=== PATIENT | female | born 1945 | race Caucasian/White ===

== ENCOUNTER 2020-06-02 19:48 | Emergency (ER) | payer MEDICARE, SELFPAY ==
--- NOTE | ~2020-06-02 | CT_ITS ---
EXAMINATION: CT abdomen pelvis w con DATE: 06/02/2020 21:23 INDICATION: Left flank pain and fever. TECHNIQUE: Computed tomography (CT) of the abdomen and pelvis was performed with 100 mL Omnipaque 350 intravenous contrast. Automated exposure control and iterative reconstruction technique were employe d. The dose-length product was 1045.16 mGy-cm. COMPARISON: None. FINDINGS: The visualized portions of the lung bases demonstrate mild atelectasis. Calcified left lung nodules and calcified mediastinal lymph nodes are consistent with old granulomatous disease. No pleu ral effusion. The heart size is normal. There are coronary artery calcifications. No pericardial effu tyrese. The liver is normal. There is a 2.8 cm cystic lesion in the head of the pancreas. Calcification s in the spleen are consistent with old granulomatous disease. The adrenal glands are normal. There i s mild atrophy of the kidneys. There are no dilated loops of bowel. The appendix is not visualized. T here are umbilical and supraumbilical ventral hernias containing fat. There are surgical changes of t he stomach. There are no pathologically enlarged lymph nodes. There is no free intraperitoneal fluid. There is diffuse wall thickening of the bladder. There is severe lumbar spondylosis and moderate tho racic spondylosis. IMPRESSION: 1. 2.8 cm cystic lesion in the pancreas. The differential diagnosis includes pseudocyst, intraductal papillary mucinous neoplasm (IPMN), mucinous cystic neoplasm (MCN), serous cystadenoma, and neuroendo crine tumor. Consider endoscopic ultrasound with fine-needle aspiration or 6-month follow-up abdomen MRI without and with contrast. 2. Umbilical and supraumbilical ventral hernias containing fat. 3. Diffuse bladder wall thickening, which may be cystitis. Correlate with urinalysis. Reviewed, dictated and finalized at location A. IMPRESSION: 1. 2.8 cm cystic lesion in the pancreas. The differential diagnosis includes ps eudocyst, intraductal papillary mucinous neoplasm (IPMN), mucinous cystic neopl asm (MCN), serous cystadenoma, and neuroendocrine tumor. Consider endoscopic ul trasound with fine-needle aspiration or 6-month follow-up abdomen MRI without a nd with contrast. 2. Umbilical and supraumbilical ventral hernias containing fat. 3. Diffuse bladder wall thickening, which may be cystitis. Correlate with urina lysis.
[2020-06-02 19:51] VITALS: BP 180/82; PULSE 96; RESP 16; TEMP 37.8; O2SAT 99
--- NOTE | 2020-06-02 19:56 | ED.FEVER ---
HPI - Fever General Chief Complaint: Fever Stated Complaint: fever, UTI, sent from express care Time Seen by Provider: 06/02/20 19:56 History of Present Illness HPI Narrative: Sent from urgent care for fever and UTI. She reports dyuria and urinary frequency for a few days. Low grade fever and left flank pain today. She has a h/o previous pyelonephritis. Related Data Allergies Allergy/AdvReac Type Severity Reaction Status Date / Time No Known Allergies Allergy Verified 06/02/20 20:48 Review of Systems Review of Systems: All systems reviewed & are unremarkable except as noted in HPI and below Constitutional: Constitutional: Reports fever(s) ENT: Denies sore throat Cardiovascular: Cardiovascular: Denies chest pain Respiratory: Respiratory: Denies cough and Denies dyspnea Gastrointestinal: Gastrointestinal: Reports nausea and Denies vomiting Genitourinary: Genitourinary: Reports nocturia, Reports dysuria and Reports flank pain PMF Past Medical History Medical History (Updated 06/03/20 @ 04:11 by Trung Hinojosa MD) Pyelonephritis Exam Const: General: no acute distress and alert Orientation/consciousness: patient oriented x3 HENMT: Head: normal to inspection Resp: Effort & Inspection: normal respiratory effort Auscultation: clear to auscultation bilaterally Cardio: Rate: regular rate Rhythm: regular rhythm GI: Inspection: non-distended GI Palp: Yes Soft to palpation and Yes Tenderness to palpation present (GI) : General: Yes CVA tenderness on the left Skin: General skin exam: normal color Neuro: General: patient oriented x3 and CN's II-XI intact bilaterally Speech: normal speech Psych: Mental Status: mental status grossly normal Course Vital Signs Vital signs: Vital Signs Temperature 37.8 C H 06/02/20 19:51 Pulse Rate 96 06/02/20 19:51 Respiratory Rate 16 06/02/20 19:51 Blood Pressure 180/82 H 06/02/20 19:51 Pulse Oximetry 99 06/02/20 19:51 Temperature 37.2 C 06/02/20 22:31 Pulse Rate 88 06/02/20 22:31 Respiratory Rate 16 06/02/20 22:31 Blood Pressure 164/68 H 06/02/20 22:31 Pulse Oximetry 98 06/02/20 22:31 MDM - Fever MDM Narrative Medical decision making narrative: No evidence of renal involvement on CT. Mild elevation in WBCs. Given temp elevation, DM, and flank pain with h/o pyelo I will treat with more broad spectrum antibiotic. She should be appropriate for outpatient treatment at this time. Medical Records Attestation: I reviewed the patient's medical records. Lab Data Attestation: I reviewed the patient's lab results. Result diagrams: 06/02/20 20:41 Labs: Lab Results 06/02/20 Range/Units 20:41 Sodium 135 L (137-145) mmol/L Potassium 3.2 L (3.4-5.0) mmol/L Chloride 101 (98-107) mmol/L Carbon Dioxide 25 (22-30) mmol/L BUN 19 H (7-17) mg/dL Creatinine 1.00 (0.7-1.0) mg/dL Estim Creat Clear Calc 49 ml/min Estimated GFR 54 L (59 - ) Glucose 193 H (65-105) mg/dL Calcium 9.2 (8.4-10.2) mg/dL Total Bilirubin 0.8 (0.2-1.3) mg/dL AST 41 H (14-36) U/L ALT 45 H (4-35) U/L Alkaline Phosphatase 91 (38-126) U/L Total Protein 8.0 (6.3-8.2) g/dL Albumin 4.0 (3.5-5.1) g/dL Imaging Data Radiologist's impression: ITS Impressions Abdomen/Pelvis CT 06/02/20 21:39 IMPRESSION: 1. 2.8 cm cystic lesion in the pancreas. The differential diagnosis includes pseudocyst, intraductal papillary mucinous neoplasm (IPMN), mucinous cystic neoplasm (MCN), serous cystadenoma, and neuroendocrine tumor. Consider endoscopic ultrasound with fine-needle aspiration or 6-month follow-up abdomen MRI without and with contrast. 2. Umbilical and supraumbilical ventral hernias containing fat. 3. Diffuse bladder wall thickening, which may be cystitis. Correlate with urinalysis. Discharge Plan Discharge Clinical Impression: UTI (urinary tract infection) Patient Disposition: Home,
[2020-06-02 20:59] LABS: Alanine Aminotransferase 45 U/L (4-35); Alkaline Phosphatase 91 U/L (38-126); Aspartate Amino Transferase 41 U/L (14-36); Bilirubin,Total 0.8 mg/dL (0.2-1.3); Blood Urea Nitrogen 19 mg/dL (7-17); Calcium 9.2 mg/dL (8.4-10.2); Carbon Dioxide 25 mmol/L (22-30); Chloride 101 mmol/L (98-107); Estimated CRCL calculation 49 ml/min; Estimated Glomerular Filt Rate 54; Glucose 193 mg/dL (65-105); Potassium 3.2 mmol/L (3.4-5.0); Sodium 135 mmol/L (137-145)
[2020-06-02] MEDS: KETOROLAC 30 MG/ML VIAL (*BKC) IV PUSH (22:07)
[2020-06-02] MEDS: MORPHINE SULFATE 2 MG/ML INJ IV PUSH (22:07)
[2020-06-02 22:31] VITALS: BP 164/68; PULSE 88; RESP 16; TEMP 37.2; O2SAT 98
== END 2020-06-02 22:34 | disposition home or self-care (01) ==
PROVIDERS: Emergency Provider Emergency Medicine
DX: N39.0 Urinary tract infection, site not specified (principal); K42.9 Umbilical hernia without obstruction or gangrene; K43.9 Ventral hernia without obstruction or gangrene; K86.9 Disease of pancreas, unspecified
CPT/HCPCS: 36415; 74177; 80053; 87077; 87086; 87088; 87186; 96365; 96368; 96375; 99284; J0131; J0696; J1885; J2270; Q9967

== ENCOUNTER 2020-09-16 07:57 | Emergency (ER) | payer MEDICARE, OTHER, SELFPAY ==
--- NOTE | ~2020-09-16 | XR_ITS ---
EXAMINATION:XR_CERV2-3V_CR DATE: 09/16/2020 08:40 INDICATION: Neck pain TECHNIQUE: AP, lateral, lateral swimmers and odontoid views of the cervical spine are provided. COMPARISON: None FINDINGS: There are 2 mm of retrolisthesis of C6 on C7. The odontoid is intact. No fracture is identi fied. The vertebral body heights are normal. There is moderate loss of intervertebral disc space heig ht at C4-5 and C6-7. Degenerative osteophytes project from the anterior endplates of multiple vertebr al bodies. There is severe multilevel facet and uncovertebral joint osteoarthritis. Prevertebral soft tissues are normal. IMPRESSION: 1. Moderate cervical spondylosis without acute osseous abnormality. Reviewed, dictated and finalized at location A.
--- NOTE | ~2020-09-16 | CT_ITS ---
EXAMINATION: CT cervical spine wo con DATE: 09/16/2020 10:42 INDICATION: Neck pain TECHNIQUE: Computed tomography (CT) of the cervical spine was performed without intravenous contrast. The dose-length product (DLP) was 419.38 mGy-cm. Automated exposure control and iterative reconstruc tion technique were employed. COMPARISON: None FINDINGS: There is no fracture. The vertebral body heights are maintained. There are 2 mm of anteroli sthesis of C2 on C3 and C3 on C4. There is moderate loss of intervertebral disc space height from C4- 5 through C6-7 and mild loss of height elsewhere. The vertebral body heights are maintained. The odon toid is intact. The prevertebral soft tissues are normal. There is severe multilevel facet and uncove rtebral joint osteoarthritis. Degenerative osteophytes project from the anterior endplates of multipl e vertebral bodies. IMPRESSION: 1. Severe cervical spondylosis without acute findings. Reviewed, dictated and finalized at location A.
--- NOTE | ~2020-09-16 | XR_ITS ---
EXAMINATION: XR humerus LT INDICATION: Left arm pain TECHNIQUE: Two views of the left humerus are obtained. COMPARISON: None available FINDINGS: Bone alignment is normal. There is no fracture. Mild osteoarthritis is noted in the shoulde r. There is soft tissue swelling of the upper arm. Partially imaged surgical changes are noted in the left upper quadrant. IMPRESSION: 1. Soft tissue swelling without acute osseous abnormality. Reviewed, dictated and finalized at location A.
[2020-09-16 08:19] VITALS: BP 151/96; PULSE 82; RESP 12; TEMP 36.3; O2SAT 99
--- NOTE | 2020-09-16 08:21 | ECG_ITS ---
Measurements Intervals [place] Rate: 67 P: 50 LA: 142 QRS: 5 QRSD: 99 T: 12 QT: 419 QTc: 444 Interpretive Statements SINUS RHYTHM VOLTAGE CRITERIA FOR LVH BORDERLINE ECG Electronically Signed On 09-16-2020 13:47:51 CDT by Ramo Regalado D.O.
--- NOTE | 2020-09-16 08:32 | ED.GENADULT ---
HPI - General Adult General Chief complaint: Extremity Problem,Nontraumatic Stated complaint: left arm and neck pain Time Seen by Provider: 09/16/20 08:03 Source: patient History of Present Illness HPI narrative: Patient is a 75 y/o female complaining of left neck pain radiating to left arm starting about 1 week ago. She describes her pain as aching and occasionally sharp. She rates her pain as 8/10. She states that she was pulled down by a large dog 1 week ago before her pain started. She has no chest pain or SOB. She is able to move left arm. She has no left arm weakness or numbness. Related Data Home Medications Medication Instructions Recorded Confirmed aspirin 81 mg PO DAILY 09/16/20 atorvastatin 09/16/20 clopidogrel 75 mg PO DAILY 09/16/20 famotidine [Acid Yard Caller 20 09/16/20 (famotidine)] furosemide 09/16/20 lisinopril 09/16/20 metformin 1,000 mg 09/16/20 multivit with min-folic acid tablet PO 09/16/20 [Adult One Daily Multivitamin] Allergies Allergy/AdvReac Type Severity Reaction Status Date / Time No Known Allergies Allergy Verified 09/16/20 08:22 Review of Systems Constitutional: Constitutional: Denies chills, Denies fever(s), Denies headache(s) and Denies weakness Eyes: Eyes: Denies blurry vision ENT: Denies headache(s) and Denies neck pain Cardiovascular: Cardiovascular: Denies chest pain and Denies dyspnea Respiratory: Respiratory: Denies cough and Denies dyspnea Gastrointestinal: Gastrointestinal: Denies abdominal pain, Denies diarrhea, Denies nausea and Denies vomiting Genitourinary: Genitourinary: Denies hematuria and Denies dysuria Musculoskeletal: Musculoskeletal: Reports as per HPI, Denies back pain, Denies neck pain, Reports radiating pain into limb and Reports other (neck pain) Neurologic: Denies headache(s) and Denies weakness PMFSH Past Medical History Medical History Pyelonephritis Social History Social History Gender identity (if verbalized by the patient): Female Exam Const: General: no acute distress and well developed Orientation/consciousness: oriented to person, oriented to place, oriented to time and patient oriented x3 HENMT: Head: normocephalic Ears: external ears normal General nose exam: Normal external nose present Eyes: General: appearance normal, both eyes and all related structures Conjunctivae: conjunctivae normal Neck: Neck: normal visual inspection and full ROM Chest: Chest palpation & inspection: normal inspection of the chest and no tenderness Resp: Effort & Inspection: normal respiratory effort Auscultation: clear to auscultation bilaterally Cardio: Rate: regular rate Rhythm: regular rhythm GI: GI Palp: No abdominal tenderness and Yes Soft to palpation Skin: General skin exam: normal color and turgor normal Neuro: General: oriented to person, oriented to place, oriented to time and patient oriented x3 Cognition (Neuro): normal cognition Extrem: General: normal to inspection, full ROM and no pedal edema Psych: Appearance: grossly normal Mental Status: mental status grossly normal Affect: normal affect Course Vital Signs Vital signs: Vital Signs Temperature 36.3 C L 09/16/20 08:19 Pulse Rate 82 09/16/20 08:19 Respiratory Rate 12 09/16/20 08:19 Blood Pressure 151/96 H 09/16/20 08:19 Pulse Oximetry 99 09/16/20 08:19 Temperature 36.3 C L 09/16/20 08:19 Pulse Rate 65 09/16/20 12:12 Respiratory Rate 17 09/16/20 12:12 Blood Pressure 163/93 H 09/16/20 12:12 Pulse Oximetry 98 09/16/20 12:12 Medical Decision Making Vital Signs Vital Signs: Vital Signs Temperature 36.3 C L 09/16/20 08:19 Pulse Rate 82 09/16/20 08:19 Respiratory Rate 12 09/16/20 08:19 Blood Pressure 151/96 H 09/16/20 08:19 Pulse Oximetry 99 09/16/20 08:19 Temperature 36.3 C L 09/16/20 08:
[2020-09-16] MEDS: CYCLOBENZAPRINE HCL 10 MG TABLET PO (08:50)
[2020-09-16 08:51] VITALS: BP 190/99; PULSE 67; RESP 20; O2SAT 97
[2020-09-16 08:52] LABS: Basophils Absolute Auto 0.1 K/mm3 (0.0-0.1); Basophils Percent Auto 0.9 % (0.2-1.2); Eosinophils Absolute Auto 0.6 K/mm3 (0-0.3); Eosinophils Percent Auto 6.1 % (0-4.4); Hematocrit 44.5 % (37.0-47.0); Hemoglobin 14.4 g/dL (12.0-15.0); Immature Granulocyte Absolute 0.03 K/mm3 (0.00-0.031); Immature Granulocyte Percent A 0.3 % (0-0.5); Lymphocytes Absolute Auto 3.15 K/mm3 (0.9-3.2); Lymphocytes Percent Auto 34.2 % (18.3-44.2); Mean Corpuscular HGB Conc 32.4 g/dl (32-36); Mean Corpuscular Volume 92.7 fl (80-100); Mean Platelet Volume 10.7 fl (7.4-10.4); Monocytes Absolute Auto 0.8 K/mm3 (0.1-0.6); Monocytes Percent Auto 8.3 % (2.6-8.5); Neutrophils Absolute Auto 4.6 K/mm3 (1.3-6.7); Neutrophils Percent Auto 50.2 % (45.5-73.1); Platelet Count Result 280 k/mm3 (150-375); Red Cell Distribution Width 13.8 % (11.5-14.5); White Blood Count 9.2 K/mm3 (4.5-10.0)
[2020-09-16 09:02] LABS: Anion Gap 8 mmol/L (8-16); Blood Urea Nitrogen 19 mg/dL (7-17); Calcium 9.8 mg/dL (8.4-10.2); Carbon Dioxide 29 mmol/L (22-30); Chloride 103 mmol/L (98-107); Estimated Glomerular Filt Rate 54; Glucose 182 mg/dL (65-105); Potassium 4.1 mmol/L (3.4-5.0); Sodium 140 mmol/L (137-145)
[2020-09-16 09:14] LABS: Troponin I < 0.012 ng/mL (0.000-0.034)
[2020-09-16 09:21] VITALS: PULSE 73; RESP 21; O2SAT 97
[2020-09-16] MEDS: hydroCHLOROthiazide 25 MG TABLET PO (10:19)
[2020-09-16] MEDS: KETOROLAC 15 MG/ML VIAL (*BKC) IV PUSH (10:19)
[2020-09-16 10:44] VITALS: BP 194/95; PULSE 64; RESP 18; O2SAT 98
[2020-09-16 11:19] VITALS: PULSE 65; RESP 16; O2SAT 98
[2020-09-16 12:04] LABS: Troponin I < 0.012 ng/mL (0.000-0.034)
[2020-09-16 12:12] VITALS: BP 163/93; PULSE 65; RESP 17; O2SAT 98
== END 2020-09-16 13:16 | disposition home or self-care (01) ==
PROVIDERS: Emergency Provider Emergency Medicine; Referring Provider Family Medicine
DX: M54.12 Radiculopathy, cervical region (principal); I10 Essential (primary) hypertension; Z79.82 Long term (current) use of aspirin; Z79.84 Long term (current) use of oral hypoglycemic drugs; R94.31 Abnormal electrocardiogram [ECG] [EKG]
CPT/HCPCS: 36415; 72040; 72125; 73060; 80048; 84484; 85025; 93005; 96374; 99284; A9270; J1885

== ENCOUNTER 2023-10-21 11:28 | Outpatient (CLI) | payer MEDICARE, OTHER, SELFPAY ==
--- NOTE | ~2023-10-21 | US_ITS ---
Duplex Sonography of the right extremity: Indication: Right calf pain Findings: Sagittal and transverse B-mode images as well as color-flow imaging were performed on the r ight femoral and popliteal veins. B-mode examination was done without and with compression in the tr ansverse plane. There is good visualization of the common femoral, proximal profunda femoral, superf icial femoral, greater saphenous, and popliteal veins. Normal flow was seen on color-flow imaging. N ormal compressibility was demonstrated. Right posterior tibial, gastrocnemius, greater saphenous vein s also demonstrate normal flow and compressibility. Right peroneal vein not visualized. Impression: No evidence of deep vein thrombosis involving the right lower extremity. Reviewed, dictated and finalized at location M. TELLER Impression: No evidence of deep vein thrombosis involving the right lower extremity.
== END 2023-10-21 11:29 | disposition home or self-care (01) ==
PROVIDERS: PCP Nurse Practitioner Family; Visit Provider Nurse Practitioner Family
DX: M79.661 Pain in right lower leg (principal)
CPT/HCPCS: 93971

== ENCOUNTER 2025-02-18 07:40 | Outpatient (CLI) | payer MEDICARE, SELFPAY ==
--- NOTE | ~2025-02-18 | CT_ITS ---
CT of the Abdomen and Pelvis: Indication: Abdominal pain Technique: 2.5 mm axial scans were obtained through the abdomen and pelvis following intravenous adm inistration of 100 cc of Omnipaque 350. Dose reduction technique was used on this scan by utilizing a utomated exposure control and iterative reconstruction technique. The dose-length product (DLP) was 9 16.52 mGy-cm. COMPARISON: 06/02/2020 Findings: Scans through the lung bases are unremarkable. Intrahepatic and extra hepatic biliary dilatation is probably related to prior cholecystectomy. There is a 2 cm cystic lesion at the pancreatic head. No pancreatic ductal dilatation. The spleen, adrenal s and kidneys are within normal limits. There are atherosclerotic calcifications of the aorta. No ly mphadenopathy. No bowel obstruction or bowel wall thickening. There is no evidence to suggest acute appendicitis. Ve ry small fat-containing inferior ventral hernia present. Images through the pelvis were performed. Urinary bladder unremarkable. No pelvic mass evident. Impression: No acute abnormality. Stable 2 cm cystic lesion at the pancreatic head. Biliary dilatation is likely related to prior cholecystectomy. Very small inferior ventral fat-containing hernia. Reviewed, dictated and finalized at location . Impression: No acute abnormality. Stable 2 cm cystic lesion at the pancreatic head. Biliary dilatation is likely related to prior cholecystectomy. Very small inferior ventral fat-containing hernia.
--- OUTSIDE RECORDS SUMMARY | 2025-02-18 07:44 | XMS_ITS | Encounter Summary ---
Author Organization formerly [facility] Address [address] [place] [address] Care Team Providers Care Stage Setting Painter Apprentice Name Role Phone Khai Neal MD Unavailable [phone] Delores Chamberlain NP Primary Care Provider [phone] Tyree Bauer MD PhD Unavailable + Mary Ma RN Unavailable Unavaila ble Reason for Referral * MRI/CAT/PET Scan (Routine) - Closed Specialty Diagnoses / Procedures Referred By Clara t Referred To Contact Radiology Diagnoses Pancreatic cyst Intrahepatic bile duct dilation Procedures MRI/MRCP (abdomen) W WO Contrast Xiomara Khan MD [address] [place] [address] [facility] [address] [place] [address] Phone: tel: fax: [address] [phone] Referral ID Status Reason Start Date Expiration Date Visits Re quested Visits Authorized [id number] Closed 12/28/2024 01/27/2026 1 1 Reason for Visit * MRI/CAT/PET Scan (Routine) - Closed Specialty Diagnoses / Procedures Referred By Clara garcia Referred To Contact Radiology Diagnoses Pancreatic cyst Intrahepatic bile duct dilation Procedures MRI/MRCP (abdomen) W WO Contrast Xiomara Khan MD [address] [place] [address] [address] [place] [address] Phone: tel: fax: [address] [phone] Referral ID Status Reason Start Date Expiration Date Visits Re quested Visits Authorized [id number] Closed 12/28/2024 01/27/2026 1 1 Encounter Details Date Type Department Care Team (Latest Contact Info) Description 02/16/2025 7:18 AM CDT - 02/16/2025 11:59 PM CDT Hospital Encounter [facility] [address] [place] [id number] Pancreatic cyst; Intrahepatic bile duct dilation Discharge Disposition: Discharge to home or self care Social History Tobacco Use Types Packs/Day Years Used Date Smoking Tobacco: Never Passive Smoke Exposure: Never Smokeless Tobacco: Never Alcohol Use Standard Drinks/Week Comments No 0 (1 standard drink = 0.6 oz pur e alcohol) AUDIT-C Answer Date Recorded Q1: How often do you have a drink containing alcohol? Never 02/04/2025 Q2: How many drinks containi ng alcohol do you have on a typical day when you are drinking? Patient does not drink Q3: How often do you have si x or more drinks on one occasion? Never 02/04/2025 PHQ-2 Answer Date Recorded PHQ-2 Total Score (If total score is 3 or more points, staff should administer the PHQ-9) 0 08/27/2024 Personal Safety Answer Date Recorded Have you ever been in or are you currently in a harmful physical or emotional relationship or is someone making you feel afraid or unsafe? Denies 02/07/2025 Comments No Sex and Gender Information Value Date Recorded Sex Assigned at Not on file Legal Sex Female 7:58 AM RISK PROFESSIONAL Gender Identity Female 05/21/2023 3:25 AM CDT Sexual Orientation Not on file documented as of this encounter Medications at Time of Discharge amLODIPine (NORVASC) 10 mg tabletIndications: Essential hypertension Take 1 tablet (10 mg total) by mouth daily 90 tablet 1 03/16/2024 aspirin 81 mg enteric coated tabletIndications: prevention of thrombosis Take 1 tablet (81 mg total) by mouth nightly 12/22/2023 atorvastatin (LIPITOR) 10 mg tabletIndications: Hypercholesterolem ia Take 1 tablet (10 mg total) by mouth daily 90 tablet 1 02/04/2025 blood glucose diagnostic (Contour Next Test Strips) stripIndications:T ype 2 diabetes mellitus without complication, without long-term current use of insulin (HCC) CHECK BLOOD SUGAR ONCE DAILY 200 strip 07/23/2023 dapagliflozin propanediol (Farxiga) 10 mg tabletIndications: type 2 diabetes mellitus Take 1 tablet (10 mg total) by mouth daily 12/02/2024 famotidine (PEPCID) 20 mg tabletIndications: gastroesophageal reflux disease Take 1 tablet (20 mg total) by mouth every morning lisinopriL (PRINIVIL,ZESTRIL) 20 mg tabletIndications: hypertension Take 1 tablet (20 mg total) by mouth every morning 90 tablet 1 09/06/2024 multivitamin capsuleIndications :Vitamin Deficiency Prevention Take 1 capsule by mouth every morning oxymetazoline HCl (AFRIN, OXYMETAZOLINE, NASL)Indications:a llergies Administer 1 spray into each nostril as needed vit C/E/Zn/coppr/lutei n/zeaxan (PRESERVISION AREDS-2 ORAL)Indications:e ye supplement Take 1 tablet by mouth 2 (two) times a day documented as of this encounter Discharge Disposition Disposition Code Departure Means Destination Discharge to home or self care documented in this encounter Plan of Treatment Pending Results Name Type Priority Associated Diagnoses Date /Time MRI/MRCP (abdomen) W WO Contrast Imaging Schedule Routine, Read Routine (OP Routine) Pancreatic cyst Intrahepatic bile duct dilation 02/16/2025 8:22 AM CDT Scheduled Orders Name Type Priority Associated Diagnoses Orde r Schedule MRI/MRCP (abdomen) W WO Contrast Imaging Schedule Routine, Read Routine (OP Routine) Pancreatic cyst Intrahepatic bile duct dilation Once for 1 Occurrences starting 02/16/2025 until 02/16/2025 documented as of this encounter Visit Diagnoses Diagnosis Pancreatic cyst 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 dilation documented in this encounter Administered Medications Inactive Administered Medications - up to 3 most recent administrations Medication Order MAR Action Action Date Dose Rate Site gadoterate meglumine injection 18 mL 18 mL, intravenous, Once in imaging, contrast, Starting on Fri02/16/25 at 0741, For 1 dose Contrast Given 02/16/2025 8:22 AM CDT 18 mL documented in this encounter Orders Medications Ordered That Jeff ht Not Have Been Administered Count Last Ordered Date First Ordered Date gadoterate meglumine injection 18 mL 1 12/2024 documented in this encounter Care Teams Stage Setting Painter Apprentice Relationship Specialty Start Date End Date Delores Chamberlain NP [address] [place] [address] PCP - General Family Medicine 07/23/23 Khai Neal MD Consulting Physician Ophthalmology 10/08/21 Tyree Bauer MD PhD [address] [place] [address] Referring Physician Cardiology 07/23/23 Mary Ma, fast food cook Failure Coordinator 08/12/23 documented as of this encounter
--- OUTSIDE RECORDS SUMMARY | 2025-02-18 07:44 | XMS_ITS | Clinical Summary ---
Author Organization [facility] Address [address] [place] [address] Care Team Providers Care Grout Worker Name Role Phone Delores Chamberlain Rk DEVELOPER [employer] Primary Care Provider [phone] Allergies No known active allergies Medications No known medications Encounters Date Type Department Care Team Description 12/14/2024 11:19 PM MERGERS AND ACQUISITIONS ASSOCIATE - 12/15/2024 3:55 AM MERGERS AND ACQUISITIONS ASSOCIATE Emergency [facility] Emergency Room [id number] [place] [address] [id number] Rasheed Orozco MD Bleeding (Rectal); Abdominal Pain Discharge Disposition: Home or Self Care (Routine Discharge) 12/14/2024 Travel from Last 3 Months Immunizations Name Administration Dates Next Due Tdap (Boostrix) 06/16/2024 Social History Tobacco Use Types Packs/Day Years Used Date Smoking Tobacco: Unknown Tobacco Cessation:Counseling Given: Not Answered Comments Unknown Sex and Gender Information Value Date Recorded Sex Assigned at Female 12/14/2024 11:51 PM MERGERS AND ACQUISITIONS ASSOCIATE Legal Sex Female 3:33 PM CDT Gender Identity Not on file Sexual Orientation Not on file Last Filed Vital Signs Vital Sign Reading Time Taken Comments Blood Pressure 167/76 12/15/2024 3:31 AM MERGERS AND ACQUISITIONS ASSOCIATE Pulse 100 12/15/2024 3:31 AM MERGERS AND ACQUISITIONS ASSOCIATE Temperature 36.7 C (98 F) 12/15/2024 3:31 AM MERGERS AND ACQUISITIONS ASSOCIATE Respiratory Rate 18 12/15/2024 3:31 AM MERGERS AND ACQUISITIONS ASSOCIATE Oxygen Saturation 97% 12/15/2024 3:31 AM MERGERS AND ACQUISITIONS ASSOCIATE Inhaled Oxygen Concentration - - Weight 86.2 kg (190 lb) 12/14/2024 11:21 PM MERGERS AND ACQUISITIONS ASSOCIATE Height 160 cm (5' 3 ) 12/14/2024 11:21 PM MERGERS AND ACQUISITIONS ASSOCIATE Body Mass Index 33.66 12/14/2024 11:21 PM MERGERS AND ACQUISITIONS ASSOCIATE Plan of Treatment Health Maintenance Due Date Last Done Comments Hepatitis C 1964 Zoster Vaccines (1 of 2) 1996 Annual Medicare Wellness Visit 2011 RSV Immunization or 60+ Years (1 - 1-dose 75+ series) 2021 COVID-19 Vaccine (5 - season) 2024 11/08/2023, 09/06/2022, 02/13/2021, Additional history exists DTaP, Tdap and Td Vaccines (2 - Td or Tdap) 06/16/2034 06/16/2024 Pneumococcal Vaccine: 65+ Years Completed 01/18/2020, 11/17/2015 Dexa Scan (General) Completed 08/03/2024, 08/03/2024, 12/05/2021, Additional history exists Meningococcal B Vaccine Aged Out No l onger eligible based on patient's age to complete this topic Meningococcal Vaccine Aged Out No umair kim eligible based on patient's age to complete this topic RSV Immunizations Under 20 Months Aged Out No longer eligible based on patient's age to complete this topic Procedures Procedure Name Priority Date/Time Associated Diagnosis Comments CT ABD+PEL W CON STAT 12/15/2024 2:31 AM MERGERS AND ACQUISITIONS ASSOCIATE LIPASE STAT 12/15/2024 1:05 AM MERGERS AND ACQUISITIONS ASSOCIATE BASIC METABOLIC PANEL STAT 12/15/2024 1:05 AM MERGERS AND ACQUISITIONS ASSOCIATE CBC W/DIFF AUTOMATED STAT 12/15/2024 1:05 AM MERGERS AND ACQUISITIONS ASSOCIATE from Last 3 Months Results * CT ABD+PEL W CON (12/15/2024 2:31 AM MERGERS AND ACQUISITIONS ASSOCIATE) Anatomical Region Laterality Modality Abdomen Computed Tomogra phy 12/15/2024 2:35 AM MERGERS AND ACQUISITIONS ASSOCIATE Impressions 12/15/2024 2:43 AM MERGERS AND ACQUISITIONS ASSOCIATE IMPRESSION: ===== 1. Long segment of distal large bowel and sigmoid colon with diffuse wall thickening and subtle adjacent inflammatory stranding. No discrete mass or obstruction. Colitis of uncertain etiology. 2. Intrahepatic biliary ductal dilatation with asymmetric prominence in the left hepatic lobe. This raises concern for ductal obstruction or underlying mass. Further evaluation with nonemergent liver mass protocol MRI with MRCP recommended. 3. 2.1 cm cystic lesion in the head of pancreas. Further evaluation with nonemergent pancreatic protocol MRI recommended. 4. Bilateral internal hemorrhoids slightly more prominent on the right. 5. Coronary artery calcifications and atherosclerotic aorta. Referred By: Interpreted By: Angel Haile MD, 12/15/2024 2:35 AM Narrative 12/15/2024 2:43 AM MERGERS AND ACQUISITIONS ASSOCIATE [facility] [address] [address] [address] EXAMINATION: CT Abdomen and Pelvis with contrast EXAM DATE/TIME: 12/15/2024 2:16 AM REASON FOR EXAM: LLQ pain, rectal bleeding [Quadrant pain and rectal bleeding this evening. History of appendectomy, cholecystectomy, hysterectomy, gastric sleeve, and hernia repair COMPARISON: None TECHNIQUE: Axial CT images of the abdomen and pelvis are obtained following uneventful intravenous administration of 100 cc Isovue-300. Subsequent coronal and sagittal reformatted sequences are created for evaluation. A dose lowering technique was used for this procedure, which may include, but is not limited to, dose reduction technique, automated exposure control, iterative reconstruction, ALARA (As Low As Reasonably Achievable), or Image Gently techniques. FINDINGS: Lung bases clear. No pleural effusion. Heart size normal. No pericardial effusion. Coronary artery calcifications. Liver and spleen normal in size and surface contour. 2.1 cm cystic lesion in the head of pancreas. Distal common bile duct is significantly enlarged up to 18 mm in diameter, however it appears the gallbladder has been resected. There is intrahepatic biliary ductal dilatation noted as well, however this is asymmetrically much more prominent in the left hepatic lobe. This raises concern for potential ductal obstruction or underlying mass. Postsurgical changes in the stomach. Adrenal glands unremarkable. Multilobulated contours of both kidneys with symmetric enhancement. No hydronephrosis on either side. Abdominal aorta normal in caliber throughout with moderate calcifications. The bowel is normal in caliber throughout. No evidence of bowel obstruction. Bladder contours are smooth. No free fluid in the pelvis. Bilateral hemorrhoids noted slightly more prominent on the right. See axial image 33. No significant diverticular disease. Appendectomy. There is a long segment of distal large bowel and sigmoid colon with diffuse wall thickening. Subtle adjacent inflammatory stranding. No discrete mass or obstruction. Bone level imaging shows no destructive osseous lesions. Multilevel endplate degenerative changes are seen. ===== Procedure Note Angel Haile MD - 12/15/2024 [facility] [address] [facility] [place] [address] EXAMINATION: CT Abdomen and Pelvis with contrast EXAM DATE/TIME: 12/15/2024 2:16 AM REASON FOR EXAM: LLQ pain, rectal bleeding [Quadrant pain and rectal bleeding this evening. History ofappendectomy, cholecystectomy, hysterectomy, gastric sleeve, and herniarepair COMPARISON: None TECHNIQUE: Axial CT images of the abdomen and pelvis are obtainedfollowing uneventful intravenous administration of 100 cc Isovue-300.Subsequent coronal and sagittal reformatted sequences are created forevaluation. A dose lowering technique was used for this procedure, whichmay include, but is not limited to, dose reduction technique, automatedexposure control, iterative reconstruction, ALARA (As Low As ReasonablyAchievable), or Image Gently techniques. FINDINGS: Lung bases clear. No pleural effusion. Heart size normal. Nopericardial effusion. Coronary artery calcifications. Liver and spleen normal in size and surface contour. 2.1 cm cystic lesionin the head of pancreas. Distal common bile duct is significantlyenlarged up to 18 mm in diameter, however it appears the gallbladder hasbeen resected. There is intrahepatic biliary ductal dilatation noted aswell, however this is asymmetrically much more prominent in the lefthepatic lobe. This raises concern for potential ductal obstruction orunderlying mass. Postsurgical changes in the stomach. Adrenal glandsunremarkable. Multilobulated contours of both kidneys with symmetricenhancement. No hydronephrosis on either side. Abdominal aorta normal incaliber throughout with moderate calcifications. The bowel is normal incaliber throughout. No evidence of bowel obstruction. Bladder contoursare smooth. No free fluid in the pelvis. Bilateral hemorrhoids notedslightly more prominent on the right. See axial image 33. No significantdiverticular disease. Appendectomy. There is a long segment of distallarge bowel and sigmoid colon with diffuse wall thickening. Subtleadjacent inflammatory stranding. No discrete mass or obstruction. Bonelevel imaging shows no destructive osseous lesions. Multilevel endplatedegenerative changes are seen. ===== IMPRESSION: ===== 1. Long segment of distal large bowel and sigmoid colon with diffuse wallthickening and subtle adjacent inflammatory stranding. No discrete mass orobstruction. Colitis of uncertain etiology. 2. Intrahepatic biliary ductal dilatation with asymmetric prominence inthe left hepatic lobe. This raises concern for ductal obstruction orunderlying mass. Further evaluation with nonemergent liver mass protocolMRI with MRCP recommended. 3. 2.1 cm cystic lesion in the head of pancreas. Further evaluation withnonemergent pancreatic protocol MRI recommended. 4. Bilateral internal hemorrhoids slightly more prominent on the right. 5. Coronary artery calcifications and atherosclerotic aorta. Referred By: Interpreted By: Angel Haile MD, 12/15/2024 2:35 AM Rasheed Orozco MD CT Fi nal Result * (ABNORMAL) BASIC METABOLIC PANEL (12/15/2024 1:05 AM MERGERS AND ACQUISITIONS ASSOCIATE) GLUCOSE 178(H) 70 - 99 MG/DL 12/15/2024 1:55 AM MERGERS AND ACQUISITIONS ASSOCIATE [facility] BUN 30(H) 7 - 18 MG/DL 12/15/2024 1:55 AM [facility] CREATININE S/P/B 1.68(H) 0.55 - 1.02 MG/DL 12/15/2024 1:55 AM [facility] SODIUM S/P/B 143 136 - 145 MMOL/L 12/15/2024 1:55 AM [facility] POTASSIUM S/P/B 4.6 3.5 - 5.1 MMOL/L 12/15/2024 1:55 AM [facility] CHLORIDE S/P/B 106 100 - 108 MMOL/L 12/15/2024 1:55 AM [facility] CO2 23.2 21 - 32 MMOL/L 12/15/2024 1:55 AM [facility] CALCIUM S/P/B 9.7 8.5 - 10.1 MG/DL 12/15/2024 1:55 AM [facility] ANION GAP 13.8 5 - 15 MMOL/L 12/15/2024 1:55 AM [facility] BUN CREATININE RATIO 17.9 6 - 26 12/15/2024 1:55 AM [facility] GFR ESTIMATE 31(L) >90 ML/MIN/1.7 3 M2 12/15/2024 1:55 AM [facility] Comment: NOTE: eGFR is not calculated for patients <18 years of age. This is an estimated GFR calculation using the new CKD EPI creatinine equation without race and so does not require a correction factor for race. This estimated GFR should not be used for calculating drug doses. 12/15/2024 1:05 AM MERGERS AND ACQUISITIONS ASSOCIATE us Rasheed Orozco MD LABORATORY Fi nal Result [facility] [address] [place] [address], * (ABNORMAL) CBC W/DIFF AUTOMATED (12/15/2024 1:05 AM MERGERS AND ACQUISITIONS ASSOCIATE) WBC 14.63(H) 4.4 - 11.0 x10'3/uL 12/15/2024 1:52 AM [facility] RBC 4.51 4.50 - 5.10 x10'6/uL 12/15/2024 1:52 AM [facility] HGB 13.6 12.3 - 15.3 G/DL 12/15/2024 1:52 AM [facility] HCT 41.7 35.9 - 44.6 % 12/15/2024 1:52 AM [facility] MCV 92.5 80.0 - 96.0 FL 12/15/2024 1:52 AM [facility] MCH 30.2 25.3 - 30.9 PG 12/15/2024 1:52 AM [facility] MCHC 32.6 31.0 - 34.1 G/DL 12/15/2024 1:52 AM [facility] RDW 14.6 12.4 - 15.1 % 12/15/2024 1:52 AM [facility] PLT 256 151 - 353 x10'3/uL 12/15/2024 1:52 AM [facility] MPV 10.7 9.6 - 12.0 FL 12/15/2024 1:52 AM [facility] RBC MORPHOLOGY NORMAL 12/15/2024 1:52 AM [facility] PLT MORPH. NORMAL 12/15/2024 1:52 AM [facility] WBC MORPHOLOGY NORMAL 12/15/2024 1:52 AM [facility] LYMPHOCYTES % 14.0(L) 15.8 - 45.0 % 12/15/2024 1:52 AM [facility] NEUTROPHILS % 75.9(H) 42.1 - 71.9 % 12/15/2024 1:52 AM [facility] MONOCYTES % 7.0 5.7 - 12.5 % 12/15/2024 1:52 AM [facility] EOSINOPHILS 1.4 0.0 - 5.6 % 12/15/2024 1:52 AM MERGERS AND ACQUISITIONS ASSOCIATE [facility] BASOPHILS 0.8 0.0 - 1.3 % 12/15/2024 1:52 AM MERGERS AND ACQUISITIONS ASSOCIATE [facility] ABS. NEUTROPHILS 11.11(H) 1.40 - 6.00 x10'3/uL 12/15/2024 1:52 AM MERGERS AND ACQUISITIONS ASSOCIATE [facility] IMMATURE GRANS % 0.9(H) 0.0 - 0.5 % 12/15/2024 1:52 AM MERGERS AND ACQUISITIONS ASSOCIATE [facility] ABS. LYMPHOCYTES 2.05 0.80 - 4.70 x10'3/uL 12/15/2024 1:52 AM MERGERS AND ACQUISITIONS ASSOCIATE [facility] 12/15/2024 1:05 AM MERGERS AND ACQUISITIONS ASSOCIATE Rasheed Orozco MD LABORATORY Fi nal Result [facility] [address] [place] [address], [place] [phone] * LIPASE (12/15/2024 1:05 AM MERGERS AND ACQUISITIONS ASSOCIATE) LIPASE 43 16 - 77 UNITS/L 12/15/2024 1:55 AM MERGERS AND ACQUISITIONS ASSOCIATE [facility] 12/15/2024 1:05 AM MERGERS AND ACQUISITIONS ASSOCIATE Rasheed Orozco MD LABORATORY Fi nal Result Performing Organization Address City/[facility]/ZIP Co de Phone Number [facility] [address] [place] [address], [place] [phone] from Last 3 Months Insurance [facility] Care Teams Grout Worker Relationship Specialty Start Date End Date Delores Chamberlain FNP PCP - General Nurse Practitioner Family 06/16/24
--- OUTSIDE RECORDS SUMMARY | 2025-02-18 07:44 | XMS_ITS | Clinical Summary ---
Author Organization [facility] Facility Address [address] [place] [address] Care Team Providers Care Unit Operator Name Role Phone Delores Chamberlain Primary Care Provider [phone] Encounters Date Type Department Care Team Description 01/06/2025 Documentation Only [facility], [address] [address] Eugenio Willingham MD 01/05/2025 Documentation Only [facility], [address] [address] Eugenio Willingham MD from Last 3 Months Social History Tobacco Use Types Packs/Day Years Used Date Smoking Tobacco: Never Assessed Comments Unknown Sex and Gender Information Value Date Recorded Sex Assigned at Not on file Legal Sex Female 4:06 PM EST Gender Identity Not on file Sexual Orientation Not on file Plan of Treatment Upcoming Encounters Date Type Department Care Team (Late st Contact Info) Description 02/25/2025 12:00 PM CDT Office Visit [facility], [facility] [address] [place] [address] Eugenio Willingham MD [address] [facility] [address] [place], [place] [id number] Health Maintenance Due Date Last Done Comments Hepatitis B Vaccine (1 of 3 - Risk 3-dose series) 2006 Diabetes: Hemoglobin A1C 01/05/2025 08/27/2024 Diabetes: Ophthalmology Exam 01/05/2025 Diabetes: Pedal Pulse Checked 01/05/2025 Diabetes: Sensory Foot Exam 01/05/2025 Diabetes: Visual Foot Exam 01/05/2025 Pneumococcal Vaccine: 65+ Years Completed , 11/17/2015 Influenza Vaccine Completed 08/27/2024, , 07/26/2020, Additional history exists Insurance Care Teams Unit Operator Relationship Specialty Start Date End Date Delores Chamberlain [address] [place] [address] PCP - General 01/05/25
--- OUTSIDE RECORDS SUMMARY | 2025-02-18 07:44 | XMS_ITS | Encounter Summary ---
Author Organization [facility] Address [address] [place] [address] Care Team Providers Care Perforator Loader Name Role Phone Khai Neal MD Unavailable [phone] Delores Chamberlain NP Primary Care Provider [phone] Tyree Bauer MD PhD Unavailable + Mary Ma RN Unavailable Unavaila ble Encounter Details Date Type Department Care Team (Late st Contact Info) Description 02/16/2025 Results Follow-Up [facility] Primary Care at [address] [address] Delores Chamberlain NP [address] [place] [address] [address] [place], [place] [id number] Social History Tobacco Use Types Packs/Day Years [...] on file Legal Sex Female 7:58 AM HEALTH ADVOCATE Gender Identity Female 05/21/2023 3:25 AM CDT Sexual Orientation Not on file documented as of this encounter Plan of Treatment Not on file documented as of this encounter Visit Diagnoses Not on filedocumented in this encounter Care Teams Perforator Loader Relationship Specialty Start Date End Date Delores Chamberlain NP [address] [place], [place] [id number] PCP - General Family Medicine 07/23/23 Khai Neal MD Consulting Physician Ophthalmology 10/08/21 Tyree Bauer MD PhD [address] [place] [address] Referring Physician Cardiology 07/23/23 Mary Ma, elevator runner Failure Coordinator 08/12/23 documented as of this encounter
--- OUTSIDE RECORDS SUMMARY | 2025-02-18 07:44 | XMS_ITS | Referral Summary ---
Author Organization [facility] Healthcare Address [address] [place] [address] Care Team Providers Care Canary Breeder Name Role Phone Khai Neal MD Unavailable Delores Chamberlain NP Primary Care Provider [phone] Tyree Bauer MD PhD Unavailable + Mary Ma RN Unavailable Unavaila ble Encounters Date Type Department Care Team Description 02/16/2025 Results Follow-Up [facility] Primary Care at [address] [phone] Delores Chamberlain NP 02/16/2025 8:45 AM CDT Lab [address] [address] Hypertension due to endocrine disorder 02/16/2025 7:18 AM CDT - 02/16/2025 11:59 PM CDT Hospital Encounter [address] [address] Pancreatic cyst; Intrahepatic bile duct dilation Discharge Disposition: Discharge to home or self care 02/11/2025 Orders Only [facility] Department of Surgery [address] [facility] [address] [place] [address] [place] [address] Essence Hinds CMA Abdominal pain (Primary Dx) 02/11/2025 10:00 AM CDT Office Visit [facility] Department of Surgery [address] [facility] [address] [place] [address] [place] [address] Trung Butler MD S/P repair of ventral hernia (Primary Dx); Visit for wound check 02/10/2025 Results Follow-Up [facility] Gastroenterology at [address] [place] [address] Xiomara Khan MD 02/07/2025 7:46 AM CDT Anesthesia Event [address] [address] Kristi Meade MD 02/07/2025 7:25 AM CDT - 02/07/2025 7:55 AM CDT Surgery [address] [address] Xiomara Khan MD COLON REMOVAL SNARE 02/07/2025 6:31 AM CDT - 02/07/2025 9:25 AM CDT Hospital Encounter [address] [address] Xiomara Khan MD Rectal bleeding; Incontinence of feces, unspecified fecal incontinence type Discharge Disposition: Discharge to home or self care 01/27/2025 Results Follow-Up [facility] Primary Care at [address] [phone] Delores Chamberlain NP 01/27/2025 2:55 PM CDT - 01/27/2025 11:59 PM CDT Hospital Encounter [facility] [address] [place] [address] Screening mammogram, encounter for Discharge Disposition: Discharge to home or self care 01/05/2025 Orders Only [facility] Primary Care at [address] [phone] Delores Chamberlain NP Type 2 diabetes mellitus with stage 3b chronic kidney disease, without long-term current use of insulin (HCC) (Primary Dx) 01/03/2025 Results Follow-Up [facility] Primary Care at [address] [phone] Lisa Curry MA 12/31/2024 Telephone [facility] Primary Care at [address] [phone] Lisa Curry MA Lab Results 12/21/2024 Telephone [facility] Gastroenterology at [address] [place] [address] Marry Wasserman Schedule Colonoscopy 12/21/2024 2:40 PM MANUFACTURING PLANNER Lab [address] Pancreatic cyst; Abnormal finding on GI tract imaging 12/21/2024 1:30 PM MANUFACTURING PLANNER Office Visit [facility] Gastroenterology at [address] [place] [address] Xiomara Khan MD Colitis (Primary Dx); Hematochezia; Pancreatic cyst; Intrahepatic bile duct dilation 12/20/2024 Telephone [facility] Gastroenterology at [address] [place] [address] Sneha Cantrell LPN 12/15/2024 Nurse Triage [facility] Primary Care at [address] [phone] Delores Chamberlain NP 12/02/2024 Orders Only [facility] Primary Care at [address] [phone] Delores Chamberlain NP 12/01/2024 Orders Only [facility] Primary Care at [address] [phone] Delores Chamberlain NP 12/01/2024 Telephone [facility] Primary Care at [address] [phone] Delores Chamberlain NP Medication Request from Last 3 Months Allergies No known active allergies Medications multivitamin capsuleIndications :Vitamin Deficiency Prevention Take 1 capsule by mouth every morning Active vit C/E/Zn/coppr/lutei n/zeaxan (PRESERVISION AREDS-2 ORAL)Indications:e ye supplement Take 1 tablet by mouth 2 (two) times a day Active famotidine (PEPCID) 20 mg tabletIndications: gastroesophageal reflux disease Take 1 tablet (20 mg total) by mouth every morning Active blood glucose diagnostic (Contour Next Test Strips) stripIndications:T ype 2 diabetes mellitus without complication, without long-term current use of insulin ([facility]) CHECK BLOOD SUGAR ONCE DAILY 200 strip 07/23/20 23 Active oxymetazoline HCl (AFRIN, OXYMETAZOLINE, NASL)Indications:a llergies Administer 1 spray into each nostril as needed Active aspirin 81 mg enteric coated tabletIndications: prevention of thrombosis Take 1 tablet (81 mg total) by mouth nightly 12/22/19 24 Active amLODIPine (NORVASC) 10 mg tabletIndications: Essential hypertension Take 1 tablet (10 mg total) by mouth daily 90 tablet 1 03/16/20 24 Active lisinopriL (PRINIVIL,ZESTRIL) 20 mg tabletIndications: hypertension Take 1 tablet (20 mg total) by mouth every morning 90 tablet 1 09/06/20 24 Active dapagliflozin propanediol (Farxiga) 10 mg tabletIndications: type 2 diabetes mellitus Take 1 tablet (10 mg total) by mouth daily 12/02/19 25 Active atorvastatin (LIPITOR) 10 mg tabletIndications: Hypercholesterolem ia Take 1 tablet (10 mg total) by mouth daily 90 tablet 1 02/05/20 25 Active acetaminophen 500 mg capsule Take 2 capsules (1,000 mg total) by mouth every 6 (six) hours 30 tablet 12/21/19 24 025 Discontin ued(Thera py completed ) amitriptyline (ELAVIL) 10 mg tablet Take 1 tablet (10 mg total) by mouth nightly 30 tablet 3 12/25/19 24 025 Discontin ued(Thera py completed ) cholestyramine (QUESTRAN) 4 gram powderIndications: Diarrhea, unspecified type Take 1 packet (4 g total) by mouth 2 (two) times a day with meals 60 packet 01/06/20 24 025 Discontin ued(Thera py completed ) ondansetron ODT (ZOFRAN-ODT) 4 mg disintegrating tabletIndications: Nausea Take 1 tablet (4 mg total) by mouth every 8 (eight) hours as needed for nausea or vomiting 20 tablet 2 01/13/20 24 025 Discontin ued(Thera py completed ) atorvastatin (LIPITOR) 10 mg tabletIndications: Hypercholesterolem ia TAKE 1 TABLET(10 MG) BY MOUTH DAILY 90 tablet 1 08/05/20 24 025 Discontin ued(Reord er) traZODone (DESYREL) 50 mg tablet TAKE 1/2 TABLET(25 MG) BY MOUTH EVERY NIGHT NEEDED FOR SLEEP 30 tablet 1 11/02/20 24 025 Discontin ued(Thera py completed ) Active Problems Problem Noted Date Diagnosed Date Rectal bleeding 12/21/2024 Acute postoperative abdominal pain 12/18/2023 Assessment & Plan (12/21/2023 9:54 AM MANUFACTURING PLANNER): -Lidocaine gtt started 12/17 -Pain mgmt team following -daily lido levels for monitoring 2/3 tolerated one dose of oxycodone overnight, start multimodal regimen, stop lido infusion, pain team signed off 2/4 pain controlled, reported hallucination with oxycodone - changed to ultram - no doses administered Delirium 12/17/2023 Assessment & Plan (12/21/2023 9:54 AM MANUFACTURING PLANNER): -12/16 SICU management; soft restraints placed, 5 mg IV zyprexa given for agitation -12/17: hyperactive delirium, sleep hygiene - 2/2 RESOLVED - restraints discontinued Bradycardia 12/16/2023 Assessment & Plan (12/18/2023 2:33 PM MANUFACTURING PLANNER): Admitted to the SICU post-operatively due to bradycardia and hypotensive event in the OR. 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 Wound healing and continuing to have dressing changes through home health. Fall 01/16/2023 Assessment & Plan (01/16/2023 1:00 PM MANUFACTURING PLANNER): New issue, pt was seen [facility] on 01/07/23 in [place] after a fall. She had CT brain, several xrays (chest, clavicle, wrist, hand) and labs done, EKG. Reviewed discharge paperwork Overactive bladder 07/31/2022 Assessment & Plan (07/31/2022 8:36 AM CDT): Patient complains of OAB symptoms at night . Present for over the last month We discussed medication options - oxybutynin. Will check UA first and rule out infection then will follow up with patient Irritable bowel syndrome with diarrhea Assessment & Plan (11/21/2023 9:28 PM MANUFACTURING PLANNER): Since last visit started on amitriptyline 10 mg QHS, feels like overall diarrhea and incontinence are much improved. Previously labs from 07/2023 showed normal CMP, TSH, CBC Negative stool culture, C diff, Giardia, Cryptosporidium Normal lipase 2017 MRI abdomen 08/2023 showed stable pancreatic cysts with no clear communication with PD Colonoscopy 2020 showed 3 diminutive tubular adenomas in the ascending colon, diverticulosis, nonbleeding hemorrhoids, normal TI and Normal random colon biopsy EGD 05/2021 showed gastric stapling and gastritis, normal small bowel biopsy Plan Continue amitriptyline 10 mg QHS Can take imodium as needed Assessment & Plan (10/21/2023 11:28 AM MANUFACTURING PLANNER): Feels the Amitriptyline from GI has been helping. Continuing follow up with GI. Assessment & Plan (08/22/2023 4:51 PM CDT): Was given rifaximin for 2 weeks which works during the duration of the treatment but symptoms return shortly after stopping the medication. Diarrhea would remain for about 3-4 days, as soon as she takes the rifaximin diarrhea subsides Used to take imodium 1 a day that helped with diarrhea, not taking it anymore was taking 2 tablespoons a day that would lead to worsening diarrhea Previous ARM from 2021 showed concern for possible rectocele, but unfortunately was unable to get defecography done due to severe incontinence. However rectocele was seen on defecography in 2013 with no incontinence. She followed up with colorectal surgeon but at that time was not having as much issue so was advised to continue conservative measures. Labs from 07/2023 showed normal CMP, TSH, CBC Negative stool culture, C diff, Giardia, Cryptosporidium Normal lipase 2017 MRI abdomen 08/2023 showed stable pancreatic cysts with no clear communication with PD Colonoscopy 2020 showed 3 diminutive tubular adenomas in the ascending colon, diverticulosis, nonbleeding hemorrhoids, normal TI and Normal random colon biopsy EGD 05/2021 showed gastric stapling and gastritis, normal small bowel biopsy Plan Trial of amitriptyline 10 mg QHS Can take imodium as needed Start taking one teaspoon of metamucil a day and increase as tolerated Assessment & Plan (08/21/2023 10:29 AM CDT): Had relief with the Xifaxan but symptoms returned shortly after 14 day course was finished. Continue with GI appointment tomorrow. Can take Imodium prn. Assessment & Plan (07/23/2023 12:51 PM CDT): Diarrhea sounds like it is IBS-D related, she does have known hx of this. Will get stool studies though with updated labs. Xifaxan trial x 14 days. GI referral also placed. Assessment & Plan (05/15/2022 11:52 AM CDT): It seems that she has IBS type of diarrhea she would benefit from a course of Xifaxan for 2 weeks I would also recommend that you keep an eye on any food triggers that may be contributing to your diarrhea like wheat, milk, salads Non-alcoholic fatty liver disease 05/15/2022 Assessment & Plan (05/15/2022 11:48 AM CDT): I suspect mild elevation in 1 of the liver enzyme blood tests is related to the underlying fatty liver. We will get a special ultrasound on the liver to see if there is any scarring present in the liver from underlying fatty liver IPMN (intraductal papillary mucinous neoplasm) 0 05/15/2022 Assessment & Plan (05/15/2022 11:53 AM CDT): Question IPMN/pancreatic cyst be need follow-up MRI to be done Incontinence of feces 05/15/2022 Assessment & Plan (05/15/2022 11:54 AM CDT): We will schedule anorectal manometry at [facility] to further evaluate the episodes of fecal incontinence I suspect previous 3 vaginal deliveries and Episiotomies may have something to do with it as well. Cutaneous abscess of neck 02/04/2022 Assessment & Plan (02/04/2022 8:36 AM CDT): Patient has had recurrent right neck skin abscess, is currently not swollen or draining Will refer to general surgery Sebaceous cyst 09/11/2021 Assessment & Plan (09/11/2021 1:56 PM CDT): We did discuss hot soaks. I placed her on Keflex 500 mg t.i.d.. We did discuss drawing agent. We did discuss warm wet pack. I did check CBC. Ovarian failure 09/11/2021 Assessment & Plan (09/11/2021 1:55 PM CDT): Will schedule DEXA. Medicare annual wellness visit, subsequent 09/11 Assessment & Plan (08/27/2024 12:00 PM CDT): A yearly Medicare Annual Wellness Visit has been performed today. Anali Murcia is up to date on screening tests. She is in need of None- no screening indicated at this time- these have been ordered. She is not up to date on needed preventative vaccinations; She is in need of Zoster. These have been ordered/arranged unless otherwise indicated. Assessment & Plan (02/04/2022 8:28 AM CDT): Will check fasting blood work today Is up to date with colon cancer screening Is up to date with covid vaccine and flu vaccine Assessment & Plan (09/11/2021 1:55 PM CDT): DEXA scan was scheduled. She will search records for her last tetanus. Colon adenoma 03/14/2021 Assessment & Plan (11/21/2023 9:28 PM MANUFACTURING PLANNER): Colonoscopy 05/2021 that showed 3 diminutive tubular adenomas in the ascending colon. Recommend follow up colonoscopy in 2023 given good overall functional status. Assessment & Plan (08/22/2023 4:48 PM CDT): Colonoscopy 05/2021 that showed 3 diminutive tubular adenomas in the ascending colon. Recommend follow up colonoscopy in 2023 given good overall functional status. Assessment & Plan (05/15/2022 11:44 AM CDT): Colonoscopy will be due in 2023 Assessment & Plan (03/14/2021 10:38 AM CDT): History of multiple colon polyps removed in colonoscopy in [place] she needs follow-up colonoscopy to be scheduled Elevated LFTs 03/14/2021 Assessment & Plan (05/15/2022 11:47 AM CDT): ALT was noted to be at 46 rest the liver enzymes are normal the way the liver is functioning is normal She needs vaccination for hepatitis-B and hepatitis A--either through the primary care physician's office or the [facility] Assessment & Plan (03/14/2021 5:55 PM CDT): Elevated liver enzymes are noted in the computer we will check a right upper quadrant ultrasound to check if you have fatty liver. In addition to this hepatitis-B and hepatitis C and BILLIE labs will be obtained Review of labs from today shows hepatitis-B and hepatitis C labs to be negative Diarrhea 03/14/2021 Assessment & Plan (07/23/2023 12:52 PM CDT): Stool studies ordered Likely related to patient's known IBS-D, Xifaxan trial. Assessment & Plan (03/14/2021 10:38 AM CDT): As far as the diarrhea is concerned I would recommend watching out for milk and milk products, cut back on the salads if you eat excessive salads and make sure that your vegetables are baked boiled or steamed in addition to this we will check a blood test for wheat allergy as well and potentially consider further evaluation with the colonoscopy as well History of gastric bypass 03/14/2021 Overview (03/14/2021): Added automatically from request for surgery [id number] Hx of adenomatous colonic polyps 03/14/2021 Overview (03/14/2021): Added automatically from request for surgery [id number] Elevated troponin I level 01/11/2021 Renal impairment 01/11/2021 Assessment & Plan (01/11/2021 10:56 AM MANUFACTURING PLANNER): She is uncertain of her renal status. I did check CMP. Urinary tract infectious disease 01/11/2021 Pancreatic cyst 01/11/2021 Assessment & Plan (11/21/2023 9:28 PM MANUFACTURING PLANNER): Stable on recent MRI 08/2023 with no concerning features on imaging. Repeat MRI in 2 years. Assessment & Plan (08/22/2023 4:47 PM CDT): Stable on recent MRI 08/2023 with no concerning features on imaging. Repeat MRI in 2 years. Assessment & Plan (08/21/2023 10:27 AM CDT): MRI showed: Several small cystic lesions scattered throughout the pancreas, the largest is present at the level of the pancreatic neck measuring a maximum of 1.9 x 1.6 cm, stable. This does not appear to clearly communicate with the pancreatic duct/pancreatic ductal dilatation. No concerning enhancement on postcontrast imaging. This has demonstrated stability since 2018. Continued follow-up in 2 years is recommended. Bilateral extensive cortical scarring is seen. Bilateral Bosniak I and 2 cysts are noted. No definite concerning renal lesion is seen however the right kidney was not imaged in its entirety. Prominent ventral hernia. Will be establishing with GI tomorrow (08/22). Assessment & Plan (07/23/2023 12:50 PM CDT): Due for MRI/MRCP follow up, ordered. GI referral placed. Assessment & Plan (05/15/2022 11:44 AM CDT): She needs MRI/MRCP to follow-up on the IPMN/pancreatic cyst to be done we will schedule it Assessment & Plan (03/14/2021 10:35 AM CDT): IPMN--she needs follow-up MRCP Assessment & Plan (01/11/2021 10:56 AM MANUFACTURING PLANNER): I did refer to Gastroenterology for follow-up HTN (hypertension) 08/17/2019 Assessment & Plan (12/21/2023 9:56 AM MANUFACTURING PLANNER): -home lisinopril 20 mg, amlodipine 10 mg held in post operative setting 2/4 home regimen resumed Assessment & Plan (10/21/2023 11:28 AM MANUFACTURING PLANNER): BP stable in office, continues Lisinopril and Amlodipine. Assessment & Plan (07/23/2023 12:51 PM CDT): BP stable in office, continues Lisinopril and Amlodipine. Assessment & Plan (02/05/2023 9:38 AM CDT): Condition is currently stable. Patient is on amlodipine and lisinpril . Will continue. Assessment & Plan (04/12/2021 1:40 PM CDT): Doing well on her current medication regimen. Amlodipine was refilled. Assessment & Plan (01/11/2021 10:53 AM MANUFACTURING PLANNER): She is on Lasix and lisinopril. She will forward records as she is uncertain of the dose. Blood pressure is 142/98 today. I did encourage her to monitor numbers. Hyperlipidemia associated with type 2 diabetes chandrakant trejo 08/05/2019 Assessment & Plan (08/27/2024 11:59 AM CDT): Continuing Atorvastatin, no side effects reported. Updated labs today. Assessment & Plan (02/26/2024 1:07 PM CDT): Continues Atorvastatin 10 mg, updated labs ordered. Assessment & Plan (07/23/2023 12:51 PM CDT): Continues Atorvastatin, no side effects noted. Updated labs ordered Assessment & Plan (02/05/2023 9:39 AM CDT): Condition is currently stable. Will check blood work , continue her atorvastatin 10mg daily. Assessment & Plan (04/12/2021 1:40 PM CDT): Lipitor was refilled. She will need labs in June and we did discuss that. Will follow as needed. Assessment & Plan (01/11/2021 10:56 AM MANUFACTURING PLANNER): She is on Lipitor 10 mg daily. I did check labs. Osteoarthritis 08/05/2019 Generalized abdominal pain 07/01/2018 Assessment & Plan (02/05/2023 9:49 AM CDT): Patient has mid abdomianl pain , concern for hernia there. States it gets bigger when she coughs and is tender in area when she does cough. Concern for hernia on exam , that is reducible. No erythema noted. WIll check ultrasound and refer to general surgery Return precautions discussed, including indications for more urgent evaluation Assessment & Plan (01/11/2021 10:51 AM MANUFACTURING PLANNER): She was diagnosed with pancreatic cyst but really does not remember much else about that. I did refer her to GI for evaluation. Type 2 diabetes mellitus 07/01/2018 Assessment & Plan (08/27/2024 12:00 PM CDT): A1c improved to 5.3 from previous 6.0. Continuing Metformin. Assessment & Plan (02/26/2024 1:08 PM CDT): Continuing Metformin, updated labs ordered. Assessment & Plan (12/21/2023 9:57 AM MANUFACTURING PLANNER): Home metformin; held -SSI ordered while NPO -Most recent A1c 07/24/23, 5.7 > repeat ordered for AM labs 12/18 --- BG controlled, f/u with PCP or previously established provider for ongoing management Assessment & Plan (07/23/2023 12:50 PM CDT): Updated labs ordered, currently taking Metformin 1,000 mg BID. Assessment & Plan (02/05/2023 9:37 AM CDT): Condition is currently Stable. Patient is on metformin , will check blood work today And urine Assessment & Plan (07/31/2022 8:33 AM CDT): Condition is currently stable. Patient is on metformin. Will check blood work and hgbA1c today . Assessment & Plan (02/04/2022 8:19 AM CDT): Condition is currently well controlled. She is on metformin 500mg BID . Will check HgbA1c and urine today Assessment & Plan (09/11/2021 1:56 PM CDT): I did check A1c and CMP. Assessment & Plan (01/11/2021 10:57 AM MANUFACTURING PLANNER): I did check labs. She will continue metformin. I did encourage her to continue to monitor blood sugars. Gastrointestinal hemorrhage 06/29/2018 Assessment & Plan (01/11/2021 10:55 AM MANUFACTURING PLANNER): She does have history of gastric bypass many years ago. GI hemorrhage was related to that and polyp. Coronary artery disease Assessment & Plan (12/21/2023 12:22 PM MANUFACTURING PLANNER): -H/o acute MN s/p PCI x3 2018 -Home ASA 81 and lipitor; held --- OK to resume ASA 2/5 Assessment & Plan (03/14/2021 5:54 PM CDT): History of MN in the past with use of Plavix at this time which would need to be held for EGD and colonoscopy with Cardiology. Assessment & Plan (01/11/2021 10:52 AM MANUFACTURING PLANNER): She is status post 3 stents and did have an MN. She is scheduled with cardiology next week. History of bilateral knee replacement Assessment & Plan (01/11/2021 10:55 AM MANUFACTURING PLANNER): Currently ambulating well. She did have complication of DVT and is on Plavix and aspirin. H/O gastric bypass Assessment & Plan (03/14/2021 10:41 AM CDT): History of gastric bypass in 1978 Check a CBC as people with gastric bypass can have tendency to become anemic Assessment & Plan (01/11/2021 10:55 AM MANUFACTURING PLANNER): She estimates 30 years ago. She no longer follows with the surgeon. Colon polyps Assessment & Plan (01/11/2021 10:52 AM MANUFACTURING PLANNER): She has multiple polyps removed 1 and half years ago. She was scheduled for re-evaluation 1 year ago but moved. I did refer her to Gastroenterology. Right ureteral stone Resolved Problems Problem Noted Date Diagnosed Date Resolved Date Loose stools 12/21/2023 07/21/2024 Assessment & Plan (12/21/2023 12:21 PM MANUFACTURING PLANNER): 2 c/o loose stools x2d, wbc 8, no fevers, abx: erta x1 12/15, imodium x1 for car ride home, patient to notify PCP if ongoing issues for testing Discharge planning issues 12/19/2023 Assessment & Plan (12/21/2023 10:05 AM MANUFACTURING PLANNER): 12/19 PT eval: home; ADD Friday pending po advancement 12/20 independently mobilizing, ADD Thursday 12/21 possible DC later today pending PO tolerance; PT eval from 12/19 recommending wheeled walker and PT (ordered), case management updated Ventral hernia without obstr uction or gangrene 12/02/2023 02/26/2024 Assessment & Plan (12/21/2023 9:57 AM MANUFACTURING PLANNER): -OR 12/15 ([facility]) open ventral hernia repair with mesh; removal of prior mesh; L drain above mesh, R drain subQ -12/16: POD1 appropriate post-operative recovery, NGT to LIWS while await return of bowel function. - 12/17: Tmax 101.1, but WBC normal and no active signs of infection. UA negative. Continue NPO, NGT to LIWS, ARBF. Pain controlled with lidocaine gtt. Ok to transfer to OU for close CV monitoring. -12/18 POD3 NPO, NGT to LIWS; minimal output, ARBF. MYESHA drains in place, serosang output. iWV holding seal. D/C de luna catheter. 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) Overweight 11/17/2023 02/26/2024 Personal history of urinary (tract) infections 11/17/2023 02/26/2024 Body mass index (BMI) 29.0-29.9, adult 11/17/2023 07/21/2024 Physical exam 02/05/2023 02/26/2024 Assessment & Plan (02/05/2023 9:42 AM CDT): Arianna received her covid and flu vaccine Will order blood work Mental health is stable Morbid (severe) obesity due to excess calories 02/05/2023 07/21/2024 Dysuria 01/16/2023 07/21/2024 Assessment & Plan (01/16/2023 1:19 PM MANUFACTURING PLANNER): Flank pain Pt reports dysuria, frequency, chills, cloudy urine, possible hematuria, left lower back pain for 2 days. Pt also mentions on 01/06 she blacked out while on the commode in [place]. She woke up on the floor. She reports she came home and went to walk in clinic for a bump on her head, right wrist pain. Her x-rays were all negative and she was told to follow up with PCP. She denies current dizziness, headache, swelling to wrist, urinary retention. poc urinalysis showed: moderate blood and +leukocytes Send off for culture Start treatment: macorbid (no kidney disease, recent labs normal) Increase water intake, call if symptoms worsen Right ear pain 07/31/2022 02/26/2024 Assessment & Plan (07/31/2022 8:40 AM CDT): Patient complains of right ear pain and some dizziness On exam TM is erythematous Will treat with antibiotics, follow up if no improvement in symptoms Frequent urination 06/25/2021 Assessment & Plan (06/25/2021 12:03 PM CDT): She does have frequent urination and has been treated numerous times for urinary tract infection. She does have small leukocyte esterase but otherwise the urine is normal. I will refer to steam tender for secondary causes. Acute recurrent pansinusitis 06/06/2021 02/26/2024 Assessment & Plan (06/06/2021 9:35 AM CDT): She does have tenderness to frontal and maxillary sinuses to palpation. She does have nasal congestion. I placed her on amoxicillin 875 mg b.i.d. times 10 days. She will use Mucinex to improve congestion and then start Zyrtec 10 mg daily for allergies. Hopefully that will improve her symptoms. Acute serous otitis media of left ear 04/12/2021 07/21/2024 Assessment & Plan (04/12/2021 1:41 PM CDT): She does have erythema of the left tympanic membrane. She does have fullness and pain in the ear and sinus as well as the throat. I placed her on amoxicillin 875 mg b.i.d. times 10 days. Cough 04/12/2021 07/21/2024 Assessment & Plan (04/12/2021 1:42 PM CDT): She does have cough, body aches and may have low-grade fever in the last 2 days. She does have left otitis media and is now on medication. I did obtain nasal swab for COVID. 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 She recently twisted the knee and has had pain over the tibial plateau area since that time. She is concerned she may have moved the implant. She is on anti-inflammatories and cannot take NSAIDs. I placed her on Voltaren gel. We will get readings on the x-ray and consider orthopedic evaluation as needed. BMI 36.0-36.9,adult 03/14/2021 07/21/20 24 Assessment & Plan (05/15/2022 11:49 AM CDT): Body mass index is elevated at 37. Certainly so low-fat diet, small portions, cut back on processed food cut back on sugar intake and ice cream, iron fried food Initiate exercise that you can easily do that you can keep up with Assessment & Plan (03/14/2021 10:37 AM CDT): Current body mass index is at 38 dietary and lifestyle modifications regarding weight management to be initiated Make sure please that your not eating processed food, cut back on the snacks in between and avoid food before going to bed and start a gentle exercise program Blood in urine 01/11/2021 07/21/2024 Assessment & Plan (01/11/2021 10:51 AM MANUFACTURING PLANNER): She has recent history of ureteral stent with urinary tract infection. She did require stone manipulation and retrieval. She currently has no symptoms. Influenza-like symptoms 01/11/2021 09/0 02/2024 Pyelonephritis 01/11/2021 02/26/2024 Right flank pain 01/11/2021 02/26/2024 Gastroesophageal reflux disease 03/16/2020 07/21/2024 Assessment & Plan (12/21/2023 9:54 AM MANUFACTURING PLANNER): Home pepcid -IV formulation ordered while NPO -transitioned to oral once NGT removed Assessment & Plan (04/12/2021 1:40 PM CDT): Omeprazole was refilled. We did discuss trying to wean from the medication. Assessment & Plan (01/11/2021 10:54 AM MANUFACTURING PLANNER): She is diabetic. She is on famotidine and omeprazole.. Will continue to monitor. Chronic deep vein thrombosis (DVT) of lower extremity 08/05/2019 12/18/2023 Assessment & Plan (12/18/2023 2:39 PM MANUFACTURING PLANNER): History of provoked DVT in 2019. Home is ASA 81 for CAD Assessment & Plan (01/11/2021 10:51 AM MANUFACTURING PLANNER): She is on Plavix and aspirin. She is status post bilateral knee replacement and her DVT was felt to be a complication. Hyperglycemia 08/05/2019 07/23/2023 Obesity 08/05/2019 07/21/2024 Acute deep vein thrombosis ( DVT) of distal vein of left lower extremity 01/11/2021 Assessment & Plan (01/11/2021 10:50 AM MANUFACTURING PLANNER): She is on Plavix and aspirin. She will continue. Immunizations Immunization Administration Dates Next Due Influenza Virus Vaccine Trivalent Mdv 09/23/2019 Influenza, Quadrivalent, Hig h Dose, Preservative Free, Intrr 08/21/2023,07/31/2022,08/31/2021 Influenza, Quadrivalent, Spl it, Intramuscular 07/28/2020 Influenza, Quadrivalent, Spl it, Preservative Free, Intramuscular 07/26/2020 Influenza, Trivalent, High D ose, Split, Preservative Free, Intramuscular 08/27/2024 Influenza, Unspecified 07/23/2023(Deferr ed: Patient Refused),11/17/2022(Deferred: Patient Refused) Moderna SARS-CoV-2 Monovalen t Vaccination (12+ YRS) 02/13/2021,01/16/2021 Moderna Sars-cov-2 Bivalent Vaccine 50 Mcg/0.5 mL (12+ YRS)-Blue/Wyatt 09/06/2022 PPD TEST 09/14/2021 Pneumococcal Conjugate PCV 13 01/18/2020 Pneumococcal Polysaccharide PPV23 11/17/2015 ZOSTER Recombinant 09/11/2021(Deferred: Patient Refused) Social History Tobacco Use Types Packs/Day Years Used Date Smoking Tobacco: Never Passive Smoke Exposure: Never Smokeless Tobacco: Never Tobacco Cessation:Counseling Given: Not Answered Alcohol Use Standard Drinks/Week Comments No 0 (1 standard drink = 0.6 oz pur e alcohol) AUDIT-C Answer Date Recorded Q1: How often do you have a drink containing alcohol? Never 02/04/2025 Q2: How many drinks containi ng alcohol do you have on a typical day when you are drinking? Patient does not drink 03/21/202 5 Q3: How often do you have si [...] on file Legal Sex Female 7:58 AM MANUFACTURING PLANNER Gender Identity Female 05/21/2023 3:25 AM CDT Sexual Orientation Not on file Last Filed Vital Signs Vital Sign Reading Time Taken Comments Blood Pressure 135/76 02/11/2025 10:59 AM CDT Pulse 61 02/11/2025 10:59 AM CDT Temperature 36.8 C (98.3 F) 02/11/2025 10:59 AM CDT Respiratory Rate 14 02/11/2025 10:59 AM CDT Oxygen Saturation 99% 02/11/2025 10:59 AM CDT Inhaled Oxygen Concentration - - Weight 89.8 kg (198 lb) 02/11/2025 10:59 AM CDT Height 160 cm (5' 3 ) 02/11/2025 10:59 AM CDT Body Mass Index 35.07 02/11/2025 10:59 AM CDT Plan of Treatment Not on file Medical Devices Implanted Type Area Golf Stud Riveter Device Identifier Shelf Expiration Date Model / Serial / Lot [employer]/C R Bard [id number] Monofilament Soft Lightweight Low Profile Square - [id number] Implanted:Qty: 1 on 12/15/2023 by Trung Butler MD at [facility] Mesh N/A: Abdomen [employer] R Bard [id number] 06/13/2027 [id number] / / [id number] Other - See Comments Other - see comments Bilateral : Knee Cardiac Stent X 3 N/A: Heart Procedures Procedure Name Priority Date/Time Associated Diagnosis Comments EGFR Routine 02/16/2025 9:14 AM CDT Hypertension due to endocrine disorder BASIC METABOLIC PANEL Routine 02/16/2025 9:14 AM CDT Hypertension due to endocrine disorder SURGICAL PATHOLOGY STAT 02/07/2025 11:54 AM CDT Rectal bleeding Incontinence of feces, unspecified fecal incontinence type COLON REMOVAL SNARE 02/07/2025 7 :41 AM CDT Rectal bleeding Incontinence of feces, unspecified fecal incontinence type POCT GLUCOSE DEVICE Routine 02/07/2025 7 :14 AM CDT COLONOSCOPY 02/07/2025 7:05 AM CDT SCREENING MAMMOGRAM BILATERAL W EMILIANO Schedule Routine, Read Routine (OP Routine) 01/27/2025 3:05 PM CDT Screening mammogram, encounter for EGFR Routine 12/21/2024 2:38 PM MANUFACTURING PLANNER Pancreatic cyst Abnormal finding on GI tract imaging COMPREHENSIVE METABOLIC PANEL Routine 12/21/2024 2:38 PM MANUFACTURING PLANNER Pancreatic cyst Abnormal finding on GI tract imaging LIPID PANEL Routine 08/27/2024 1:17 PM CDT Type 2 diabetes mellitus with hyperglycemia, with long-term current use of insulin (HCC) POCT HEMOGLOBIN A1C Routine 08/27/2024 11:39 AM CDT Type 2 diabetes mellitus with hyperglycemia, with long-term current use of insulin (HCC) DEXA AXIAL SKELETON BONE DENSITY 1 OR MORE SITES Schedule Routine, Read Routine (OP Routine) 08/03/2024 9:51 AM CDT Encounter for osteoporosis screening in asymptomatic postmenopausal patient ALBUMIN CREATININE RATIO, URINE Routine 02/26/2024 12:09 PM CDT Type 2 diabetes mellitus without complication, without long-term current use of insulin (HCC) DIABETIC EYE EXAM Routine 07/10/2023 HEPATITIS C ANTIBODY Routine 03/14/2021 11:04 AM CDT Colon polyps H/O gastric bypass Pancreatic cyst BMI 37.0-37.9, adult Colon adenoma Elevated LFTs Diarrhea, unspecified type from Last 3 Months or Most Recently Relevant to Health Maintenance Results * (ABNORMAL) eGFR (02/16/2025 9:14 AM CDT) eGFR 39(L) >=60 mL/min/1. 73 m2 Comment: Interpretive Data Reference Interval Normal >/= 90 mL/min/1.73m2 Mildly decreased* 60 - 89 mL/min/1.73m2 Mildly to moderately decreased 45 - 59 mL/min/1.73m2 Moderately to severely decreased 30 - 44 mL/min/1.73m2 Severely decreased 15 - 29 mL/min/1.73m2 Kidney Failure < 15 mL/min/1.73m2 *Relative to young adult level Estimated glomerular filtration rate is determined by the 2020 CKD-EPI equation recommended by the National Kidney Foundation (A Unifying Approach to GFR Estimation: Recommendations of the NKF-ASK Task Force on Reassessing the Inclusion of Race in Diagnosing Kidney Disease, JASN 2020). The CKD-EPI equation should not be used for patients with unstable renal function and has not been validated in children and those over 70. Current interpretive data was last reviewed 2021. Blood 02/16/2025 9:14 AM CDT 02/16/2025 9:32 AM CDT us Delores Chamberlain NP LAB BLOOD ORDERABLES Final Resul t [facility] Department [place] [address] * (ABNORMAL) Basic metabolic panel (02/16/2025 9:14 AM CDT) Sodium 142 135 - 145 mmol/L Potassium, pl 4.7 3.3 - 4.9 mmol/L [facility] Chloride 106 97 - 110 mmol/L [facility] CO2 24 22 - 32 mmol/L [facility] Anion gap 12 2 - 15 mmol/L [facility] BUN 25 6 - 25 mg/dL [facility] Creatinine 1.40(H) 0.60 - 1.10 mg/dL [facility] Glucose 124 70 - 199 mg/dL [facility] Comment: Interpretive Data Fasting glucose >/= 126 mg/dl is diagnostic for diabetes. Fasting is defined as no caloric intake for at least 8 hours. Fasting glucose between 100 mg/dl to 125 mg/dl is diagnostic of prediabetes. In a patient with classic symptoms of hyperglycemia or hyperglycemic crisis, a random glucose >/= 200 mg/dl is diagnostic for diabetes. In the absence of unequivocal hyperglycemia, results should be confirmed by repeat testing. The classification and Diagnosis of Diabetes Diabetes Care 2021; 46: S19-S40. Current interpretive data was last revised 2022. Calcium 9.8 8.5 - 10.3 mg/dL [facility] Blood 02/16/2025 9:14 AM CDT 02/16/2025 9:32 AM CDT Delores Chamberlain TECHNOLOGY TRAINING ASSOCIATE LAB BLOOD ORDERABLES Final Resul t [facility] [address] [place] [address] Department [place] [address] * Surgical pathology (02/07/2025 11:54 AM CDT) Tissue specimen (specimen) (Polyp(s), colon/colorectal, esophageal, gastric) 02/07/2025 8:33 AM CDT Tissue specimen (specimen) (Polyp(s), colon/colorectal, esophageal, gastric) 02/07/2025 8:34 AM CDT Tissue specimen (specimen) (Polyp(s), colon/colorectal, esophageal, gastric) 02/07/2025 8:34 AM CDT Narrative PATHOLOGY [facility] - 02/08/2025 12:11 PM CDT EPIC results best viewed via link to PDF [facility] Department of Pathology [address] [place] [id number] Note to Patients: This report may contain a detailed description of human tissue sent by a health care provider to the laboratory for pathologic evaluation. The content of this report is essential for diagnosis and may provide important critical findings. This information may be unfamiliar to patients to review without a medical professional present. It is advised that the patient review this report in the presence of a health care provider who can answer questions and explain the details. Final Report Patient Name: ANALI MURCIA Address: [address] [place] [address]- Gender: F : 1945 (Age: 79) Service: Gastro Location: [facility] Hospital #: [id number] Patient Type: [facility] Taken: 02/07/2025 Received: 02/07/2025 Accessioned: 02/07/2025 Reported: 02/08/2025 Physician(s):Xiomara Khan MD Diagnosis: A. Cecal polyp x2, biopsy: - Tubular adenoma x1; negative for high-grade dysplasia. - Small benign lymphoid aggregate x1. B. Ascending colon polyp x2, biopsy: - Tubular adenoma x1; negative for high-grade dysplasia. - Small benign lymphoid aggregate x1. C. Sigmoid colon polyp x2, biopsy: - Tubular adenoma x2. - Negative for high-grade dysplasia. Karthik Deleon M.D. Report Electronically Reviewed and Signed Out By Karthik Deleon M.D. 02/08/2025 12:11:33 Specimen(s) Received: A: Cecum colon polyp x 2 B: Ascending colon polyp x 2 C: Sigmoid colon polyp x 2 Microscopic Description: A. Sections show a tubular adenoma x1 and a small benign lymphoid aggregate x1. There is no evidence of high-grade dysplasia or invasive carcinoma. B. Sections show a tubular adenoma x1 and a small benign lymphoid aggregate x1. There is no evidence of high-grade dysplasia or invasive carcinoma. C. Sections show a tubular adenoma x2. There is no evidence of high-grade dysplasia or invasive carcinoma. Clinical History: Rectal bleeding. Incontinence of feces. Colonoscopy. Gross Description: The specimen is submitted in three formalin containers labeled ANALI MURCIA . A. The first container is labeled cecum colon polyp x2 . It is 7 fragments of gongora tissue between <1 and 2 mm. All in A. B. The second container is labeled ascending colon polyp . It is 2 fragments of gongora tissue measuring 2 mm. All in B. C. The third container is labeled sigmoid colon polyp x2 . It is 3 fragments of gongora tissue between 1 and 2 mm. All in C. T.A. Carolina Villar.Rachel/Cathie Graham M.D. REPORT IMAGES AND SCANNED DOCUMENTS, IF INCLUDED, ONLY VIEWABLE IN PDF VERSION OF REPORT The performance characteristics of some immunohistochemical stains, fluorescence in-situ hybridization tests and immunophenotyping by flow cytometry cited in this report (if any) were determined by the Surgical Pathology Department at [facility] as part of an ongoing quality worker program and in compliance with federally mandated regulations drawn from the Clinical Laboratory Improvement Act of 1988 (CLIA '88). Some of these tests rely on the use of analyte specific reagents and are subject to specific labeling requirements by the US Food and Drug Administration. Such diagnostic tests may only be performed in a facility that is certified by the Department of Health and Human Services as a high complexity laboratory under CLIA '88. The FDA has determined that such clearance or approval is not necessary. This test is used for clinical purposes. It should not be regarded as investigational or for research. Nevertheless, federal rules concerning the medical use of analyte specific reagents require that the following disclaimer be attached to the report: This test was developed and its performance characteristics determined by the Surgical Pathology Department [facility]. It has not been cleared or approved by the U. S. Food and Drug Administration. Note for decalcified specimens: This assay has not been validated on decalcified tissues. Results should be interpreted with caution given the possibility of false negativity on decalcified specimens Xiomara Khan MD LAB PATHOLOGY ORDERABLES Final R esult PATHOLOGY [facility] [address] [place] [address] * POCT glucose (02/07/2025 7:14 AM CDT) Glucose, POC 123 70 - 199 mg/dL Blood 02/07/2025 7:14 AM CDT 02/07/2025 7:14 AM CDT Xiomara Khan MD LAB POCT ORDERABLES - DEVICE Fin al Result [facility] Department [place] [address] * Colonoscopy (02/07/2025 7:05 AM CDT) Anatomical Region Laterality Modality Other Narrative Procedure Note Xiomara Khan MD - 02/07/2025 7:05 AM CDT [facility] Patient Name: Anali Murcia Procedure Date: 02/07/2025 7:05 AM Date of : 1945 Admit Type: Outpatient Age: 79 Gender: Female Attending MD: Xiomara Khan M.D. Room: [facility] ENDOSCOPY ROOM 3 Note Status: Finalized Patient Profile: This is a 79 year old female h/o DM, HTN,pancreatic cyst, chronic diarrhea, gastric stapling here for colitis and rectal bleeding. Recent ED viist for sudden onset LLQ pain, diarrhea and rectalbleeding. CT A/P with contrast showed long segment of distal large bowel and sigmoid colon wall thickening. Shewas treated with abx. Colonoscopy 05/2021 showed 3 diminutive tubular adenomas in the ascending colon.No longer having rectal bleeding but still having some mild LLQ pain that is overall improving. Procedure: Colonoscopy Indications: Last colonoscopy: May 2021, Abdominal pain in the left lower quadrant, Abnormal CT of the GI tract Referring MD: Gautam Sheffield Providers: Xiomara Khan M.D. Impression: - Hemorrhoids found on perianal exam. - Six 3 to 5 mm polyps in the sigmoid colon, in the ascending colon and in the cecum, removed with acold snare. Resected and retrieved. - Angulated sigmoid colon with thick and redundant folds with no signs of inflammation. - External and internal hemorrhoids. Recommendation: - Patient has a contact number available for emergencies. The signs and symptoms of potential delayed complications were discussed with thepatient. Return to normal activities tomorrow. Written discharge instructions were provided to thepatient. - Discharge patient to home (with escort). - Resume previous diet. - Continue present medications. - Await pathology results. - Repeat colonoscopy in 2 years for surveillancebased on pathology results. - Return to referring physician as previously scheduled. Medicines: Monitored Anesthesia Care Complications: No immediate complications. Estimated Blood Loss: Estimated blood loss was minimal. Procedure: Pre-Anesthesia Assessment: - Prior to the procedure, a History and Physicalwas performed, and patient medications and allergieswere reviewed. The patient is competent. The risks and benefits of the procedure and the sedation optionsand risks were discussed with the patient. Allquestions were answered and informed consent was obtained. Patient identification and proposed procedure were verified by the physician, the product management consultant and the electromedical equipment technician in the endoscopy suite. Mental Status Examination: normal. Prophylactic Antibiotics: The patient does not require prophylactic antibiotics. Prior Anticoagulants: The patient has taken no anticoagulant or antiplatelet agents. Afterreviewing the risks and benefits, the patient was deemed in satisfactory condition to undergo the procedure.The anesthesia plan was to use monitored anesthesiacare (MAC). Immediately prior to administration of medications, the patient was re-assessed foradequacy to receive sedatives. The heart rate, respiratory rate, oxygen saturations, blood pressure, adequacyof pulmonary ventilation, and response to care were monitored throughout the procedure. The physical status of the patient was re-assessed after the procedure. The benefits, risks and alternatives of theprocedure and sedation were discussed and informed consentwas obtained. All questions were answered. Please referto the signed informed consent document in the medical record. The bowel preparation used was Miralax via split dose instruction. The bowel preparation usedwas bisacodyl tablets via split dose instruction. The scope was passed under direct vision. The Pediatric Colonoscope PCF-H190L [id number] was introducedthrough the anus and advanced to the the cecum, identifiedby appendiceal orifice and ileocecal valve. The colonoscopy was somewhat difficult. The patient tolerated the procedure well. The quality of thebowel preparation was excellent. Bowel prep wasadministered using a split dose. Findings: Hemorrhoids were found on perianal exam. Six flat polyps were found in the sigmoid colon, ascending colon and cecum. The polyps were 3 to 5 mm in size. These polyps were removedwith a cold snare. Resection and retrieval were complete. Very sharply angulated sigmoid colon with thick and redundant folds. Advancing the scope required applying abdominal pressure. External and internal hemorrhoids were found during retroflexion. Xiomara Khan M.D. 02/07/2025 8:32:51 AM Number of Addenda: 0 Note Initiated On: 02/07/2025 7:05 AM Procedure Code(s): --- Professional --- 80037, Colonoscopy, flexible; with removal of tumor(s), polyp(s), or other lesion(s) by snare technique --- Technical --- 85083, Colonoscopy, flexible; with removal of tumor(s), polyp(s), or other lesion(s) by snare technique Diagnosis Code(s): --- Professional --- K64.8, Other hemorrhoids D12.5, Benign neoplasm of sigmoid colon D12.2, Benign neoplasm of ascending colon D12.0, Benign neoplasm of cecum R10.32, Left lower quadrant pain R93.3, Abnormal findings on diagnostic imaging of other parts of digestive tract Q43.8, Other specified congenital malformations of intestine --- Technical --- K64.8, Other hemorrhoids D12.5, Benign neoplasm of sigmoid colon D12.2, Benign neoplasm of ascending colon D12.0, Benign neoplasm of cecum R10.32, Left lower quadrant pain R93.3, Abnormal findings on diagnostic imaging of other parts of digestive tract Q43.8, Other specified congenital malformations of intestine CPT copyright 2020 [employer]. All rights reserved. The codes documented in this report are preliminary and upon web sizer reviewmay be revised to meet current compliance requirements. Recognized by the [employer] for promoting quality in endoscopy Xiomara Khan MD ENDOSCOPY PROCEDURES Final Resul t * Screening Mammogram Bilateral W Emiliano (01/27/2025 3:05 PM CDT) Anatomical Region Laterality Modality Breast Bilateral Mammography Impressions 01/27/2025 3:09 PM CDT BI-RADS ATLAS category (overall): 1 - Negative There is no mammographic evidence of malignancy. A 1 year screening mammogram is recommended. The patient has been or will be contacted. We recommend annual screening mammography for women at average risk of breast cancer beginning at age 40, based on guidelines of the [employer] (ACR Practice Parameter for the Performance of Screening and Diagnostic Mammography) and [employer]. For women with and elevated risk of breast cancer, please refer to the ACR Practice Parameter for specific screening recommendations. The patient will be entered into a reminder system with a target due date of 1 year for her next screening exam. Narrative 01/27/2025 3:09 PM CDT Screening Mammogram Bilateral W Emiliano: 01/27/25 The study was acquired using full field digital technology and interpreted from soft copy. 2D digital mammographic views, as well as 3D digital tomosynthesis were performed in the CC and MLO projections. This study was resulted using Computer-Aided Detection (CAD). CLINICAL: Screening mammogram, encounter for. No relevant medical history has been documented for this patient. No known family history of breast cancer. COMPARISONS: 11/24/2023 Screening Mammogram Bilateral W Emiliano 01/20/2023 Screening Mammogram Bilateral W Emiliano 2021 Screening bilateral mammography with tomosynthesis BREAST TISSUE: There are scattered areas of fibroglandular density. FINDINGS: No suspicious masses, suspicious calcifications, or other suspicious findings are seen within either breast. There has been no suspicious change. us Self Screening Mammogram IMG MAMMO PROCEDURES Fi nal Result * (ABNORMAL) eGFR (12/21/2024 2:38 PM MANUFACTURING PLANNER) eGFR 39(L) >=60 mL/min/1. 73 m2 Comment: Interpretive Data Reference Interval Normal >/= 90 mL/min/1.73m2 Mildly decreased* 60 - 89 mL/min/1.73m2 Mildly to moderately decreased 45 - 59 mL/min/1.73m2 Moderately to severely decreased 30 - 44 mL/min/1.73m2 Severely decreased 15 - 29 mL/min/1.73m2 Kidney Failure < 15 mL/min/1.73m2 *Relative to young adult level Estimated glomerular filtration rate is determined by the 2020 CKD-EPI equation recommended by the National Kidney Foundation (A Unifying Approach to GFR Estimation: Recommendations of the NKF-ASK Task Force on Reassessing the Inclusion of Race in Diagnosing Kidney Disease, JASN 2020). The CKD-EPI equation should not be used for patients with unstable renal function and has not been validated in children and those over 70. Current interpretive data was last reviewed 2021. Blood 12/21/2024 2:38 PM MANUFACTURING PLANNER 12/21/2024 3:48 PM MANUFACTURING PLANNER us Xiomara Khan MD LAB BLOOD ORDERABLES Final Resul t [facility] 1 [facility] Department [place] [address] * (ABNORMAL) Comprehensive metabolic panel (12/21/2024 2:38 PM MANUFACTURING PLANNER) Sodium 140 135 - 145 mmol/L Potassium, pl 5.0(H) 3.3 - 4.9 mmol/L [facility] Chloride 103 97 - 110 mmol/L [facility] CO2 24 22 - 32 mmol/L [facility]) Anion gap 13 2 - 15 mmol/L [facility] BUN 25 6 - 25 mg/dL [facility] ([place]) Creatinine 1.39(H) 0.60 - 1.10 mg/dL [facility] Glucose 116 70 - 199 mg/dL [facility] ([place]) Comment: Interpretive Data Fasting glucose >/= 126 mg/dl is diagnostic for diabetes. Fasting is defined as no caloric intake for at least 8 hours. Fasting glucose between 100 mg/dl to 125 mg/dl is diagnostic of prediabetes. In a patient with classic symptoms of hyperglycemia or hyperglycemic crisis, a random glucose >/= 200 mg/dl is diagnostic for diabetes. In the absence of unequivocal hyperglycemia, results should be confirmed by repeat testing. The classification and Diagnosis of Diabetes Diabetes Care 2021; 46: S19-S40. Current interpretive data was last revised 2022. Calcium 10.1 8.5 - 10.3 mg/dL [facility] Bilirubin, total 0.2 0.1 - 1.2 mg/dL [facility] Protein, pl 7.9 6.5 - 8.5 g/dL [facility] Albumin 4.2 3.5 - 5.0 g/dL [facility]) Alk phos 114 40 - 130 Units/L [facility] ALT 22 7 - 45 Units/L [facility] AST 32 10 - 45 Units/L [facility]) Blood 12/21/2024 2:38 PM MANUFACTURING PLANNER 12/21/2024 3:48 PM MANUFACTURING PLANNER us Xiomara Khan MD LAB BLOOD ORDERABLES Final Resul t [facility] ([place]) 1 [facility] Department [place] [address] * Lipid panel (08/27/2024 1:17 PM CDT) Cholesterol 120 30 - 199 mg/dL Comment: Interpretive Data Ages < or = 19 years Acceptable: <170 mg/dL Borderline high: 170-199 mg/dL High: >or= 200 mg/dL Ages > or = 20 years Desirable: <200 mg/dL Borderline high: 200-239 mg/dL High: >or= 240 mg/dL Literature References: 1. Expert Panel on Integrated Guidelines for Cardiovascular Health and Risk Reduction in Children and Adolescents. Pediatrics 2011;128:S213 2. NCEP Expert Panel. Circulation 2004;110:227 Current Interpretive Data was last revised on 2018. Triglycerides 79 <=149 mg/dL [facility] Comment: Interpretive Data Ages < or = 9 years Acceptable: <75 mg/dL Borderline high: 75-99 mg/dL High: >or= 100 mg/dL Ages 10 to 20 years Acceptable: <90 mg/dL Borderline high: 90-129 mg/dL High: >or= 130 mg/dL Ages > or = 20 years Desirable: <150 mg/dL Borderline high: 150-199 mg/dL High: 200-499 mg/dL Very high: >or= 499 mg/dL Literature References: 1. Expert Panel on Integrated Guidelines for Cardiovascular Health and Risk Reduction in Children and Adolescents. Pediatrics 2011;128:S213 2. NCEP Expert Panel. Circulation 2004;110:227 Current Interpretive Data was last revised on 2018. HDL 58 >=40 mg/dL [facility] Comment: Interpretive Data Ages < or = 19 years Acceptable: >45 mg/dL Borderline low: 40-45 mg/dL Low: <40 mg/dL Ages > or = 20 years Desirable: >or= 60 mg/dL Low: <40 mg/dL Literature References: 1. Expert Panel on Integrated Guidelines for Cardiovascular Health and Risk Reduction in Children and Adolescents. Pediatrics 2011;128:S213 2. NCEP Expert Panel. Circulation 2004;110:227 Current Interpretive Data was last revised on 2018. LDL, calculated 46 <=129 mg/dL [facility] Comment: Interpretive Data Ages < or = 19 years Acceptable: <110 mg/dL Borderline high: 110-129 mg/dL High: >or= 130 mg/dL Ages > or = 20 years Optimal: <100 mg/dL Near optimal: 100-129 mg/dL Borderline high: 130-159 mg/dL High: >160 mg/dL Calculated using the García LDL-C estimating equation. This equation was implemented on 2024. Prior to this date LDL-C was estimated using the Friedewald equation. Literature References: 1. Expert Panel on Integrated Guidelines for Cardiovascular Health and Risk Reduction in Children and Adolescents. Pediatrics 2011;128:S213 2. NCEP Expert Panel. Circulation 2004;110:227 3. García Lynch al. ELMIRA Cardiol. 2019March 17;5(5):540-548. doi: 10.1001/jamacardio.2020.0013 Current Interpretive Data was last revised on 2024. Non-HDL Cholesterol 62 mg/dL [facility] Comment: Interpretive Data Ages < or = 19 years Acceptable: <120 mg/dL Borderline high: 120-144 mg/dL High: >145 mg/dL Ages > or = 20 years When triglycerides are >200 mg/dL, Non-HDL cholesterol is a secondary target of therapy with treatment goals that are 30 mg/dL greater than the LDL cholesterol target. Literature References: 1. Expert Panel on Integrated Guidelines for Cardiovascular Health and Risk Reduction in Children and Adolescents. Pediatrics 2011;128:S213 2. NCEP Expert Panel. Circulation 2004;110:227 Current Interpretive Data was last revised on 2018. Chol/HDL ratio 2 [facility] Blood 08/27/2024 1:17 PM CDT 08/27/2024 8:03 PM CDT us Delores Chamberlain NP LAB BLOOD ORDERABLES Final Resul t [facility] [address] Department [place] [address] * POCT hemoglobin A1c (08/27/2024 11:39 AM CDT) Hemoglobin A1C, POC 5.3 4.0 - 5.6 % Blood 08/27/2024 11:3 9 AM CDT us Delores Chamberlain NP POINT OF CARE TEST ORDERABLES Fi nal Result * Dexa Axial Skeleton Bone Density 1 Or 2 Site (08/03/2024 9:51 AM CDT) Anatomical Region Laterality Modality Body N/A Mammography 08/03/2024 8:57 PM CDT Narrative 08/03/2024 8:58 PM CDT EXAM DESCRIPTION: DEXA AXIAL SKELETON BONE DENSITY 1 OR MORE SITES REASON FOR STUDY: 79 y/o year old F with given history of: 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 IMPRESSION: Normal bone mass. REFERENCE: Bone mineral density: T-Score: Normal (T-score above or = -1.0) Low bone mass (T-score between -1.0 and -2.5) replaces the previously used term osteopenia Osteoporosis (T-score = or below -2.5) Z-Score: Within the expected range for age (Z-score above -2.0) Below the expected range for age (Z-score is -2.0 or below) Please see below follow up recommendations. Medical evaluation for secondary causes of low bone mineral density may be appropriate. FRAX is a World Health Organization validated fracture risk assessment tool that calculates a person's 10 year probability of a major osteoporosis related fracture and hip fracture. According to the National Osteoporosis Foundation guidelines, postmenopausal women and men age 50 or older with low bone mass and a 10 year probability of a major osteoporosis related fracture = or greater than 20% or a 10 year probability of a hip fracture = or greater than 3% should be considered for pharmacological treatment for the prevention of osteoporosis. For further information, including treatment recommendations, please refer to the 2019 ISCD Official Positions (http://www.iscd.org) and the NOF's Clinician's Guide to Prevention and Treatment of Osteoporosis (http://www.nof.org/professionals/clinical-guidelines) THIS IS AN ELECTRONICALLY VERIFIED FINAL REPORT 08/03/2024 8:58 PM - Electronically signed by Karthik Frye M.D. 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 IMPRESSION: Normal bone mass. REFERENCE: Bone mineral density: T-Score: Normal (T-score above or = -1.0) Low bone mass (T-score between -1.0 and -2.5) replaces thepreviously used term osteopenia Osteoporosis (T-score = or below -2.5) Z-Score: Within the expected range for age (Z-score above -2.0) Below the expected range for age (Z-score is -2.0 or below) Please see below follow up recommendations. Medical evaluation forsecondary causes of low bone mineral density may be appropriate. FRAX is a World Health Organization validated fracture risk assessmenttool that calculates a person's 10 year probability of a major osteoporosisrelated fracture and hip fracture. According to the National OsteoporosisFoundation guidelines, postmenopausal women and men age 50 or older with low bonemass and a 10 year probability of a major osteoporosis related fracture = or greater than 20% or a 10 year probability of a hip fracture = or greaterthan 3% should be considered for pharmacological treatment for the preventionof osteoporosis. For further information, including treatment recommendations, please referto the 2019 ISCD Official Positions (http://www.iscd.org) and the NOF's Clinician's Guide to Prevention and Treatment of Osteoporosis (http://www.nof.org/professionals/clinical-guidelines) THIS IS AN ELECTRONICALLY VERIFIED FINAL REPORT 08/03/2024 8:58 PM - Electronically signed by Karthik Frye M.D. MF: [id number] Report ID: [id number] Reading Location: [place] [address] Result [facility] Delores Chamberlain NP IMG DXA PROCEDURES Final Result * Albumin Creatinine Ratio, Urine (02/26/2024 12:09 PM CDT) Albumin Ur 27.3 mg/L Comment: Interpretive Data No reference range established. Current interpretive data was last revised 2019. Creatinine Ur 154.5 mg/dL [facility] Comment: Interpretive Data No reference range established. Current interpretive data was last revised 2019. Albumin Creatinine Ratio, Ur 18 1 - 29 mg/g [facility] Urine 02/26/2024 12:0 9 PM CDT 02/26/2024 7:37 PM CDT Delores Chamberlain NP LAB URINE ORDERABLES Final Resul t [facility] [address] Department [place] [address] * Diabetic Eye Exam (07/10/2023) Result [facility] Provider HEALTH MAINTENANCE Final Result * Hepatitis C antibody (03/14/2021 11:04 AM CDT) Pathologist [facility] Hep C Ab Nonreactive Nonreactive [facility] Comment: Interpretive Data Nonreactive: Antibodies to HCV not detected. Does NOT exclude the possibility of recent exposure to HCV. Equivocal: Equivocal for HCV antibodies. Supplemental molecular testing will be automatically performed to determine infection status in accordance with current CDC screening recommendations. Reactive: Positive for HCV antibodies. This may represent current or past HCV infection. Supplemental molecular testing will be automatically performed to determine current infection status in accordance with current CDC screening recommendations. Interpretive data was last revised on 2020. Blood specimen (specimen) 03/14/2021 11:04 AM CDT 03/14/2021 2:50 PM CDT Cali An MD LAB MICROBIOLOGY - GENERAL ORDERABLES Final Result [facility] [address] Department [place] [address] from Last 3 Months or Most Recently Relevant to Health Maintenance Insurance [facility] Address: [place] [id number] [place] [address] [place] [id number] MEDICARE COMMERCIAL GENERIC [facility] MEDICARE ADVANTAGE Advance Directives For more information, please contact: [phone] Documents on File Type Date Recorded Patient Hand Bender Expl anation ADVANCE DIRECTIVE 12/15/2023 11:51 AM Christie ng Will * Full Code (Latest Code Status on File) Date Activated Date Inactivated Comments 02/07/2025 7:26 AM 02/07/2025 1:25 PM * Full Code Date Activated Date Inactivated Comments 02/07/2025 7:25 AM 02/07/2025 7:26 AM * Full Code Date Activated Date Inactivated Comments 12/16/2023 1:01 AM 12/21/2023 6:30 PM * Full Code Date Activated Date Inactivated Comments 06/14/2021 1:15 PM 06/14/2021 9:04 PM Care Teams Canary Breeder Relationship Specialty Start Date End Date Delores Chamberlain NP [address] [place] [address] PCP - General Family Medicine 07/23/23 Khai Neal MD Consulting Physician Ophthalmology 10/08/21 Tyree Bauer MD PhD [address] [place] [address] Referring Physician Cardiology 07/23/23 Mary Ma, ship worker Failure Coordinator 08/12/23
--- OUTSIDE RECORDS SUMMARY | 2025-02-18 07:44 | XMS_ITS | Patient Health Record ---
Author Organization [facility] Urgent Care - So [facility] Address [address] [place] [address] Care Team Providers Care Crayon Sawyer Name Role Phone Nate Boo Unavailable [phone] Reason For Referral No Information Medications Medication SIG (Take, Route, Frequency, Duration) Notes Start Date End Date Status atorvastatin Unknown metFORMIN Unknown famotidine Unknown multivitamin Unknown furosemide Unknown aspirin Unknown clopidogrel Unknown lisinopril Unknown Problems Problem Type SNOMED Code ICD Code Onset Dates Problem Status W/U Status Risk Notes Problem Obesity (840717576) Obesity, unspecified (E66.9) Active confirmed Problem History of hypertension (133729807) History of hypertension (Z86.79) Active confirmed Problem Type II diabetes mellitus without complication (339966644) Diabetes mellitus without complication (E11.9) Active confirmed Plan Of Treatment No Information Insurance Providers Payer Name Payer Address Payer Phone Subscriber Number Group Number Insured Name Patient Relationship to Insured Coverage Start Date Coverage End Date Medicare [address] [address] [place] [address] [phone] [id number] Anali Manning Self - patient is the insured [employer] [address] [place] [address] [phone] [id number] Anali Manning Self - patient is the insured Medications Administered Medication Instructions Date of Administration Dosage Notes Ceftriaxone [id number] mg 10/17/2019 250 mg Verified by PA-C Medical (General) History Medical History History ICD Code Obesity, unspecified E66.9 Diabetes mellitus without complication E 11.9 History of hypertension Z86.79 Surgical History Surgery Date(Month/Year) Cardiac Stent Gallbladder Surgery Gastric Bypass Hysterectomy Vaginal Kidney Surgery
--- OUTSIDE RECORDS SUMMARY | 2025-02-18 07:44 | XMS_ITS | Clinical Summary ---
Author Organization [facility] Address [address] [place] [address] Care Team Providers Care Flight Physician Name Role Phone Khai Neal MD Unavailable [phone] Delores Chamberlain NP Primary Care Provider [phone] Tyree Bauer MD PhD Unavailable + Mary Ma RN Unavailable Unavaila ble Allergies No known active allergies Medications multivitamin [...] complication, without long-term current use of insulin ([facility]) CHECK BLOOD SUGAR ONCE DAILY 200 [...] 12/18/2023 Assessment & Plan (12/21/2023 9:54 AM LOOSELEAF BINDER COVERER): -Lidocaine gtt started 12/17 -Pain mgmt team following -daily lido levels for monitoring 2/3 tolerated one dose of oxycodone overnight, start multimodal regimen, stop lido infusion, pain team signed off 2/4 pain controlled, reported hallucination with oxycodone - changed to ultram - no doses administered Delirium 12/17/2023 Assessment & Plan (12/21/2023 9:54 AM LOOSELEAF BINDER COVERER): -12/16 SICU management; soft restraints placed, 5 mg IV zyprexa given for agitation -12/17: hyperactive delirium, sleep hygiene - 12/19 RESOLVED - restraints discontinued Bradycardia 12/16/2023 Assessment & Plan (12/18/2023 2:33 PM LOOSELEAF BINDER COVERER): Admitted to the SICU post-operatively due to bradycardia and hypotensive event in the OR. Recovered and is hemodynamically stable post-operatively without issue 12/16: telemetry when comes out of SICU 12/17: sinus tachycardia with fever, continue to monitor on tele when transfers out of SICU > CONSIDER RESOLVED Encntr for surgical aftcr fo llowing surgery on the dgv sys 12/15/2023 Personal history of other venous thrombosis and embolism 11/17/2023 Presence of coronary angioplasty implant and gra ft 11/17/2023 Athscl heart disease of earlene ve coronary artery w/o ang pctrs 11/17/2023 Assessment & Plan (08/27/2024 11:59 AM CDT): Stable, continuing to follow up with Cardiology. 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 Wound healing and continuing to have dressing changes through home health. Fall 01/16/2023 Assessment & Plan (01/16/2023 1:00 PM LOOSELEAF BINDER COVERER): New issue, pt was seen [facility] on 01/07/23 in [place] after a fall. She had CT brain, [...] diarrhea Assessment & Plan (11/21/2023 9:28 PM LOOSELEAF BINDER COVERER): Since last visit started on amitriptyline 10 [...] needed Assessment & Plan (10/21/2023 11:28 AM LOOSELEAF BINDER COVERER): Feels the Amitriptyline from GI has been [...] CDT): We will schedule anorectal manometry at [facility] to further evaluate the episodes of [...] 03/14/2021 Assessment & Plan (11/21/2023 9:28 PM LOOSELEAF BINDER COVERER): Colonoscopy 05/2021 that showed 3 diminutive tubular [...] multiple colon polyps removed in colonoscopy in [place] she needs follow-up colonoscopy to be scheduled Elevated LFTs 03/14/2021 Assessment & Plan (05/15/2022 11:47 AM CDT): ALT was noted to be at 46 rest the liver enzymes are normal the way the liver is functioning is normal She needs vaccination for hepatitis-B and hepatitis A--either through the primary care physician's office or the [email or web address]] Assessment & Plan (03/14/2021 5:55 PM CDT): [...] (03/14/2021): Added automatically from request for surgery [id number] Hx of adenomatous colonic polyps 03/14/2021 Overview (03/14/2021): Added automatically from request for surgery [id number] Elevated troponin I level 01/11/2021 Renal impairment 01/11/2021 Assessment & Plan (01/11/2021 10:56 AM LOOSELEAF BINDER COVERER): She is uncertain of her renal status. I did check CMP. Urinary tract infectious disease 01/11/2021 Pancreatic cyst 01/11/2021 Assessment & Plan (11/21/2023 9:28 PM LOOSELEAF BINDER COVERER): Stable on recent MRI 08/2023 with no [...] MRCP Assessment & Plan (01/11/2021 10:56 AM LOOSELEAF BINDER COVERER): I did refer to Gastroenterology for follow-up HTN (hypertension) 08/17/2019 Assessment & Plan (12/21/2023 9:56 AM LOOSELEAF BINDER COVERER): -home lisinopril 20 mg, amlodipine 10 mg held in post operative setting 2/4 home regimen resumed Assessment & Plan (10/21/2023 11:28 AM LOOSELEAF BINDER COVERER): BP stable in office, continues Lisinopril and [...] refilled. Assessment & Plan (01/11/2021 10:53 AM LOOSELEAF BINDER COVERER): She is on Lasix and lisinopril. She [...] needed. Assessment & Plan (01/11/2021 10:56 AM LOOSELEAF BINDER COVERER): She is on Lipitor 10 mg daily. [...] evaluation Assessment & Plan (01/11/2021 10:51 AM LOOSELEAF BINDER COVERER): She was diagnosed with pancreatic cyst but really does not remember much else about that. I did refer her to GI for evaluation. Type 2 diabetes mellitus 07/01/2018 Assessment & Plan (08/27/2024 12:00 PM CDT): A1c improved to 5.3 from previous 6.0. Continuing Metformin. Assessment & Plan (02/26/2024 1:08 PM CDT): Continuing Metformin, updated labs ordered. Assessment & Plan (12/21/2023 9:57 AM LOOSELEAF BINDER COVERER): Home metformin; held -SSI ordered while NPO [...] CMP. Assessment & Plan (01/11/2021 10:57 AM LOOSELEAF BINDER COVERER): I did check labs. She will continue metformin. I did encourage her to continue to monitor blood sugars. Gastrointestinal hemorrhage 06/29/2018 Assessment & Plan (01/11/2021 10:55 AM LOOSELEAF BINDER COVERER): She does have history of gastric bypass many years ago. GI hemorrhage was related to that and polyp. Coronary artery disease Assessment & Plan (12/21/2023 12:22 PM LOOSELEAF BINDER COVERER): -H/o acute HI s/p PCI x3 2018 -Home ASA 81 and lipitor; held --- OK to resume ASA 2/5 Assessment & Plan (03/14/2021 5:54 PM CDT): History of HI in the past with use of Plavix at this time which would need to be held for EGD and colonoscopy with Cardiology. Assessment & Plan (01/11/2021 10:52 AM LOOSELEAF BINDER COVERER): She is status post 3 stents and did have an HI. She is scheduled with cardiology next week. History of bilateral knee replacement Assessment & Plan (01/11/2021 10:55 AM LOOSELEAF BINDER COVERER): Currently ambulating well. She did have complication of DVT and is on Plavix and aspirin. H/O gastric bypass Assessment & Plan (03/14/2021 10:41 AM CDT): History of gastric bypass in 1978 Check a CBC as people with gastric bypass can have tendency to become anemic Assessment & Plan (01/11/2021 10:55 AM LOOSELEAF BINDER COVERER): She estimates 30 years ago. She no longer follows with the surgeon. Colon polyps Assessment & Plan (01/11/2021 10:52 AM LOOSELEAF BINDER COVERER): She has multiple polyps removed 1 and half years ago. She was scheduled for re-evaluation 1 year ago but moved. I did refer her to Gastroenterology. Right ureteral stone Resolved Problems Problem Noted Date Diagnosed Date Resolved Date Loose stools 12/21/2023 07/21/2024 Assessment & Plan (12/21/2023 12:21 PM LOOSELEAF BINDER COVERER): 2/5 c/o loose stools x2d, wbc 8, no fevers, abx: erta x1 12/15, imodium x1 for car ride home, patient to notify PCP if ongoing issues for testing Discharge planning issues 12/19/2023 Assessment & Plan (12/21/2023 10:05 AM LOOSELEAF BINDER COVERER): 12/19 PT eval: home; ADD Friday pending po advancement 12/20 independently mobilizing, ADD Thursday 12/21 possible DC later today pending PO tolerance; PT eval from 12/19 recommending wheeled walker and PT (ordered), case management updated Ventral hernia without obstr uction or gangrene 12/02/2023 02/26/2024 Assessment & Plan (12/21/2023 9:57 AM LOOSELEAF BINDER COVERER): [facility] open ventral hernia repair with mesh; removal [...] fiber, anthony intact, JPs serosang Pathology 12/15 bank runner, removal - Mesh (gross only diagnosis) Overweight [...] 07/21/2024 Assessment & Plan (01/16/2023 1:19 PM LOOSELEAF BINDER COVERER): Flank pain Pt reports dysuria, frequency, chills, cloudy urine, possible hematuria, left lower back pain for 2 days. Pt also mentions on 01/06 she blacked out while on the commode in [place]. She woke up on the floor. She [...] urine is normal. I will refer to signals intelligence analysis manager for secondary causes. Acute recurrent pansinusitis 06/06/2021 [...] 07/21/2024 Assessment & Plan (01/11/2021 10:51 AM LOOSELEAF BINDER COVERER): She has recent history of ureteral stent with urinary tract infection. She did require stone manipulation and retrieval. She currently has no symptoms. Influenza-like symptoms 01/11/2021 09/0 02/2024 Pyelonephritis 01/11/2021 02/26/2024 Right flank pain 01/11/2021 02/26/2024 Gastroesophageal reflux disease 03/16/2020 07/21/2024 Assessment & Plan (12/21/2023 9:54 AM LOOSELEAF BINDER COVERER): Home pepcid -IV formulation ordered while NPO -transitioned to oral once NGT removed Assessment & Plan (04/12/2021 1:40 PM CDT): Omeprazole was refilled. We did discuss trying to wean from the medication. Assessment & Plan (01/11/2021 10:54 AM LOOSELEAF BINDER COVERER): She is diabetic. She is on famotidine and omeprazole.. Will continue to monitor. Chronic deep vein thrombosis (DVT) of lower extremity 08/05/2019 12/18/2023 Assessment & Plan (12/18/2023 2:39 PM LOOSELEAF BINDER COVERER): History of provoked DVT in 2019. Home is ASA 81 for CAD Assessment & Plan (01/11/2021 10:51 AM LOOSELEAF BINDER COVERER): She is on Plavix and aspirin. She is status post bilateral knee replacement and her DVT was felt to be a complication. Hyperglycemia 08/05/2019 07/23/2023 Obesity 08/05/2019 07/21/2024 Acute deep vein thrombosis ( DVT) of distal vein of left lower extremity 01/11/2021 Assessment & Plan (01/11/2021 10:50 AM LOOSELEAF BINDER COVERER): She is on Plavix and aspirin. She will continue. Encounters Date Type Department Care Team Description 02/16/2025 8:45 AM CDT Lab [address] [phone] Hypertension due to endocrine disorder 02/16/2025 7:18 AM CDT - 02/16/2025 11:59 PM CDT Hospital Encounter [facility] [address] [place] [address] Pancreatic cyst; Intrahepatic bile duct dilation Discharge Disposition: Discharge to home or self care 02/16/2025 Results Follow-Up [facility] Primary Care at [address] [phone] Delores Chamberlain NP 02/11/2025 10:00 AM CDT Office Visit [facility] Department of Surgery [address] [place] [address] [place] [address] [place] [address] Trung Butler MD S/P repair of ventral hernia (Primary Dx); Visit for wound check 02/11/2025 Orders Only [facility] Department of Surgery [address] [place] [address] [place] [address] [place] [address] Essence Hinds CMA Abdominal pain (Primary Dx) 02/10/2025 Results Follow-Up [facility] Gastroenterology at [address] [place] [address] Xiomara Khan MD 02/07/2025 7:46 AM CDT Anesthesia Event [address] [address] Kristi Meade MD 02/07/2025 7:25 AM CDT - 02/07/2025 7:55 AM CDT Surgery [address] [address] Xiomara Khan MD COLON REMOVAL SNARE 02/07/2025 6:31 AM CDT - 02/07/2025 9:25 AM CDT Hospital Encounter [address] [address] Xiomara Khan MD Rectal bleeding; Incontinence of feces, unspecified fecal incontinence type Discharge Disposition: Discharge to home or self care 01/27/2025 2:55 PM CDT - 01/27/2025 11:59 PM CDT Hospital Encounter [facility] Office Bldg 1 Breast [facility] [address] [place] [address] Screening mammogram, encounter for Discharge Disposition: Discharge to home or self care 01/27/2025 Results Follow-Up [facility] Primary Care at [address] [phone] Delores Chamberlain NP 01/05/2025 Orders Only [facility] Primary Care at [address] [phone] Delores Chamberlain NP Type 2 diabetes mellitus with stage 3b chronic kidney disease, without long-term current use of insulin (HCC) (Primary Dx) 01/03/2025 Results Follow-Up [facility] Primary Care at [address] [phone] Lisa Curry MA 12/31/2024 Telephone [facility] Primary Care at [address] [phone] Lisa Curry MA Lab Results 12/21/2024 2:40 PM LOOSELEAF BINDER COVERER Lab [address] Pancreatic cyst; Abnormal finding on GI tract imaging 12/21/2024 1:30 PM LOOSELEAF BINDER COVERER Office Visit [facility] Gastroenterology at [address] [place] [phone] Xiomara Khan MD Colitis (Primary Dx); Hematochezia; Pancreatic cyst; Intrahepatic bile duct dilation 12/21/2024 Telephone [facility] Gastroenterology at [address] [place] [phone] Marry Wasserman Schedule Colonoscopy 12/20/2024 Telephone [facility] Gastroenterology at [address] [place] [phone] Sneha Cantrell LPN 12/15/2024 Nurse Triage [facility] Primary Care at [address] [phone] Delores Chamberlain NP 12/02/2024 Orders Only [facility] Primary Care at [address] [phone] Delores Chamberlain NP 12/01/2024 Orders Only [facility] Primary Care at [address] [phone] Delores Chamberlain NP 12/01/2024 Telephone [facility] Primary Care at [address] [phone] Delores Chamberlain NP Medication Request from Last 3 Months Immunizations Immunization Administration Dates Next Due Influenza [...] PPV23 11/17/2015 ZOSTER Recombinant 09/11/2021(Deferred: Patient Refused) Surgical History Surgery Date Site/Laterality Comments HYSTERECTOMY 11/17/1974 - 11/16/1975 REPLACEMENT TOTAL KNEE BILATERAL Bilatera l unknown date GASTRIC BYPASS unknown date HERNIA REPAIR 11/17/2004 - 11/16/2005 CARDIAC STENT PLACEMENT 11/17/2017 - 11/16/2018 3 stents GALLBLADDER SURGERY 11/17/1978 - 11/16/1979 APPENDECTOMY 11/17/1978 - 11/16/1979 BLADDER SUSPENSION 11/17/1974 - 11/16/1975 BREAST BIOPSY Left unknown date COLONOSCOPY last one 05/2021 ESOPHAGOGASTRODUODENOSCOPY last one 05/2021 Medical History Medical History Date Comments UTI (urinary tract infection) Kidney stone Hypertension Coronary artery disease Type 2 diabetes mellitus (HCC) DVT (deep vein thrombosis) in Obesity History of gastric bypass Pancreatic cyst 2017 H/O heart artery stent 2018 DVT (deep venous thrombosis) (HCC) Myocardial infarction (HCC) card iac stents x 3 Retinal vein occlusion (HCC) Age-related macular degeneration Colon polyp Hyperglycemia 08/05/2019 Painful total knee replacement, left 03/29/2021 Pyelonephritis 01/11/2021 Right flank pain 01/11/2021 Right ear pain 07/31/2022 Ventral hernia without obstruction or gangrene Family History Medical History Relation Name Comments Heart disease Brother Hypertension Brother Heart disease Father Diabetes Mother Heart disease Mother Hypertension Mother Relation Name Status Comments Brother Father Mother Social History Tobacco Use Types Packs/Day Years [...] on file Legal Sex Female 7:58 AM LOOSELEAF BINDER COVERER Gender Identity Female 05/21/2023 3:25 AM CDT Sexual Orientation Not on file Obstetrics History Para Term AB IAB SAB Ectopic Multiple Livin g Live Births 3 Date Outcome GA Total Labor Labor/2nd/3rd Weight Sex Type Anes PTL Nissa A1 A5 Name Clin Last Filed Vital Signs Vital Sign Reading [...] 02/11/2025 10:59 AM CDT Plan of Treatment Health Maintenance Due Date Last Done Comments Hepatitis B Screening 1963 Zoster Vaccine (1 of 2) 1996 Covid-19 Vaccine (2023-2 5 season) 2024 11/08/2023, 09/06/2022, 02/13/2021, Additional history exists Foot Exam 01/25/2025 01/26/2024, 01/11/2021 Albumin Creatinine Ratio, Urine 02/25/2025 02/26/2024, 02/05/2023, 02/04/2022, Additional history exists Hemoglobin A1C 02/25/2025 08/27/2024, 02/15, 12/18/2023, Additional history exists Dilated Eye Exam 07/28/2025 07/28/2024, , 11/27/2022, Additional history exists Depression Screening 08/27/2025 08/27/2024, 07/21/2024, 02/26/2024, Additional history exists Fall Risk Assessment 08/27/2025 08/27/2024, 02/26/2024, 12/21/2023, Additional history exists Lipid Panel 08/27/2025 08/27/2024, 02/15, 07/23/2023, Additional history exists Well Visit 65+ 08/27/2025 08/27/2024, 01/16, 02/04/2022 Colon Cancer Screening-FIT 02/07/202602/07, 06/14/2021, 10/05/2019 Colon Cancer Screening-FOBT 02/07/2026 03/2 02/2025, 06/14/2021, 10/05/2019 eGFR 02/16/2026 02/16/2025, 02/2025, 08/27/2024, Additional history exists Osteoporosis Screening-Bone Density Scan 08/03/2026 08/03/2024, 12/05/2021, 12/05/2021 Colon Cancer Screening-Colonoscopy 02/07/2027 02/07/2025, 06/14/2021, 10/05/2019 Colorectal Cancer Screening 02/07/2027 Colon Cancer Screening-DNA Stool 02/08/2028 02/07/2025, 06/14/2021, 10/05/2019 Colon Cancer Screening-CT Colonography 02/07/2030 02/07/2025, 06/14/2021, 10/05/2019 Colon Cancer Screening-Sigmoidoscopy 02/07/2030 02/07/2025, 06/14/2021, 10/05/2019 DTaP/Tdap/Td Vaccine (2 - Td or Tdap) 06/16/2034 06/16/2024 Pneumococcal vaccine 65+ Completed 01/18/2020, 11/2015 Hepatitis C Screening Completed 03/14/2021 Influenza Vaccine Completed 08/27/2024, , 07/31/2022, Additional history exists Breast Cancer Screening-Mammogram Discontinued 01/27/2025, 11/24/2023, 01/20/2023, Additional history exists Medical Devices Implanted Type Area Preparation Plant Supervisor Device Identifier Shelf Expiration Date Model / Serial / Lot [employer]/C R Bard [id number] Monofilament Soft Lightweight Low Profile Square - [id number] Implanted:Qty: 1 on 12/15/2023 by Trung Butler MD at [facility] Mesh N/A: Abdomen [employer] [id number] 06/13/2027 [id number] / / [id number] Other - See Comments Other - see [...] encounter for EGFR Routine 12/21/2024 2:38 PM LOOSELEAF BINDER COVERER Pancreatic cyst Abnormal finding on GI tract imaging COMPREHENSIVE METABOLIC PANEL Routine 12/21/2024 2:38 PM LOOSELEAF BINDER COVERER Pancreatic cyst Abnormal finding on GI tract [...] NP LAB BLOOD ORDERABLES Final Resul t [facility] ([place] 1 [facility] Department [place] [address] * (ABNORMAL) Basic metabolic panel (02/16/2025 9:14 AM CDT) Sodium 142 135 - 145 mmol/L Potassium, pl 4.7 3.3 - 4.9 mmol/L [facility] ([place]) Chloride 106 97 - 110 mmol/L [facility] CO2 24 22 - 32 mmol/L [facility] ([place]) Anion gap 12 2 - 15 mmol/L [facility] ([place]) BUN 25 6 - 25 mg/dL [facility] ([place] Creatinine 1.40(H) 0.60 - 1.10 mg/dL [facility] ([place]) Glucose 124 70 - 199 mg/dL [facility] ([place] Comment: Interpretive Data Fasting glucose >/= 126 [...] classification and Diagnosis of Diabetes Diabetes Care 202; 46: S19-S40. Current interpretive data was last revised 2022. Calcium 9.8 8.5 - 10.3 mg/dL [facility] ([place] Blood 02/16/2025 9:14 AM CDT 02/16/2025 9:32 AM CDT us Delores Chamberlain CURRENCY EXAMINER LAB BLOOD ORDERABLES Final Resul t [facility]) [address] [place] [address] Department [place] [address] * Surgical pathology (02/07/2025 11:54 AM CDT) Tissue specimen (specimen) (Polyp(s), colon/colorectal, esophageal, gastric) 02/07/2025 8:33 AM CDT Tissue specimen (specimen) (Polyp(s), colon/colorectal, esophageal, gastric) 02/07/2025 8:34 AM CDT Tissue specimen (specimen) (Polyp(s), colon/colorectal, esophageal, gastric) 02/07/2025 8:34 AM CDT Narrative PATHOLOGY [facility] ([place]) - 02/08/2025 12:11 PM CDT EPIC results best viewed via link to PDF [facility] Department of Pathology [address] [place] [id number] Note to Patients: This report may contain [...] Final Report Patient Name: ANALI MURCIA Address: [address] [place] [address]- Gender: F : 1945 (Age: 79) Service: Gastro Location: [facility] Hospital #: [id number] Patient Type: [facility] Taken: 02/07/2025 Received: 02/07/2025 Accessioned: 02/07/2025 Reported: [...] 2 mm. All in [facility]. [facility] [place] Villar[facility] P.Lilia./Cathie Graham M.D. REPORT IMAGES AND SCANNED DOCUMENTS, IF INCLUDED, ONLY VIEWABLE IN PDF VERSION OF REPORT The performance characteristics of some immunohistochemical stains, fluorescence in-situ hybridization tests and immunophenotyping by flow cytometry cited in this report (if any) were determined by the Surgical Pathology Department at [facility] as part of an ongoing data quality consultant program and in compliance with federally mandated [...] characteristics determined by the Surgical Pathology Department [facility]. It has not been cleared or approved by the U. S. Food and Drug Administration. Note for decalcified specimens: This assay has not been validated on decalcified tissues. Results should be interpreted with caution given the possibility of false negativity on decalcified specimens Xiomara Khan MD LAB PATHOLOGY ORDERABLES Final R esult PATHOLOGY [facility] ([facility] [place] [address] * POCT glucose (02/07/2025 7:14 AM CDT) Glucose, POC 123 70 - 199 mg/dL Blood 02/07/2025 7:14 AM CDT 02/07/2025 7:14 AM CDT Xiomara Khan MD LAB POCT ORDERABLES - DEVICE Fin al Result [facility] Department [place] [address] * Colonoscopy (02/07/2025 7:05 AM CDT) Anatomical Region Laterality Modality Other Narrative Procedure Note Xiomara Khan MD - 02/07/2025 7:05 AM CDT [facility] Patient Name: Anali Murcia Procedure Date: 02/07/2025 7:05 AM Date of : 1945 Admit Type: Outpatient Age: 79 Gender: Female Attending MD: Xiomara Khan M.D. Room: [facility] ENDOSCOPY ROOM 3 Note Status: Finalized Patient [...] procedure were verified by the physician, the manager digital and the dialysis biomed technician in the endoscopy suite. Mental Status [...] under direct vision. The Pediatric Colonoscope [id number]-[id number] was introducedthrough the anus and advanced to [...] 7:05 AM Procedure Code(s): --- Professional --- 95506, Colonoscopy, flexible; with removal of tumor(s), polyp(s), or other lesion(s) by snare technique --- Technical --- 14124, Colonoscopy, flexible; with removal of tumor(s), polyp(s), [...] congenital malformations of intestine CPT copyright 2020 [place] [employer]. All rights reserved. The codes documented in this report are preliminary and upon managing member reviewmay be revised to meet current compliance requirements. Recognized by the [place] [employer] for promoting quality [...] age 40, based on guidelines of the [place] [employer] (ACR Practice Parameter for the Performance of Screening and Diagnostic Mammography) and [place] [employer]. For women [...] Result * (ABNORMAL) eGFR (12/21/2024 2:38 PM LOOSELEAF BINDER COVERER) eGFR 39(L) >=60 mL/min/1. 73 m2 Comment: [...] last reviewed 2021. Blood 12/21/2024 2:38 PM LOOSELEAF BINDER COVERER 12/21/2024 3:48 PM LOOSELEAF BINDER COVERER us Xiomara Khan MD LAB BLOOD ORDERABLES Final Resul t [facility] ([place] 1 [facility] Department [place] [address] * (ABNORMAL) Comprehensive metabolic panel (12/21/2024 2:38 PM LOOSELEAF BINDER COVERER) Sodium 140 135 - 145 mmol/L Potassium, pl 5.0(H) 3.3 - 4.9 mmol/L [facility] ([place]) Chloride 103 97 - 110 mmol/L [facility]) CO2 24 22 - 32 mmol/L [facility] ([place]) Anion gap 13 2 - 15 mmol/L [facility] ([place] BUN 25 6 - 25 mg/dL [facility] Creatinine 1.39(H) 0.60 - 1.10 mg/dL [facility] ([place] Glucose 116 70 - 199 mg/dL [facility] ([place]) Comment: Interpretive Data Fasting glucose [...] [facility] ([place] Blood 12/21/2024 2:38 PM LOOSELEAF BINDER COVERER 12/21/2024 3:48 PM LOOSELEAF BINDER COVERER us Xiomara Khan MD LAB BLOOD ORDERABLES Final Resul t [facility] ([place]) 1 [facility] Department [place] [address] * Lipid panel (08/27/2024 1:17 PM CDT) [...] Pediatrics 2011;128:S213 2. NCEP Expert Panel. Circulation 2003;110:227 3. Mariano M et al. ELMIRA Cardiol. 2019March 17;5(5):540-548. doi: [email or web address] [...] LAB BLOOD ORDERABLES Final Resul t [facility] [address] Department of Laboratories [place], [place] [id number] * POCT hemoglobin A1c (08/27/2024 11:39 AM [...] with given history of: post-menopausal osteoporosis prevention Preparation Plant Supervisor/Model: Holoevocatal Horizon A (S/N [id number]) CLINICAL INFORMATION: Current height: 62 inches Maximum [...] Karthik Frye M.D. MF: ASHOK Report ID: [id number] Reading Location: [id number] Procedure Note Karthik Frye MD - 08/03/2024 EXAM DESCRIPTION: DEXA AXIAL SKELETON BONE DENSITY 1 OR MORE SITES REASON FOR STUDY: 79 y/o year old F with given history of: post-menopausal osteoporosis prevention Preparation Plant Supervisor/Model: Holoevocatal Horizon A (S/N [id number]) CLINICAL INFORMATION: Current height: 62 inches Maximum [...] Karthik Frye M.D. MF: ASHOK Report ID: [id number] Reading Location: [place] [address] Delores Chamberlain NP IMG DXA PROCEDURES Final Result * Albumin Creatinine Ratio, Urine (02/26/2024 12:09 PM CDT) Albumin Ur 27.3 mg/L Comment: Interpretive Data No reference range established. Current interpretive data was last revised 2019. Creatinine Ur 154.5 mg/dL [facility] Comment: Interpretive Data No reference range established. Current interpretive data was last revised 2019. Albumin Creatinine Ratio, Ur 18 1 - 29 mg/g [facility] Urine 02/26/2024 12:0 9 PM CDT 02/26/2024 7:37 PM CDT Delores Chamberlain NP LAB URINE ORDERABLES Final Resul t [facility] [address] Department [place] [address] * Diabetic Eye Exam (07/10/2023) Historical Provider HEALTH MAINTENANCE Final Result * Hepatitis C antibody (03/14/2021 11:04 AM CDT) Hep C Ab Nonreactive Nonreactive [facility] Comment: Interpretive Data Nonreactive: Antibodies to HCV [...] MICROBIOLOGY - GENERAL ORDERABLES Final Result [facility] [address] Department [place] [address] from Last 3 Months or Most Recently Relevant to Health Maintenance Insurance [facility] MEDICARE ADVANTAGE [facility] DUAL COMPLETE [place] [id number] [place] MEDICARE COMMERCIAL GENERIC [facility] MEDICARE ADVANTAGE Advance Directives For more information, please contact: [phone] Documents on File Type Date Recorded 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 DIRECTIVE 12/15/2023 11:51 AM Christie Davidson * Full Code (Latest Code Status on File) Date Activated Date Inactivated Comments 02/07/2025 7:26 AM 02/07/2025 1:25 PM * Full Code Date Activated Date Inactivated Comments 02/07/2025 7:25 AM 02/07/2025 7:26 AM * Full Code Date Activated Date Inactivated Comments 12/16/2023 1:01 AM 12/21/2023 6:30 PM * Full Code Date Activated Date Inactivated Comments 06/14/2021 1:15 PM 06/14/2021 9:04 PM Care Teams Flight Physician Relationship Specialty Start Date End Date Delores Chamberlain NP [address] [place] [address] PCP - General Family Medicine 07/23/23 Khai Neal MD Consulting Physician Ophthalmology 10/08/21 Tyree Bauer MD PhD [address] [place] [address] Referring Physician Cardiology 07/23/23 Mary Ma, builder's labourer Failure Coordinator 08/12/23
--- OUTSIDE RECORDS SUMMARY | 2025-02-18 07:44 | XMS_ITS | Encounter Summary ---
Author Organization [facility] Healthcare Address [address] [place] [address] Care Team Providers Care Distribution System Operator Name Role Phone Khai Neal MD Unavailable [phone] Delores Chamberlain NP Primary Care Provider Tyree Bauer MD PhD Unavailable + Mary Ma RN Unavailable Unavaila ble Encounter Details Date Type Department Care Team (Late st Contact Info) Description 06/17/2024 Telephone [facility] Medical Group Primary Care at [address] [address] Delores Chamberlain NP [address] [place] [address] [address] [place] [address] Social History Tobacco Use Types Packs/Day Years Used Date Smoking Tobacco: Never Passive Smoke Exposure: Never Smokeless Tobacco: Never Alcohol Use Standard Drinks/Week Comments No 0 (1 standard drink = 0.6 oz pur e alcohol) AUDIT-C Answer Date Recorded Q1: How often do you have a drink containing alcohol? Never 12/15/2023 Q2: How many drinks containi ng alcohol do you have on a typical day when you are drinking? Patient does not drink Q3: How often do you have si x or more drinks on one occasion? Never 12/15/2023 PHQ-2 Answer Date Recorded PHQ-2 Total Score (If total score is 3 or more points, staff should administer the PHQ-9) 0 02/26/2024 Personal Safety Answer Date Recorded Have you ever been in or are you currently in a harmful physical or emotional relationship or is someone making you feel afraid or unsafe? 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 Gender Identity Female 05/21/2023 3:25 AM CDT Sexual Orientation Not on file documented as of this encounter Plan of Treatment Not on file documented as of this encounter Visit Diagnoses Not on filedocumented in this encounter Care Teams Distribution System Operator Relationship Specialty Start Date End Date Delores Chamberlain NP [address] [place] [address] PCP - General Family Medicine 07/23/23 Khai Neal MD Consulting Physician Ophthalmology 10/08/21 Tyree Bauer MD PhD [address] [place] [address] Referring Physician Cardiology 07/23/23 Mary Ma, barrel tester and drainer Failure Coordinator 08/12/23 documented as of this encounter
[2025-02-18 08:01] LABS: Estimated Glomerular Filt Rate 34
== END 2025-02-18 07:41 | disposition home or self-care (01) ==
PROVIDERS: PCP Nurse Practitioner Family
DX: K43.9 Ventral hernia without obstruction or gangrene (principal); K86.2 Cyst of pancreas; Z90.49 Acquired absence of other specified parts of digestive tract
CPT/HCPCS: 74177; Q9967

== ENCOUNTER 2025-03-24 09:58 | Outpatient (CLI) | payer MEDICARE, SELFPAY ==
--- NOTE | ~2025-03-24 | US_ITS ---
EXAMINATION: US retroperitoneal duplex ltd DATE: 03/24/2025 10:56 INDICATION: Stage IIIB chronic kidney disease TECHNIQUE: Multiple grayscale, color Doppler, and pulsed Doppler images of the kidneys and renal juancarlos randee were obtained. COMPARISON: None. FINDINGS: The aorta peak systolic velocity is 57 cm/s. The right renal artery peak systolic velocity is 52 cm/s in the proximal segment, 72 cm/s in the mid segment, and 74 cm/s in the distal segment. The left nohemy al artery peak systolic velocity is 89 cm/s in the proximal segment, 77 cm/s in the mid segment, and 64 cm/s in the distal segment. IMPRESSION: 1. No Doppler evidence of renal artery stenosis. Reviewed, dictated and finalized at location A.
--- OUTSIDE RECORDS SUMMARY | 2025-03-24 10:17 | XMS_ITS | Patient Health Record ---
Author Organization [facility] Address [address] [place] [address] Care Team Providers Care Hand I Cutter Name Role Phone Nate Boo Unavailable [phone] Reason For Referral No Information Medications Medication SIG (Take, Route, Frequency, Duration) Notes Start Date End Date Status atorvastatin Unknown metFORMIN Unknown famotidine Unknown multivitamin Unknown furosemide Unknown aspirin Unknown clopidogrel Unknown lisinopril Unknown Problems Problem Type SNOMED Code ICD Code Onset Dates Problem Status W/U Status Risk Notes Problem Obesity (229567928) Obesity, unspecified (E66.9) Active confirmed Problem History of hypertension (335763519) History of hypertension (Z86.79) Active confirmed Problem Type II diabetes mellitus without complication (600798769) Diabetes mellitus without complication (E11.9) Active confirmed Plan Of Treatment No Information Insurance Providers Payer Name Payer Address Payer Phone Subscriber Number Group Number Insured Name Patient Relationship to Insured Coverage Start Date Coverage End Date Medicare [address] [address] [place] [address] [id number] Anali Manning Self - patient is the insured [employer] [address] [place] [phone] [id number] Anali Manning Self - patient is the insured Medications Administered Medication Instructions Date of Administration Dosage Notes Ceftriaxone [id number] mg 10/17/2019 250 mg Verified by PA-C Medical (General) History Medical History History ICD Code Obesity, unspecified E66.9 Diabetes mellitus without complication E 11.9 History of hypertension Z86.79 Surgical History Surgery Date(Month/Year) Cardiac Stent Gallbladder Surgery Gastric Bypass Hysterectomy Vaginal Kidney Surgery
--- OUTSIDE RECORDS SUMMARY | 2025-03-24 10:17 | XMS_ITS | Encounter Summary ---
Author Organization [facility] Healthcare Address [address] [place] [address] Care Team Providers Care Vice President Of Manufacturing Name Role Phone Khai Neal MD Unavailable [phone] Delores Chamberlain NP Primary Care Provider Tyree Bauer MD PhD Unavailable + Mary Ma RN Unavailable Unavaila ble Encounter Details Date Type Department Care Team (Late st Contact Info) Description 06/17/[address] 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 Gender Identity Female 05/21/2023 3:25 AM CDT Sexual Orientation Not on file documented as of this encounter Plan of Treatment Not on file documented as of this encounter Visit Diagnoses Not on filedocumented in this encounter Care Teams Vice President Of Manufacturing Relationship Specialty Start Date End Date Delores Chamberlain NP [address] [place] [address] PCP - General Family Medicine 07/23/23 Khai Neal MD Consulting Physician Ophthalmology 10/08/21 Tyree Bauer MD PhD [address] [place] [address] Referring Physician Cardiology 07/23/23 Mary Ma, card puncher Failure Coordinator 08/12/23 documented as of this encounter
--- OUTSIDE RECORDS SUMMARY | 2025-03-24 10:17 | XMS_ITS | Clinical Summary ---
Author Organization [facility] Facility Address [address] [place] [address] Care Team Providers Care Psychiatric Technician Assistant Name Role Phone Delores Chamberlain Primary Care Provider Allergies No known active allergies Medications aspirin (ST LORENZA) 81 MG EC tablet Take 81 mg by mouth in the morning. 4 Active Multiple Vitamin (multivitamin) capsule Take 1 capsule by mouth every morning Active atorvastatin (LIPITOR) 10 MG tablet Take 10 mg by mouth 1 (one) time each day Active Dapagliflozin Propanediol 10 MG tablet Take 10 mg by mouth in the morning. 5 Active lisinopril 20 MG tablet Take 20 mg by mouth 1 (one) time each day Active amLODIPine (NORVASC) 10 MG tablet Take 10 mg by mouth in the morning. 4 Active atorvastatin (LIPITOR) 10 MG tablet Take 10 mg by mouth in the morning. 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 [address] [place] [address] Shea Murrieta MA Hypertension (Primary Dx); Chronic kidney disease stage 3B (HCC) 03/21/[address] [facility] [facility], [facility] [address] [place] [address] Shea Murrieta MA Chronic kidney disease stage 3B (HCC) (Primary Dx); Primary pulmonary hypertension (HCC) 02/25/2025 12:00 PM CDT Office Visit [place] [facility] [address] [place] [address] Eugenio Willingham MD Chronic kidney disease stage 3B (HCC) (Primary Dx) 01/06/2025 Documentation Only [address] [address] Eugenio Willingham MD 01/05/2025 Documentation Only [address] [address] Eugenio Willingham MD from Last 3 Months Family History Medical History Relation Comments Heart disease Brother Heart disease Father Cancer Father's Brother Diabetes Father's Brother Heart disease Father's Brother Cancer Father's Sister Diabetes Mother Heart disease Mother Hypertension Mother Heart disease Mother's Brother Hypertension Mother's Brother Diabetes Mother's Sister Hypertension Mother's Sister Relation Status Comments Brother Father Father's Brother Father's Sister Mother Mother's Brother Mother's Sister Social History Tobacco Use Types Packs/Day Years Used Date Smoking Tobacco: Never Alcohol Use Standard Drinks/Week Comments Never 0 (1 standard drink = 0.6 oz pur e alcohol) Comments Unknown Sex and Gender Information Value Date Recorded Sex Assigned at Not on file Legal Sex Female 4:06 PM EST Gender Identity Not on file Sexual Orientation Not on file Last Filed Vital Signs Vital Sign Reading Time Taken Comments Blood Pressure 158/76 02/25/2025 12:00 PM CDT Pulse 67 02/25/2025 12:00 PM CDT Temperature 36.1 C (97 F) 02/25/2025 12:00 PM CDT Respiratory Rate 17 02/25/2025 12:00 PM CDT Oxygen Saturation 99% 02/25/2025 12:00 PM CDT Inhaled Oxygen Concentration - - Weight 90.7 kg (200 lb) 02/25/2025 12:00 PM CDT Height 160 cm (5' 3 ) 02/25/2025 12:00 PM CDT Body Mass Index 35.43 02/25/2025 12:00 PM CDT Plan of Treatment Upcoming Encounters Date Type Department Care Team (Late st Contact Info) Description 06/02/2025 10:15 AM CDT Office Visit [place] [facility], [facility] [address] [facility] [address] [place] [phone] Eugenio Willingham MD [address] 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
--- OUTSIDE RECORDS SUMMARY | 2025-03-24 10:17 | XMS_ITS | Encounter Summary ---
Author Organization [facility] Healthcare Address [address] [place] [address] Care Team Providers Care Rn Internal Medicine Name Role Phone Khai Neal MD Unavailable [phone] Delores Chamberlain NP Primary Care Provider [phone] Tyree Bauer MD PhD Unavailable + Mary Ma RN Unavailable Unavaila ble Encounter Details Date Type Department Care Team (Late st Contact Info) Description 02/16/2025 Results Follow-Up [facility] Medical Group Primary Care at [address] [address] Delores Chamberlain NP [address] [place] [address] [address] [place], [place] [id number] Social History Tobacco Use Types Packs/Day Years [...] on file 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 Gender Identity Female 05/21/2023 3:25 AM CDT Sexual Orientation Not on file documented as of this encounter Plan of Treatment Not on file documented as of this encounter Visit Diagnoses Not on filedocumented in this encounter Care Teams Rn Internal Medicine Relationship Specialty Start Date End Date Delores Chamberlain NP [address] [place], [place] [id number] PCP - General Family Medicine 07/23/23 Khai eNal MD Consulting Physician Ophthalmology 10/08/21 Tyree Bauer MD PhD [address] [place] [address] Referring Physician Cardiology 07/23/23 Mary Ma, department head college or university Failure Coordinator 08/12/23 documented as of this encounter
--- OUTSIDE RECORDS SUMMARY | 2025-03-24 10:17 | XMS_ITS | Clinical Summary ---
Author Organization [facility] Address [address] [place] [address] Care Team Providers Care Loop Tacker Name Role Phone Khai Neal MD Unavailable [phone] Delores Chamberlain NP Primary Care Provider [phone] Tyree Bauer MD PhD Unavailable + Mary Ma RN Unavailable Unavaila ble Allergies No known active allergies Medications multivitamin capsuleIndicati ons:Vitamin Deficiency Prevention Take 1 capsule by mouth every morning Active vit C/E/Zn/coppr/marina tein/zeaxan (PRESERVISION AREDS-2 ORAL)Indication s:eye supplement Take 1 tablet by mouth 2 (two) times a day Active famotidine (PEPCID) 20 mg tabletIndicatio ns:gastroesopha geal reflux disease Take 1 tablet (20 mg total) by mouth every morning Active blood glucose diagnostic (Contour Next Test Strips) stripIndication s:Type 2 diabetes mellitus without complication, without long-term current use of insulin (HCC) CHECK BLOOD SUGAR ONCE DAILY 200 strip 07/23/20 23 Active oxymetazoline HCl (AFRIN, OXYMETAZOLINE, NASL)Indication s:allergies Administer 1 spray into each nostril as needed Active aspirin 81 mg enteric coated tabletIndicatio ns:prevention of thrombosis Take 1 tablet (81 mg total) by mouth nightly 12/22/19 24 Active atorvastatin (LIPITOR) 10 mg tabletIndicatio ns:Hypercholest erolemia Take 1 tablet (10 mg total) by mouth daily 90 tablet 1 02/05/20 25 Active empagliflozin (JARDIANCE) 10 mg tabletIndicatio ns:Chronic Kidney Disease,type 2 diabetes mellitus Take 1 tablet (10 mg total) by mouth daily 90 tablet 1 02/26/20 25 Active lisinopriL (PRINIVIL,ZESTR IL) 20 mg tablet TAKE 1 TABLET(20 MG) BY MOUTH EVERY MORNING 90 tablet 1 03/03/20 25 Active amLODIPine (NORVASC) 10 mg tabletIndicatio ns:Essential hypertension Take 1 tablet (10 mg total) by mouth daily 90 tablet 1 03/04/20 25 Active amLODIPine (NORVASC) 10 mg tabletIndicatio ns:Essential hypertension Take 1 tablet (10 mg total) by mouth daily 90 tablet 1 03/16/20 24 025 Discontinued(R melodyer) lisinopriL (PRINIVIL,ZESTR IL) 20 mg tabletIndicatio ns:hypertension Take 1 tablet (20 mg total) by mouth every morning 90 tablet 1 09/06/20 24 025 Discontinued dapagliflozin propanediol (Farxiga) 10 mg tabletIndicatio ns:type 2 diabetes mellitus Take 1 tablet (10 mg total) by mouth daily 12/02/19 25 025 Discontinued Active Problems Problem Noted Date Diagnosed Date Rectal bleeding 12/21/2024 Acute postoperative abdominal pain 12/18/2023 Assessment & Plan (12/21/2023 9:54 AM DAMPER FITTER): -Lidocaine gtt started 12/17 -Pain mgmt team following -daily lido levels for monitoring 2/3 tolerated one dose of oxycodone overnight, start multimodal regimen, stop lido infusion, pain team signed off 2/4 pain controlled, reported hallucination with oxycodone - changed to ultram - no doses administered Delirium 12/17/2023 Assessment & Plan (12/21/2023 9:54 AM DAMPER FITTER): -12/16 SICU management; soft restraints placed, 5 mg IV zyprexa given for agitation -12/17: hyperactive delirium, sleep hygiene - 12/19 RESOLVED - restraints discontinued Bradycardia 12/16/2023 Assessment & Plan (12/18/2023 2:33 PM DAMPER FITTER): Admitted to the SICU post-operatively due to bradycardia and hypotensive event in the OR. Recovered and is hemodynamically stable post-operatively without issue 12/16: telemetry when comes out of SICU 12/17: sinus tachycardia with fever, continue to monitor on tele when transfers out of SICU > CONSIDER RESOLVED Encntr for surgical aftcr fo llowing surgery on the dgstv sys 12/15/2023 Personal history of other venous thrombosis and embolism 11/17/2023 Presence of coronary angioplasty implant and gra ft 11/17/2023 Athscl heart disease of earlene ve coronary artery w/o ang pctrs 11/17/2023 Assessment & Plan (08/27/2024 11:59 AM CDT): Stable, continuing to follow up with Cardiology. 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 She will start Jardiance today for CKD protection. Labs ordered. Pt following with Nephrology. Ventral hernia without obstruction or gangrene 0 11/17/2023 Assessment & Plan (02/26/2024 1:08 PM CDT): Continuing to follow up with surgeon post surgical complications. Wound healing and continuing to have dressing changes through home health. Fall 01/16/2023 Assessment & Plan (01/16/2023 1:00 PM DAMPER FITTER): New issue, pt was seen [facility] on 01/07/23 in [place] after a fall. She had CT brain, [...] diarrhea Assessment & Plan (11/21/2023 9:28 PM DAMPER FITTER): Since last visit started on amitriptyline 10 [...] needed Assessment & Plan (10/21/2023 11:28 AM DAMPER FITTER): Feels the Amitriptyline from GI has been [...] CDT): We will schedule anorectal manometry at [facility] to further evaluate the episodes of fecal [...] Annual Wellness Visit has been performed today. Nancy Murcia is up to date on screening [...] 03/14/2021 Assessment & Plan (11/21/2023 9:28 PM DAMPER FITTER): Colonoscopy 05/2021 that showed 3 diminutive tubular [...] the primary care physician's office or the [facility] [place] Assessment & Plan (03/14/2021 5:55 PM CDT): [...] (03/14/2021): Added automatically from request for surgery [id number] Hx of adenomatous colonic polyps 03/14/2021 Overview (03/14/2021): Added automatically from request for surgery [id number] Elevated troponin I level 01/11/2021 Urinary tract infectious disease 01/11/2021 Pancreatic cyst 01/11/2021 Assessment & Plan (11/21/2023 9:28 PM DAMPER FITTER): Stable on recent MRI 08/2023 with no [...] MRCP Assessment & Plan (01/11/2021 10:56 AM DAMPER FITTER): I did refer to Gastroenterology for follow-up HTN (hypertension) 08/17/2019 Assessment & Plan (03/01/2025 10:09 AM CDT): Patient is taking amlodipine 10 mg and tolerating medication well. Patient will continue current medication as prescribed Assessment & Plan (12/21/2023 9:56 AM DAMPER FITTER): -home lisinopril 20 mg, amlodipine 10 mg held in post operative setting 2/4 home regimen resumed Assessment & Plan (10/21/2023 11:28 AM DAMPER FITTER): BP stable in office, continues Lisinopril and [...] refilled. Assessment & Plan (01/11/2021 10:53 AM DAMPER FITTER): She is on Lasix and lisinopril. She will forward records as she is uncertain of the dose. Blood pressure is 142/98 today. I did encourage her to monitor numbers. Hyperlipidemia associated with type 2 diabetes chandrakant trejo 08/05/2019 Assessment & Plan (03/01/2025 10:04 AM CDT): Patient is taking atorvastatin and is tolerating the medication well. Patient will continue current medication regimen. Assessment & Plan (08/27/2024 11:59 AM CDT): [...] needed. Assessment & Plan (01/11/2021 10:56 AM DAMPER FITTER): She is on Lipitor 10 mg daily. [...] evaluation Assessment & Plan (01/11/2021 10:51 AM DAMPER FITTER): She was diagnosed with pancreatic cyst but really does not remember much else about that. I did refer her to GI for evaluation. Type 2 diabetes mellitus 07/01/2018 Assessment & Plan (08/27/2024 12:00 PM CDT): A1c improved to 5.3 from previous 6.0. Continuing Metformin. Assessment & Plan (02/26/2024 1:08 PM CDT): Continuing Metformin, updated labs ordered. Assessment & Plan (12/21/2023 9:57 AM DAMPER FITTER): Home metformin; held -SSI ordered while NPO [...] CMP. Assessment & Plan (01/11/2021 10:57 AM DAMPER FITTER): I did check labs. She will continue metformin. I did encourage her to continue to monitor blood sugars. Gastrointestinal hemorrhage 06/29/2018 Assessment & Plan (01/11/2021 10:55 AM DAMPER FITTER): She does have history of gastric bypass many years ago. GI hemorrhage was related to that and polyp. Coronary artery disease Assessment & Plan (12/21/2023 12:22 PM DAMPER FITTER): -H/o acute AL s/p PCI x3 2018 -Home ASA 81 and lipitor; held --- OK to resume ASA 2/5 Assessment & Plan (03/14/2021 5:54 PM CDT): History of AL in the past with use of Plavix at this time which would need to be held for EGD and colonoscopy with Cardiology. Assessment & Plan (01/11/2021 10:52 AM DAMPER FITTER): She is status post 3 stents and did have an AL. She is scheduled with cardiology next week. History of bilateral knee replacement Assessment & Plan (01/11/2021 10:55 AM DAMPER FITTER): Currently ambulating well. She did have complication of DVT and is on Plavix and aspirin. H/O gastric bypass Assessment & Plan (03/14/2021 10:41 AM CDT): History of gastric bypass in 1978 Check a CBC as people with gastric bypass can have tendency to become anemic Assessment & Plan (01/11/2021 10:55 AM DAMPER FITTER): She estimates 30 years ago. She no longer follows with the surgeon. Colon polyps Assessment & Plan (01/11/2021 10:52 AM DAMPER FITTER): She has multiple polyps removed 1 and half years ago. She was scheduled for re-evaluation 1 year ago but moved. I did refer her to Gastroenterology. Right ureteral stone Resolved Problems Problem Noted Date Diagnosed Date Resolved Date Loose stools 12/21/2023 07/21/2024 Assessment & Plan (12/21/2023 12:21 PM DAMPER FITTER): 2/ c/o loose stools x2d, wbc 8, no fevers, abx: erta x1 12/15, imodium x1 for car ride home, patient to notify PCP if ongoing issues for testing Discharge planning issues 12/19/2023 Assessment & Plan (12/21/2023 10:05 AM DAMPER FITTER): 2/2 PT eval: home; ADD Friday pending po advancement 12/20 independently mobilizing, ADD Thursday 12/21 possible DC later today pending PO tolerance; PT eval from 12/19 recommending wheeled walker and PT (ordered), case management updated Ventral hernia without obstr uction or gangrene 12/02/2023 02/26/2024 Assessment & Plan (12/21/2023 9:57 AM DAMPER FITTER): -OR 12/15 ([facility]) open ventral hernia repair with mesh; [...] fiber, anthony intact, JPs serosang Pathology 12/15 consulting engineer, removal - Mesh (gross only diagnosis) Overweight [...] 07/21/2024 Assessment & Plan (01/16/2023 1:19 PM DAMPER FITTER): Flank pain Pt reports dysuria, frequency, chills, cloudy urine, possible hematuria, left lower back pain for 2 days. Pt also mentions on 01/06 she blacked out while on the commode in [place]. She woke up on the floor. She [...] urine is normal. I will refer to pocket maker for secondary causes. Acute recurrent pansinusitis 06/06/2021 [...] 07/21/2024 Assessment & Plan (01/11/2021 10:51 AM DAMPER FITTER): She has recent history of ureteral stent with urinary tract infection. She did require stone manipulation and retrieval. She currently has no symptoms. Influenza-like symptoms 01/11/2021 09/02/2024 Pyelonephritis 01/11/2021 02/26/2024 Renal impairment 01/11/2021 03/01/2025 Assessment & Plan (03/01/2025 10:06 AM CDT): Patient is starting Jardiance 10mg for CKD. Patient will follow up in 6 months Assessment & Plan (01/11/2021 10:56 AM DAMPER FITTER): She is uncertain of her renal status. I did check CMP. Right flank pain 01/11/2021 02/26/2024 Gastroesophageal reflux disease 03/16/2020 07/21/2024 Assessment & Plan (12/21/2023 9:54 AM DAMPER FITTER): Home pepcid -IV formulation ordered while NPO -transitioned to oral once NGT removed Assessment & Plan (04/12/2021 1:40 PM CDT): Omeprazole was refilled. We did discuss trying to wean from the medication. Assessment & Plan (01/11/2021 10:54 AM DAMPER FITTER): She is diabetic. She is on famotidine and omeprazole.. Will continue to monitor. Chronic deep vein thrombosis (DVT) of lower extremity 08/05/2019 12/18/2023 Assessment & Plan (12/18/2023 2:39 PM DAMPER FITTER): History of provoked DVT in 2019. Home is ASA 81 for CAD Assessment & Plan (01/11/2021 10:51 AM DAMPER FITTER): She is on Plavix and aspirin. She is status post bilateral knee replacement and her DVT was felt to be a complication. Hyperglycemia 08/05/2019 07/23/2023 Obesity 08/05/2019 07/21/2024 Acute deep vein thrombosis ( DVT) of distal vein of left lower extremity 01/11/2021 Assessment & Plan (01/11/2021 10:50 AM DAMPER FITTER): She is on Plavix and aspirin. She will continue. Encounters Date Type Department Care Team Description 03/02/2025 Results Follow-Up [facility] Primary [facility] at [address] [phone] Delores Chamberlain NP 03/01/2025 10:07 AM CDT - 03/01/2025 11:59 PM CDT Hospital Encounter [address] [address] Type 2 diabetes mellitus with stage 3b chronic kidney disease, without long-term current use of insulin (HCC) Discharge Disposition: Discharge to home or self care 03/01/2025 10:00 AM CDT Lab [facility] Outpatient Lab at [address] [phone] Essential (primary) hypertension (Primary Dx) 03/01/2025 9:30 AM CDT Office Visit [facility] at [address] [phone] Delores Chamberlain NP Type 2 diabetes mellitus with stage 3b chronic kidney disease, without long-term current use of insulin (HCC) (Primary Dx); Hyperlipidemia associated with type 2 diabetes mellitus (HCC); Renal impairment; Hypertension, unspecified type 03/01/2025 Telephone [facility] Primary Care at [address] [phone] Delores Chamberlain NP Medication Request 02/25/2025 Orders Only [facility] Primary Care at [address] [phone] Delores Chamberlain NP 02/25/2025 Telephone [facility] Primary Care at [address] [phone] Delores Chamberlain NP Medical Question/Miscellane ous 02/22/2025 Results Follow-Up [facility] Gastroenterology at [address] [place] [address] Xiomara Khan MD 02/16/2025 8:45 AM CDT Lab [address] [phone] Hypertension due to endocrine disorder 02/16/2025 7:18 AM CDT - 02/16/2025 11:59 PM CDT Hospital Encounter [facility] [address] [place] [address] Pancreatic cyst; Intrahepatic bile duct dilation Discharge Disposition: Discharge to home or self care 02/16/2025 Results Follow-Up [facility] Primary Care at [address] [phone] Delores Chamberlain NP 02/11/2025 10:00 AM CDT Office Visit [facility] Department of Surgery [address] [place] [address] [place] [address] [place] [address] Trung Butler MD S/P repair of ventral hernia (Primary Dx); Visit for wound check 02/11/2025 Orders Only [facility] Department of Surgery [address] [place] [address] [place] [address] [place] [address] Essence Hinds CMA Abdominal pain (Primary Dx) 02/10/2025 Results Follow-Up [facility] Gastroenterology at [address] [place] [address] Xiomara Khan MD 02/07/2025 7:46 AM CDT Anesthesia Event [address] [address] Kristi Meade MD 02/07/2025 7:25 AM CDT - 02/07/2025 7:55 AM CDT Surgery [address] [address]Xiomara Campos MD COLON REMOVAL SNARE 02/07/2025 6:31 AM CDT - 02/07/2025 9:25 AM CDT Hospital Encounter [address] [address]Xiomara Campos MD Rectal bleeding; Incontinence of feces, unspecified fecal incontinence type Discharge Disposition: Discharge to home or self care 01/27/2025 2:55 PM CDT - 01/27/2025 11:59 PM CDT Hospital Encounter [facility] Medical Office Bl 1 Breast [facility] [address] [facility] [address] [place] [address] Screening mammogram, encounter for Discharge Disposition: Discharge to home or self care 01/27/2025 Results Follow-Up [facility] Primary Care at [address] [phone] Delores Chamberlain NP 01/05/2025 Orders Only [facility] Primary Care at [address] [phone] Delores Chamberlain NP Type 2 diabetes mellitus with stage 3b chronic kidney disease, without long-term current use of insulin (HCC) (Primary Dx) 01/03/2025 Results Follow-Up [facility] Primary Care at [address] [phone] Lisa Curry MA 12/31/2024 Telephone [facility] Primary Care at [address] [phone] Lisa Curry MA Lab Results from Last 3 Months Immunizations Immunization Administration [...] PCV 13 01/18/2020 Pneumococcal Polysaccharide PPV23 11/17/2015 Tdap 06/16/2024 ZOSTER Recombinant 02/23/2025,(Deferred: Patient Refused) Surgical History Surgery Date Site/Laterality [...] points, staff should administer the PHQ-9) 0 03/01/2025 Personal Safety Answer Date Recorded Have you ever been in or are you currently in a harmful physical or emotional relationship or is someone making you feel afraid or unsafe? Denies 02/07/2025 Comments No Sex and Gender Information Value Date Recorded Sex Assigned at Not on file Legal Sex Female 7:58 AM DAMPER FITTER Gender Identity Female 05/21/2023 3:25 AM CDT Sexual Orientation Not on file Obstetrics History Para Term AB IAB SAB Ectopic Multiple Livin g Live Births 3 Date Outcome GA Total Labor Labor//3rd Weight Sex Type Anes PTL Nissa A1 A5 Name Clin Last Filed Vital Signs Vital Sign Reading Time Taken Comments Blood Pressure 130/68 03/01/2025 9:24 AM CDT Pulse 60 03/01/2025 9:24 AM CDT Temperature 36.4 C (97.5 F) 03/01/2025 9:24 AM CDT Respiratory Rate 14 02/11/2025 10:59 AM CDT Oxygen Saturation 97% 03/01/2025 9:24 AM CDT Inhaled Oxygen Concentration - - Weight 89.4 kg (197 lb) 03/01/2025 9:24 AM CDT Height 160 cm (5' 3 ) 03/01/2025 9:24 AM CDT Body Mass Index 34.9 03/01/2025 9:24 AM CDT Plan of Treatment Health Maintenance Due Date Last Done Comments Hepatitis B Screening 1963 Foot Exam 01/25/2025 01/26/2024, 01/11/2021 Covid-19 Vaccine (2023-2 5 season) 2025 09/06/2024, 11/08/2023, 09/06/2022, Additional history exists Zoster Vaccine (2 of 2) 2025 02/23/2025 Dilated Eye Exam 07/28/2025 07/28/2024, , 11/27/2022, Additional history exists Well Visit 65+ 08/27/2025 08/27/2024, 01/16, 02/04/2022 Hemoglobin A1C 08/31/2025 03/01/2025, 08/17, 02/26/2024, Additional history exists Colon Cancer Screening-FIT 02/07/202602/07, 06/14/2021, 10/05/2019 Colon Cancer Screening-FOBT 02/07/2026 03/2 02/2025, 06/14/2021, 10/05/2019 eGFR 02/16/2026 02/16/2025, 02/2025, 08/27/2024, Additional history exists Albumin Creatinine Ratio, Urine 03/01/2026 03/01/2025, 02/26/2024, 02/05/2023, Additional history exists Depression Screening 03/01/2026 03/01/2025, 08/27/2024, 07/21/2024, Additional history exists Fall Risk Assessment 03/01/2026 03/01/2025, 08/27/2024, 02/26/2024, Additional history exists Lipid Panel 03/01/2026 03/01/2025, 08/17, 02/26/2024, Additional history exists Osteoporosis Screening-Bone Density Scan [...] history exists Medical Devices Implanted Type Area Gm Device Identifier Shelf Expiration Date Model / Serial / Lot [employer]/C R Bard [id number] Monofilament Soft Lightweight Low Profile Square - [id number] Implanted:Qty: 1 on 12/15/2023 by Trung Butler MD at [facility] Mesh N/A: Abdomen [employer] R Bard [id number] 06/13/2027 [id number] / / [id number] Other - See Comments Other - see comments Bilateral : Knee Cardiac Stent X 3 N/A: Heart Procedures Procedure Name Priority Date/Time Associated Diagnosis Comments ALBUMIN CREATININE RATIO, URINE Routine 03/01/2025 11:07 AM CDT Type 2 diabetes mellitus with stage 3b chronic kidney disease, without long-term current use of insulin (HCC) DIFFERENTIAL AUTO Routine 03/01/2025 10:07 AM CDT Type 2 diabetes mellitus with stage 3b chronic kidney disease, without long-term current use of insulin (HCC) LIPID PANEL Routine 03/01/2025 10:07 AM CDT Type 2 diabetes mellitus with stage 3b chronic kidney disease, without long-term current use of insulin (HCC) CBC WITH AUTO DIFFERENTIAL Routine 03/01/2025 10:07 AM CDT Type 2 diabetes mellitus with stage 3b chronic kidney disease, without long-term current use of insulin (HCC) HEMOGLOBIN A1C Routine 03/01/2025 10:07 AM CDT Type 2 diabetes mellitus with stage 3b chronic kidney disease, without long-term current use of insulin (HCC) EGFR Routine 02/16/2025 9:14 AM CDT Hypertension due to endocrine disorder BASIC METABOLIC PANEL Routine 02/16/2025 9:14 AM CDT Hypertension due to endocrine disorder MRI ABDOMEN MRCP W WO CONTRAST Schedule Routine, Read Routine (OP Routine) 02/16/2025 8:22 AM CDT Pancreatic cyst Intrahepatic bile duct dilation SURGICAL PATHOLOGY STAT 02/07/2025 11:54 AM CDT [...] 3:05 PM CDT Screening mammogram, encounter for DEXA AXIAL SKELETON BONE DENSITY 1 OR MORE SITES Schedule Routine, Read Routine (OP Routine) 08/03/2024 9:51 AM CDT Encounter for osteoporosis screening in asymptomatic postmenopausal patient DIABETIC EYE EXAM Routine 07/10/2023 HEPATITIS C ANTIBODY Routine 03/14/2021 11:04 AM CDT Colon polyps H/O gastric bypass Pancreatic cyst BMI 37.0-37.9, adult Colon adenoma Elevated LFTs Diarrhea, unspecified type from Last 3 Months or Most Recently Relevant to Health Maintenance Results * Albumin Creatinine Ratio, Urine (03/01/2025 11:07 AM CDT) Albumin Ur 14.7 mg/L Comment: Interpretive Data No reference range established. Current interpretive data was last revised 2019. Creatinine Ur 80.0 mg/dL DONNIE TODD Comment: Interpretive Data No reference range established. Current interpretive data was last revised 2019. Albumin Creatinine Ratio, Ur 18 1 - 29 mg/g DONNIE TODD Urine 03/01/2025 11:0 7 AM CDT 03/01/2025 7:19 PM CDT us Delores Chamberlain NP LAB URINE ORDERABLES Final Resul t DONNIE TODD [id number] Department [place] [address] * (ABNORMAL) Differential, auto (03/01/2025 10:07 AM CDT) Neutrophil abs 3.46 1.50 - 6.50 K/cumm Imm gran abs 0.02 0.00 - 0.10 K/cumm [facility] Lymphocyte abs 3.55(H) 0.80 - 3.30 K/cumm [facility] Monocyte abs 0.65 0.20 - 0.80 K/cumm [facility] Eosinophil abs 0.62(H) 0.00 - 0.50 K/cumm [facility] Basophil abs 0.10 0.00 - 0.10 K/cumm [facility] Neutrophil pct 41.2 % [facility] Comment: Interpretive Data Percent cell count reference ranges are not reported, since discordance with absolute values may lead to misinterpretation of CBC data. Current Interpretive Data was last revised on 2018. Imm gran pct 0.2 % [facility] Comment: Interpretive Data Percent cell count reference ranges are not reported, since discordance with absolute values may lead to misinterpretation of CBC data. Current Interpretive Data was last revised on 2018. Lymphocyte pct 42.3 % [facility] Comment: Interpretive Data Percent cell count reference ranges are not reported, since discordance with absolute values may lead to misinterpretation of CBC data. Current Interpretive Data was last revised on 2018. Monocyte pct 7.7 % [facility] Comment: Interpretive Data Percent cell count reference ranges are not reported, since discordance with absolute values may lead to misinterpretation of CBC data. Current Interpretive Data was last revised on 2018. Eosinophil pct 7.4 % [facility] Comment: Interpretive Data Percent cell count reference ranges are not reported, since discordance with absolute values may lead to misinterpretation of CBC data. Current Interpretive Data was last revised on 2018. Basophil pct 1.2 % [facility] Comment: Interpretive Data Percent cell count reference ranges are not reported, since discordance with absolute values may lead to misinterpretation of CBC data. Current Interpretive Data was last revised on 2018. Blood 03/01/2025 10:0 7 AM CDT 03/01/2025 7:19 PM CDT Delores Chamberlain GREETING CARD EDITOR LAB BLOOD ORDERABLES Final Resul t Performing Organization Address City/[facility] Co de Phone Number DONNIE [address] [place] [address] * (ABNORMAL) CBC with auto differential (03/01/2025 10:07 AM CDT) WBC 8.40 3.80 - 9.90 K/cumm Hgb 14.1 11.9 - 15.5 g/dL [facility] Hct 47.1(H) 35.6 - 45.5 % [facility] Plt 283 150 - 400 K/cumm [facility] MPV 11.2 9.1 - 12.3 fL [facility] RBC 4.90 3.90 - 5.20 M/cumm [facility] MCV 96.1 81.3 - 96.4 fL [facility] MCH 28.8 27.1 - 33.3 pg [facility] MCHC 29.9(L) 32.3 - 35.7 g/dL [facility] RDW CV 15.2(H) 11.1 - 14.9 % [facility] RDW SD 54.0(H) 35.7 - 48.1 fL [facility] NRBC abs 0.00 0.00 - 0.01 K/cumm [facility] Blood 03/01/2025 10:0 7 AM CDT 03/01/2025 7:19 PM CDT Delores Chamberlain NP LAB BLOOD ORDERABLES Final Resul t Performing Organization Address City/[facility]/ZIP Co de Phone Number DONNIE TODD [address] [place] [address] * (ABNORMAL) Hemoglobin A1c (03/01/2025 10:07 AM CDT) Hgb A1C 6.0(H) 4.0 - 5.6 % Estimated Average Glucose 126 mg/dL [facility] Comment: The ADA recommends reporting an estimated Average Glucose (eAG) with all Hemoglobin A1c results using the equation derived from a study of 507 normal and diabetic adults. Minority populations were underrepresented and children were not included. (Diabetes Care 31:5139-6217, 2008). The eAG is not equivalent to a fasting glucose. Blood 03/01/2025 10:0 7 AM CDT 03/01/2025 7:19 PM CDT us Delores Chamberlain NP LAB BLOOD ORDERABLES Final Resul t DONNIE TODD [id number] Department [place] [address] * (ABNORMAL) Lipid panel (03/01/2025 10:07 AM CDT) Cholesterol 151 30 - 199 mg/dL Comment: Interpretive Data [...] Data was last revised on 2018. Triglycerides 252(H) <=149 mg/dL DONNIE TODD Comment: Interpretive Data Ages [...] Data was last revised on 2018. HDL 57 >=40 mg/dL [facility] Comment: Interpretive Data Ages [...] was last revised on 2018. LDL, calculated 55 <=129 mg/dL [facility] Comment: Interpretive Data Ages [...] NCEP Expert Panel. Circulation 2004;110:227 3. García Beckman et al. [place] Cardiol. 2019March 17;5(5):540-548. doi: 10.1001/jamacardio.2020.0013 Current Interpretive Data was last revised on 2024. Non-HDL Cholesterol 94 mg/dL DONNIE TODD Comment: Interpretive Data Ages [...] was last revised on 2018. Chol/HDL ratio 3 [facility]NIE TOD[facility] Blood 03/01/2025 10:0 7 AM CDT 03/01/2025 7:19 PM CDT us Delores Chamberlain NP LAB BLOOD ORDERABLES Final Resul t HILDAMAN TODD [address] Department [place] [address] * (ABNORMAL) eGFR (02/16/2025 9:14 AM CDT) [...] LAB BLOOD ORDERABLES Final Resul t DONNIE ESTRADA ([place]) 1 [facility] Department [place] [address] * (ABNORMAL) Basic metabolic panel (02/16/2025 9:14 AM CDT) Sodium 142 135 - 145 mmol/L Potassium, pl 4.7 3.3 - 4.9 mmol/L DONNIE [facility]STRADA ([place]) Chloride 106 97 - 110 mmol/L [facility] ([place]) CO2 24 22 - 32 mmol/L [facility] ([place]) Anion gap 12 2 - 15 mmol/L [facility] ([place] BUN 25 6 - 25 mg/dL [facility] ([place]) Creatinine 1.40(H) 0.60 - 1.10 mg/dL [facility] ([place]) Glucose 124 70 - 199 mg/dL [facility] ([place]) Comment: Interpretive Data Fasting glucose >/= [...] 2022. Calcium 9.8 8.5 - 10.3 mg/dL DONNIE [facility] ([place]) Blood 02/16/2025 9:14 AM CDT 02/16/2025 9:32 AM CDT us Delores Chamberlain NP LAB BLOOD ORDERABLES Final Resul t DONNIE ESTRADA ([place] 1 [facility] Department [place] [address] * MRI/MRCP (abdomen) W WO Contrast (02/16/2025 8:22 AM CDT) Anatomical Region Laterality Modality Body N/A Magnetic Resonan ce 02/21/2025 3:05 PM CDT Narrative 02/21/2025 3:21 PM CDT EXAM DESCRIPTION: MRI ABDOMEN MRCP W WO CONTRAST INCL 3D REASON FOR STUDY: Pancreatic cyst, intrahepatic duct dilation Pancrease cyst follow up, no surgery, no symptoms System did not orange picking supervisor on the auto care bolus the contrast timing is late on arterial TECHNIQUE: MRI of the abdomen performed without intravenous contrast according to the MRCP protocol. 3D images rendered on scanning unit and reviewed at time of interpretation. All images stored on PACS. COMPARISON: MRI abdomen 08/19/2023 FINDINGS: LOWER CHEST: No effusion. LIVER: Normal size. No identified cystic or solid masses. No cysts. GALLBLADDER: Gallbladder is surgically absent. BILE DUCTS: Stable dilation of the common bile duct measuring up to 1.4 cm in diameter. Stable moderate intrahepatic ductal dilation. Findings are likely secondary to cholecystectomy. SPLEEN: Normal size. No focal lesions. PANCREAS: Stable cystic lesions throughout the pancreas. The largest within the pancreatic head measures 1.9 x 1.8 cm (series 6, image 21). Stable pancreatic tail 1.4 cystic lesion (series 3, image 20). No suspicious enhancement or thickened septations are demonstrated. Pancreatic duct is normal in diameter. ADRENALS: Normal. KIDNEYS/URINARY TRACT: No hydronephrosis. Redemonstrated bilateral renal cortical scarring. Stable bilateral renal cortical cysts. No suspicious renal lesion. GI: No visualized abnormality. PERITONEUM: No ascites. RETROPERITONEUM: No mass or adenopathy. VASCULATURE: No abdominal aortic aneurysm. MUSCULOSKELETAL: No acute findings. OTHER: No other abnormality. IMPRESSION: Stable pancreatic cystic lesions, the largest measuring 1.9 cm in the pancreatic head. No suspicious enhancement. These favor side-branch intraductal papillary mucinous neoplasms. Repeat MRI in 2 years is recommended. THIS IS AN ELECTRONICALLY VERIFIED FINAL REPORT 02/21/2025 3:21 PM - Electronically signed by Compa Scott M.D. KR: KR Report ID: [id number] Reading Location: [place] [address] Procedure Note Compa Scott MD - 02/21/2025 EXAM DESCRIPTION: MRI ABDOMEN MRCP W WO CONTRAST INCL 3D REASON FOR STUDY: Pancreatic cyst, intrahepatic duct dilation Pancrease cyst follow up, no surgery, no symptoms System did not pick upon the auto care bolus the contrast timing is late on arterial TECHNIQUE: MRI of the abdomen performed without intravenous contrast according to the MRCP protocol. 3D images rendered on scanning unit and reviewed at time of interpretation. All images stored on PACS. COMPARISON: MRI abdomen 08/19/2023 FINDINGS: LOWER CHEST: No effusion. LIVER: Normal size. No identified cystic or solid masses. No cysts. GALLBLADDER: Gallbladder is surgically absent. BILE DUCTS: Stable dilation of the common bile duct measuring up to 1.4cm in diameter. Stable moderate intrahepatic ductal dilation. Findings are likely secondary to cholecystectomy. SPLEEN: Normal size. No focal lesions. PANCREAS: Stable cystic lesions throughout the pancreas. The largestwithin the pancreatic head measures 1.9 x 1.8 cm (series 6, image 21). Stable pancreatic tail 1.4 cystic lesion (series 3, image 20). No suspicious enhancement or thickened septations are demonstrated. Pancreatic duct is normal in diameter. ADRENALS: Normal. KIDNEYS/URINARY TRACT: No hydronephrosis. Redemonstrated bilateralrenal cortical scarring. Stable bilateral renal cortical cysts. No suspicious renal lesion. GI: No visualized abnormality. PERITONEUM: No ascites. RETROPERITONEUM: No mass or adenopathy. VASCULATURE: No abdominal aortic aneurysm. MUSCULOSKELETAL: No acute findings. OTHER: No other abnormality. IMPRESSION: Stable pancreatic cystic lesions, the largest measuring 1.9 cm in the pancreatic head. No suspicious enhancement. These favor side-branch intraductal papillary mucinous neoplasms. Repeat MRI in 2 years is recommended. THIS IS AN ELECTRONICALLY VERIFIED FINAL REPORT 02/21/2025 3:21 PM - Electronically signed by Compa Scott M.D. KR: VICTOR MANUEL Report ID: [id number] Reading Location: [id number] Xiomara Khan MD [facility] MRI PROCEDURES Final Result * Surgical pathology (02/07/2025 11:54 AM CDT) Tissue specimen (specimen) (Polyp(s), colon/colorectal, esophageal, gastric) 02/07/2025 8:33 AM CDT Tissue specimen (specimen) (Polyp(s), colon/colorectal, esophageal, gastric) 02/07/2025 8:34 AM CDT Tissue specimen (specimen) (Polyp(s), colon/colorectal, esophageal, gastric) 02/07/2025 8:34 AM CDT Narrative PATHOLOGY [facility] ([place]) - 02/08/2025 12:11 PM CDT EPIC results best viewed via link to PDF [facility] Department of Pathology [address] [place] [address] Note to Patients: This report may contain [...] explain the details. Final Report Patient Name: NANCY MURCIA Address: [address] [place] [address]- Gender: F : 1945 (Age: 79) Service: Gastro Location: [facility] Hospital #: [id number] Patient Type: [facility] [address] Taken: 02/07/2025 Received: 02/07/2025 Accessioned: 02/07/2025 Reported: [...] is submitted in three formalin containers labeled NANCY Rodrigues. The first container is labeled cecum colon [...] and 2 mm. All in C. T.A. Vee Villar P.A./Cathie Graham M.D. REPORT IMAGES AND SCANNED DOCUMENTS, IF INCLUDED, ONLY VIEWABLE IN PDF VERSION OF REPORT The performance characteristics of some immunohistochemical stains, fluorescence in-situ hybridization tests and immunophenotyping by flow cytometry cited in this report (if any) were determined by the Surgical Pathology Department at [facility] as part of an ongoing automotive quality manager program and in compliance with federally mandated [...] characteristics determined by the Surgical Pathology Department [facility]. It has not been cleared or approved by the U. S. Food and Drug Administration. Note for decalcified specimens: This assay has not been validated on decalcified tissues. Results should be interpreted with caution given the possibility of false negativity on decalcified specimens us Xiomara Khan MD LAB PATHOLOGY ORDERABLES Final R esult PATHOLOGY [facility] ([place]) [address] [place] [address] * POCT glucose (02/07/2025 7:14 AM CDT) Glucose, POC 123 70 - 199 mg/dL Blood 02/07/2025 7:14 AM CDT 02/07/2025 7:14 AM CDT us Xiomara Khan MD LAB POCT ORDERABLES - DEVICE Fin al Result DONNIE [facility] [place]) [address] [employer] Department [place] [address] * Colonoscopy (02/07/2025 7:05 AM CDT) Anatomical Region Laterality Modality Other Narrative Procedure Note Xiomara Khan MD - 02/07/2025 7:05 AM CDT [facility] Patient Name: Nancy Murcia Procedure Date: 02/07/2025 7:05 AM Date of : 1945 Admit Type: Outpatient Age: 79 Gender: Female Attending MD: Xiomara Khan M.D. Room: [facility] ENDOSCOPY ROOM 3 Note Status: Finalized Patient [...] procedure were verified by the physician, the night shift manager and the field map technician in the endoscopy suite. Mental Status [...] under direct vision. The Pediatric Colonoscope [id number] was introducedthrough the anus and advanced to [...] 7:05 AM Procedure Code(s): --- Professional --- 55862, Colonoscopy, flexible; with removal of tumor(s), polyp(s), or other lesion(s) by snare technique --- Technical --- 03040, Colonoscopy, flexible; with removal of tumor(s), polyp(s), [...] congenital malformations of intestine CPT copyright 2020 [employer]. All rights reserved. The codes documented in this report are preliminary and upon volcanology teacher reviewmay be revised to meet current compliance requirements. Recognized by the [employer] for promoting quality in endoscopy us Xiomara Khan MD ENDOSCOPY PROCEDURES Final Resul [...] age 41, based on guidelines of the [employer] (ACR Practice Parameter for the Performance of Screening and Diagnostic Mammography) and [employer]. For women [...] IMG MAMMO PROCEDURES Fi nal Result * Dexa Axial Skeleton Bone Density 1 Or 2 Site (08/03/2024 9:51 AM CDT) Anatomical Region Laterality Modality Body N/A Mammography 08/03/2024 8:57 PM CDT Narrative 08/03/2024 8:58 PM CDT EXAM DESCRIPTION: DEXA AXIAL SKELETON BONE DENSITY 1 OR MORE SITES REASON FOR STUDY: 79 y/o year old F with given history of: post-menopausal osteoporosis prevention Gm/Model: FLX Micro A (S/N [id number]) CLINICAL INFORMATION: Current height: 62 inches Maximum [...] Karthik Frye M.D. MF: ASHOK Report ID: [id number] Reading Location: [id number] Procedure Note Karthik Frye MD - 08/03/2024 EXAM DESCRIPTION: DEXA AXIAL SKELETON BONE DENSITY 1 OR MORE SITES REASON FOR STUDY: 79 y/o year old F with given history of: post-menopausal osteoporosis prevention Gm/Model: FLX Micro A (S/N [id number]) CLINICAL INFORMATION: Current height: 62 inches Maximum [...] Karthik Frye M.D. MF: ASHOK Report ID: [id number] Reading Location: [place] [address] Delores Chamberlain NP IMG DXA PROCEDURES Final Result * Diabetic Eye Exam (07/10/2023) Historical Provider HEALTH MAINTENANCE Final Result * Hepatitis C antibody (03/14/2021 11:04 AM CDT) Hep C Ab Nonreactive Nonreactive DONNIE [facility] Comment: Interpretive Data Nonreactive: Antibodies to HCV [...] MICROBIOLOGY - GENERAL ORDERABLES Final Result DONNIE [facility] [address] Department [place] [address] from Last 3 Months or Most Recently Relevant to Health Maintenance Insurance [facility] MEDIC[employer] ADVANTAGE [place] MEDICARE COMMERCIAL GENERIC [facility] MEDIC[facility] ADVANTAGE Advance Directives For more information, please contact: [phone] Documents on File Type Date Recorded Patient Rn Social Work Expl anation ADVANCE DIRECTIVE 12/15/2023 11:51 AM [...] 1:15 PM 06/14/2021 9:04 PM Care Teams Loop Tacker Relationship Specialty Start Date End Date Delores Chamberlain NP [address] [facility] [address] [place] [address] PCP - General Family Medicine 07/23/23 Khai Neal MD Consulting Physician Ophthalmology 10/08/21 Tyree Bauer MD PhD [address] [facility] [address] [place] [address] Referring Physician Cardiology 07/23/23 Mary Ma, software quality assurance analyst Failure Coordinator 08/12/23
--- OUTSIDE RECORDS SUMMARY | 2025-03-24 10:17 | XMS_ITS | Referral Summary ---
Author Organization [facility] Address [address] [place] [address] Care Team Providers Care Cash Checker Name Role Phone Khai Neal MD Unavailable Delores Chamberlain NP Primary Care Provider Tyree Bauer MD PhD Unavailable + Mary Ma RN Unavailable Unavaila ble Encounters Date Type Department Care Team Description 03/02/2025 Results Follow-Up [facility] Primary [facility] at [address] [phone] Delores Chamberlain NP 03/01/2025 10:07 AM CDT - 03/01/2025 11:59 PM CDT Hospital Encounter [facility] [address] [place] [address] Type 2 diabetes mellitus with stage 3b chronic kidney disease, without long-term current use of insulin (HCC) Discharge Disposition: Discharge to home or self care 03/01/2025 Telephone [facility] at [address] [address] Delores Chamberlain NP Medication Request 03/01/2025 10:00 AM CDT Lab [facility] Lab at [address] [phone] Essential (primary) hypertension (Primary Dx) 03/01/2025 9:30 AM CDT Office Visit [facility] Primary Care at [address] [phone] Delores Chamberlain NP Type 2 diabetes mellitus with stage 3b chronic kidney disease, without long-term current use of insulin (HCC) (Primary Dx); Hyperlipidemia associated with type 2 diabetes mellitus (HCC); Renal impairment; Hypertension, unspecified type 02/25/2025 Orders Only [facility] Primary Care at [address] [phone] Delores Chamberlain NP 02/25/2025 Telephone [facility] Primary Care at [address] [phone] Delores Chamberlain NP Medical Question/Miscellane ous 02/22/2025 Results Follow-Up [facility] Gastroenterology at [address] [place] [address] Xiomara Khan MD 02/16/2025 Results Follow-Up [facility] at [address] [phone] Delores Chamberlain NP 02/16/2025 8:45 AM CDT Lab [address] [address] Hypertension due to endocrine disorder 02/16/2025 7:18 AM CDT - 02/16/2025 11:59 PM CDT Hospital Encounter [address] [address] Pancreatic cyst; Intrahepatic bile duct dilation Discharge Disposition: Discharge to home or self care 02/11/2025 Orders Only [facility] Department of Surgery [address] [place] [address] 12th [place] [address] [place] [address] Essence Hinds CMA Abdominal pain (Primary Dx) 02/11/2025 10:00 AM CDT Office Visit [facility] Department of Surgery [address] [place] [address] 12th [place] [address] [place] [address] Trung Butler MD S/P repair of ventral hernia (Primary Dx); Visit for wound check 02/10/2025 Results Follow-Up [facility] Gastroenterology at [address] [place] [address] Xiomara Khan MD 02/07/2025 7:46 AM CDT Anesthesia Event [address] [address] Kristi Meade MD 02/07/2025 7:25 AM CDT - 02/07/2025 7:55 AM CDT Surgery [address] [address] Xiomara Khan MD COLON REMOVAL SNARE 02/07/2025 6:31 AM CDT - 02/07/2025 9:25 AM CDT Hospital Encounter [address] [address] Xiomara Khan MD Rectal bleeding; Incontinence of feces, unspecified fecal incontinence type Discharge Disposition: Discharge to home or self care 01/27/2025 Results Follow-Up [facility] Primary Care at [address] [address] Delores Chamberlain NP 01/27/2025 2:55 PM CDT - 01/27/2025 11:59 PM CDT Hospital Encounter [facility] [address] [address] Screening mammogram, encounter for Discharge Disposition: Discharge to home or self care 01/05/2025 Orders Only [facility] Primary Care at [address] [address] Delores Chamberlain NP Type 2 diabetes mellitus with stage 3b chronic kidney disease, without long-term current use of insulin (HCC) (Primary Dx) 01/03/2025 Results Follow-Up [facility] Primary Care at [address] [address] Lisa Curry MA 12/31/2024 Telephone [facility] Primary Care at [address] [phone] Lisa Curry MA Lab Results from Last 3 Months Allergies No known [...] complication, without long-term current use of insulin ([facility]) CHECK BLOOD SUGAR ONCE DAILY 200 strip [...] 90 tablet 1 03/16/20 24 025 Discontinued(R eorder) lisinopriL (PRINIVIL,ZESTR [place]) 20 mg tabletIndicatio ns:hypertension [...] 12/18/2023 Assessment & Plan (12/21/2023 9:54 AM PACS ADMINISTRATOR): -Lidocaine gtt started 12/17 -Pain mgmt team following -daily lido levels for monitoring 2/3 tolerated one dose of oxycodone overnight, start multimodal regimen, stop lido infusion, pain team signed off 2/4 pain controlled, reported hallucination with oxycodone - changed to ultram - no doses administered Delirium 12/17/2023 Assessment & Plan (12/21/2023 9:54 AM PACS ADMINISTRATOR): -12/16 SICU management; soft restraints placed, 5 mg IV zyprexa given for agitation -12/17: hyperactive delirium, sleep hygiene - 12/19 RESOLVED - restraints discontinued Bradycardia 12/16/2023 Assessment & Plan (12/18/2023 2:33 PM PACS ADMINISTRATOR): Admitted to the SICU post-operatively due to [...] esophagi tis 11/17/2023 History 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 She had CT brain, [...] diarrhea Assessment & Plan (11/21/2023 9:28 PM PACS ADMINISTRATOR): Since last visit started on amitriptyline 10 [...] needed Assessment & Plan (10/21/2023 11:28 AM PACS ADMINISTRATOR): Feels the Amitriptyline from GI has been [...] CDT): We will schedule anorectal manometry at [facility] to further evaluate the episodes of [...] 03/14/2021 Assessment & Plan (11/21/2023 9:28 PM PACS ADMINISTRATOR): Colonoscopy 05/2021 that showed 3 diminutive tubular [...] multiple colon polyps removed in colonoscopy in [place] she needs follow-up colonoscopy to be scheduled Elevated LFTs 03/14/2021 Assessment & Plan (05/15/2022 11:47 AM CDT): ALT was noted to be at 46 rest the liver enzymes are normal the way the liver is functioning is normal She needs vaccination for hepatitis-B and hepatitis A--either through the primary care physician's office or the [facility] Assessment & Plan (03/14/2021 5:55 PM CDT): [...] (03/14/2021): Added automatically from request for surgery [id number] Hx of adenomatous colonic polyps 03/14/2021 Overview (03/14/2021): Added automatically from request for surgery [id number] Elevated troponin I level 01/11/2021 Urinary tract infectious disease 01/11/2021 Pancreatic cyst 01/11/2021 Assessment & Plan (11/21/2023 9:28 PM PACS ADMINISTRATOR): Stable on recent MRI 08/2023 with no [...] MRCP Assessment & Plan (01/11/2021 10:56 AM PACS ADMINISTRATOR): I did refer to Gastroenterology for follow-up HTN (hypertension) 08/17/2019 Assessment & Plan (03/01/2025 10:09 AM CDT): Patient is taking amlodipine 10 mg and tolerating medication well. Patient will continue current medication as prescribed Assessment & Plan (12/21/2023 9:56 AM PACS ADMINISTRATOR): -home lisinopril 20 mg, amlodipine 10 mg held in post operative setting 2/4 home regimen resumed Assessment & Plan (10/21/2023 11:28 AM PACS ADMINISTRATOR): BP stable in office, continues Lisinopril and [...] refilled. Assessment & Plan (01/11/2021 10:53 AM PACS ADMINISTRATOR): She is on Lasix and lisinopril. She [...] needed. Assessment & Plan (01/11/2021 10:56 AM PACS ADMINISTRATOR): She is on Lipitor 10 mg daily. [...] evaluation Assessment & Plan (01/11/2021 10:51 AM PACS ADMINISTRATOR): She was diagnosed with pancreatic cyst but really does not remember much else about that. I did refer her to GI for evaluation. Type 2 diabetes mellitus 07/01/2018 Assessment & Plan (08/27/2024 12:00 PM CDT): A1c improved to 5.3 from previous 6.0. Continuing Metformin. Assessment & Plan (02/26/2024 1:08 PM CDT): Continuing Metformin, updated labs ordered. Assessment & Plan (12/21/2023 9:57 AM PACS ADMINISTRATOR): Home metformin; held -SSI ordered while NPO [...] CMP. Assessment & Plan (01/11/2021 10:57 AM PACS ADMINISTRATOR): I did check labs. She will continue metformin. I did encourage her to continue to monitor blood sugars. Gastrointestinal hemorrhage 06/29/2018 Assessment & Plan (01/11/2021 10:55 AM PACS ADMINISTRATOR): She does have history of gastric bypass many years ago. GI hemorrhage was related to that and polyp. Coronary artery disease Assessment & Plan (12/21/2023 12:22 PM PACS ADMINISTRATOR): -H/o acute VA s/p PCI x3 2018 -Home ASA 81 and lipitor; held --- OK to resume ASA 2/5 Assessment & Plan (03/14/2021 5:54 PM CDT): History of VA in the past with use of Plavix at this time which would need to be held for EGD and colonoscopy with Cardiology. Assessment & Plan (01/11/2021 10:52 AM PACS ADMINISTRATOR): She is status post 3 stents and did have an VA. She is scheduled with cardiology next week. History of bilateral knee replacement Assessment & Plan (01/11/2021 10:55 AM PACS ADMINISTRATOR): Currently ambulating well. She did have complication of DVT and is on Plavix and aspirin. H/O gastric bypass Assessment & Plan (03/14/2021 10:41 AM CDT): History of gastric bypass in 1978 Check a CBC as people with gastric bypass can have tendency to become anemic Assessment & Plan (01/11/2021 10:55 AM PACS ADMINISTRATOR): She estimates 30 years ago. She no longer follows with the surgeon. Colon polyps Assessment & Plan (01/11/2021 10:52 AM PACS ADMINISTRATOR): She has multiple polyps removed 1 and half years ago. She was scheduled for re-evaluation 1 year ago but moved. I did refer her to Gastroenterology. Right ureteral stone Resolved Problems Problem Noted Date Diagnosed Date Resolved Date Loose stools 12/21/2023 07/21/2024 Assessment & Plan (12/21/2023 12:21 PM PACS ADMINISTRATOR): 12/22 c/o loose stools x2d, wbc 8, no fevers, abx: erta x1 12/15, imodium x1 for car ride home, patient to notify PCP if ongoing issues for testing Discharge planning issues 12/19/2023 Assessment & Plan (12/21/2023 10:05 AM PACS ADMINISTRATOR): 12/19 PT eval: home; ADD Friday pending po advancement 12/20 independently mobilizing, ADD Thursday 12/21 possible DC later today pending PO tolerance; PT eval from 12/19 recommending wheeled walker and PT (ordered), case management updated Ventral hernia without obstr uction or gangrene 12/02/2023 02/26/2024 Assessment & Plan (12/21/2023 9:57 AM PACS ADMINISTRATOR): -[facility] open ventral hernia repair with mesh; removal [...] JPs serosang, vac intact, passed void trial -2/3 POD5: AFVSS, tolerated sips after NGT removed, advance to CLD, +BM, JPs serosang, vac removed, voiding independently -2/4 POD6: AFVSS, low volume regular diet intake - added supplements, ongoing bowel function - added fiber, anthony intact, JPs serosang Pathology 12/15 device engineer, removal - Mesh (gross only diagnosis) [...] 07/21/2024 Assessment & Plan (01/16/2023 1:19 PM PACS ADMINISTRATOR): Flank pain Pt reports dysuria, frequency, chills, cloudy urine, possible hematuria, left lower back pain for 2 days. Pt also mentions on 01/06 she blacked out while on the commode in [place]. She woke up on the floor. She [...] urine is normal. I will refer to export agent for secondary causes. Acute recurrent pansinusitis 06/06/2021 [...] 07/21/2024 Assessment & Plan (01/11/2021 10:51 AM PACS ADMINISTRATOR): She has recent history of ureteral stent with urinary tract infection. She did require stone manipulation and retrieval. She currently has no symptoms. Influenza-like symptoms 01/11/2021 0902/2024 Pyelonephritis 01/11/2021 02/26/2024 Renal impairment 01/11/2021 03/01/2025 Assessment & Plan (03/01/2025 10:06 AM CDT): Patient is starting Jardiance 10mg for CKD. Patient will follow up in 6 months Assessment & Plan (01/11/2021 10:56 AM PACS ADMINISTRATOR): She is uncertain of her renal status. I did check CMP. Right flank pain 01/11/2021 02/26/2024 Gastroesophageal reflux disease 03/16/2020 07/21/2024 Assessment & Plan (12/21/2023 9:54 AM PACS ADMINISTRATOR): Home pepcid -IV formulation ordered while NPO -transitioned to oral once NGT removed Assessment & Plan (04/12/2021 1:40 PM CDT): Omeprazole was refilled. We did discuss trying to wean from the medication. Assessment & Plan (01/11/2021 10:54 AM PACS ADMINISTRATOR): She is diabetic. She is on famotidine and omeprazole.. Will continue to monitor. Chronic deep vein thrombosis (DVT) of lower extremity 08/05/2019 12/18/2023 Assessment & Plan (12/18/2023 2:39 PM PACS ADMINISTRATOR): History of provoked DVT in 2019. Home is ASA 81 for CAD Assessment & Plan (01/11/2021 10:51 AM PACS ADMINISTRATOR): She is on Plavix and aspirin. She is status post bilateral knee replacement and her DVT was felt to be a complication. Hyperglycemia 08/05/2019 07/23/2023 Obesity 08/05/2019 07/21/2024 Acute deep vein thrombosis ( DVT) of distal vein of left lower extremity 01/11/2021 Assessment & Plan (01/11/2021 10:50 AM PACS ADMINISTRATOR): She is on Plavix and aspirin. She [...] Tdap 06/16/2024 ZOSTER Recombinant 02/23/2025,(Deferred: Patient Refused) Social History Tobacco Use Types [...] on file Legal Sex Female 7:58 AM PACS ADMINISTRATOR Gender Identity Female 05/21/2023 3:25 AM CDT [...] 03/01/2025 9:24 AM CDT Plan of Treatment Not on file Medical Devices Implanted Type Area Transit Driver Device Identifier Shelf Expiration Date Model / Serial / Lot [employer]/C R Bard [id number] Bard [id number] Monofilament Soft Lightweight Low Profile Square - [id number] Implanted:Qty: 1 on 12/15/2023 by Trung Butler MD at [facility] Mesh N/A: Abdomen [employer] Bard [id number] 06/13/2027 [id number] / / [id number] Other - See Comments Other - see [...] URINE ORDERABLES Final Resul t DONNIE TODD [address] Department [place] [address] * (ABNORMAL) Differential, auto (03/01/2025 10:07 AM CDT) Neutrophil abs 3.46 1.50 - 6.50 K/cumm Imm gran abs 0.02 0.00 - 0.10 K/cumm [facility] Lymphocyte abs 3.55(H) 0.80 - 3.30 K/cumm [facility] Monocyte abs 0.65 0.20 - 0.80 K/cumm [facility] Eosinophil abs 0.62(H) 0.00 - 0.50 K/cumm [facility] Basophil abs 0.10 0.00 - 0.10 K/cumm [facility] Neutrophil pct 41.2 % [facility] Comment: Interpretive Data Percent cell count reference ranges are not reported, since discordance with absolute values may lead to misinterpretation of CBC data. Current Interpretive Data was last revised on 2018. Imm gran pct 0.2 % [facility] Comment: Interpretive Data Percent cell count reference ranges are not reported, since discordance with absolute values may lead to misinterpretation of CBC data. Current Interpretive Data was last revised on 2018. Lymphocyte pct 42.3 % [facility] Comment: Interpretive Data Percent cell count reference ranges are not reported, since discordance with absolute values may lead to misinterpretation of CBC data. Current Interpretive Data was last revised on 2018. Monocyte pct 7.7 % [facility] Comment: Interpretive Data Percent cell count reference ranges are not reported, since discordance with absolute values may lead to misinterpretation of CBC data. Current Interpretive Data was last revised on 2018. Eosinophil pct 7.4 % [facility] Comment: Interpretive Data Percent cell count reference ranges are not reported, since discordance with absolute values may lead to misinterpretation of CBC data. Current Interpretive Data was last revised on 2018. Basophil pct 1.2 % [facility] Comment: Interpretive Data Percent cell count reference ranges are not reported, since discordance with absolute values may lead to misinterpretation of CBC data. Current Interpretive Data was last revised on 2018. Blood 03/01/2025 10:0 7 AM CDT 03/01/2025 7:19 PM CDT Delores Chamberlain JUNIOR NET DEVELOPER LAB BLOOD ORDERABLES Final Resul t Performing Organization Address [facility] Co de Phone Number DONNIE [address] Department of Laboratories [place], [place] [id number] * (ABNORMAL) CBC with auto differential (03/01/2025 10:07 AM CDT) WBC 8.40 3.80 - 9.90 K/cumm Hgb 14.1 11.9 - 15.5 g/dL [facility] Hct 47.1(H) 35.6 - 45.5 % [facility] Plt 283 150 - 400 K/cumm [facility] MPV 11.2 9.1 - 12.3 fL [facility] RBC 4.90 3.90 - 5.20 M/cumm [facility] MCV 96.1 81.3 - 96.4 fL [facility] MCH 28.8 27.1 - 33.3 pg [facility] MCHC 29.9(L) 32.3 - 35.7 g/dL [facility] RDW CV 15.2(H) 11.1 - 14.9 % [facility] RDW SD 54.0(H) 35.7 - 48.1 fL [facility] NRBC abs 0.00 0.00 - 0.01 K/cumm [facility] Blood 03/01/2025 10:0 7 AM CDT 03/01/2025 7:19 PM CDT Delores Chamberlain JUNIOR NET DEVELOPER LAB BLOOD ORDERABLES Final Resul t Performing Organization Address [facility] de Phone Number DONNIE TODD [address] Department [place] [address] * (ABNORMAL) Hemoglobin A1c (03/01/2025 10:07 AM CDT) Hgb A1C 6.0(H) 4.0 - 5.6 % Estimated Average Glucose 126 mg/dL [facility] Comment: The ADA recommends reporting an estimated Average Glucose (eAG) with all Hemoglobin A1c results using the equation derived from a study of 507 normal and diabetic adults. Minority populations were underrepresented and children were not included. (Diabetes Care 31:4878-0461, 2008). The eAG is not equivalent to a fasting glucose. Blood 03/01/2025 10:0 7 AM CDT 03/01/2025 7:19 PM CDT us Delores Chamberlain JUNIOR NET DEVELOPER LAB BLOOD ORDERABLES Final Resul t DONNIE [address] Department [place] [address] * (ABNORMAL) Lipid panel (03/01/2025 10:07 AM [...] ORDERABLES Final Resul t Performing Organization Address City/State/[facility] Co de Phone Number DONNIE [address] Department [place] [address] * (ABNORMAL) eGFR (02/16/2025 9:14 AM CDT) [...] CDT 02/16/2025 9:32 AM CDT Delores Chamberlain JUNIOR NET DEVELOPER LAB BLOOD ORDERABLES Final Resul t Performing Organization Address [facility]/ZIP Co de Phone Number DONNIE ESTRADA ([place]) 1 [facility] Department [place] [address] * (ABNORMAL) Basic metabolic panel (02/16/2025 9:14 AM CDT) Sodium 142 135 - 145 mmol/L Potassium, pl 4.7 3.3 - 4.9 mmol/L [facility] ([place]) Chloride 106 97 - 110 mmol/L [facility] ([place]) CO2 24 22 - 32 mmol/L [facility] ([place]) Anion gap 12 2 - 15 mmol/L [facility] ([place]) BUN 25 6 - 25 mg/dL [facility] ([place]) Creatinine 1.40(H) 0.60 - 1.10 mg/dL DONNIE [facility] ([place]) Glucose 124 70 - 199 mg/dL DONNIE [facility] ([place]) Comment: Interpretive Data Fasting glucose >/= [...] Calcium 9.8 8.5 - 10.3 mg/dL DONNIE [facility] ([place]) Blood 02/16/2025 9:14 AM CDT 02/16/2025 9:32 AM CDT Delores Chamberlain JUNIOR NET DEVELOPER LAB BLOOD ORDERABLES Final Resul t DONNIE [facility] ([place]) 1 [facility] Department of Laboratories [place], [place] [id number] * MRI/MRCP (abdomen) W WO Contrast (02/16/2025 8:22 AM CDT) Anatomical Region Laterality Modality Body N/A Magnetic Resonan ce 02/21/2025 3:05 PM CDT Narrative 02/21/2025 3:21 PM CDT EXAM DESCRIPTION: MRI ABDOMEN MRCP W WO CONTRAST INCL 3D REASON FOR STUDY: Pancreatic cyst, intrahepatic duct dilation Pancrease cyst follow up, no surgery, no symptoms System did not knot picker cloth on the auto care bolus the contrast [...] Compa Scott M.D. KR: KR Report ID: [id number] Reading Location: [id number] Procedure Note Compa Scott MD - 02/21/2025 [...] Scott M.D. KR: VICTOR MANUEL Report ID: [id number] Reading Location: [id number] Xiomara Khan MD [facility] [place]ED[place] Final Result * Surgical pathology (02/07/2025 11:54 AM CDT) Tissue specimen (specimen) (Polyp(s), colon/colorectal, esophageal, gastric) 02/07/2025 8:33 AM CDT Tissue specimen (specimen) (Polyp(s), colon/colorectal, esophageal, gastric) 02/07/2025 8:34 AM CDT Tissue specimen (specimen) (Polyp(s), colon/colorectal, esophageal, gastric) 02/07/2025 8:34 AM CDT Narrative PATHOLOGY [facility] ([place]) - 02/08/2025 12:11 PM CDT EPIC results best viewed via link to PDF [facility] Department of Pathology [address] [place] [address] Note to Patients: This report may contain [...] Final Report Patient Name: NANCY MURCIA Address: [address] [place] [address]- Gender: F : 1945 (Age: 79) Service: Gastro Location: [facility] Hospital #: [id number] Patient Type: [facility] Taken: 02/07/2025 Received: 02/07/2025 Accessioned: 02/07/2025 [...] submitted in three formalin containers labeled NANCY MURCIA . A. The first container is [...] mm. All in C. T.A. Carolina Villar., Janessa./Cathie Graham M.D. REPORT IMAGES AND SCANNED DOCUMENTS, IF INCLUDED, ONLY VIEWABLE IN PDF VERSION OF REPORT The performance characteristics of some immunohistochemical stains, fluorescence in-situ hybridization tests and immunophenotyping by flow cytometry cited in this report (if any) were determined by the Surgical Pathology Department at [facility] as part of an ongoing clinical quality manager program and in compliance with [...] characteristics determined by the Surgical Pathology Department [facility]. It has not been cleared or approved by the U. S. Food and Drug Administration. Note for decalcified specimens: This assay has not been validated on decalcified tissues. Results should be interpreted with caution given the possibility of false negativity on decalcified specimens Xiomara Khan MD LAB PATHOLOGY ORDERABLES Final R esult Performing Organization Address City/[facility]/ZIP Co de Phone Number PATHOLOGY [address] [address] * POCT glucose (02/07/2025 7:14 AM CDT) Glucose, POC 123 70 - 199 mg/dL Blood 02/07/2025 7:14 AM CDT 02/07/2025 7:14 AM CDT Xiomara Khan MD LAB POCT ORDERABLES - DEVICE Fin al Result Performing Organization Address [facility]/ZIP Co de Phone Number [facility] [place] 1 [facility] Department [place] [address] * Colonoscopy (02/07/2025 7:05 AM CDT) Anatomical Region Laterality Modality Other Narrative Procedure Note Xiomara Khan MD - 02/07/2025 7:05 AM CDT [facility] Patient Name: Nancy Murcia Procedure Date: 02/07/2025 7:05 AM Date of : 1945 Admit Type: Outpatient Age: 79 Gender: Female Attending MD: Xiomara Khan M.D. Room: [facility] ENDOSCOPY ROOM 3 Note Status: Finalized Patient [...] CT of the GI tract Referring MD: Delores Chamberlain, F.N.P. Providers: Xiomara Khan M.D. Impression: - Hemorrhoids [...] procedure were verified by the physician, the sql programmer and the veterinary assistant technician in the endoscopy suite. Mental Status [...] under direct vision. The Pediatric Colonoscope [id number]-H190L [id number] was introducedthrough the anus and advanced to [...] 7:05 AM Procedure Code(s): --- Professional --- 22013, Colonoscopy, flexible; with removal of tumor(s), polyp(s), or other lesion(s) by snare technique --- Technical --- 33047, Colonoscopy, flexible; with removal of tumor(s), polyp(s), [...] congenital malformations of intestine CPT copyright 2020 [employer]. All rights reserved. The codes documented in this report are preliminary and upon professor of chemistry reviewmay be revised to meet current compliance requirements. Recognized by the [employer] for promoting quality [...] age 40, based on guidelines of the [employer] (ACR Practice Parameter for the Performance of Screening and Diagnostic Mammography) and [employer]. For women [...] with given history of: post-menopausal osteoporosis prevention Transit Driver/Model: Ynnovable Design A (S/N [id number]) CLINICAL INFORMATION: Current height: 62 inches Maximum [...] Karthik Frye M.D. MF: ASHOK Report ID: [id number] Reading Location: [place] [address] Procedure Note Karthik Frye MD - 08/03/2024 EXAM DESCRIPTION: DEXA AXIAL SKELETON BONE DENSITY 1 OR MORE SITES REASON FOR STUDY: 79 y/o year old F with given history of: post-menopausal osteoporosis prevention Transit Driver/Model: Ynnovable [employer] A (S/N [id number]) CLINICAL INFORMATION: Current height: 62 inches Maximum [...] Karthik Frye M.D. MF: ASHOK Report ID: [id number] Reading Location: [place] [address] Delores Chamberlain NP IMG DXA PROCEDURES Final Result * Diabetic Eye Exam (07/10/2023) Kunal Provider HEALTH MAINTENANCE Final Result * Hepatitis C antibody (03/14/2021 11:04 AM CDT) Hep C Ab Nonreactive Nonreactive DONNIE [facility] Comment: Interpretive Data Nonreactive: Antibodies to HCV [...] LAB MICROBIOLOGY - GENERAL ORDERABLES Final Result [facility] [address] Department of Laboratories [place], [place] [id number] from Last 3 Months or Most Recently Relevant to Health Maintenance Insurance [facility] MEDICARE ADVANTAGE [facility] DUAL COMPLETE [place] [id number] [place] MEDICARE COMMERCIAL GENERIC [facility] MEDICARE ADVANTAGE Advance Directives For more information, please contact: [phone] Documents on File Type Date Recorded Patient Personal Care Home Administrator Expl anation ADVANCE DIRECTIVE 12/15/2023 11:51 AM [...] 1:15 PM 06/14/2021 9:04 PM Care Teams Cash Checker Relationship Specialty Start Date End Date Delores Chamberlain NP [address] [facility] [address] [place] [address] PCP - General Family Medicine 9/6/23 Khai Neal MD Consulting Physician Ophthalmology 10/08/21 Tyree Bauer MD PhD [address] [facility] [address] [place] [address] Referring Physician Cardiology 07/23/23 Mary Ma, workforce development vice president Failure Coordinator 08/12/23
--- OUTSIDE RECORDS SUMMARY | 2025-03-24 10:18 | XMS_ITS | Encounter Summary ---
Author Organization [facility] Healthcare Address [address] [place] [address] Care Team Providers Care Wire Stretcher Name Role Phone Khai Neal MD Unavailable [phone] Delores Chamberlain NP Primary Care Provider Tyree Bauer MD PhD Unavailable + Mary Ma RN Unavailable Unavaila ble Reason for Visit * Reason Onset Date Comments Medication Request 03/01/2025 Encounter Details Date Type Department Care Team (Late st Contact Info) Description 03/01/2025 Telephone [facility] Medical Group Primary Care at [address] [address] Deolres Chamberlain NP [address] [place] [address] [address] [place] [address] Medication Request Social History Tobacco Use Types Packs/Day Years [...] on file Legal Sex Female 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 Need more information. Is it not cheap with the coupon? * Telephone Encounter - Elba Burgos - 03/01/2025 12:21 PM CDT Medication affordability concern Medication Name(s)/Dose: empagliflozin (JARDIANCE) 10 mg tablet, Take 1 tablet (10 mg total) by mouth daily Name of prescribing provider: EBONY Chamberlain Is this a new medication or have you taken it for a while, and it is suddenly very expensive? New Have you had any insurance changes in the last couple months? Yes How much medication do you have on hand? None Additional Comments: Patient will also call insurance company to see what similar medication they will cover. Does message need to be routed? Yes-Action Needed documented in this encounter Plan of Treatment Not on file documented as of this encounter Visit Diagnoses Not on filedocumented in this encounter Care Teams Wire Stretcher Relationship Specialty Start Date End Date Delores Chamberlain NP [address] [facility] [address] [place] [address] PCP - General Family Medicine 07/23/23 Khai Neal MD Consulting Physician Ophthalmology 10/08/21 Tyree Bauer MD PhD [address] [place] [id number] Referring Physician Cardiology 07/23/23 Mary Ma, esl instructor Failure Coordinator 08/12/23 documented as of this encounter
--- OUTSIDE RECORDS SUMMARY | 2025-03-24 10:18 | XMS_ITS | Encounter Summary ---
Author Organization [facility] [employer] CARE , [facility] Address [address] [place] [address] Phone Care Team Providers Care Boiler Tube Reamer Name Role Phone Maik Chamberlainn Primary Care Provider [phone] Reason for Referral * Imaging (Routine) - Pending Review Specialty Diagnoses / Procedures Referred By Contac t Referred To Contact Diagnoses Hypertension Chronic kidney disease stage 3B (HCC) Procedures Renal artery duplex Eugenio Willingham MD 2 [facility] [address] [place] [address] Phone: tel: fax: Referral ID Status Reason Start Date Expiration Date V isits Requested Visits Authorized [id number] Pending Review 03/23/2025 03/23/2026 1 1 Encounter Details Date Type Department Care Team (Late st Contact Info) Description 03/23/2025 Orders Only [place] Delivery Agent [facility] [place], [facility] 2 [facility] [address] [place] [address] [place] [address] [place] [address] Hypertension (Primary Dx); Chronic kidney disease stage 3B (HCC) Social History Tobacco Use Types Packs/Day Years Used Date Smoking Tobacco: Never Alcohol Use Standard Drinks/Week Comments Never 0 (1 standard drink = 0.6 oz pur e alcohol) Comments Unknown Sex and Gender Information Value Date Recorded Sex Assigned at Not on file Legal Sex Female 4:06 PM EST Gender Identity Not on file Sexual Orientation Not on file documented as of this encounter Plan of Treatment Upcoming Encounters Date Type Department Care Team (Late st Contact Info) Description 06/02/2025 10:15 AM CDT Office Visit [facility], [facility] [address] [facility] [address] [place] [address] Eugenio Willingham MD [address] [facility] [address] [place] [address] Scheduled Orders Name Type Priority Associated Diagnoses Orde r Schedule Renal artery duplex Imaging Routine Hypertension Chronic kidney disease stage 3B (HCC) Expected: 03/23/2025, Expires: 03/23/2026 documented as of this encounter Visit Diagnoses Diagnosis Hypertension- Primary Chronic kidney disease stage 3B (HCC) documented in this encounter Care Teams Boiler Tube Reamer Relationship Specialty Start Date End Date Delores Chamberlain [address] [place] [address] PCP - General 01/05/25 documented as of this encounter
--- OUTSIDE RECORDS SUMMARY | 2025-03-24 10:18 | XMS_ITS | Clinical Summary ---
Author Organization [facility] Address [address] [place] [address] Care Team Providers Care Guest Services Ambassador Name Role Phone Delores Chamberlain ASIC ENGINEER Primary Care Provider [phone] Allergies No known active allergies Medications No known medications Immunizations Immunization Administration Dates Next Due Tdap (Boostrix) 06/16/2024 Social History Tobacco Use Types Packs/Day Years Used Date Smoking Tobacco: Unknown Tobacco Cessation:Counseling Given: Not Answered Comments Unknown Sex and Gender Information Value Date Recorded Sex Assigned at Female 12/14/2024 11:51 PM JIG AND FIXTURE REPAIRER Legal Sex Female 3:33 PM CDT Gender Identity Not on file Sexual Orientation Not on file Last Filed Vital Signs Vital Sign Reading Time Taken Comments Blood Pressure 167/76 12/15/2024 3:31 AM JIG AND FIXTURE REPAIRER Pulse 100 12/15/2024 3:31 AM JIG AND FIXTURE REPAIRER Temperature 36.7 C (98 F) 12/15/2024 3:31 AM JIG AND FIXTURE REPAIRER Respiratory Rate 18 12/15/2024 3:31 AM JIG AND FIXTURE REPAIRER Oxygen Saturation 97% 12/15/2024 3:31 AM JIG AND FIXTURE REPAIRER Inhaled Oxygen Concentration - - Weight 86.2 kg (190 lb) 12/14/2024 11:21 PM JIG AND FIXTURE REPAIRER Height 160 cm (5' 3 ) 12/14/2024 11:21 PM JIG AND FIXTURE REPAIRER Body Mass Index 33.66 12/14/2024 11:21 PM JIG AND FIXTURE REPAIRER Plan of Treatment Health Maintenance Due Date Last Done Comments Hepatitis C 1964 Zoster Vaccines (1 of 2) 1996 Annual Medicare Wellness Visit 2011 RSV Immunization or 60+ Years (1 - 1-dose 75+ series) 2021 COVID-19 Vaccine (5 - 2023- season) 2024 11/08/2023, 09/06/2022, 02/13/2021, Additional history exists DTaP, Tdap and Td Vaccines (2 - Td or Tdap) 06/16/2034 06/16/2024 Pneumococcal Vaccine: 50+ Years Completed 01/18/2020, 11/17/2015 Dexa Scan (General) [...] on patient's age to complete this topic Insurance Care Teams Guest Services Ambassador Relationship Specialty Start Date End Date Delores Chamberlain FNP PCP - General Nurse Practitioner Family 06/16/24
--- OUTSIDE RECORDS SUMMARY | 2025-03-24 10:18 | XMS_ITS | Encounter Summary ---
Author Organization [facility] Healthcare Address [address] [place] [address] Care Team Providers Care Differential Tester Name Role Phone Khai Neal MD Unavailable [phone] Delores Chamberlain NP Primary Care Provider Tyree Bauer MD PhD Unavailable + Mary Ma RN Unavailable Unavaila ble Encounter Details Date Type Department Care Team (Late st Contact Info) Description 03/02/2025 Results Follow-Up [facility] Medical Group Primary Care at [address] [address] Delores Chamberlain NP [address] [place] [address] [address] [place], [place] [id number] Social History Tobacco Use Types Packs/Day Years [...] on file Legal Sex Female 7:58 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 Gender Identity Female 05/21/2023 3:25 AM CDT Sexual Orientation Not on file documented as of this encounter Plan of Treatment Not on file documented as of this encounter Visit Diagnoses Not on filedocumented in this encounter Care Teams Differential Tester Relationship Specialty Start Date End Date Delores Chamberlain NP [address] [place], [place] [phone] PCP - General Family Medicine 07/23/23 Khai Neal MD Consulting Physician Ophthalmology 10/08/21 Tyree Bauer MD PhD [address] [place] [address] Referring Physician Cardiology 07/23/23 Mary Ma, logistics supervisor Failure Coordinator 08/12/23 documented as of this encounter
--- OUTSIDE RECORDS SUMMARY | 2025-03-24 10:18 | XMS_ITS | Encounter Summary ---
Author Organization [facility] Healthcare Address [address] [place] [address] Care Team Providers Care Sanitation Supervisor Name Role Phone Khai Neal MD Unavailable [phone] Delores Chamberlain NP Primary Care Provider [phone] Tyree Bauer MD PhD Unavailable + Mary Ma RN Unavailable Unavaila ble Reason for Visit * Reason Onset Date Comments Medical Question/Miscellaneous 02/25/2025 Encounter Details Date Type Department Care Team (Late st Contact Info) Description 02/25/[address] 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 Pt states she sees us on Friday and will discuss then. * Telephone Encounter - Delores Chamberlain NP - 02/25/2025 3:39 PM CDT I sent in the Jardiance to see if cheaper but she needs to see Nephrology. * Telephone Encounter - Delores Chamberlain NP - 02/25/2025 3:38 PM CDT Using for CKD/T2DM * Telephone Encounter - Delores Chamberlain NP - 02/25/2025 3:35 PM CDT Alternative would be Jardiance but likely pricey too. We are using for CKD. Patient was supposed to be getting set up with Dr Willingham (nephrology), was sheable to do so? * Telephone Encounter - Mikala Hobson - 02/25/2025 2:43 PM CDT Medication affordability concern Medication Name(s)/Dose: Dapagliflozin propanediol (Farxiga) Name of prescribing provider: Delores Chamberlain Is this a new medication or have you taken it for a while, and it is suddenly very expensive? Taking medication for 3 months Have you had any insurance changes in the last couple months? no How much medication do you have on hand? Enough until Friday03/02/25 Additional Comments: Patient called stating medication cost $465 and she cannot afford it asking for an alternative. Does message need to be routed? Yes-Action Needed documented in this encounter Plan of Treatment Not on file documented as of this encounter Visit Diagnoses Not on filedocumented in this encounter Care Teams Sanitation Supervisor Relationship Specialty Start Date End Date Delores Chamberlain NP [address] [place] [address] PCP - General Family Medicine 07/23/23 Khai Neal MD Consulting Physician Ophthalmology 10/08/21 Tyree Bauer MD PhD [address] [place] [address] Referring Physician Cardiology 07/23/23 Mary Ma, banquet coordinator Failure Coordinator 08/12/23 documented as of this encounter
== END 2025-03-24 09:59 | disposition home or self-care (01) ==
PROVIDERS: PCP Nurse Practitioner Family; Visit Provider Internal Medicine Nephrology
DX: I12.9 Hypertensive chronic kidney disease with stage 1 through stage 4 chronic kidney disease, or unspecified chronic kidney disease (principal); N18.32 Chronic kidney disease, stage 3b
CPT/HCPCS: 93976

== ENCOUNTER 2025-11-10 05:56 | Emergency (ER) | payer MEDICARE, SELFPAY ==
--- NOTE | ~2025-11-10 | XR_ITS ---
EXAMINATION: XR chest 2V 11/10/2025 06:22 INDICATION: Shortness of breath and congestion PROCEDURE: 2 view chest COMPARISON: No prior studies for comparison. FINDINGS: The lungs are clear. The cardiomediastinal silhouette is within normal limits. There are no pleural effusions. There is no pneumothorax suspected. There are surgical changes in the left upper abdomen. IMPRESSION: 1: NO ACUTE CARDIOPULMONARY DISEASE. Reviewed, dictated and finalized at location O. HOME AIDE
[2025-11-10 05:58] VITALS: BP 151/61; PULSE 83; RESP 18; TEMP 37; O2SAT 99
--- OUTSIDE RECORDS SUMMARY | 2025-11-10 05:59 | XMS_ITS | Encounter Summary ---
Author Organization [facility] Address [address] [place] [address] Care Team Providers Care Canine Service Instructor Trainer Name Role Phone Dany Andino MD Primary Care Provider [phone] Encounter Details Date Type Department Care Team (Late st Contact Info) Description 09/02/2025 [employer] Message Enc [facility] Medical Group Family & Internal Medicine [facility] [id number] [place] [address] [place] [address] [address] MRI Social History Tobacco Use Types Packs/Day Years Used Date Smoking Tobacco: Never Smokeless Tobacco: Never Alcohol Use Standard Drinks/Week Comments Never 0 (1 standard drink = 0.6 oz pur e alcohol) PHQ-2 Answer Date Recorded Patient Health Questionnaire-2 Score 0 07/26/2025 Comments No Sex and Gender Information Value Date Recorded Sex Assigned at Female 12/14/2024 11:51 PM INCIDENT MANAGER Legal Sex Female 3:33 PM CDT Gender Identity Female 07/26/2025 3:33 PM CDT Sexual Orientation Not on file documented as of this encounter Progress Notes * Gisella Whitten RN - 09/02/2025 3:17 PM CDT Pt has MRI LUMB SPINE WO CON scheduled today and has MRI ABD WWO CON scheduled for 09/14. She is wanting to confirm if she is to have both done. documented in this encounter Plan of Treatment Upcoming Encounters Date Type Department Care Team (Latest Contact Info) Description 12/14/2025 4:20 PM INCIDENT MANAGER Hospital Encounter [facility] Interventional Pain Management [place] [address] [id number] Cordelia Stroud MD Three [facility] [address] [facility] [place] [address] 12/14/2025 4:20 PM INCIDENT MANAGER - 12/14/2025 4:40 PM INCIDENT MANAGER Surgery [facility] Interventional Pain Management [place] [address] [id number] Cordelia Stroud MD [address] [facility] [address] [facility] [place] [address] INJECTION EPIDURAL TRANSFORAMINAL-L3- 4, L4-5 01/09/2026 9:00 AM INCIDENT MANAGER Office Visit [facility] Medical [facility] [address] [address] Eugenio Glover DO [facility] [address] [place] [address] 01/10/2026 10:00 AM INCIDENT MANAGER Office Visit [facility] Medical Group Family & Internal Medicine - [address] [address] Dany Andino MD [address] [place], [place] [address] [address] [place] [id number] Scheduled Procedures Name Priority Associated Diagnoses Date/Ti me INJECTION EPIDURAL TRANSFORAMINAL Lumbar radiculopathy 12/14/2025 4:20 PM INCIDENT MANAGER documented as of this encounter Visit Diagnoses Not on filedocumented in this encounter Additional Health Concerns Assessment Noted Time PHQ-9 Depression Total Score: 0 07/26/20 3:44 PM CDT documented as of this encounter Care Teams Canine Service Instructor Trainer Relationship Specialty [place] [address] [place] [address] PCP - General INTERNAL MEDICINE 07/21/25 documented as of this encounter
--- OUTSIDE RECORDS SUMMARY | 2025-11-10 05:59 | XMS_ITS | Clinical Summary ---
Author Organization [facility] Facility Address [address] [address] Care Team Providers Care Skoog Patching Machine Operator Name Role Phone Delores Chamberlain Primary Care Provider [phone] Allergies No known active allergies Medications aspirin (ST LORENZA) 81 MG EC tablet Take 81 mg by mouth in the morning. 12/22/2023 Active Multiple Vitamin (multivitamin) capsule Take 1 capsule by mouth every morning Active atorvastatin (LIPITOR) 10 MG tablet Take 10 mg by mouth 1 (one) time each day Active Dapagliflozin Propanediol 10 MG tablet Take 10 mg by mouth in the morning. 12/02/2024 Active lisinopril 20 MG tablet Take 20 mg by mouth 1 (one) time each day Active amLODIPine (NORVASC) 10 MG tablet Take 10 mg by mouth in the morning. 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 03/14/2021 Family History Medical History Relation Comments Heart [...] Sign Reading Time Taken Comments Blood Pressure 129/84 06/02/2025 10:20 AM CDT Pulse 70 06/02/2025 10:20 AM CDT Temperature 36.6 C (97.8 F) 06/02/2025 10:20 AM CDT Respiratory Rate 17 02/25/2025 12:00 PM CDT Oxygen Saturation 90% 06/02/2025 10:20 AM CDT Inhaled Oxygen Concentration - - Weight 94.3 kg (208 lb) 06/02/2025 10:20 AM CDT Height 160 cm (5' 3) 02/25/2025 12:00 PM CDT Body Mass Index 36.85 02/25/2025 12:00 PM CDT Plan of Treatment Upcoming Encounters Date Type Department Care Team (Late st Contact Info) Description 12/09/2025 10:00 AM MOLDING SANDER Office Visit [facility], [facility] 2 [facility] [address] [place] [address] Eugenio Willingham MD 2 [facility] [address] [place] [address] Health Maintenance Due Date Last Done Comments Hepatitis B Vaccine (1 of 3 - Risk 3-dose series) 2006 Diabetes: Ophthalmology Exam 01/05/2025 Diabetes: Pedal Pulse Checked 01/05/2025 Diabetes: Sensory Foot Exam 01/05/2025 Diabetes: Visual Foot Exam 01/05/2025 Diabetes: Hemoglobin A1C 05/31/2025 03/01/2025, 08/17 Influenza Vaccine (#1) 2025 4, 07/28/2020, 07/26/2020, Additional history exists Pneumococcal Vaccine: 50+ Years Completed 0, 11/17/2015 Insurance [facility] Medicare Advance Directives Documents on File Type Date Recorded Patient Lagging Machine Operator Expl anation Advance Care Planning 03/24/2025 10:02 AM Care Teams Skoog Patching Machine Operator Relationship Specialty Start Date End Date Delores Chamberlain [address] [place] [address] PCP - General 01/05/25
--- OUTSIDE RECORDS SUMMARY | 2025-11-10 05:59 | XMS_ITS | Encounter Summary ---
Author Organization [facility] Address [address] [place] [address] Care Team Providers Care Electromyographic Technician Name Role Phone Dany Andino MD Primary Care Provider [phone] Encounter Details Date Type Department Care Team (Late st Contact Info) Description 10/17/2025 Results Follow-Up [facility] Medical Group Family & Internal Medicine [facility] [address] [place] [address] Emily Stanton, ALF[place] [id number] [place] [address] URINALYSIS AUTO DIP, URINE BACTERIA CULTURE Social History Tobacco Use Types Packs/Day Years Used Date Smoking Tobacco: Never Smokeless Tobacco: Never Alcohol Use Standard Drinks/Week Comments Never 0 (1 standard drink = 0.6 oz pur e alcohol) PHQ-2 Answer Date Recorded Patient Health Questionnaire-2 Score 0 10/17/2025 Comments No Sex and Gender Information Value Date Recorded Sex Assigned at Female 12/14/2024 11:51 PM EARLY CHILDHOOD EDUCATION COORDINATOR Legal Sex Female 3:33 PM CDT Gender Identity Female 07/26/2025 3:33 PM CDT Sexual Orientation Not on file documented as of this encounter Plan of Treatment Upcoming Encounters Date Type Department Care Team (Latest Contact Info) Description 12/14/2025 4:20 PM EARLY CHILDHOOD EDUCATION COORDINATOR Hospital Encounter [facility] [place] [address] [id number] Cordelia Stroud MD Three [facility] [address] [place] [address] 12/14/2025 4:20 PM EARLY CHILDHOOD EDUCATION COORDINATOR - 12/14/2025 4:40 PM EARLY CHILDHOOD EDUCATION COORDINATOR Surgery [facility] [place] [address] [id number] Cordelia Stroud MD Three [facility] [address] [place] [address] INJECTION EPIDURAL TRANSFORAMINAL-L3- 4, L4-5 01/09/2026 9:00 AM EARLY CHILDHOOD EDUCATION COORDINATOR Office Visit [facility] Medical [facility] Pul[facility]ty [facility] [address] [phone] Eugenio Glover DO 3 [facility] [address] [place] [address] 01/10/2026 10:00 AM EARLY CHILDHOOD EDUCATION COORDINATOR Office Visit [facility] Family & Internal Medicine - [address] [address] [place] [address] [facility] [address] [place] [address] Scheduled Procedures Name Priority Associated Diagnoses Date/Ti me INJECTION EPIDURAL TRANSFORAMINAL Lumbar radiculopathy 12/14/2025 4:20 PM EARLY CHILDHOOD EDUCATION COORDINATOR documented as of this encounter Visit Diagnoses Not on filedocumented in this encounter Additional Health Concerns Assessment Noted Time PHQ-9 Depression Total Score: 0 07/26/20 25 3:44 PM CDT documented as of this encounter Care Teams Electromyographic Technician Relationship Specialty [place] [address] [address] PCP - General INTERNAL MEDICINE 07/21/25 documented as of this encounter
--- OUTSIDE RECORDS SUMMARY | 2025-11-10 05:59 | XMS_ITS | Encounter Summary ---
Author Organization [facility] Address [address] [place] [address] Care Team Providers Care Supervisor Travel Trailer Name Role Phone Dany Andino MD Primary Care Provider [phone] Encounter Details Date Type Department Care Team (Late st Contact Info) Description 08/23/2025 [employer] Message Enc [facility] Medical Group Family & Internal Medicine [facility] [id number] [place] [phone] [place] [id number] [address] Pain in back Social History Tobacco Use Types Packs/Day Years Used Date Smoking Tobacco: Never Smokeless Tobacco: Never Alcohol Use Standard Drinks/Week Comments Never 0 (1 standard drink = 0.6 oz pur e alcohol) PHQ-2 Answer Date Recorded Patient Health Questionnaire-2 Score 0 07/26/2025 Comments No Sex and Gender Information Value Date Recorded Sex Assigned at Female 12/14/2024 11:51 PM MEDIA REPORTER Legal Sex Female 3:33 PM CDT Gender Identity Female 07/26/2025 3:33 PM CDT Sexual Orientation Not on file documented as of this encounter Plan of Treatment Upcoming Encounters Date Type Department Care Team (Latest Contact Info) Description 12/14/2025 4:20 PM MEDIA REPORTER Hospital Encounter [facility] [place] [address] [id number] Cordelia Stroud MD [facility] [address] [place] [address] 12/14/2025 4:20 PM MEDIA REPORTER - 12/14/2025 4:40 PM MEDIA REPORTER Surgery [facility] [place] [address] [id number] Cordelia Stroud MD [facility] [address] [place] [phone] INJECTION EPIDURAL TRANSFORAMINAL-L3- 4, L4-5 01/09/2026 9:00 AM MEDIA REPORTER Office Visit [facility] Medical [facility] [address] [phone] Eugenio Glover DO 3 [facility] [address] [place] [id number] 01/10/2026 10:00 AM MEDIA REPORTER Office Visit [facility] Medical [facility] Family & Internal Medicine - [address] [phone] Dany Andino MD [address] [place] [address] [place] [id number] Scheduled Procedures Name Priority Associated Diagnoses Date/Ti me INJECTION EPIDURAL TRANSFORAMINAL Lumbar radiculopathy 12/14/2025 4:20 PM MEDIA REPORTER documented as of this encounter Visit Diagnoses Not on filedocumented in this encounter Additional Health Concerns Assessment Noted Time PHQ-9 Depression Total Score: 0 07/26/20 25 3:44 PM CDT documented as of this encounter Care Teams Supervisor Travel Trailer Relationship Specialty [place] [id number] [address] PCP - General INTERNAL MEDICINE 07/21/25 documented as of this encounter
--- OUTSIDE RECORDS SUMMARY | 2025-11-10 05:59 | XMS_ITS | Clinical Summary ---
Author Organization [facility] Address [address] [place] [address] Care Team Providers Care Outside Energy Sales Representatives Name Role Phone Claudia Rhoades MD Primary Care Provider Allergies No known active allergies Medications Acetaminophen 500 MG Cap Take 1,000 mg by mouth every 6 (six) hours. 12/21/19 24 Active aspirin EC 81 MG tablet Take 1 tablet (81 mg total) by mouth daily. 12/22/19 24 Active famotidine (PEPCID) 20 MG tablet Take 1 tablet (20 mg total) by mouth daily. Active Multiple Vitamin (MULTIVITAMIN) capsule Take 1 capsule by mouth daily. Active amLODIPine (NORVASC) 10 MG tabletIndication s:Medicine refill TAKE 1 TABLET(10 MG) BY MOUTH DAILY 90 tablet 08/22/20 25 Active carvedilol (COREG) 6.25 MG tabletIndication s:Primary hypertension TAKE 1 TABLET(6.25 MG) BY MOUTH TWICE DAILY 180 tablet 08/28/20 25 Active lisinopril-hydro CHLOROthiazide (ZESTORETIC) 20-12.5 MG tabletIndication s:Primary hypertension Take 1 tablet by mouth every morning. 90 tablet 09/21/20 25 Active isosorbide mononitrate ER (IMDUR) 30 MG 24 hr tablet Take 1 tablet (30 mg total) by mouth daily. Active gabapentin (NEURONTIN) 100 MG capsuleIndicatio ns:Chronic left-sided low back pain with left-sided sciatica Take 1 capsule (100 mg total) by mouth 2 (two) times daily as needed. 60 capsule 1 09/27/20 25 Active ciprofloxacin (CIPRO) 250 MG tabletIndication s:Acute cystitis with hematuria 2 pills twice daily on day 1 then one pill twice daily until gone. 14 tablet 10/17/20 25 Active glipiZIDE XL (GLUCOTROL XL) 2.5 MG 24 hr tabletIndication s:Type 2 diabetes mellitus without complication, without long-term current use of insulin ([facility] HHS/HCC) TAKE 1 TABLET(2.5 MG) BY MOUTH DAILY WITH BREAKFAST. DO NOT BREAK OR CRUSH TABLET 30 tablet 1 10/26/20 25 Active atorvastatin (LIPITOR) 10 MG tabletIndication s:Dyslipidemia TAKE 1 TABLET(10 MG) BY MOUTH AFTER DINNER 30 tablet 3 11/04/20 25 Active atorvastatin (LIPITOR) 10 MG tabletIndication s:Dyslipidemia Take 1 tablet (10 mg total) by mouth after dinner. 30 tablet 3 08/11/20 25 025 Discontinued glipiZIDE XL (GLUCOTROL XL) 2.5 MG 24 hr tabletIndication s:Type 2 diabetes mellitus without complication, without long-term current use of insulin ([facility] HHS/HCC) TAKE 1 TABLET(2.5 MG) BY MOUTH DAILY WITH BREAKFAST. DO NOT BREAK OR CRUSH TABLET 30 tablet 1 09/13/20 25 025 Discontinued Active Problems Problem Noted Date Diagnosed Date Colon polyps 10/17/2025 History of bilateral knee replacement 10/17/2025 Right ureteral stone 10/17/2025 Stage 3 chronic kidney disea se, unspecified whether stage 3a or 3b CKD 09/27/2025 Assessment & Plan (09/27/2025 12:22 PM PLUMBER'S HELPER): Under care by Nephro. Not on NSAIDs. Lumbar radiculopathy 09/02/2025 Degeneration of intervertebr al disc of lumbar region with discogenic back pain and lower extremity pain 08/25/2025 History of coronary artery stent placement 07/26 Assessment & Plan (09/27/2025 12:22 PM PLUMBER'S HELPER): Had 3 stent placed in 2021-under care by Cardiology in [facility] On high intensity statin and aspirin Started on isosorbide lately by the Cardio. Assessment & Plan (07/26/2025 4:40 PM CDT): Had 3 stent placed in 2021-under care by Cardiology in [facility] On high intensity statin and aspirin No chest pain recently Gastroesophageal reflux dise ase, unspecified whether esophagitis present 07/26/2025 Assessment & Plan (07/26/2025 4:40 PM CDT): Symptomatically better controlled Has been taking famotidine daily as needed Cut back spicy meals and beverages Dyslipidemia 07/26/2025 Assessment & Plan (09/27/2025 12:22 PM PLUMBER'S HELPER): Currently on atorvastatin 10 mg at supper LDL at goat but TG 280-control BS better. Assessment & Plan (07/26/2025 4:40 PM CDT): Currently on atorvastatin 10 mg at supper Cut back on red meat products Type 2 diabetes mellitus wit hout complication, without long-term current use of insulin 07/26/2025 Assessment & Plan (09/27/2025 12:28 PM PLUMBER'S HELPER): Patient does see a retina specialist for a black spot on the eye on the left side 6 monthly and getting shots Latest Reference Range & Units 09/22/25 09:21 HGB A1C <5.7 % 6.2 (H) (H): Data is abnormally high On Glipizide XL 2.5mg daily Does see eye regularly Home 119-123. Assessment & Plan (07/26/2025 4:40 PM CDT): Patient used to take metformin however due to CKD was changed to Farxiga which could not be affordable by the patient and was not taking medication since February 2025 from her PCP Trial of glipizide 2.5 mg daily sent Blood sugar running between 120 and 130 at times goes to 158 per the patient without any antidiabetic medication Patient does see a retina specialist for a black spot on the eye on the left side 6 monthly and getting shots Orders: glipiZIDE XL (GLUCOTROL XL) 2.5 MG 24 hr tablet; Take 1 tablet (2.5 mg total) by mouth daily with breakfast. Do not break or crush tablet Primary hypertension 07/26/2025 Assessment & Plan (09/27/2025 12:22 PM PLUMBER'S HELPER): On amlodipine 10+ [id number] +Carvedilol 6.25 BID-controlled Assessment & Plan (07/27/2025 3:35 PM CDT): Somewhat elevated Currently on lisinopril 20 mg daily and amlodipine 10 mg daily will add HCTZ to lisinopril-call back with the blood pressure reading in a week or 2 Low-salt diet encouraged Orders: lisinopril-hydroCHLOROthiazide (ZESTORETIC) 20-12.5 MG tablet; Take 1 tablet by mouth every morning. 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 11/17/2023 Presence of coronary angioplasty implant and gra ft 11/17/2023 History of falling 11/17/2023 custodial (current) use of aspirin 11/17/2023 custodial (current) use of oral hypoglycemic matt gs 11/17/2023 Old myocardial infarction 11/17/2023 Personal history of other venous thrombosis and embolism 11/17/2023 Ventral hernia without obstruction or gangrene 0 11/17/2023 Gastroesophageal reflux disease without esophagi tis 11/17/2023 Fall 01/16/2023 Overactive bladder 07/31/2022 Irritable bowel syndrome with diarrhea Incontinence of feces 05/15/2022 Benign neoplasm of pancreas 05/15/2022 IPMN (intraductal papillary mucinous neoplasm) 0 05/15/2022 Non-alcoholic fatty liver disease 05/15/2022 Cutaneous abscess of neck 02/04/2022 Ovarian failure 09/11/2021 Sebaceous cyst 09/11/2021 Adenoma of large intestine 03/14/2021 Diarrhea 03/14/2021 Elevated LFTs 03/14/2021 History of gastric bypass 03/14/2021 Overview (10/17/2025): Added automatically from request for surgery [id number] Hx of adenomatous colonic polyps 03/14/2021 Overview (10/17/2025): Added automatically from request for surgery [id number] Elevated troponin I level 01/11/2021 Pancreatic cyst 01/11/2021 Urinary tract infectious disease 01/11/2021 Essential (primary) hypertension 08/17/2019 Hyperlipidemia associated with type 2 diabetes m ellitus 08/05/2019 Osteoarthrosis 08/05/2019 Generalized abdominal pain 07/01/2018 Type 2 diabetes mellitus 07/01/2018 Gastrointestinal hemorrhage 06/29/2018 Encounters Date Type Department Care Team Description 11/02/2025 12:27 PM PLUMBER'S HELPER - 11/02/2025 11:59 PM PLUMBER'S HELPER Hospital Encounter [facility] [place] [address] [phone] Constantino Jones, ROTARY BAR OPERATOR Discharge Disposition: Home or Self Care (Routine Discharge) 11/02/2025 Travel 10/17/2025 12:37 PM PLUMBER'S HELPER - 10/17/2025 11:59 PM PLUMBER'S HELPER Hospital Encounter [address] [phone] Emily Stanton, PA Discharge Disposition: Home or Self Care (Routine Discharge) 10/17/2025 10:40 AM PLUMBER'S HELPER Office Visit [facility] Family & Internal Medicine [facility] [address] [place] [phone] Emily Stanton PA UTI (Burning with urination and back pain-x3 days) 10/17/2025 Results Follow-Up [facility] [address] [place] [phone] Emily Stanton PA URINALYSIS AUTO DIP, URINE BACTERIA CULTURE 10/17/2025 Travel 10/10/2025 10:48 AM PLUMBER'S HELPER - 10/10/2025 11:59 PM PLUMBER'S HELPER Hospital Encounter [facility] [address] [place] [phone] May Gaming, PT Claudia Rhoades MD Low Back Pain Discharge Disposition: Home or Self Care (Routine Discharge) 10/10/2025 Travel 10/06/2025 8:52 AM PLUMBER'S HELPER - 10/06/2025 11:59 PM PLUMBER'S HELPER Hospital Encounter [facility] [address] [place] [address] [phone] May Gaming, PT Claudia Rhoades MD Low Back Pain Discharge Disposition: Home or Self Care (Routine Discharge) 10/06/2025 Travel 10/03/2025 2:25 PM PLUMBER'S HELPER - 10/03/2025 11:59 PM PLUMBER'S HELPER Hospital Encounter [facility] [address] [place] [phone] Claudia Rhoades MD Sackett, Kim, PTA Lumbar Pain Discharge Disposition: Home or Self Care (Routine Discharge) 10/03/2025 Travel 09/28/[address] [facility] [place] [address] [phone] [facility] Provider Pain Management Referral 09/27/2025 11:20 AM PLUMBER'S HELPER Office Visit [facility] [address] [place] [phone] Claudia Rhoades MD Follow Up (2 mo f/u- Back pain, discuss MRI results ) 09/27/2025 Travel 09/23/2025 2:22 PM PLUMBER'S HELPER - 09/23/2025 11:59 PM PLUMBER'S HELPER Hospital Encounter [facility] [address] [place] [phone] Claudia Rhoades MD Gerling, Savannah L, PYRIDINE OPERATOR Back Pain Discharge Disposition: Home or Self Care (Routine Discharge) 09/23/2025 Results Follow-Up [facility] Family & Internal Medicine - [place] [address] [place] [phone] Claudia Rhoades MD MRI LUMB SPINE WO CON 09/23/2025 Travel 09/22/2025 9:13 AM PLUMBER'S HELPER - 09/22/2025 11:59 PM PLUMBER'S HELPER Hospital Encounter [facility] Laboratory [address] [place] [phone] Claudia Rhoades MD Discharge Disposition: Home or Self Care (Routine Discharge) 09/22/2025 Travel 09/19/2025 8:51 AM PLUMBER'S HELPER - 09/19/2025 11:59 PM PLUMBER'S HELPER Hospital Encounter [facility] MRI [address] [place] [address]77 Claudia Rhoades MD Discharge Disposition: Home or Self Care (Routine Discharge) 09/19/2025 7:54 AM PLUMBER'S HELPER - 09/19/2025 8:50 AM PLUMBER'S HELPER Hospital Encounter [facility] [address] [place] [address] Claudia Rhoades MD Sackett, Kim, PYRIDINE OPERATOR Lumbar Stenosis (Degeneration of intervertebral disc of lumbar region) Discharge Disposition: Home or Self Care (Routine Discharge) 09/19/2025 Travel 09/16/2025 2:50 PM CDT - 09/16/2025 11:59 PM CDT Hospital Encounter [facility] [address] [place] [address] [phone] May Gaming, PT Claudia Rhoades MD Low Back Pain Discharge Disposition: Home or Self Care (Routine Discharge) 09/16/2025 Travel 09/14/2025 8:42 AM CDT - 09/14/2025 11:59 PM CDT Hospital Encounter [address] [address] Claudia Rhoades MD Discharge Disposition: Home or Self Care (Routine Discharge) 09/13/2025 12:57 PM CDT - 09/13/2025 11:59 PM CDT Hospital Encounter [facility] [address] [place] [address] Claudia Rhoades MD Arentsen, Anita A, PYRIDINE OPERATOR Back Pain Discharge Disposition: Home or Self Care (Routine Discharge) 09/13/2025 Travel 09/08/2025 9:55 AM CDT - 09/08/2025 11:59 PM CDT Hospital Encounter [facility] [address] [place] [address] [phone] May Gaming, PT Claudia Rhoades MD Eddy, Sandi L, PYRIDINE OPERATOR Back Pain Discharge Disposition: Home or Self Care (Routine Discharge) 09/08/2025 Travel 09/06/2025 11:15 AM CDT - 09/06/2025 11:59 PM CDT Hospital Encounter [facility] [address] [place] [address] Claudia Rhoades MD Arentsen, Anita A, PYRIDINE OPERATOR Lumbar Pain Discharge Disposition: Home or Self Care (Routine Discharge) 09/06/2025 Travel 09/02/2025 8:07 AM CDT - 09/02/2025 11:59 PM CDT Hospital Encounter [facility] [address] [place] [address] Agnieszka Hassan, PT Claudia Rhoades MD Back Pain Discharge Disposition: Home or Self Care (Routine Discharge) 09/02/2025 MyChart Message Enc [facility] - [place] [address] [place] [phone] Claudia Rhoades MD MRI 09/02/2025 Travel 09/01/2025 MyChart Message Enc [facility] [phone] [place] [phone] Claudia Rhoades MD Pain in back and leg 08/27/2025 Scan [employer] INFO SRVCS Scanned, Doc [facility] 08/25/2025 10:14 AM CDT - 08/25/2025 11:59 PM CDT Hospital Encounter [facility] Diagnostic Imaging [address] [place] [address] [phone] Claudia Rhoades MD Discharge Disposition: Home or Self Care (Routine Discharge) 08/25/2025 9:00 AM CDT Office Visit [address] [phone] Claudia Rhoades MD Leg Pain (Left Leg pain- history of blood clots) 08/25/[address] [phone] Claudia Rhoades MD Orders 08/25/2025 Results Follow-Up [facility] [address] [phone] Claudia Rhoades MD XR LUMB SPINE 3V, MRCP, MRI ABD WWO CON 08/24/2025 6:40 PM CDT - 08/24/2025 10:42 PM CDT Emergency [facility] Emergency Room [address] [place] [address] [phone] Jeannette Manrique DO Medical Problem; Leg Pain (Left leg pain that radiates to the back ) Discharge Disposition: Home or Self Care (Routine Discharge) 08/24/2025 Travel 08/23/2025 Telephone [facility] [address] [place] [phone] Claudia Rhoades MD Leg Pain (Pt notified she needs to be seen by pcp r/t hx of blood clots. Pt v/u appt made for 08/25/2025) 08/23/2025 MyChart Message Enc [facility] [address] [place] [phone] Claudia Rhoades MD Pain in back from Last 3 Months Immunizations Immunization Administration Dates Next Due FLUAD (IIV, Trivalent, 0.5 ML Pre-filled Syringe ) 09/23/2019 Fluzone High Dose (IIV, trivalent, 0.5mL) 2023 Fluzone High Dose - >Age 65 (Prefilled Syringe) 08/21/2023 Influenza Adult (Generic) 07/28/2020,07/26/2020 MODERNA COVID-19 (12+) MRNA, LNP-S, PF, 100 MCG/ 0.5 ML DOSE 02/13/2021 MODERNA COVID-19 (12+), MRNA , LNP-S, PF, 50 MCG/0.5 ML (SPIKEVAX) 11/08/2023 Pneumococcal (Pneumovax 23) 11/17/2015 Pneumococcal (Prevnar 13) 01/18/2020 Shingrix 04/28/2025,02/23/2025 Tdap (Boostrix) 06/16/2024 Tdap (Generic) 06/16/2024 Social History Tobacco Use Types Packs/Day Years Used Date Smoking Tobacco: Never Smokeless Tobacco: Never Tobacco Cessation:Counseling Given: No Alcohol Use Standard Drinks/Week Comments Never 0 (1 standard drink = 0.6 oz pur e alcohol) PHQ-2 Answer Date Recorded Patient Health Questionnaire-2 Score 0 10/17/2025 Comments No Sex and Gender Information Value Date Recorded Sex Assigned at Female 12/14/2024 11:51 PM PLUMBER'S HELPER Legal Sex Female 3:33 PM CDT Gender Identity Female 07/26/2025 3:33 PM CDT Sexual Orientation Not on file Last Filed Vital Signs Vital Sign Reading Time Taken Comments Blood Pressure 130/59 11/02/2025 1:11 PM PLUMBER'S HELPER Pulse 58 11/02/2025 1:11 PM PLUMBER'S HELPER Temperature 36.5 C (97.7 F) 11/02/2025 1:11 PM PLUMBER'S HELPER Respiratory Rate 22 11/02/2025 1:11 PM PLUMBER'S HELPER Oxygen Saturation 95% 11/02/2025 1:11 PM PLUMBER'S HELPER Inhaled Oxygen Concentration - - Weight 97.7 kg (215 lb 6.4 oz) 11/02/2025 1:11 P M PLUMBER'S HELPER Height 160 cm (5' 3) 11/02/2025 1:11 PM PLUMBER'S HELPER Body Mass Index 38.16 11/02/2025 1:11 PM PLUMBER'S HELPER Plan of Treatment Upcoming Encounters Date Type Department Care Team (Latest Contact Info) Description 12/14/2025 4:20 PM PLUMBER'S HELPER Hospital Encounter [facility] [place] [place] [address] [phone] Cordelia Stroud MD Three [facility] [address] [place] [phone] 12/14/2025 4:20 PM PLUMBER'S HELPER - 12/14/2025 4:40 PM PLUMBER'S HELPER Surgery [facility] [place] [place] [address] [phone] Cordelia Stroud MD Three [facility] [address] [place] [phone] INJECTION EPIDURAL TRANSFORAMINAL-L3- 4, L4-5 01/09/2026 9:00 AM PLUMBER'S HELPER Office Visit [facility] [address] [phone] Eugenio Glover DO 3 [facility] [address] [place] [phone] 01/10/2026 10:00 AM PLUMBER'S HELPER Office Visit [facility] Family & Internal Medicine - [place] [address] [place] [address] [place] [address] [facility] [address] [place] [address] Scheduled Procedures Name Priority Associated Diagnoses Date/Ti me INJECTION EPIDURAL TRANSFORAMINAL Lumbar radiculopathy 12/14/2025 4:20 PM PLUMBER'S HELPER Health Maintenance Due Date Last Done Comments Diabetes: Retinopathy Eye Exam 1963 Hepatitis C 1963 Hepatitis A Vaccines (1 of 2 - Risk 2-dose series) 1965 Annual Medicare Wellness Visit 2011 RSV Immunization or 60+ Years (1 - 1-dose 75+ series) 2021 COVID-19 Vaccine ( season) 2025 09/06/2024, 11/08/2023, 09/06/2022, Additional history exists Influenza Adult (#1) 2025 08/27/2024, 08/21/2023, 07/28/2020, Additional history exists Hemoglobin A1C 03/22/2026 09/22/2025, 02/15, 02/26/2024, Additional history exists Kidney Health Evaluation 09/22/2026 09/22/2025 Lipid Panel 09/22/2026 09/22/2025 DTaP, Tdap and Td Vaccines (3 - Td or Tdap) 06/16/2034 06/16/2024, 06/16/2024 Pneumococcal Vaccine: 50+ Years Completed 01/18/2020, 11/17/2015 Dexa Scan (General) Completed 08/03/2024, 08/03/2024, 12/05/2021, Additional history exists Zoster Vaccines Completed 04/28/2025, 02/23/2025 PHQ-2 (Physician [place]) Completed 10/17/2025 Meningococcal B Vaccine Aged Out No l onger eligible based on patient's age to complete this topic Meningococcal Vaccine Aged Out No umair kim eligible based on patient's age to complete this topic RSV Immunizations Under 20 Months Aged Out No longer eligible based on patient's age to complete this topic Goals Goal Patient Goal Type Associated Problems Recent Progress Patient-Stated? Author Autogenera raul Goal Care Plan Autogenerated Problem No Elena Fernández V Procedures Procedure Name Priority Date/Time Associated Diagnosis Comments URINE BACTERIA CULTURE Routine 10/17/2025 10:45 AM PLUMBER'S HELPER Suspected UTI URINALYSIS AUTO DIP Routine 10/17/2025 Suspected UTI ALBUMIN URINE RANDOM W/CREATININE Routine 09/22/2025 11:26 AM PLUMBER'S HELPER Type 2 diabetes mellitus without complication, without long-term current use of insulin ([facility] HHS/[facility]) Primary hypertension Dyslipidemia CBC W/DIFF AUTOMATED Routine 09/22/2025 9:21 AM PLUMBER'S HELPER Type 2 diabetes mellitus without complication, without long-term current use of insulin ([facility] HHS/HCC) Primary hypertension Dyslipidemia HEMOGLOBIN, GLYCOSYLATED Routine 09/22/2025 9:21 AM PLUMBER'S HELPER Type 2 diabetes mellitus without complication, without long-term current use of insulin ([facility] HHS/HCC) Primary hypertension Dyslipidemia TSH W/REFLEX Routine 09/22/2025 9:21 AM PLUMBER'S HELPER Type 2 diabetes mellitus without complication, without long-term current use of insulin ([facility] HHS/HCC) Primary hypertension Dyslipidemia LIPID PANEL Routine 09/22/2025 9:21 AM PLUMBER'S HELPER Type 2 diabetes mellitus without complication, without long-term current use of insulin ([facility] HHS/HCC) Primary hypertension Dyslipidemia COMPREHENSIVE METABOLIC PANEL Routine 09/22/2025 9:21 AM PLUMBER'S HELPER Type 2 diabetes mellitus without complication, without long-term current use of insulin ([facility] HHS/HCC) Primary hypertension Dyslipidemia MRI LUMB SPINE WO CON Routine 09/19/2025 9:42 AM PLUMBER'S HELPER Lumbar radiculopathy MRI ABD WWO CON Routine 09/14/2025 10:26 AM CDT Abnormal finding on imaging MRCP Routine 09/14/2025 10:26 AM CDT Abnormal finding on imaging XR LUMB SPINE 3V After Office Visit 08/25/2025 10:35 AM CDT Acute left-sided low back pain with left-sided sciatica CT ABD+PEL W CON STAT 08/24/2025 9:07 PM CDT HC D DIMER QN STAT 08/24/2025 8:19 PM CDT HC MAGNESIUM STAT 08/24/2025 8:19 PM CDT HC COMPREHENSIVE METABOL PANEL STAT 08/24/2025 8:19 PM CDT HC CBC AUTO W/AUTO DIFF STAT 08/24/2025 8:19 PM CDT HC URINALYSIS AUTO W/MICRO STAT 08/24/2025 7:10 PM CDT from Last 3 Months Results * (ABNORMAL) URINE BACTERIA CULTURE (10/17/2025 10:45 AM PLUMBER'S HELPER) SPEC DESCRIPTION URINE CLEAN CATCH 10/17/2025 12:38 PM [facility] SPECIAL REQUESTS NO SPECIAL REQUEST 10/17/2025 12:38 PM [facility] CULTURE RESULT >100,000 COL/ML ESCHERICHIA COLI (A) 10/20/2025 7:03 AM PLUMBER'S HELPER [facility] URINE URINE SPECIMEN OBTAINED BY CLEAN CATCH PROCEDURE / Unknown 10/17/2025 10:45 AM PLUMBER'S HELPER 10/17/2025 12:41 PM PLUMBER'S HELPER Narrative Organism Antibiotic Method Susceptibility Escherichia coli AMPICILLIN FIGUEROA (VITEK) >=32: Resistant Escherichia coli AMPICILLIN/SULBACTAM FIGUEROA (VITEK) 16: Intermediate Comment:INTERMEDIATE Escherichia coli CEFTRIAXONE FIGUEROA (VITEK) <=1: Sensitive Escherichia coli CEFTAZIDIME FIGUEROA (VITEK) <=1: Sensitive Escherichia coli CEFAZOLIN FIGUEROA (VITEK) <=4: Sensitive Escherichia coli ESBL FIGUEROA (VITEK) NEG: Sensitive Escherichia coli NITROFURANTOIN FIGUEROA (VITEK) <=16: Sensitive Escherichia coli GENTAMICIN FIGUEROA (VITEK) <=1: Sensitive Escherichia coli LEVOFLOXACIN FIGUEROA (VITEK) <=0.12: Sensitive Escherichia coli PIPERACILLIN/TAZOBACTAM FIGUEROA (VITEK) <=4: Sensitive Escherichia coli TRIMETH-SULFAMETH. FIGUEROA (VITEK) <=20: Sensitive Emily [facility]ILTON MICROBIOLOGY - GENERAL ORDER ROGELIO Final Result [facility] [address] [place] [address], [place] [phone] [facility] [address] [place] [address], [place] [phone] * (ABNORMAL) URINALYSIS AUTO DIP (10/17/2025) COLOR (U) YELLOW YELLOW [id number], [place] TRANSPARENCY CLEAR CLEAR MG-[id number], [place] GLUCOSE (U) NEGATIVE NEGATIVE MG/DL [id number], [place] BILIRUBIN (U) NEGATIVE NEGATIVE MG-[address], [place] KETONES MG/DL (U) NEGATIVE NEGATIVE MG/DL MG-[id number], [place] SPECIFIC GRAVITY (U) 1.015 1.001 - 1.035 MG-[id number], [place] BLOOD (U) LARGE (Non Hemolyzed, Intact, About 250 rbc/uL)(A) NEGATIVE [id number], [facility] PH 5.5 5.0 - 9.0 MG-[id number], [place] PROTEIN (U) 2+ (100)(A) NEGATIVE mg/dL [id number], [place] UROBILINOGEN 0.2 0.2 - 1.0 EU/dL = mg/dL [id number], [place] NITRITES POSITIVE(A) NEGATIVE MG/DL [id number] [facility] [address], [place] LEUKOCYTES (U) 3+ (LARGE)(A) NEGATIVE MG-[id number] [address] [facility] [facility] [address], [place] URINE URINE SPECIMEN OBTAINED BY CLEAN CATCH PROCEDURE / Unknown 10/17/2025 Emily HAMILTON URINE ORDERABLES Final Resul t Performing Organization Address City/[facility]/ZIP Co de Phone Number -[phone] [facility] [address] [place] [address], [place] [phone] * ALBUMIN URINE RANDOM W/CREATININE (09/22/2025 11:26 AM PLUMBER'S HELPER) CREATININE (U) 110.0 28 - 217 MG/DL 09/22/2025 11:57 AM [employer]UMBER'S HELPER [facility] MICROALBUMIN (U) 0.6 <2.0 mg/dL 09/22/20 25 11:57 AM PLUMBER'S HELPER [facility] ALBUMIN/CREAT RATIO 5.5 <30.0 MG/G 09/22/2025 11:57 AM [employer]BER'S HELPER [facility] URINE SPECIMEN / Unknown 09/22/2025 11:26 AM PLUMBER'S HELPER Claudia Rhoades MD URINE ORDERABLES Final Resu lt [facility] [address] [facility] [place] [address], [place] [phone] * TSH W/REFLEX (09/22/2025 9:21 AM PLUMBER'S HELPER) TSH 0.957 0.358 - 3.74 uIU/ML 09/22/2025 10:11 AM PLUMBER'S HELPER [facility] Comment: HIGH DOSES OF BIOTIN MAY INTERFERE WITH THIS TEST RESULT. CORRELATION TO CLINICAL HISTORY AND PRESENTATION RECOMMENDED. FREE T4 NOT INDICATED 09/22/2025 9:21 AM PLUMBER'S HELPER Claudia Rhoades MD LABORATORY Final Resul t Performing Organization Address [facility] Co de Phone Number [facility] [address] [place] [address], [place] [phone] * (ABNORMAL) HEMOGLOBIN, GLYCOSYLATED (09/22/2025 9:21 AM PLUMBER'S HELPER) HGB A1C 6.2(H) <5.7 % 09/22/2025 12:10 PM [employer]BER[employer]S HELPER [facility] Comment: INCREASED RISK OF DIABETES <5.7% NON-DIABETES 5.7-6.4% INCREASED RISK FOR FUTURE DIABETES > OR = 6.5 CONSISTENT WITH DIABETES STANDARDS OF MEDICAL CARE IN DIABETES-2010 DIABETES CARE, 33(SUPP 1): S1-S61,2010 ESTIMATED AVG GLUCOSE 131 mg/dL 09/22/2025 12:10 PM [facility] 09/22/2025 9:21 AM PLUMBER'S HELPER Claduia Rhoades MD LABORATORY Final Resul t Performing Organization Address [facility] de Phone Number [facility] [address] [place] [address], [place] [phone] * (ABNORMAL) COMPREHENSIVE METABOLIC PANEL (09/22/2025 9:21 AM PLUMBER'S HELPER) Only the most recent of2 resultswithin the time period is included. GLUCOSE 139(H) 70 - 99 MG/DL 09/22/2025 10:11 AM PLUMBER'S HELPER [facility] BUN 27(H) 7 - 18 MG/DL 09/22/2025 10:11 AM [facility] CREATININE S/P/B 1.70(H) 0.55 - 1.02 MG/DL 09/22/2025 10:11 AM [facility] SODIUM S/P/B 139 136 - 145 MMOL/L 09/22/2025 10:11 AM [facility] POTASSIUM S/P/B 4.4 3.5 - 5.1 MMOL/L 09/22/2025 10:11 AM [facility] CHLORIDE S/P/B 103 100 - 108 MMOL/L 09/22/2025 10:11 AM [facility] CO2 28.1 21 - 32 MMOL/L 09/22/2025 10:11 AM [facility] CALCIUM S/P/B 9.1 8.5 - 10.1 MG/DL 09/22/2025 10:11 AM [facility] BILIRUBIN TOTAL S/P/B 0.5 0.2 - 1.2 MG/DL 09/22/2025 10:11 AM [facility] TOTAL PROTEIN S/P/B 7.0 6.4 - 8.2 G/DL 09/22/2025 10:11 AM [facility] ALBUMIN S/P/B 3.6 3.4 - 5.0 G/DL 09/22/2025 10:11 AM [facility] AST 24 15 - 37 U/L 09/22/2025 10:11 AM [facility] ALT 33 14 - 55 U/L 09/22/2025 10:11 AM [facility] ALKALINE PHOSPHATASE S/P/B 101 50 - 136 U/L 09/22/2025 10:11 AM [facility] ANION GAP 7.9 5 - 15 MMOL/L 09/22/2025 10:11 AM [facility] BUN CREATININE RATIO 15.9 6 - 26 09/22/2025 10:11 AM [facility] A/G RATIO 1.1 1.0 - 2.0 RATIO 09/22/2025 10:11 AM [facility] GFR ESTIMATE 30(L) >90 ML/MIN/1.7 3 M2 09/22/2025 10:11 AM [facility] Comment: NOTE: eGFR is not calculated for patients <18 years of age. This is an estimated GFR calculation using the new CKD EPI creatinine equation without race and so does not require a correction factor for race. This estimated GFR should not be used for calculating drug doses. 09/22/2025 9:21 AM PLUMBER'S HELPER us Claudia Rhoades MD LABORATORY Final Resul t [facility] [address] [place] [address], * (ABNORMAL) LIPID PANEL (09/22/2025 9:21 AM PLUMBER'S HELPER) CHOLESTEROL 150 <200.0 MG/DL 09/22/2025 10:11 AM [facility] TRIGLYCERIDES 280(H) <150 MG/DL 09/22/2025 10:11 AM [facility] HDL 46 >40.0 MG/DL 09/22/2025 10:11 AM [facility] LDL (CALCULATED) 48 <100 MG/DL 09/22/2025 10:11 AM [facility] Comment:CALCULATED USING THE FRIEDEWALD EQUATION NON HDL CHOLESTEROL 104 <130 MG/DL 09/22/2025 10:11 AM [facility] CHOL/HDL RATIO 3.3 0.0 - 4.5 09/22/2025 10:11 AM [facility] VLDL CALCULATION 56(H) 5 - 55 MG/DL 09/22/2025 10:11 AM [facility] LIPID INTERPRETATION 09/22/2025 10:11 AM [facility] Comment: [facility] CONCENSUS REPORT RECOMMENDATIONS: ADULT CHILD LOW RISK: CHOLESTEROL <200 <170 TRIGLYCERIDE <150 --- HDL >=60 --- LDL <100 <110 BORDERLINE: CHOLESTEROL 200-239 170-199 TRIGLYCERIDE 150-199 --- HDL 40-59 --- LDL 100-159 110-129 HIGH RISK: CHOLESTEROL >=240 >=200 TRIGLYCERIDE >=200 --- HDL <40 --- LDL >=160 >=130 09/22/2025 9:21 AM PLUMBER'S HELPER us Claudia Rhoades MD LABORATORY Final Resul t [facility] [address] [place] [address], [place] [phone] * (ABNORMAL) CBC W/DIFF AUTOMATED (09/22/2025 9:21 AM PLUMBER'S HELPER) Only the most recent of2 resultswithin the time period is included. WBC 7.08 4.4 - 11.0 x10'3/uL 09/22/2025 9:43 AM [facility] RBC 4.24(L) 4.50 - 5.10 x10'6/uL 09/22/2025 9:43 AM [facility] HGB 12.8 12.3 - 15.3 G/DL 09/22/2025 9:43 AM [facility] HCT 39.0 35.9 - 44.6 % 09/22/2025 9:43 AM [facility] MCV 92.0 80.0 - 96.0 FL 09/22/2025 9:43 AM [facility] MCH 30.2 25.3 - 30.9 PG 09/22/2025 9:43 AM [facility] MCHC 32.8 31.0 - 34.1 G/DL 09/22/2025 9:43 AM [facility] RDW 14.2 12.4 - 15.1 % 09/22/2025 9:43 AM [facility] PLT 239 151 - 353 x10'3/uL 09/22/2025 9:43 AM [facility] MPV 9.9 9.6 - 12.0 FL 09/22/2025 9:43 AM [facility] RBC MORPHOLOGY NORMAL 09/22/2025 9:43 AM [facility] PLT MORPH. NORMAL 09/22/2025 9:43 AM [facility] WBC MORPHOLOGY NORMAL 09/22/2025 9:43 AM [facility] LYMPHOCYTES % 48.0(H) 15.8 - 45.0 % 09/22/2025 9:43 AM [facility] NEUTROPHILS % 33.9(L) 42.1 - 71.9 % 09/22/2025 9:43 AM [facility] MONOCYTES % 9.7 5.7 - 12.5 % 09/22/2025 9:43 AM [facility] EOSINOPHILS 7.2(H) 0.0 - 5.6 % 09/22/2025 9:43 AM [facility] BASOPHILS 1.1 0.0 - 1.3 % 09/22/2025 9:43 AM [facility] ABS. NEUTROPHILS 2.39 1.40 - 6.00 x10'3/uL 09/22/2025 9:43 AM [facility] IMMATURE GRANS % 0.1 0.0 - 0.5 % 09/22/2025 9:43 AM [facility] ABS. LYMPHOCYTES 3.40 0.80 - 4.70 x10'3/uL 09/22/2025 9:43 AM PLUMBER'S HELPER [facility] 09/22/2025 9:21 AM PLUMBER'S HELPER Claudia Rhoades MD LABORATORY Final Resul t [facility] [address] [place] [address], * MRI LUMB SPINE WO CON (09/19/2025 9:42 AM PLUMBER'S HELPER) Anatomical Region Laterality Modality Spine Magnetic Resonan ce 09/23/2025 9:14 AM PLUMBER'S HELPER Impressions 09/23/2025 9:19 AM PLUMBER'S HELPER IMPRESSION: 1. Multilevel degenerative changes in the lumbar and partially imaged lower thoracic spine contributing to varying degrees of spinal canal and foraminal stenosis, as detailed above. 2. Scattered renal lesions, some of which are cysts, others indeterminate. Please refer to separately reported MRI abdomen 09/14/2025 for additional detail. Ordered By: CLAUDIA RHOADES Interpreted By: Stephan Triplett MD, 09/23/2025 9:14 AM Narrative 09/23/2025 9:[address] [facility] [address] [place] [address] DATE: 09/19/2025 9:06 AM INDICATION: Low back pain. Left thigh pain. Difficulty walking and standing. EXAMINATION: MRI lumbar spine without contrast. TECHNIQUE: Multiplanar and multisequence MRI images of the lumbar spine were obtained without contrast. COMPARISON: MRI abdomen 09/14/2025. FINDINGS: There are 5 lumbar type vertebral bodies designated as L1 through L5; using this numbering system, the conus medullaris terminates at T12-L1 and appears unremarkable. There is slight anterolisthesis of L3 on L4 and L4 on L5. Otherwise the lumbar vertebral alignment, vertebral body heights, and facet alignment are maintained. Multilevel degenerative changes are evident in the lumbar and partially imaged lower thoracic spine with disc degeneration, endplate osteophytes, ligamentum flavum thickening, and facet hypertrophy noted. Multilevel disc desiccation. Greatest loss of disc height at L5-S1. Likely reactive edema along the L2-L3 endplates. Nonspecific edema within the dorsal lumbar subcutaneous soft tissues. Imaged portions of the soft tissues reveal no acute findings elsewhere. Scattered renal lesions, some of which are cysts, others indeterminate. Colonic diverticulosis. T12-L1: Facet hypertrophy. No canal or foraminal narrowing. L1-L2: Disc bulge with extension into the foramina. Ligamentous and facet hypertrophy. Minimal canal stenosis. Mild to moderate left and mild right foraminal narrowing. L2-L3: Disc bulge with extension into the foramina. Endplate osteophytes. Ligamentous and facet hypertrophy. Mild canal stenosis. Mild to moderate left and mild right foraminal narrowing. L3-L4: Slight anterolisthesis. Disc bulge with extension into the foramina. Endplate osteophytes. Ligamentous and facet hypertrophy. Moderate canal stenosis. Mild to moderate foraminal narrowing. L4-L5: Slight anterolisthesis. Disc bulge with extension into the foramina. Endplate osteophytes. Ligamentous and facet hypertrophy. At least moderate canal stenosis. Moderate right and mild left foraminal narrowing. L5-S1: Disc osteophyte complex. Facet hypertrophy. No significant canal stenosis. Mild to moderate right foraminal narrowing. Procedure Note Stephan Triplett MD - 09/23/2025 [facility] [address] [place] [address] DATE: 09/19/2025 9:06 AM INDICATION: Low back pain. Left thigh pain. Difficulty walking andstanding. EXAMINATION: MRI lumbar spine without contrast. TECHNIQUE: Multiplanar and multisequence MRI images of the lumbar spine were obtainedwithout contrast. COMPARISON: MRI abdomen 09/14/2025. FINDINGS: There are 5 lumbar type vertebral bodies designated as L1 through L5;using this numbering system, the conus medullaris terminates at T12-L1 andappears unremarkable. There is slight anterolisthesis of L3 on L4 and L4 on L5. Otherwise thelumbar vertebral alignment, vertebral body heights, and facet alignmentare maintained. Multilevel degenerative changes are evident in the lumbarand partially imaged lower thoracic spine with disc degeneration, endplateosteophytes, ligamentum flavum thickening, and facet hypertrophy noted.Multilevel disc desiccation. Greatest loss of disc height at L5-S1. Likelyreactive edema along the L2-L3 endplates. Nonspecific edema within thedorsal lumbar subcutaneous soft tissues. Imaged portions of the soft tissues reveal no acute findings elsewhere.Scattered renal lesions, some of which are cysts, others indeterminate.Colonic diverticulosis. T12-L1: Facet hypertrophy. No canal or foraminal narrowing. L1-L2: Disc bulge with extension into the foramina. Ligamentous and facethypertrophy. Minimal canal stenosis. Mild to moderate left and mild rightforaminal narrowing. L2-L3: Disc bulge with extension into the foramina. Endplate osteophytes.Ligamentous and facet hypertrophy. Mild canal stenosis. Mild to moderateleft and mild right foraminal narrowing. L3-L4: Slight anterolisthesis. Disc bulge with extension into theforamina. Endplate osteophytes. Ligamentous and facet hypertrophy.Moderate canal stenosis. Mild to moderate foraminal narrowing. L4-L5: Slight anterolisthesis. Disc bulge with extension into theforamina. Endplate osteophytes. Ligamentous and facet hypertrophy. Atleast moderate canal stenosis. Moderate right and mild left foraminalnarrowing. L5-S1: Disc osteophyte complex. Facet hypertrophy. No significant canalstenosis. Mild to moderate right foraminal narrowing. IMPRESSION: 1. Multilevel degenerative changes in the lumbar and partially imagedlower thoracic spine contributing to varying degrees of spinal canal andforaminal stenosis, as detailed above. 2. Scattered renal lesions, some of which are cysts, others indeterminate.Please refer to separately reported MRI abdomen 09/14/2025 for additionaldetail. Ordered By: CLAUDIA RHOADES Interpreted By: Stephan Triplett MD, 09/23/2025 9:14 AM us Claudia Rhoades MD MRI Final Resul t * MRI ABD WWO CON (09/14/2025 10:26 AM CDT) Anatomical Region Laterality Modality Abdomen Magnetic Resonan ce 09/25/2025 6:03 AM PLUMBER'S HELPER Impressions 09/25/2025 6:26 AM PLUMBER'S HELPER IMPRESSION: 1. 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 2. 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 3. Unchanged intra and extrahepatic biliary ductal dilatation. RECOMMENDATION: Follow-up MRI/MRCP in 6 months, annually for the 2 following years, then may consider lengthening to every 2 years if no change. Referred By: CLAUDIA RHOADES Interpreted By: Evelyn Mcclendon DO, 09/25/2025 6:03 AM Narrative 09/25/2025 6:[address] [facility] [address] [place] [id number] MRI ABD TK BRAND, MRCP: 09/14/2025 8:47 AM HISTORY: Abnormal Imaging TECHNIQUE: Multiplanar, multisequence MRI examination of the abdomen has been performed with and without intravenous contrast. 3-D MRCP sequence has been acquired, with dedicated postprocessing performed on a separate workstation. 20 mL MultiHance IV. COMPARISON: None. FINDINGS: Liver: Mildly enlarged measuring 17.1 cm craniocaudal at the midclavicular line. Postcontrast imaging: N/A Gallbladder: Postcholecystectomy. Bile ducts and pancreatic duct: CBD/CHD: Normal. Measures 11.1 mm in luminal diameter. Right hepatic duct: Dilated to 0.7 cm. Left hepatic duct: Dilated to 0.8 cm. Pancreatic duct: Normal. Screws, nondilated measuring 0.3 cm proximally and tapering to 0.1 cm in the pancreatic tail. Pancreatic parenchyma: Pancreatic head cyst measuring 1.4 x 2.1 x 1.9 cm which connects trochlea to the main pancreatic duct. No enhancement or septations. Additional 1.1 x 0.9 x 0.9 cm cyst within the pancreatic tail Spleen: Normal. Kidneys: Bilateral T2 hyperintensities without enhancement. Some of these have thin, nonenhancing septum; Bosniak 2 and no imaging follow-up is indicated. Lymph nodes: No lymphadenopathy. Ascites: None. Osseous structures and abdominal wall: Unremarkable. Other: None. Procedure Note Evelyn Mcclendon DO - 09/25/2025 [facility] [address] [place] [address] MRI ABD TK BRAND, MRCP: 09/14/2025 8:47 AM HISTORY: Abnormal Imaging TECHNIQUE: Multiplanar, multisequence MRI examination of the abdomen hasbeen performed with and without intravenous contrast. 3-D MRCP sequencehas been acquired, with dedicated postprocessing performed on a separateworkstation. 20 mL MultiHance IV. COMPARISON: None. FINDINGS: Liver: Mildly enlarged measuring 17.1 cm craniocaudal at the midclavicularline. Postcontrast imaging: N/A Gallbladder: Postcholecystectomy. Bile ducts and pancreatic duct: CBD/CHD: Normal. Measures 11.1 mm in luminal diameter. Right hepatic duct: Dilated to 0.7 cm. Left hepatic duct: Dilated to 0.8 cm. Pancreatic duct: Normal. Screws, nondilated measuring 0.3 cm proximallyand tapering to 0.1 cm in the pancreatic tail. Pancreatic parenchyma: Pancreatic head cyst measuring 1.4 x 2.1 x 1.9 cmwhich connects trochlea to the main pancreatic duct. No enhancement orseptations. Additional 1.1 x 0.9 x 0.9 cm cyst within the pancreatictail Spleen: Normal. Kidneys: Bilateral T2 hyperintensities without enhancement. Some of thesehave thin, nonenhancing septum; Bosniak 2 and no imaging follow-up isindicated. Lymph nodes: No lymphadenopathy. Ascites: None. Osseous structures and abdominal wall: Unremarkable. Other: None. IMPRESSION: 1. No significant change in main branch IPMN of the pancreatic headwithout high risk features. 2. 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 3. Unchanged intra and extrahepatic biliary ductal dilatation. RECOMMENDATION: Follow-up MRI/MRCP in 6 months, annually for the 2following years, then may consider lengthening to every 2 years if nochange. Referred By: CLAUDIA RHOADES Interpreted By: Evelyn Mcclendon DO, 09/25/2025 6:03 AM us Claudia Rhoades MD MRI Final Resul t * MRCP (09/14/2025 10:26 AM CDT) Anatomical Region Laterality Modality Abdomen Magnetic Resonan ce 09/25/2025 6:03 AM PLUMBER'S HELPER Impressions 09/25/2025 6:26 AM PLUMBER'S HELPER IMPRESSION: 1. 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 2. 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 3. Unchanged intra and extrahepatic biliary ductal dilatation. RECOMMENDATION: Follow-up MRI/MRCP in 6 months, annually for the 2 following years, then may consider lengthening to every 2 years if no change. Referred By: CLAUDIA RHOADES Interpreted By: Evelyn Mcclendon DO, 09/25/2025 6:03 AM Narrative 09/25/2025 6:[address] [facility] [address] [facility] [place] [address] MRI ABD WWO CON, MRCP: 09/14/2025 8:47 AM HISTORY: Abnormal Imaging TECHNIQUE: Multiplanar, multisequence MRI examination of the abdomen has been performed with and without intravenous contrast. 3-D MRCP sequence has been acquired, with dedicated postprocessing performed on a separate workstation. 20 mL MultiHance IV. COMPARISON: None. FINDINGS: Liver: Mildly enlarged measuring 17.1 cm craniocaudal at the midclavicular line. Postcontrast imaging: N/A Gallbladder: Postcholecystectomy. Bile ducts and pancreatic duct: CBD/CHD: Normal. Measures 11.1 mm in luminal diameter. Right hepatic duct: Dilated to 0.7 cm. Left hepatic duct: Dilated to 0.8 cm. Pancreatic duct: Normal. Screws, nondilated measuring 0.3 cm proximally and tapering to 0.1 cm in the pancreatic tail. Pancreatic parenchyma: Pancreatic head cyst measuring 1.4 x 2.1 x 1.9 cm which connects trochlea to the main pancreatic duct. No enhancement or septations. Additional 1.1 x 0.9 x 0.9 cm cyst within the pancreatic tail Spleen: Normal. Kidneys: Bilateral T2 hyperintensities without enhancement. Some of these have thin, nonenhancing septum; Bosniak 2 and no imaging follow-up is indicated. Lymph nodes: No lymphadenopathy. Ascites: None. Osseous structures and abdominal wall: Unremarkable. Other: None. Procedure Note HakanEvelynDO - 09/25/2025 [facility] [address] [place] [address] MRI ABD WWO SUNDAY, MRCP: 09/14/2025 8:47 AM HISTORY: Abnormal Imaging TECHNIQUE: Multiplanar, multisequence MRI examination of the abdomen hasbeen performed with and without intravenous contrast. 3-D MRCP sequencehas been acquired, with dedicated postprocessing performed on a separateworkstation. 20 mL MultiHance IV. COMPARISON: None. FINDINGS: Liver: Mildly enlarged measuring 17.1 cm craniocaudal at the midclavicularline. Postcontrast imaging: N/A Gallbladder: Postcholecystectomy. Bile ducts and pancreatic duct: CBD/CHD: Normal. Measures 11.1 mm in luminal diameter. Right hepatic duct: Dilated to 0.7 cm. Left hepatic duct: Dilated to 0.8 cm. Pancreatic duct: Normal. Screws, nondilated measuring 0.3 cm proximallyand tapering to 0.1 cm in the pancreatic tail. Pancreatic parenchyma: Pancreatic head cyst measuring 1.4 x 2.1 x 1.9 cmwhich connects trochlea to the main pancreatic duct. No enhancement orseptations. Additional 1.1 x 0.9 x 0.9 cm cyst within the pancreatictail Spleen: Normal. Kidneys: Bilateral T2 hyperintensities without enhancement. Some of thesehave thin, nonenhancing septum; Bosniak 2 and no imaging follow-up isindicated. Lymph nodes: No lymphadenopathy. Ascites: None. Osseous structures and abdominal wall: Unremarkable. Other: None. IMPRESSION: 1. No significant change in main branch IPMN of the pancreatic headwithout high risk features. 2. 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 3. Unchanged intra and extrahepatic biliary ductal dilatation. RECOMMENDATION: Follow-up MRI/MRCP in 6 months, annually for the 2following years, then may consider lengthening to every 2 years if nochange. Referred By: CLAUDIA RHOADES Interpreted By: Evelyn Mcclendon DO, 09/25/2025 6:03 AM Claudia Rhoades MD MRI Final Resul t * XR LUMB SPINE 3V (08/25/2025 10:35 AM CDT) Anatomical Region Laterality Modality Spine Radiographic Vickie ging 08/25/2025 11:1 5 AM CDT Impressions 08/25/2025 11:17 AM CDT IMPRESSION: 1. No acute abnormality. 2. Degenerative change as described. 3. Osteopenia. Referred By: Interpreted By: Ebenezer Garcia MD, 08/25/2025 11:15 AM Narrative 08/25/2025 11:[address] [place] [address] IMAGING STUDIES: XR LUMB SPINE 3V DATE: 08/25/2025 10:27 AM COMPARISON: Correlation with CT abdomen of 08/24/2025 CLINICAL HISTORY: L/Lower back pain > 4 days. No given history of trauma. FINDINGS: No evidence of acute fracture or dislocation. Osteopenia limits exam. Vertebral body heights are well-maintained.. Minimal grade 1 anterior spondylolisthesis of L4 and L5 and L3 on L4 due to facet joint degenerative change. No pars defect noted on recent CT. Near-total loss of disc space height at L5-S1 and L3-4. Moderate/severe multilevel endplate and facet joint degenerative change. No paraspinal lesions. Mild degenerative change in both sacroiliac joints. Contrast within the renal collecting system and urinary bladder from earlier CT. Multiple surgical clips in the left upper quadrant. Atherosclerotic aorta. Procedure Note Ebenezer Garcia MD - 08/25/2025 [facility] [address] [place] [address] IMAGING STUDIES: XR LUMB SPINE 3V DATE: 08/25/2025 10:27 AM COMPARISON: Correlation with CT abdomen of 08/24/2025 CLINICAL HISTORY: L/Lower back pain > 4 days. No given history oftrauma. FINDINGS: No evidence of acute fracture or dislocation. Osteopenia limits exam. Vertebral body heights are well-maintained.. Minimal grade 1 anteriorspondylolisthesis of L4 and L5 and L3 on L4 due to facet jointdegenerative change. No pars defect noted on recent CT. Near-total loss of disc space height at L5-S1 and L3-4. Moderate/severemultilevel endplate and facet joint degenerative change. No paraspinal lesions. Mild degenerative change in both sacroiliacjoints. Contrast within the renal collecting system and urinary bladder fromearlier CT. Multiple surgical clips in the left upper quadrant.Atherosclerotic aorta. IMPRESSION: 1. No acute abnormality. 2. Degenerative change as described. 3. Osteopenia. Referred By: Interpreted By: Ebenezer Garcia MD, 08/25/2025 11:15 AM Claudia Rhoades MD GENERAL IMAGING Final Resul t * CT ABD+PEL W CON (08/24/2025 9:07 PM CDT) Anatomical Region Laterality Modality Abdomen Computed Tomogra phy 08/24/2025 9:33 PM CDT Impressions 08/24/2025 9:41 PM CDT IMPRESSION: 1. No acute abnormality in the abdomen or pelvis. 2. Stable intrahepatic and extra hepatic biliary duct dilatation, of unclear etiology. 3. Stable nonspecific cystic lesions involving the head and tail of the pancreas. 4. Colonic diverticulosis. 5. Mild right renal pelvis and ureteral dilatation without evidence of hydronephrosis. Recommendation: MRI pancreas protocol with MRCP to evaluate the patient's cystic pancreatic lesions and biliary duct dilatation. This can be done nonemergently if there is no clinical concern for biliary obstruction. Referred By: Interpreted By: Robinson Ballard MD, 08/24/2025 9:33 PM Narrative 08/24/2025 9:[address] [facility] [address] [place] [id number] EXAMINATION: CT ABDOMEN/PELVIS WITH CONTRAST INDICATION: Left groin and low back pain. COMPARISON: 12/15/2024 TECHNIQUE: Computed tomography of the abdomen, and pelvis was performed after administration of intravenous contrast, 75 mL of Isovue-370, without immediate complication, according to routine protocol. Radiation dose reduction technique(s) were used FINDINGS: Lower Chest: Lung bases are clear. No cardiomegaly or pericardial effusion. Coronary artery calcification. Upper abdominal organs: The liver is normal in size and configuration. The spleen is unremarkable. There are cystic lesions involving the tail and head of the pancreas measuring 1.1 and 2.1 cm, respectively. There is stable intrahepatic and extra hepatic biliary duct dilatation, of unclear etiology. No adrenal lesions. Multilobular appearance of the bilateral kidneys with a few tiny renal lesions which are too small to technically characterize but most commonly would represent benign cysts. No stones are visualized. Mild right renal pelvis and ureteral dilatation without evidence of hydronephrosis. Vascular: The abdominal aorta is normal in caliber. Lymph nodes: No retroperitoneal, mesenteric, or inguinal lymphadenopathy. Gastrointestinal: Post surgical changes about the stomach appears stable. No bowel obstruction or bowel wall thickening. There is colonic diverticulosis. Miscellaneous: No free intraperitoneal air or ascites. Pelvis: No free pelvic fluid. The urinary bladder is normal. The uterus is surgically absent. No evidence of an adnexal mass. MSK: No acute osseous abnormality or destructive bone lesions. Procedure Note Robinson Ballard MD - 08/24/2025 [facility] [address] [place] [id number] EXAMINATION: CT ABDOMEN/PELVIS WITH CONTRAST INDICATION: Left groin and low back pain. COMPARISON: 12/15/2024 TECHNIQUE: Computed tomography of the abdomen, and pelvis was performedafter administration of intravenous contrast, 75 mL of Isovue-370, withoutimmediate complication, according to routine protocol. Radiation dosereduction technique(s) were used FINDINGS: Lower Chest: Lung bases are clear. No cardiomegaly or pericardialeffusion. Coronary artery calcification. Upper abdominal organs: The liver is normal in size and configuration.The spleen is unremarkable. There are cystic lesions involving the tailand head of the pancreas measuring 1.1 and 2.1 cm, respectively. There isstable intrahepatic and extra hepatic biliary duct dilatation, of unclearetiology. No adrenal lesions. Multilobular appearance of the bilateralkidneys with a few tiny renal lesions which are too small to technicallycharacterize but most commonly would represent benign cysts. No stonesare visualized. Mild right renal pelvis and ureteral dilatation withoutevidence of hydronephrosis. Vascular: The abdominal aorta is normal in caliber. Lymph nodes: No retroperitoneal, mesenteric, or inguinallymphadenopathy. Gastrointestinal: Post surgical changes about the stomach appears stable.No bowel obstruction or bowel wall thickening. There is colonicdiverticulosis. Miscellaneous: No free intraperitoneal air or ascites. Pelvis: No free pelvic fluid. The urinary bladder is normal. The uterus issurgically absent. No evidence of an adnexal mass. MSK: No acute osseous abnormality or destructive bone lesions. IMPRESSION: 1. No acute abnormality in the abdomen or pelvis. 2. Stable intrahepatic and extra hepatic biliary duct dilatation, ofunclear etiology. 3. Stable nonspecific cystic lesions involving the head and tail of thepancreas. 4. Colonic diverticulosis. 5. Mild right renal pelvis and ureteral dilatation without evidence ofhydronephrosis. Recommendation: MRI pancreas protocol with MRCP to evaluate the patient'scystic pancreatic lesions and biliary duct dilatation. This can be donenonemergently if there is no clinical concern for biliary obstruction. Referred By: Interpreted By: Robinson Ballard MD, 08/24/2025 9:33 PM Jeannette Manrique DO CT Final Result * (ABNORMAL) D-DIMER, QUANTITATIVE (08/24/2025 8:19 PM CDT) D-DIMER 670(H) 0 - 500 ng{FEU}/mL 08/24/2025 8:38 PM CDT [facility] Comment: D-Dimer values less than or equal to 500 ng/mL FEU have a negative predictive value of >95% for exclusion of deep vein thrombosis and pulmonary embolism. In patients over 50 (who tend to have higher normal baseline D-Dimer values), recent studies suggest age-adjusted D-Dimer cutoff values (calculated as: age [years] x 10 ng/mL) result in equivalent outcomes and no additional false negative findings. 08/24/2025 8:19 PM CDT Jeannette Hilaria [facility] Final Result Performing Organization Address [facility]/ZIP Co de Phone Number [facility] [address] [place] [address], [place] [phone] * MAGNESIUM (08/24/2025 8:19 PM CDT) MAGNESIUM 2.1 1.8 - 2.4 MG/DL 08/24/2025 8:40 PM CDT [facility] 08/24/2025 8:19 PM CDT Jeannette Hilaria [facility] Final Result Performing Organization Address [facility] de Phone Number [facility] [address] [place] [address], [place] [phone] * (ABNORMAL) URINALYSIS, AUTO, COMPLETE (08/24/2025 7:10 PM CDT) COLOR (U) YELLOW 08/24/2025 8:25 PM CDT [facility] TRANSPARENCY CLEAR 08/24/2025 8:25 PM CDT [facility] SPECIFIC GRAVITY (U) 1.015 1.000 - 1.030 08/24/2025 8:25 PM CDT [facility] U PH 6.0 5.0 - 9.0 08/24/2025 8:25 PM CDT [facility] LEUKOCYTES (U) 1+(A) NEGATIVE 08/24/2025 8:25 PM CDT [facility] NITRITES NEGATIVE NEGATIVE 08/24/2025 8:25 PM CDT [facility] PROTEIN RANDOM (U) NEGATIVE NEGATIVE 08/24/2025 8:25 PM CDT [facility] GLUCOSE (U) NEGATIVE NEGATIVE 08/24/2025 8:25 PM CDT [facility] KETONES MG/DL (U) NEGATIVE NEGATIVE 08/24/2025 8:25 PM CDT [facility] BILIRUBIN (U) NEGATIVE NEGATIVE 08/24/2025 8:25 PM CDT [facility] BLOOD (U) NEGATIVE NEGATIVE 08/24/2025 8:25 PM CDT [facility] WBC/HPF 0-5 0 - 5 /HPF 08/24/2025 8:25 PM CDT [facility] RBC/HPF 0-5 0 - 5 /HPF 08/24/2025 8:25 PM CDT [facility] EPI/HPF FEW /HPF 08/24/2025 8:25 PM CDT [facility] URINE SPECIMEN OBTAINED BY CLEAN CATCH PROCEDURE / Unknown 08/24/2025 7:10 PM CDT Jeannette Manrique DO URINE ORDERABLES Final Result Performing Organization Address City/State/[facility] Co de Phone Number [facility] [address] [facility] [facility] [place] [address], from Last 3 Months Additional Health Concerns Active Problems Noted Date Diagnosed Date 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
--- OUTSIDE RECORDS SUMMARY | 2025-11-10 05:59 | XMS_ITS | Encounter Summary ---
Author Organization [facility] Address [address] [place] [address] Care Team Providers Care Blender Machine Operator Name Role Phone Dany Andino MD Primary Care Provider [phone] Encounter Details Date Type Department Care Team (Latest Contact Info) Description 09/28/2025 Moven Message Enc [facility] [place] [address] [phone] [facility] Referral Social History Tobacco Use Types Packs/Day Years Used Date Smoking Tobacco: Never Smokeless Tobacco: Never Alcohol Use Standard Drinks/Week Comments Never 0 (1 standard drink = 0.6 oz pur e alcohol) PHQ-2 Answer Date Recorded Patient Health Questionnaire-2 Score 0 07/26/2025 Comments No Sex and Gender Information Value Date Recorded Sex Assigned at Female 12/14/2024 11:51 PM AUTO DAMAGE ADJUSTER Legal Sex Female 3:33 PM CDT Gender Identity Female 07/26/2025 3:33 PM CDT Sexual Orientation Not on file documented as of this encounter Plan of Treatment Upcoming Encounters Date Type Department Care Team (Latest Contact Info) Description 12/14/2025 4:20 PM AUTO DAMAGE ADJUSTER Hospital Encounter [facility] [place] [address] [phone] Cordelia Stroud MD Three [facility] [address] [place] [address] 12/14/2025 4:20 PM AUTO DAMAGE ADJUSTER - 12/14/2025 4:40 PM AUTO DAMAGE ADJUSTER Surgery [facility] [place] [address] [phone] Cordelia Stroud MD Three [facility] [address] [place] [address] INJECTION EPIDURAL TRANSFORAMINAL-L3- 4, L4-5 01/09/2026 9:00 AM AUTO DAMAGE ADJUSTER Office Visit [facility] [address] [phone] Eugenio Glover DO [address] [facility] [address] [place] [address] 01/10/2026 10:00 AM AUTO DAMAGE ADJUSTER Office Visit [facility] Medical [facility] Family & Internal Medicine - [address] [phone] [place] [address] [address] Scheduled Procedures Name Priority Associated Diagnoses Date/Ti me INJECTION EPIDURAL TRANSFORAMINAL Lumbar radiculopathy 12/14/2025 4:20 PM AUTO DAMAGE ADJUSTER documented as of this encounter Visit Diagnoses Not on filedocumented in this encounter Additional Health Concerns Assessment Noted Time PHQ-9 Depression Total Score: 0 07/26/20 25 3:44 PM CDT documented as of this encounter Care Teams Blender Machine Operator Relationship Specialty [place] [address] [facility] [address] [place] [id number] PCP - General INTERNAL MEDICINE 07/21/25 documented as of this encounter
--- OUTSIDE RECORDS SUMMARY | 2025-11-10 05:59 | XMS_ITS | Encounter Summary ---
Author Organization [facility] Address [address] [place] [address] Phone Care Team Providers Care Study Hall Supervisor Name Role Phone Khai Neal MD Unavailable [phone] Tyree Bauer MD PhD Unavailable + Mary Ma RN Unavailable Unavaila Mairlin Arce Unavailable Unavailable Dany Andino MD Primary Care Provider Encounter Details Date Type Department Care Team (Late st Contact Info) Description 09/26/2025 Results Follow-Up [facility] Medicine Cardiology [address] [facility] [address] [place] [address] Rosa Gudino, EBONY [address] [facility] [address] [place], [place] [phone] ECG 12 lead Social History Tobacco Use Types Packs/Day Years Used Date Smoking Tobacco: Never Passive Smoke Exposure: Never Smokeless Tobacco: Never Alcohol Use Standard Drinks/Week Comments Never 0 (1 standard drink = 0.6 oz pur e alcohol) PHQ-2 Answer Date Recorded PHQ-2 Total Score (If total score is 3 or more points, staff should administer the PHQ-9) 0 03/01/2025 AUDIT-C Answer Date Recorded Q1: How often do you have a drink containing alcohol? Never 08/30/2025 Q2: How many drinks containi ng alcohol do you have on a typical day when you are drinking? Patient does not drink Q3: How often do you have si x or more drinks on one occasion? Never 08/30/2025 Personal Safety Answer Date Recorded Have you ever been in or are you currently in a harmful physical or emotional relationship or is someone making you feel afraid or unsafe? Denies 02/07/2025 Comments No Sex and Gender Information Value Date Recorded Sex Assigned at Not on file Legal Sex Female 7:58 AM WORKERS' COMPENSATION CLAIMS EXAMINER Gender Identity Female 05/21/2023 3:25 AM CDT Sexual Orientation Not on file documented as of this encounter Plan of Treatment Not on file documented as of this encounter Visit Diagnoses Not on filedocumented in this encounter Care Teams Study Hall Supervisor Relationship Specialty [place] [address] [place] [address] PCP - General Internal Medicine 08/30/25 Khai Neal MD Consulting Physician Ophthalmology 10/08/21 Tyree Bauer MD PhD Referring Physician Cardiology 07/23/23 Mary Ma, grain sampler Failure Coordinator 08/12/23 Marilin Rucker Primary Solutions Development Analyst 08/04/25 documented as of this encounter
--- OUTSIDE RECORDS SUMMARY | 2025-11-10 05:59 | XMS_ITS | Data Portability ---
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 Plan of Treatment Reminders Order Date Submit Date Provider Last Modified By Organization Details Last Modified Time Details Appointments None recorded. Lab urinalysis , dipstick 2019 020 [email or web address] In-Office Order, Internal Use Only DO Not Attach Compendium DO Not Attach Compendium, Do Not Delete/merge, [id number] 0 12:06:03 culture, urine 2019 020 [facility], [address] [place], [address], 0 08:47:59 urinalysis , dipstick 2019 020 [email or web address] In-Office Order, Internal Use Only DO Not Attach Compendium DO Not Attach Compendium, Do Not Delete/merge, [id number] 0 15:59:57 culture, urine 2019 020 [facility], [address] [place], [address], 0 19:05:58 HbA1c (hemoglobi n A1c), blood 2019 020 [email or web address] [facility], [address], [place], [address], 0 10:38:10 microalbum in, urine 2019 020 [id number] [facility], [address], [place], [address], 0 10:38:10 CMP, serum or plasma 2019 020 [email or web address] [facility], [address], [place], [address], 0 10:38:11 Referral None recorded. Procedures None recorded. Surgeries None recorded. Imaging MAMMO, screening, digital, bilateral 2019 [facility], [address] [place] [address], [address], 0 10:06:[address] [facility], [address] [place] [address], [address], 0 14:10:43 [facility], [address] [place] [address], [place], [address], 0 12:20:43 [facility]EXA 2019 020 [facility], [address] [place] [address], [address], 1 14:36:57 Medication Orders famotidine 20 mg tablet 2019 020 [email or web address] [facility], [address], [address], 0 09:14:14 atorvastat in 10 mg tablet 2019 020 [facility], [address] [place] [address], [address], 0 09:19:54 Cipro 500 mg tablet 2019 020 [facility], [address] [place] [address], [address], 0 10:46:54 lisinopril 20 mg tablet 2019 020 [facility], [address] [place] [address], [address], 0 09:19:28 Cipro 500 mg tablet 2019 020 [facility], [address] [place] [address], [address], 0 10:46:54 Levaquin 500 mg tablet 2019 020 [facility], [address] [place] [address], [address], 0 09:27:25 Patient TargetsNo targets recorded. Patient Instructions Encounter Date Encounter Id Patient Instructions Last Modified By Organization Details Last Modified Time 12/17/2019 [id number] Starting a Weight-Loss Plan: Care Instructions [email or web address] Not available 12/17/2019 09:38:19 01/03/2020 [id number] Female Urinary Tract Infection (UTI): Care Instructions [email or web address] Not available 01/03/2020 10:46:42 Starting a Weight-Loss Plan: Care Instructions [email or web address] Not available 01/03/2020 10:46:42 08/02/2020 [id number] Female Urinary Tract Infection (UTI): Care Instructions [email or web address] Not available 08/02/2020 12:06:03 Starting a Weight-Loss Plan: Care Instructions [email or web address] Not available 08/02/2020 12:06:03 Follow-up appointment as scheduled [email or web address] Not available 08/02/2020 12:06:46 Reason for Referral None Reported. Results Created Date Observation Date Name Description Value Unit Range Abnormal Flag Note LastModifiedBy Organization Detail LastModifiedTime 12/10/1912/11/2019 HbA1c (hemo globi n A1c), blood hemoglobin A1C 6.9 %_of_ total _HGB <5.7 high For somealeena ne witho ut known diabe audrey, a hemog lobin A1c value of 6.5% or great er indic ates that they may have diabe audrey and this shoul d be confi rmed with a follo w-up test. For somealeena ne with known diabe audrey, a value <7% indic ates that their diabe audrey is well contr olled and a value great er than or equal to 7% indic ates subop timal contr ol. A1c targe ts shoul d be indiv idual ized based on durat ion of diabe audrey, age, comor bid condi tions , and other consi derat ions. Curre ntly, no conse nsus exist s charles vasquez use of hemog lobin A1c for diagn osis of diabe audrey for child nohemy. Not Available [facility] [address] [place], [address], 12/11/2019 01:32:50 12/10/1912/11/2019 CBC white blood cell count 7.3 thous and/u L 3.8-10 .8 normal Not Available [facility] [address] [place], [address], 12/11/2019 01:32:59 12/10/1912/11/2019 CBC red blood cell count 4.20 breezy on/uL 3.80-5 .10 normal Not Available [facility] [address] [place], [address], 12/11/2019 01:32:59 12/10/1912/11/2019 CBC hemoglobin 12.8 g/dL 11.7-1 5.5 normal Not Available [facility] [address], [place], [address], 12/11/2019 01:32:59 12/10/1912/11/2019 CBC hematocrit 38.7 % 35.0-4 5.0 normal Not Available [facility] [address], [place], [address], 12/11/2019 01:32:59 12/10/1912/11/2019 CBC MCV 92.1 fL 80.0-1 00.0 normal Not Available [facility] [address], [place], [address], 12/11/2019 01:32:59 12/10/1912/11/2019 CBC MCH 30.5 pg 27.0-3 3.0 normal Not Available [facility] Count includes the [facility], [place], [address], 12/11/2019 01:32:59 12/10/1912/11/2019 CBC MCHC 33.1 g/dL 32.0-3 6.0 normal Not Available [facility] [address], [place], [address], 12/11/2019 01:32:59 12/10/1912/11/2019 CBC RDW 12.7 % 11.0-1 5.0 normal Not Available [facility] [address], [place], [address], 12/11/2019 01:32:59 12/10/1912/11/2019 CBC platelet count 286 thous and/u L 140-40 0 normal Not Available [facility] [address], [place], [address], 12/11/2019 01:32:59 12/10/19 20 12/11/2019 CBC MPV 10.9 fL 7.5-12 .5 normal Not Available [facility] [address], [place], [address], 12/11/2019 01:32:59 12/10/19 20 12/11/2019 CBC absolute neutrophils 3395 cells /uL 1500-7 800 normal Not Available [facility] [address], [place], [address], 12/11/2019 01:32:59 12/10/1912/11/2019 CBC absolute lymphocytes 2701 cells /uL 850-39 00 normal Not Available [facility] [address], [place], [address], 12/11/2019 01:32:59 12/10/1912/11/2019 CBC absolute monocytes 591 cells /uL 200-95 0 normal Not Available [facility] [address], [place], [address], 12/11/2019 01:32:59 12/10/1912/11/2019 CBC absolute eosinophils 533 cells /uL 15-500 high Not Available [facility] [address], [place], [address], 12/11/2019 01:32:59 12/10/1912/11/2019 CBC absolute basophils 80 cells /uL 0-200 normal Not Available [facility] [address], [place], [address], 12/11/2019 01:32:59 12/10/1912/11/2019 CBC neutrophils 46.5 % normal Not Avai lable [facility] [address], [place], [address], 12/11/2019 01:32:59 12/10/19 20 12/11/2019 CBC lymphocytes 37.0 % normal Not Avai lable [facility] [address], [place], [address], 12/11/2019 01:32:59 12/10/19 20 12/11/2019 CBC monocytes 8.1 % normal Not Availa ble [facility] [address], [place], [address], 12/11/2019 01:32:59 12/10/19 20 12/11/2019 CBC eosinophils 7.3 % normal Not Avai lable [facility] [address], [place], [address], 12/11/2019 01:32:59 12/10/19 20 12/11/2019 CBC basophils 1.1 % normal Not Availa ble [facility] [address] [place], [address], 12/11/2019 01:32:59 12/10/1912/11/2019 CMP, serum or plasm a glucose 184 mg/dL 65-99 high Fasti ng refer ence inter loni For someo ne witho ut known diabe audrey, a gluco se value >125 mg/dL indic ates that they may have diabe audrey and this shoul d be confi rmed with a follo w-up test. Not Available [facility] [address], [place], [address], 12/11/2019 01:33:08 12/10/1912/11/2019 CMP, serum or plasm a urea nitrogen (BUN) 20 mg/dL 7-25 normal Not Available [facility] [address], [place], [address], 12/11/2019 01:33:08 12/10/1912/11/2019 CMP, serum or plasm a creatinine 1.02 mg/dL 0.60-0 .93 high For patie nts >49 years of age, the refer ence limit for Creat inine is appro ximat josafat 13% highe r for peopl e ident ified as Afric an-Am rigoberto n. Not Available [facility] [address], [place], [address], 12/11/2019 01:33:08 12/10/1912/11/2019 CMP, serum or plasm a eGFR non-afr. ugandan 55 mL/mi n/1.7 3m2 > or = 60 low Not Available [facility] [address], [place], [address], 12/11/2019 01:33:08 12/10/1912/11/2019 CMP, serum or plasm a eGFR 63 mL/mi n/1.7 3m2 > or = 60 normal Not Available [facility] [address], [place], [address], 12/11/2019 01:33:08 12/10/1912/11/2019 CMP, serum or plasm a BUN/creatini ne ratio 20 (calc ) 6-22 normal Not Available [facility] [address], [place], [address], 12/11/2019 01:33:08 12/10/1912/11/2019 CMP, serum or plasm a sodium 142 mmol/ L 135-14 6 normal Not Available [facility] [address], [place], [address], 12/11/2019 01:33:08 12/10/1912/11/2019 CMP, serum or plasm a potassium 4.5 mmol/ L 3.5-5. 3 normal Not Available [facility] [address], [place], [address], 12/11/2019 01:33:08 12/10/19 20 12/11/2019 CMP, serum or plasm a chloride 105 mmol/ L 98-110 normal Not Available [facility] [address] [place], [place] [address]y [address] [place], [address], 12/11/2019 01:33:08 12/10/19 20 12/11/2019 CMP, serum or plasm a carbon dioxide 26 mmol/ L 20-32 normal Not Available [facility] [address] [place] [address] [address], [place], [address], 12/11/2019 01:33:08 12/10/1912/11/2019 CMP, serum or plasm a calcium 9.7 mg/dL 8.6-10 .4 normal Not Available [facility] [address] [place] [address] [address], [place], [address], 12/11/2019 01:33:08 12/10/1912/11/2019 CMP, serum or plasm a protein, total 6.6 g/dL 6.1-8. 1 normal Not Available [facility] [address] [place] [address] [address] [place], [address], 12/11/2019 01:33:08 12/10/1912/11/2019 CMP, serum or plasm a albumin 3.6 g/dL 3.6-5. 1 normal Not Available [facility] [address] [place] [address] [address] [place], [address], 12/11/2019 01:33:08 12/10/1912/11/2019 CMP, serum or plasm a globulin 3.0 g/dL_ (calc ) 1.9-3. 7 normal Not Available [facility] [address] [place], [place] [address]y [address], [place], [address], 12/11/2019 01:33:08 12/10/1912/11/2019 CMP, serum or plasm a albumin/glob ulin ratio 1.2 (calc ) 1.0-2. 5 normal Not Available [facility] [address] [facility] [address], [place], [address], 12/11/2019 01:33:08 12/10/1912/11/2019 CMP, serum or plasm a bilirubin, total 0.6 mg/dL 0.2-1. 2 normal Not Available [facility] [address] [facility] [address], [place], [address], 12/11/2019 01:33:08 12/10/1912/11/2019 CMP, serum or plasm a alkaline phosphatase 71 U/L 33-130 normal Not Available [facility] [address] [facility] [address], [place], [address], 12/11/2019 01:33:08 12/10/1912/11/2019 CMP, serum or plasm a AST 44 U/L 10-35 high Not Available [facility] [address] [facility] [address], [place], [address], 12/11/2019 01:33:08 12/10/1912/11/2019 CMP, serum or plasm a ALT 42 U/L 6-29 high Not Available [facility] [address] [place], [place] [address]y [address], [place], [address], 12/11/2019 01:33:08 12/10/1912/11/2019 lipid panel , serum cholesterol, total 121 mg/dL <200 normal Not Available [facility] [address] [facility] [address], [place], [address], 12/11/2019 01:33:18 12/10/1912/11/2019 lipid panel , serum HDL cholesterol 48 mg/dL >50 low Not Available [facility] [address] [facility] [address], [place], [address], 12/11/2019 01:33:18 12/10/19 20 12/11/2019 lipid panel , serum triglyceride s 131 mg/dL <150 normal Not Available [facility] [address] [facility] [address] [place], [address], 12/11/2019 01:33:18 12/10/19 20 12/11/2019 lipid panel , serum LDL-choleste rol 52 mg/dL _(darryl c) normal Refer ence range : <100 Frankie able range <100 mg/dL for prima ry preve ntion ; <70 mg/dL for patie nts with CHD or diabe tic patie nts with > or = 2 CHD risk facto rs. LDL-C is now calcu lated using the Amy n-Hop kins calcu viry n, which is a valid ated novel maricarmeno d mckennai pedro brendan r accur acy than the Fried john equat ion in the estim ation of LDL-C . Amy washington SS et al. [place]. 2013; 310(1 9): 2061- 2068 (http ://ed ucati on.Qu rolandMD [employer]. com/f aq/FA Q164) Not Available [facility] [address] [facility] [address] [place], [address], 12/11/2019 01:33:18 12/10/19 20 12/11/2019 lipid panel , serum chol/HDLC ratio 2.5 (calc ) <5.0 normal Not Available [facility] [address] [facility] [address], [place], [address], 12/11/2019 01:33:18 12/10/19 20 12/11/2019 lipid panel , serum non HDL cholesterol 73 mg/dL _(darryl c) <130 normal For patie nts with diabe audrey plus 1 major ASCVD risk facto r, treat ing to a non-H DL-C goal of <100 mg/dL (LDL- C of <70 mg/dL ) is consi dered a thera peuti c optio n. Not Available [facility] [address], [place], [address], 12/11/2019 01:33:18 12/10/19 20 12/12/2019 micro album in, urine creatinine, random urine 127 mg/dL 20-[address] [facility] [address] [facility] [address] [facility], [place], [address], 12/12/2019 05:35:19 12/10/19 20 12/12/2019 micro album in, urine albumin, urine 1.4 mg/dL see note: normal Refer ence Range : Refer ence Range Not estab lishe d Not Available [facility] [address] [facility] [address] [facility], [place], [address], 12/12/2019 05:35:19 12/10/19 20 12/12/2019 micro album in, urine albumin/crea tinine ratio, random urine 11 mcg/m g_cre at <30 normal The ADA defin es abnor malit ies in album in excre tion as follo ws: Categ ory Resul t (mcg/ mg creat inine ) Debbie l <30 Micro album inuri a 30-29 9 Clini darryl album inuri a > OR = 300 The ADA recom mends that at least two of three speci mens colle cted withi n a 3-6 month perio d be abnor mal befor e consi harris g a patie nt to be withi n a diagn ostic categ ory. Not Available [facility] [address] [facility] [address] [facility], [place], [address], 12/12/2019 05:35:19 12/10/19 20 12/10/2019 venip unctu re results Compl ete Not Available [facility] [address] [facility] [address] [facility], [place], [address], 12/10/2019 08:46:05 01/03/20 20 01/05/2020 cultu re, urine culture, urine, routine SEE NOTE abnormal CULTU RE, URINE , ROUTI NE Micro Numbe r: [id number] Test Statu s: Final Speci men Sourc e: URINE Speci men Quali ty: Adequ ate Resul t: Great er than 100,0 00 CFU/m L of Citro bacte r young ae 10,00 0-50, 000 CFU/m L of Group B Strep tococ cus isola raul Beta- hemol ytic Strep tococ ci are predi ctabl y susce ptibl e to penic illin and other beta- lacta ms. Susce ptibi lity testi ng not routi quentin perfo rmed. Comme nt: Eryth romyc in and clind amyci n are not recom milan d for treat ment of urina ry tract infec tions , but clind amyci n may be usefu l for treat ment of recto vagin al colon izati on or infec tion. C.you ngae ----- ----- ----- - INT FIGUEROA AMOX/ CLAVU LANAT E R 4 CEFAZ ISABEL R >=64 1 CEFEP MEG S <=1 CEFTR IAXON E S <=1 CIPRO FLOXA CLARISSA S <=0.2 5 GENTA MICIN S <=1 IMIPE NEM S <=0.2 5 LEVOF LOXAC IN S <=0.1 2 NITRO FURAN TOIN S <=16 PIP/T AZOBA CTAM S <=4 TOBRA MYCIN S <=1 TRIME THOPR IM/PEDERSON LFA S <=20 S=Ginger cepti ble I=Int ermed iate R=Res istan t * = Not Teste d NR = Not Repor raul NN = See Thera py Comme nts THERA PY COMME NTS Note 1: For uncom plica raul UTI cause d by E. coli, K. pneum oniae or P. mirab ilis: Cefaz isabel is susce ptibl e if FIGUEROA <32 mcg/m L and predi cts susce ptibl e to the oral agent s cefac kareem, cefdi agata, cefpo doxim e, cefpr ozil, cefur oxime , cepha lexin and lorac arbef . Not Available [facility] [address] [place] [address] [address], [place], [address], 01/05/2020 19:05:58 01/03/20 20 01/03/2020 urina lysis , dipst ick leukocytes large negati ve Not Available In-Office Order Internal Use Only DO Not Attach Compendium DO Not Attach Compendium, Do Not Delete/merge, 01/03/2020 10:30:49 01/03/2001/03/2020 urina lysis , dipst ick nitrite neg negati ve Not Available In-Office Order Internal Use Only DO Not Attach Compendium DO Not Attach Compendium, Do Not Delete/merge, 01/03/2020 10:30:49 01/03/2001/03/2020 urina lysis , dipst ick urobilinogen 0.2 E.U./ dL 0.2 Not Available In-Office Order Internal Use Only DO Not Attach Compendium DO Not Attach Compendium, Do Not Delete/merge, 01/03/2020 10:30:49 01/03/2001/03/2020 urina lysis , dipst ick protein neg mg/dL negati ve Not Available In-Office Order Internal Use Only DO Not Attach Compendium DO Not Attach Compendium, Do Not Delete/merge, 01/03/2020 10:30:49 01/03/20 20 01/03/2020 urina lysis , dipst ick pH 6.0 5.0-7. 0 Not Available In-Office Order Internal Use Only DO Not Attach Compendium DO Not Attach Compendium, Do Not Delete/merge, 01/03/2020 10:30:49 01/03/2001/03/2020 urina lysis , dipst ick blood trace negati ve Not Available In-Office Order Internal Use Only DO Not Attach Compendium DO Not Attach Compendium, Do Not Delete/merge, 01/03/2020 10:30:49 01/03/2001/03/2020 urina lysis , dipst ick specific gravity 1.010 1.020- 1.035 Not Available In-Office Order Internal Use Only DO Not Attach Compendium DO Not Attach Compendium, Do Not Delete/merge, [id number] 01/03/2020 10:30:49 01/03/20 20 01/03/2020 urina lysis , dipst ick ketone neg mg/dL negati ve Not Available In-Office Order Internal Use Only DO Not Attach Compendium DO Not Attach Compendium, Do Not Delete/merge, [facility] 01/03/2020 10:30:49 01/03/20 20 01/03/2020 urina lysis , dipst ick bilirubin neg negati ve Not Available In-Office Order Internal Use Only DO Not Attach Compendium DO Not Attach Compendium, Do Not Delete/merge, [facility] 01/03/2020 10:30:49 01/03/20 20 01/03/2020 urina lysis , dipst ick glucose neg mg/dL negati ve Not Available In-Office Order Internal Use Only DO Not Attach Compendium DO Not Attach Compendium, Do Not Delete/merge, [facility] 01/03/2020 10:30:49 08/02/2008/02/2020 urina lysis , dipst ick leukocytes modera te negati ve Not Available In-Office Order Internal Use Only DO Not Attach Compendium DO Not Attach Compendium, Do Not Delete/merge, [facility] 08/02/2020 11:41:47 08/02/2008/02/2020 urina lysis , dipst ick nitrite negati ve negati ve Not Available In-Office Order Internal Use Only DO Not Attach Compendium DO Not Attach Compendium, Do Not Delete/merge, [facility] 08/02/2020 11:41:47 08/02/2008/02/2020 urina lysis , dipst ick urobilinogen 0.2 E.U./ dL 0.2 Not Available In-Office Order Internal Use Only DO Not Attach Compendium DO Not Attach Compendium, Do Not Delete/merge, 08/02/2020 11:41:47 08/02/2008/02/2020 urina lysis , dipst ick protein negati ve mg/dL negati ve Not Available In-Office Order Internal Use Only DO Not Attach Compendium DO Not Attach Compendium, Do Not Delete/merge, [facility] 08/02/2020 11:41:47 08/02/2008/02/2020 urina lysis , dipst ick pH 5.0 5.0-7. 0 Not Available In-Office Order Internal Use Only DO Not Attach Compendium DO Not Attach Compendium, Do Not Delete/merge, [facility] 08/02/2020 11:41:47 08/02/2008/02/2020 urina lysis , dipst ick blood trace negati ve Not Available In-Office Order Internal Use Only DO Not Attach Compendium DO Not Attach Compendium, Do Not Delete/merge, [facility] 08/02/2020 11:41:47 08/02/2008/02/2020 urina lysis , dipst ick specific gravity 1.020 1.020- 1.035 Not Available In-Office Order Internal Use Only DO Not Attach Compendium DO Not Attach Compendium, Do Not Delete/merge, [facility] 08/02/2020 11:41:47 08/02/2008/02/2020 urina lysis , dipst ick ketone negati ve mg/dL negati ve Not Available In-Office Order Internal Use Only DO Not Attach Compendium DO Not Attach Compendium, Do Not Delete/merge, [facility] 08/02/2020 11:41:47 08/02/2008/02/2020 urina lysis , dipst ick bilirubin negati ve negati ve Not Available In-Office Order Internal Use Only DO Not Attach Compendium DO Not Attach Compendium, Do Not Delete/merge, [facility] 08/02/2020 11:41:47 08/02/2008/02/2020 urina lysis , dipst ick glucose negati ve mg/dL negati ve Not Available In-Office Order Internal Use Only DO Not Attach Compendium DO Not Attach Compendium, Do Not Delete/merge, [facility] 08/02/2020 11:41:47 08/03/2008/03/2020 HbA1c (hemo globi n A1c), blood hemoglobin A1C 6.8 % 4.3-5. 6 high ADA RECOM MILAN D GUIDE LINES FOR HgbA1 C 5.7-6 .4 % predi abeti c <7.0% Reaso nable glyce figueroa goal for non-p regna nt adult s <8.0 Appro priat e for patie nts with hypog lycem ia or advan kerwin micro /macr o vascu lar compl icati ons Not Available [facility] [address] [facility] [address], [place], [address], 08/03/2020 18:10:11 08/03/20 20 08/03/2020 HbA1c (hemo globi n A1c), blood estimated average glucose 148.5 mg/dL 97.0-1 40.0 high Not Available [facility] [address] [facility] [address], [place], [address], 08/03/2020 18:10:11 08/03/20 20 08/03/2020 CBC WBC 10.7 K/uL 3.6-10 .0 high Not Available [facility] [address] [facility] [address], [place], [address], 08/03/2020 18:10:23 08/03/20 20 08/03/2020 CBC nucleated RBC 0.10 % 0.00-2 .00 Not Available [facility] [address] [facility] [address] [place], [address], 08/03/2020 18:10:23 08/03/20 20 08/03/2020 CBC RBC 4.12 M/uL 3.90-5 .00 Not Available [facility] [address] [facility] [address] [place], [address], 08/03/2020 18:10:23 08/03/20 20 08/03/2020 CBC HGB 12.5 g/dL 12.0-1 5.0 Not Available [facility] [address] [facility] [address], [place], [address], 08/03/2020 18:10:23 08/03/20 20 08/03/2020 CBC hematocrit 37.70 % 35.00- 45.00 Not Available [facility] [address] [facility] [address] [place], [address], 08/03/2020 18:10:23 08/03/20 20 08/03/2020 CBC MCV 91.6 fL 80.0-9 9.0 Not Available [facility] [address], [place], [address], 08/03/2020 18:10:23 08/03/20 20 08/03/2020 CBC MCH 30.4 pg 27.0-3 3.0 Not Available [facility] [address], [place], [address], 08/03/2020 18:10:23 08/03/20 20 08/03/2020 CBC MCHC 33.2 g/dL 32.0-3 6.0 Not Available [facility] [address], [place], [address], 08/03/2020 18:10:23 08/03/20 20 08/03/2020 CBC platelets 234 K/uL 140-44 0 Not Available [facility] [address] [place], [address], 08/03/2020 18:10:23 08/03/20 20 08/03/2020 CBC RDW 14.0 % 11.0-1 5.0 Not Available [facility] [address] [place], [address], 08/03/2020 18:10:23 08/03/20 20 08/03/2020 CBC MPV 10.3 fL 7.4-10 .4 Not Available [facility] [address] [place], [address], 08/03/2020 18:10:23 08/03/20 20 08/03/2020 CBC neutrophil, % 58.5 % 40.0-7 5.0 Not Available [facility] [address], [place], [address], 08/03/2020 18:10:23 08/03/2008/03/2020 CBC lymphocyte % 26.8 % 20.5-5 1.5 Not Available [facility] [address], [place], [address], 08/03/2020 18:10:23 08/03/2008/03/2020 CBC monocyte % 7.3 % 4.0-9. 0 Not Available [facility] [address], [place], [address], 08/03/2020 18:10:23 08/03/2008/03/2020 CBC eosinophil % 6.2 % 1.0-6. 0 high Not Available [facility] [address], [place], [address], 08/03/2020 18:10:23 08/03/20 20 08/03/2020 CBC basophil % 1.2 % 0.0-2. 0 Not Available [facility] Count includes the [facility], [place], [address], 08/03/2020 18:10:23 08/03/2008/03/2020 CBC neutrophil, # 6.3 K/uL 1.5-7. 5 Not Available [facility] [address], [place], [address], 08/03/2020 18:10:08/03/2008/03/2020 CBC lymphocyte # 2.9 K/uL 0.8-4. 0 Not Available [facility] [address], [place], [address], 08/03/2020 18:10:23 08/03/2008/03/2020 CBC monocyte # 0.8 K/uL 0.1-1. 0 Not Available [facility] [address] [facility] [address], [place], [address], 08/03/2020 18:10:23 08/03/20 20 08/03/2020 CBC eosinophil # 0.7 K/uL 0.1-1. 0 Not Available [facility] [address] [place], [place] [address], [place], [address], 08/03/2020 18:10:23 08/03/20 20 08/03/2020 CBC basophil # 0.1 K/uL 0.0-0. 2 Not Available [facility] Count includes the [facility] [facility] [address], [place], [address], 08/03/2020 18:10:23 08/03/20 20 08/03/2020 CMP, serum or plasm a glucose 145 mg/dL 70-100 high Not Available [facility] [address] [place], [place] [address]y [address] [place], [address], 08/03/2020 18:10:33 08/03/2008/03/2020 CMP, serum or plasm a BUN 23 mg/dL 7-25 Not Available [facility] [address] [place], [place] [address], [place], [address], 08/03/2020 18:10:33 08/03/2008/03/2020 CMP, serum or plasm a creatinine 1.0 mg/dL 0.6-1. 3 Not Available [facility] [address] [place], [place] [address]y [address] [place], [address], 08/03/2020 18:10:33 08/03/2008/03/2020 CMP, serum or plasm a BUN/creatini ne ratio 22.33 calc 10.00- 25.00 Not Available [facility] [address] [place], [place] [address], [place], [address], 08/03/2020 18:10:33 08/03/20 20 08/03/2020 CMP, serum or plasm a eGFR 67 mL/mi n/1.7 3m2 >60 THREE CONSE CUTIV E VALUE S <60 mL/mi n COULD BE INDIC ATIVE OF KIDNE Y DISEA SE. Not Available [facility] [address], [place], [address], 08/03/2020 18:10:33 08/03/20 20 08/03/2020 CMP, serum or plasm a eGFR non- 56 mL/mi n/1.7 3m2 >60 low THREE CONSE CUTIV E VALUE S < 60 mL/mi n COULD BE INDIC ATIVE OF KIDNE Y DISEA SE Not Available [facility] [address], [place], [address], 08/03/2020 18:10:33 08/03/20 20 08/03/2020 CMP, serum or plasm a sodium 143 mmol/ L 135-14 5 Not Available [facility] [address], [place], [address], 08/03/2020 18:10:33 08/03/20 20 08/03/2020 CMP, serum or plasm a potassium 4.1 mmol/ L 3.5-5. 5 Not Available [facility] [address], [place], [address], 08/03/2020 18:10:33 08/03/20 20 08/03/2020 CMP, serum or plasm a chloride 103 mmol/ L 100-11 5 Not Available [facility] [address], [place], [address], 08/03/2020 18:10:33 08/03/20 20 08/03/2020 CMP, serum or plasm a CO2 28 mmol/ L 21-33 Not Available [facility] [address], [place], [address], 08/03/2020 18:10:33 08/03/20 20 08/03/2020 CMP, serum or plasm a anion gap 11.8 calc 3.0-11 .0 high Not Available [facility] [address] [facility] [address], [place], [address], 08/03/2020 18:10:33 08/03/20 20 08/03/2020 CMP, serum or plasm a calcium 9.3 mg/dL 8.8-10 .6 Not Available [facility] [address] [facility] [address], [place], [address], 08/03/2020 18:10:33 08/03/20 20 08/03/2020 CMP, serum or plasm a total protein 6.5 g/dL 6.2-8. 6 Not Available [facility] [address] [place], [place] [address], [place], [address], 08/03/2020 18:10:33 08/03/20 20 08/03/2020 CMP, serum or plasm a albumin 3.5 g/dL 3.5-5. 7 Not Available [facility] [address] [place], [place] [address], [place], [address], 08/03/2020 18:10:33 08/03/20 20 08/03/2020 CMP, serum or plasm a globulin 3.0 g/dL 1.3-4. 0 Not Available [facility] [address] [place], [place] [address]y [address] [place], [address], 08/03/2020 18:10:33 08/03/20 20 08/03/2020 CMP, serum or plasm a A/G ratio 1.2 calc 1.0-2. 8 Not Available [facility] [address] [place], [place] [address], [place], [address], 08/03/2020 18:10:33 08/03/20 20 08/03/2020 CMP, serum or plasm a AST (SGOT) 24 U/L 13-39 Not Available [facility] [address], [place], [address], 08/03/2020 18:10:33 08/03/20 20 08/03/2020 CMP, serum or plasm a ALT (SGPT) 29 U/L 7-52 Not Available [facility] [address], [place], [address], 08/03/2020 18:10:33 08/03/20 20 08/03/2020 CMP, serum or plasm a alkaline phosphatase 76 U/L 20-128 Not Available [facility] [address], [place], [address], 08/03/2020 18:10:33 08/03/20 20 08/03/2020 CMP, serum or plasm a total bilirubin 0.73 mg/dL 0.30-1 .00 Not Available [facility] [address], [place], [address], 08/03/2020 18:10:33 08/03/20 20 08/03/2020 lipid panel , serum cholesterol 111 mg/dL 20-180 Not Available [facility] [address], [place], [address], 08/03/2020 18:10:43 08/03/20 20 08/03/2020 lipid panel , serum triglyceride 93 mg/dL 30-150 Not Available [facility] [address], [place], [address], 08/03/2020 18:10:43 08/03/20 20 08/03/2020 lipid panel , serum HDL cholesterol 50 mg/dL 23-92 Not Available [facility] [address], [place], [address], 08/03/2020 18:10:43 08/03/20 20 08/03/2020 lipid panel , serum chol/HDL risk ratio 2 calc <3.5 OPTIM AL Not Available [facility] [address] [facility] [address] [place], [address], 08/03/2020 18:10:43 08/03/20 20 08/03/2020 lipid panel , serum non-HDL cholesterol 61 mg/dL FRANKIE ABLE IS <130 mg/dl Not Available [facility] [address] [facility] [address] [place], [address], 08/03/2020 18:10:43 08/03/20 20 08/03/2020 lipid panel , serum LDL-calculat ed 42 mg/dL Not Available [facility] [address] [facility] [address] [place], [address], 08/03/2020 18:10:43 08/03/20 20 08/03/2020 lipid panel , serum VLDL cholesterol 18.60 mg/dL Not Available [facility] [address] [facility] [address] [place], [address], 08/03/2020 18:10:43 08/03/20 20 08/03/2020 micro album in, urine ualb 41.4 mg/L No refer ence range estab lishe d Not Available [facility] Count [facility] the [facility] [facility] [address] [place], [address], 08/03/2020 18:25:24 08/03/20 20 08/03/2020 micro album in, urine creu 93.6 mg/dL Not Available [facility] [address] [facility] [address] [place], [address], 08/03/2020 18:25:24 08/03/20 20 08/03/2020 micro album in, urine AC ratio 44.27 calc <30.00 high REFER ENCE INTER VALS: The Ameri can [employer] i[employer] n defin ition of moder ately incre ased urine album in urine spot colle ction (mcg/ mg creat inine ) Debbie l is <30, Moder ately incre ased is 30-22 9, Clini darryl album inuri a is >= 300. For diagn ostic purpo ses resul ts shoul d alway s be asses sed in conju ction with the patie nt's medic al histo ry, clini darryl exami natio n and other findi ngs. Not Available [facility] [address], [place], [address], 08/03/2020 18:25:24 08/03/20 20 08/03/2020 venip unctu re results Compl ete Not Available [facility] [address], [place], [address], 08/03/2020 08:35:40 08/17/20 20 08/17/2020 bone densi ty No observ ation record ed. [email or web address] [facility] [id number] [facility], [place], [address], 08/17/2020 21:40:30 08/18/20 20 08/17/2020 MAMMO , scree yousuf, digit al, bilat eral No observ ation record ed. [email or web address] [facility] [address] [facility], [place], [address], 08/21/2020 08:53:01 Result Notes None recorded. Problems Name Problem SNOMED Code Status Onset Date Resolution Date Notes Provider Name and Address Organization Details Recorded Time Chest pain [id number] Lacy ortiz [place] - [facility], [facility] 0 10:28:17 Left upper quadrant pain 902218395 Lacy ortiz [facility], [facility] 0 10:28:17 Influenza-l irvin symptoms 956818146 Lacy ortiz [facility], [facility] 0 10:28:17 Urinary tract infectious disease 41672882 Active Willow Tindel null, [place] - [facility], [facility] 0 10:28:17 High troponin I level 359686367 Active Willow Tindel null, [place] - [facility], [facility] 0 10:28:17 Blood in urine 12225204 Active Willow Tindel [place] - [facility], [facility] 0 10:28:17 Deep venous thrombosis of lower extremity 327452863 Active Willow Tindel [place] - [facility], [facility] 0 10:28:17 Pyelonephri tis 06073495 Active Willow Tindel [place] - [facility], [facility] 0 10:28:17 Renal impairment 134819044 Active Willow Tindel [place] - [facility], [facility] 0 10:28:17 Left lower quadrant pain 847429597 Active Willow Tindel [place] - [facility], [facility] 0 08:53:27 Right flank pain 701871948 Active Willow Tindel [place] - [facility], [facility] 0 08:53:27 Nausea 622811262 Active Willow Tindel [place] - [facility], [facility] 0 08:53:27 Hypercholes terolemia 25030086 Active 2018 Willow Tindel null[place] - [facility], [facility] 0 08:53:27 Osteoarthri tis 336054335 Active 2018 Willow Tindel [place] - [facility], [facility] 0 08:53:27 Hyperglycem ia 07401398 Active 2018 Willow Tindel null[place] - [facility], [facility] 0 08:53:27 Chronic deep venous thrombosis of lower extremity 7410767965969 06 Active 2018 Willow Tindel null, [place] - [facility], [facility] 0 08:53:27 Type 2 diabetes mellitus 65393476 Active 2018 Willow Tindel null, [place] - [facility], [facility] 0 08:53:27 Obesity 354253437 Active 2018 Willow ortiz [facility], [facility] 0 08:53:27 Essential hypertensio n 04273903 Active 2018 Willow ortiz [facility], [facility] 0 08:53:27 Gastroesoph ageal reflux disease 613986052 Active 2019 Willow ortiz [facility], [facility] 0 08:53:27 Annual wellness visit Active 2019 [facility], [facility] 0 09:03:29 Problem Notes None recorded. Procedures Surgical History Date Name Laterality Status Provider Name and Address Organization Details Recorded Time 08/17/20 Mammogram Screening completed [facility] 08/21/2020 08:52:47 08/17/20 bone density scan completed [facility], [facility] 08/17/2020 16:27:50 08/10/20 20 Quality Functional Assessment completed [facility] 08/10/2020 08:57:57 08/10/20 Quality Medication Reviewed and Updated completed [facility] 08/10/2020 08:57:57 08/10/20 20 Medicare AWV Questionnaire completed [facility] 08/10/2020 09:04:52 08/10/20 20 Quality Fall Risk Assessment Low Risk completed [facility] 08/10/2020 08:57:57 08/10/20 20 Quality BMI with follow up completed [facility] 08/10/2020 08:57:57 08/10/20 20 Quality Advanced Care Planning completed [facility] 08/10/2020 08:57:57 08/10/20 20 Quality Incontinence Screening completed [facility] 08/10/2020 08:57:57 01/03/20 20 Diabetic Foot Exam completed Edilson Navas MD [address], [place], [address], [facility], [facility] 01/03/2020 10:45:25 12/17/19 20 Diabetic Foot Exam completed Edilson Navas MD [address], [place], [address], [facility], [facility] 12/17/2019 09:30:40 10/05/20 19 Colonoscopy completed Ceci Horowitz [facility] 10/22/2019 10:17:51 04/02/20 19 Date of Last Mammogram completed Paty Chan [facility] 07/20/2019 10:42:03 02/23/20 19 Diabetic Eye exam completed Edilson Navas MD [address], [place], [address], [facility], [facility] 08/17/2019 09:01:07 11/17/19 17 Colonoscopy completed Willow Song [facility] 08/17/2019 08:51:28 Cholecystectomy completed Paty Chan [facility] 07/20/2019 10:42:22 Hysterectomy completed Paty Rocio [facility] 07/20/2019 10:42:22 Imaging Results None recorded. Procedure Notes None recorded. Medical Equipment None Reported. Allergies No known drug allergies Medications Name Sig Start Date Stop Date Status Note LastModified by Organization Details LastModified Time amoxicillin 500 mg capsule TAKE 1 CAPSULE BY MOUTH EVERY 8 HOURS 08/16 completed Not Available Not Available Not Available furosemide 40 mg tablet Take 1 tablet(s) every day by oral route. 2020 active Not Available Not Available Not Avai lable methocarbam ol 500 mg tablet one tab bid 08/10 completed Not Available Not Available Not Available metformin 500 mg tablet TAKE ONE TABLET BY MOUTH TWICE A DAY 2019 active Not Available Not Available Not Avai lable atorvastati n 20 mg tablet TAKE ONE TABLET BY MOUTH ONE TIME DAILY 10/22 completed Not Available Not Available Not Available polyethylen e glycol 3350 17 gram oral powder packet 08/17 completed Not Available Not Available Not Available atorvastati n 10 mg tablet Take 1 tablet every day by oral route. 2019 active Not Available Not Available Not Avai lable aspirin 325 mg tablet 09/09 completed Not Available Not Available Not Available promethazin e 12.5 mg tablet 03/08 completed Not Available Not Available Not Available lisinopril 20 mg tablet Take 1 tablet every day by oral route. 2019 active Not Available Not Available Not Avai lable atenolol 25 mg tablet Take 1 tablet every day by oral route for 90 days. 10/22 completed Not Available Not Available Not Available Plavix 75 mg tablet Take 1 tablet every day by oral route. 2019 active Not Available Not Available Not Avai lable aspirin 81 mg tablet,mitchell yed release Take 1 tablet every day by oral route. 2017 active Not Available Not Available Not Avai lable tramadol 50 mg tablet 08/16 completed Not Available Not Available Not Available famotidine 20 mg tablet Take 1 tablet every day by oral route. 2019 active Not Available Not Available Not Avai lable tamsulosin 0.4 mg capsule 09/09 completed Not Available Not Available Not Available cephalexin 500 mg capsule 08/11 completed Not Available Not Available Not Available Cipro 500 mg tablet Take 1 tablet every 12 hours by oral route for 10 days. 09/11 completed Not Available Not Available Not Available lisinopril 10 mg tablet Take 1 tablet twice a day by oral route. active Not Available Not Available No t Available omeprazole 20 mg capsule,del ayed release Take 1 capsule by mouth once daily 2020 active Not Available Not Available Not Avai lable aspirin 81 mg chewable tablet 07/19 completed Not Available Not Available Not Available pravastatin 20 mg tablet 08/16 completed Not Available Not Available Not Available Levaquin 500 mg tablet Take 1 tablet every 24 hours by oral route. 02/08 completed Not Available Not Available Not Available cefuroxime axetil 500 mg tablet 09/09 completed Not Available Not Available Not Available estradiol 0.01% (0.1 mg/gram) vaginal cream INSERT 1 GRAM BY VAGINAL ROUTE 3 TIME PER WEEK active Not Available Not Available No t Available Naprosyn 500 mg tablet one tab bid prn 12/17 completed Not Available Not Available Not Available cefdinir 300 mg capsule 08/11 completed Not Available Not Available Not Available fluticasone propionate 50 mcg/actuati on nasal spray,suspe nsion 09/09 completed Not Available Not Available Not Available amoxicillin 500 mg-potassiu m clavulanate 125 mg tablet 08/16 completed Not Available Not Available Not Available cholestyram ine (with sugar) 4 gram powder for susp in a packet 10/22 completed Not Available Not Available Not Available Saccharomyc es boulardii 250 mg capsule 09/09 completed Not Available Not Available Not Available nitrofurant oin monohydrate /macrocryst als 100 mg capsule 08/16 completed Not Available Not Available Not Available Suprep Bowel Prep Kit 17.5 gram-3.13 gram-1.6 gram oral solution USE DIRECTED 10/22 completed Not Available Not Available Not Available rivaroxaban 10 mg tablet 07/14 completed Not Available Not Available Not Available Brilinta 90 mg tablet TK 1 T PO BID 10/22 completed Not Available Not Available Not Available Contour Next Test Strips USE 1 STRIP TO CHECK GLUCOSE ONCE DAILY 2019 active Not Available Not Available Not Avai lable Fluad 2018- 65yr up(PF)45 mcg(15 mcgx3)/0.5 mL intramuscul ar syringe INJECT 0.5ML INTRAMUSC ULARLY ONCE 10/22 completed Not Available Not Available Not Available Vitals Date Recorded Body height Body mass index (BMI) Body weight Body temperature Heart rate Respiratory rate Oxygen saturation Systolic And Diastolic Provider Name and Address Organization Details Last Updated DateTime 0 157.48 cm 39.5 kg/m2 26395.9 5 g 98.5 [degF] 94 /min 16 /min 99 % 143/80 mm[Hg] Willow RODRIGUEZ - [facility], [facility] 0 09:21:10 Date Recorded Body height Body mass index (BMI) Body weight Body temperature Heart rate Respiratory rate Oxygen saturation Systolic And Diastolic Provider Name and Address Organization Details Last Updated DateTime 0 157.48 cm 39.3 kg/m2 46633.3 6 g 98.4 [degF] 76 /min 16 /min 97 % 156/90 mm[Hg] Willow Song [facility], [facility] 0 10:27:54 Date Recorded Body height Body mass index (BMI) Body weight Body temperature Heart rate Respiratory rate Oxygen saturation Systolic And Diastolic Systolic And Diastolic Provider Name and Address Organization Details Last Updated DateTime 0 157.48 cm 40.1 kg/m2 70677.7 3 g 97.2 [degF] 71 /min 16 /min 97 % 174/91 mm[Hg] 180/95 mm[Hg] Gloria Lockett [facility], [facility] 0 11:58:30 Date Recorded Systolic And Diastolic Provider Name and Address Organization Details Last Updated DateTime 08/10/2020 140/83 mm[Hg] Edilson Navas MD [address], [address], [facility] 08/10/2020 09:18:29 Date Recorded Body height Body mass index (BMI) Body weight Body temperature Respiratory rate Oxygen saturation Heart rate Provider Name and Address Organization Details Last Updated DateTime 0 157.48 cm 39.1 kg/m2 85287.7 7 g 97.7 [degF] 16 /min 98 % 89 /min Willow Song [facility], [facility] 0 09:00:29 Social History Question Answer Notes LastModified by Organizat ion Details LastModified Time Tobacco Smoking Status Never Smoker Paty ortiz, [facility], [facility] 07/20/2019 10:42:40 Do You Have An Advance Directive? Yes Information not available 12/17/2019 What Is Your Level Of Caffeine Consumption? Occasional Information not available 12/17/2019 How Much Tobacco Do You Chew? None Information not available 12/17/2019 What Type Of Diet Are You Following? REGULAR Information not available 12/17/2019 Alcohol Use No Information not available 07/20/2019 Marital Status Informati on not available 07/20/2019 What Was The Date Of Your Most Recent Tobacco Screening? 08/10/2020 Information not available 08/10/2020 Are You Sexually Active? No Information not available 12/17/2019 Sex: Unknown Functional Status Question Answer Note LastModified by Organizat ion Details LastModified Time What is your level of alcohol consumption? Occasional Information not available 12/17/2019 Do you or have you ever used smokeless tobacco? Never used smokeless tobacco Information not available 12/17/2019 Do you or have you ever used e-cigarettes or vape? Never used electronic cigarettes Information not available 12/17/2019 What is your exercise level? Moderate Information not available 07/20/2019 Mental Status None recorded. Family History Relationship Description Onset Age of this Age Resolved Age Notes LastModified by Organization Details LastModified Time Father Heart disease [email or web address] Not available 01/2019 10:41:58 Mother Diabetes mellitus [email or web address] Not available 01/2019 10:41:58 Mother Heart disease [email or web address] Not available 01/2019 10:41:58 Mother Hypertensive disorder [email or web address] Not available 01/2019 10:41:58 Brother Hypertensive disorder [email or web address] Not available 01/2019 10:41:58 Brother Heart disease [email or web address] Not available 01/2019 10:41:58 Medical History Condition Response Cancer (location) N Other N Gout N Thyroid Disease N Kidney Stones N Measles/Mumps N Emphysema/COPD N Sexually Transmitted Disease N Depression N Prostate Problems N Vascular Disease N Rash/Skin Condition N Amputation (location) N Parkinson's N Paralysis N Headaches/Migraines N Cardiac Pacemaker/defibrillator N Nerve Damage / Neuropathy N Arthritis N Sleep disorder/Insomnia N Infertility N Heart disease / Heart Attack N Crohn's Disease N HIV/AIDS N Stroke/TIA N Colon Problems N High Cholesterol N Serious Injuries N Kidney Disease N Memory Loss/Alzheimer's N Gallbladder disease N High blood pressure Y Congestive heart failure N Falls N Alcohol Overuse N Blood Thinner Treatment Y Hormone Replacement N Nervous Breakdown N Gallegos's Esophagus N Anemia N Urinary Problems N Colon Polyps N Gastritis N Hospitalizations (other than operations) N Back pain Y Diabetes N Rheumatic Fever N Bleeding Disorder N Cardiac Arrhythmias /irregular heart rat e N Osteopenia/Osteoporosis N Anxiety/Stress N Asthma N Vision Problems N Erectile / Sexual Dysfunction N Ostomies (location) N Seizures N Jaundice N Sleep Apnea N Hepatitis N Past Reacton to Contrast Media N Cirrhosis N GERD/Ulcer N Chicken Pox N Allergies (other than meds) N Gynecological History Statement/Question Response Menses Monthly N STIs/STDs N Date of Last Mammogram 04/02/2019 Obstetrics History GPAL:G 0 P 0 0 0 0 Immunizations Vaccine Type Date Status Note Provider Nam e and Address Organization Details Recorded Time Influenza, adjuvanted, trivalent, PF 9 [facility] 10:28:23 pneumococcal polysaccharide PPV23 6 completed [facility] 08/10/2020 08:53:41 Influenza, split virus, quadrivalent, preservative 0 [facility] 08:53:41 Influenza, split virus, quadrivalent, PF 0 [facility] 08:53:41 Pneumococcal conjugate PCV 13 0 [facility] 16:17:22 Past Encounters Encounter ID Performer Location Encounter Start Date Encounter Closed Date Diagnosis/Indication Diagnosis SNOMED-CT Code Diagnosis ICD10 Code Diagnosis IMO Codes Diagnosis Note [id number] Trinh Arguello APRN [facility] [address] [place] [address] 07/20/2019 09:48:24 07/20/2019 11:22:59 Body mass index 30+ - obesity 173097743 Z68.39 weight issues discussed and informatio n on weight loss given. Needs follow up on weight control as scheduled. Education handout on diets given. Exercise counseling done. Will arrange referral for dietitian, nutritioni st, Physical/o ccupationa l therapy as needed or desired. Also will consider pharmaceut ical and supplement al interventi ons Obesity 243650199 E66.9 Z68.39 see BMI above for details Diet education 23754935 Z71.3 as above Acute sinusitis 73742400 J01.90 new problemacu te,-Mucine x/robituss in for cough and congestion -Tylenol as needed for fever and aches and pains -Nasal saline rinse as needed -Increase rest and fluid intake Left flank pain 51227512 9 R10.9 new problem-pu sh fluids-rep ort persistanc e or worsening of left flank pain [id number] Edilson Navas MD [facility] [address] [place] [address] 08/17/2019 08:33:21 08/17/2019 09:15:16 Body mass index 30+ - obesity 334843652 Z68.39 weight issues discussed and informatio n on weight loss given. Needs follow up on weight control as scheduled. Education handout on diets given. Exercise counseling done. Will arrange referral for dietitian, nutritioni st, Physical/o ccupationa l therapy as needed or desired. Also will consider pharmaceut ical and supplement al interventi ons Obesity 854636267 E66.9 see BMI above for details Diet education 28035163 Z71.3 as above Hypercholesterolemia 136 06923 E78.00 Patient advised to avoid any diet or supplement s that will increase blood sugar or cholestero l levels Type 2 cisco betes mellitus 68297594 E11.9 Instructio ns for diabetes maintenanc e: Patient advised to continue diabetic diet and exerciseCo ntinue to check blood sugar levels dailyAnnua l foot examinatio nDiabetic eye care In examcritical access hospitalo n with ophthalmol ogist Essential hypertension 71365797 I10 Patient's blood pressure is currently stable. No problems noted with current medication . PLAN: MONITOR: Check Blood Pressure on a daily basis and call for abnormal levels as instructed . EXERCISE: Regular exercises advised to patient - ideally 30 minutes 3x per week DIET: stressed the need for LOW SALT DIET [id number] Lita Hinds APRN [facility] [address] [place] [address] 10/22/2019 10:00:07 10/22/2019 10:28:30 Body mass index 40+ - severely obese 760667487 Z68.41 weight issues discussed and informatio n on weight loss given. needs follow up on weight control as scheduled. Education handout on diets given. Exercise counseling done. Morbid obesity 426364299 E66.01 see BMI above for details. Diet education 45294151 Z71.3 as above Acute abdominal pain [address] jacinto w contrast for further evaluation of hernia and acute pain. pt will have done stat as an outpatient .advised further recommenda tions based on resultsadv ised if pain becomes unbearable and or symptoms occur may go to the ED Hernia of abdominal wall 414654104 K43.6 [id number] Edilson Navas MD [facility] [address] [place] [address] 12/17/2019 09:09:24 12/17/2019 09:40:42 Essential hypertension 84206277 I10 This is a chronic condition Patient's blood pressure has been reviewed and is a STABLE CONDITION. Patient tolerating current medication . PLAN: Monitoring : Check blood pressure on a daily basis and call for abnormal levels as instructed Exercise: Regular exercises advised the patient. Ideally this should be 30 minutes 3 times a week Diet: Stressed LOW SALT diet Hypercholesterolemia 136 60869 E78.00 This condition is chronic and stable. Cholestero l is in good control LDL level: 52 Total cholestero l level: 121 Current medication : atorvastai n Patient advised to avoid any diet or supplement s that will increase blood sugar or cholestero l levels Body mass index 30+ - obesity 620777731 Z68.39 weight issues discussed and informatio n on weight loss given. Needs follow up on weight control as scheduled. Education handout on diets given. Exercise counseling done. Will arrange referral for dietitian, nutritioni st, Physical/o ccupationa l therapy as needed or desired. Also will consider pharmaceut ical and supplement al interventi ons Obesity 998903647 E66.9 see BMI above for details Diet education 68484295 Z71.3 as above Type 2 cisco betes mellitus 45777677 E11.9 This condition is chronic and stable A1c level is 6.9 Current medication s: glucophage Instructio ns for diabetes maintenanc e: Patient advised to continue diabetic diet and exerciseCo ntinue to check blood sugar levels daily Advised to call the office if blood sugar is below 90 or above 300.Annual foot examinatio nDiabetic eye care In examinatio n with ophthalmol ogist Screening for osteoporosis 379724590 Z13.820 Morbid obesity 894195637 E66.01 Osteoarthritis 885141517 M19.90 This condition is chronic and stable with current medication [id number] Edilson Navas MD [facility] [address] [place] [address] 01/03/2020 10:12:28 01/03/2020 10:48:40 Dysuria 65381955 R30.9 Urine culture requested Body mass index 30+ - obesity 377850433 Z68.39 weight issues discussed and informatio n on weight loss given. Needs follow up on weight control as scheduled. Education handout on diets given. Exercise counseling done. Will arrange referral for dietitian, nutritioni st, Physical/o ccupationa l therapy as needed or desired. Also will consider pharmaceut ical and supplement al interventi ons Obesity 967519143 E66.9 see BMI above for details Diet education 25973183 Z71.3 as above Screening for osteoporosis 142476803 Z13.820 Patient advised Urinary tr act infectious disease 64514963 N39.0 Discussed treatment options with the patient. Awaiting final culture. Sore throat 013145755 J0 2.9 Plan:Patie nt advised about increasing fluid intake Bedrest Tylenol as needed for fever or pain if no contraindi cation Stay indoors for now Can take over-the-c ounter medication s for cough is no contraindi cation and as needed Vitamin C 500 mg daily Patient advised that antibiotic should cover this condition Essential hypertension 37658943 I10 This is a chronic condition Patient's blood pressure has been reviewed and is a STABLE CONDITION. Patient tolerating current medication . PLAN: Monitoring : Check blood pressure on a daily basis and call for abnormal levels as instructed Exercise: Regular exercises advised the patient. Ideally this should be 30 minutes 3 times a week Diet: Stressed LOW SALT diet Chronic de ep venous thrombosis of lower extremity 5112236872 67107 I82.509 Stable with current medication s [id number] Edilson Navas MD [facility] [address] [place] [address] 01/18/2020 14:27:10 01/19/2020 09:04:40 Administration of pneumococcal vaccine 16595351 Z23 [id number] Kieran Burgess MD [facility] [address] [place] [address] 08/02/2020 11:35:51 08/02/2020 12:07:24 Body mass index 40+ - severely obese 675233820 Z68.41 weight issues discussed and informatio n on weight loss given. needs follow up on weight control as scheduled. Education handout on diets given. Exercise counseling done. Will arrange referral for dietitian, nutritioni st, Physical/o ccupationa l therapy as needed or desired. Also will consider pharmaceut ical and supplement al interventi ons Urinary tr act infectious disease 18838432 N39.0 Recommend to take medication as directed, Urine sent for Cx [id number] Edilson Navas MD [facility] [address] [place] [address] 08/10/2020 08:59:20 08/10/2020 09:22:48 Adult health examination 362373652 Z00.00 Annual Wellness Visit done today Essential hypertension 73945615 I10 This is a chronic condition. Patient's blood pressure has been reviewed and is a STABLE CONDITION. Patient tolerating current medication . CURRENT MEDICATION /S: Lisinopril PLAN: Monitoring : Check blood pressure on a daily basis and call for abnormal levels as instructed Exercise: Regular exercises advised the patient. Ideally this should be 30 minutes 3 times a week Diet: Stressed LOW SALT diet Type 2 cisco betes mellitus 39656723 E11.9 This condition is chronic and stable A1c level is 6.8 Current medication s: glucophage Instructio ns for diabetes maintenanc e: Patient advised to continue diabetic diet and exerciseCo ntinue to check blood sugar levels daily Advised to call the office if blood sugar is below 90 or above 300.Annual foot examinatio nDiabetic eye care In examinatio n with ophthalmol ogist Urinary tr act infectious disease 95021796 N39.0 Discussed treatment options with the patient. Awaiting final culture. Screening mammography 24 542915 Z12.31 Postmenopausal state 764 14414 Z78.0 Gastroesop hageal reflux disease 475006662 K21.9 Hypercholesterolemia 136 01857 E78.00 This condition is chronic and stable. Cholestero l is in good control LDL level: 42 Total cholestero l level: 111 Current medication : atorvastai n Patient advised to avoid any diet or supplement s that will increase blood sugar or cholestero l levels Health Concerns Section Related Observation LastModified by Organization Detai ls LastModified Time None Recorded Concern Status LastModified by Organization Details LastModified Time None Recorded Advance Directives Directive Y: Payers Insurance Date Sequence Insurance Name Policy Number Policy Ruiz Covered Member ID Ruiz Member ID Guarantor Name 07/31/2020 1 [place] Anali Manning [id number] Anali Manning 08/07/2020 2 [employer] (MEDICARE SUPPLEMENT) Anali Manning [id number] Anali Manning Notes Date Note Type Note Provider Name and Address Organization Details Recorded Time 12/17/19 20 text/htm l Diabetes Mellitus: Medications reviewed and updated. Reviewed weight, blood pressure and BMI and addressed with the patient. Laboratory results reviewed and discussed and fully explained to the patient. Noted A1c, microalbumin, lipid profile, creatinine level. Hypercholesterolemia: I have discussed the blood results with the patient and compared it with previous exam. Patient does not experience any problem like muscle pain with the medication that has been prescribed. Hypertension: Patient is currently stable with this chronic condition. I have reviewed blood pressure readings with the patient. Patient is tolerating current medication without any any side effects like nausea vomiting headache or rash. Discussed with the patient to be adherent with low-salt diet as well as regular exercises. Edilson Navas MD [address] [facility] [address], [place], [address], [facility] - [facility], [facility] 12/17/2019 09:38:34 01/03/20 20 text/htm l DysuriaReported by PatientHPIFor reason for visit, patient reportsacute complaint. For quality, patient reportsburningandpressure. For onset/timing, patient reportsabruptand3 days ago. For associated symptoms, patient reportsfrequencyandurgency. For severity, patient reportsunchanged. For duration, patient reportsconstant. Sore ThroatReported by PatientHPIFor location, patient reportsbilateral throat. For quality, patient reportsachy. For onset/timing, patient reportsabruptand1 days ago. For associated symptoms, patient reportsear painandhead congestion(cough, dizziness). For reason for visit, patient reportsacute complaint. For severity, patient reportsunchanged. For duration, patient reportsconstant. For alleviating factors, patient reportsotc medication. Edilson Navas MD [address], [place], [address], [facility] [employer] [facility] 01/03/2020 21:20:58 08/02/20 20 text/htm l Acute HPIReported by PatientHPIFor reason for visit, patient reportsacute complaint. For severity, patient reportsmild 3/10. For onset/timing, patient reports2 days ago. For duration, patient reportsconstant. For location, (bladder). For quality, (burning). For context, (hx of recurrent uti's). For aggravating factors, (none). For alleviating factors, (none). For associated symptoms, (back pain, lower abdomen discomfort. denies fever, chills, nausea, cp, sob.).ROS as noted in the HPI Kieran Burgess MD [address], [place], [address], [facility] [employer] 08/02/2020 13:15:45 08/10/20 20 text/htm l Medicare Annual Wellness VisitReported by PatientType of Medicare Wellness Visit:For visit type, patient reportssubsequent medicare annual wellness visit.HYPERTENSION: Patient is currently stable with this chronic condition. I have reviewed blood pressure readings with the patient. Patient is tolerating current medication without any any side effects like nausea vomiting headache or rash.Discussed with the patient to be adherent with low-salt diet as well as regular exercises. DIABETES MELLITUS: Medications reviewed and updated. Reviewed weight, blood pressure and BMI and addressed with the patient. Laboratory results reviewed and discussed and fully explained to the patient. Noted A1c, microalbumin, lipid profile, creatinine level. Hypercholesterolemia: I have discussed the blood results with the patient and compared it with previous exam. Patient does not experience any problem like muscle pain with the medication that has been prescribed.Urinary tract infection: Patient currently on Cipro. Discussed results with patient with regards to culture and sensitivity. Continue Cipro for 5 more days Edilson Navas MD [address] [address], [place], [address], [facility] - [facility], [facility] 08/10/2020 09:25:29 OBGyn Episode No OBEpisode recorded.
--- OUTSIDE RECORDS SUMMARY | 2025-11-10 05:59 | XMS_ITS | Patient Health Record ---
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 Name Role Phone Nate Boo Unavailable [phone] Reason For Referral No Information Medications Medication SIG (Take, Route, Frequency, Duration) Notes Start Date End Date Status atorvastatin Unknown metFORMIN Unknown famotidine Unknown multivitamin Unknown furosemide Unknown aspirin Unknown clopidogrel Unknown lisinopril Unknown Problems Problem Type SNOMED Code ICD Code Onset Dates Problem Status W/U Status Risk Notes Problem Obesity (911031761) Obesity, unspecified (E66.9) Active confirmed Problem History of hypertension (246936386) History of hypertension (Z86.79) Active confirmed Problem Type II diabetes mellitus without complication (284464466) Diabetes mellitus without complication (E11.9) Active confirmed Plan Of Treatment No Information Insurance Providers Payer Name Payer Address Payer Phone Subscriber Number Group Number Insured Name Patient Relationship to Insured Coverage Start Date Coverage End Date Medicare [address] [address] [place] [address] [id number] Anali Manning Self - patient is the insured [employer] [address] [place] [address] [phone] [id number] Anali Manning Self - patient is the insured Medications Administered Medication Instructions Date of Administration Dosage Notes Ceftriaxone [id number] mg 10/17/2019 250 mg Verified by PA-C Medical (General) History Medical History History ICD Code Obesity, unspecified E66.9 Diabetes mellitus without complication E 11.9 History of hypertension Z86.79 Surgical History Surgery Date(Month/Year) Cardiac Stent Gallbladder Surgery Gastric Bypass Hysterectomy Vaginal Kidney Surgery
--- OUTSIDE RECORDS SUMMARY | 2025-11-10 05:59 | XMS_ITS | Clinical Summary ---
Author Organization [facility] Address [address] [place] [address] Care Team Providers Care Warehouse Receiver Name Role Phone Khai Neal MD Unavailable [phone] Tyree Bauer MD PhD Unavailable + Mary Ma RN Unavailable Unavaila Marilin Arce Unavailable Unavailable Dnay Andino MD Primary Care Provider [phone] Allergies No known active allergies Medications multivitamin capsuleIndicatio ns:Vitamin Deficiency Prevention Take 1 capsule by mouth every morning Active vit C/E/Zn/coppr/lut ein/zeaxan (PRESERVISION AREDS-2 ORAL)Indications :eye supplement Take 1 tablet by mouth 2 (two) times a day Active famotidine (PEPCID) 20 mg tabletIndication s:gastroesophage al reflux disease Take 1 tablet (20 mg total) by mouth every morning Active blood glucose diagnostic (Contour Next Test Strips) stripIndications :Type 2 diabetes mellitus without complication, without long-term current use of insulin (HCC) CHECK BLOOD SUGAR ONCE DAILY 200 strip 3 Active oxymetazoline HCl (AFRIN, OXYMETAZOLINE, NASL)Indications :allergies Administer 1 spray into each nostril as needed Active aspirin 81 mg enteric coated tabletIndication s:prevention of thrombosis Take 1 tablet (81 mg total) by mouth nightly 4 Active amLODIPine (NORVASC) 10 mg tabletIndication s:Essential hypertension Take 1 tablet (10 mg total) by mouth daily 90 tablet 1 5 Active atorvastatin (LIPITOR) 10 mg tabletIndication s:Hypercholester olemia TAKE 1 TABLET(10 MG) BY MOUTH DAILY 90 tablet 1 5 Active lisinopriL (PRINIVIL,ZESTRI L) 20 mg tablet TAKE 1 TABLET(20 MG) BY MOUTH EVERY MORNING 90 tablet 1 5 Active Additional Information Patient not taking.Reported on 09/21/2025 benzonatate (TESSALON) 200 mg capsuleIndicatio ns:Acute cough Take 1 capsule (200 mg total) by mouth 3 (three) times a day as needed for cough 30 capsule 5 Active lisinopril-hydro CHLOROthiazide (ZESTORETIC) 20-12.5 mg per tabletIndication s:hypertension Take 1 tablet by mouth daily Active carvediloL (COREG) 6.25 mg tablet Take 1 tablet (6.25 mg total) by mouth 2 (two) times a day with meals Active glipiZIDE XL (GLUCOTROL XL) 2.5 mg 24 hr tabletIndication s:type 2 diabetes mellitus Take 1 tablet (2.5 mg total) by mouth daily Active isosorbide mononitrate ER (IMDUR) 30 mg 24 hr tablet Take 1 tablet (30 mg total) by mouth daily 90 tablet 3 5 09/21/20 26 Active Active Problems Problem Noted Date Diagnosed Date Primary pulmonary hypertension 03/21/2025 Rectal bleeding 12/21/2024 Acute postoperative abdominal pain 12/18/2023 Assessment & Plan (12/21/2023 9:54 AM PROCESS ARCHITECT): -Lidocaine gtt started 12/17 -Pain mgmt team following -daily lido levels for monitoring 2/3 tolerated one dose of oxycodone overnight, start multimodal regimen, stop lido infusion, pain team signed off 2/4 pain controlled, reported hallucination with oxycodone - changed to ultram - no doses administered Delirium 12/17/2023 Assessment & Plan (12/21/2023 9:54 AM PROCESS ARCHITECT): -12/16 SICU management; soft restraints placed, 5 mg IV zyprexa given for agitation -12/17: hyperactive delirium, sleep hygiene - 12/19 RESOLVED - restraints discontinued Bradycardia 12/16/2023 Assessment & Plan (12/18/2023 2:33 PM PROCESS ARCHITECT): Admitted to the SICU post-operatively due to [...] w/o ang pctrs 11/17/2023 Assessment & Plan (09/26/2025 11:21 AM PROCESS ARCHITECT): CAD with PCI in the past. No ischemic eval here. With new onset of chest pain over the past few months, exertional goes away on its own. No acute changes on her EKG today. Will continue medical management for now with adding nitrates and if she fails medical management will work up further with a PET. Continue Norvasc 10 mg daily, lisinopril, ASA, statin ( LDL in February was 55) and coreg. Rosa in 3 months, Dr. Bauer in 6. Assessment & Plan (08/27/2024 11:59 AM CDT): Stable, continuing to follow up with Cardiology. Essential (primary) hypertension 11/17/2023 Gastroesophageal reflux disease without esophagi tis 11/17/2023 History of falling 11/17/2023 ocean transportation intermediary (current) use of aspirin 11/17/2023 FPC (current) use of oral hypoglycemic matt fitch 11/17/2023 Old myocardial infarction 11/17/2023 Type 2 [...] 01/16/2023 Assessment & Plan (01/16/2023 1:00 PM PROCESS ARCHITECT): New issue, pt was seen [facility] on 01/07/23 in [place] after a fall. [...] diarrhea Assessment & Plan (11/21/2023 9:28 PM PROCESS ARCHITECT): Since last visit started on amitriptyline 10 [...] needed Assessment & Plan (10/21/2023 11:28 AM PROCESS ARCHITECT): Feels the Amitriptyline from GI has been [...] We will schedule anorectal manometry at [facility] to further evaluate the episodes of fecal incontinence I suspect previous 3 vaginal deliveries and Episiotomies may have something to do with it as well. Benign neoplasm of pancreas 05/15/2022 Cutaneous abscess of neck 02/04/2022 Assessment & [...] Wellness Visit has been performed today. Anali Manning is up to date on screening tests. [...] 03/14/2021 Assessment & Plan (11/21/2023 9:28 PM PROCESS ARCHITECT): Colonoscopy 05/2021 that showed 3 diminutive tubular [...] multiple colon polyps removed in colonoscopy in [place] she needs follow-up colonoscopy to be scheduled Elevated LFTs 03/14/2021 Assessment & Plan (05/15/2022 11:47 AM CDT): ALT was noted to be at 46 rest the liver enzymes are normal the way the liver is functioning is normal She needs vaccination for hepatitis-B and hepatitis A--either through the primary care physician's office or the [facility] Assessment & Plan (03/14/2021 5:55 PM [...] (03/14/2021): Added automatically from request for surgery [id number] Hx of adenomatous colonic polyps 03/14/2021 Overview (03/14/2021): Added automatically from request for surgery [id number] Adenoma of large intestine 03/14/2021 Elevated troponin I level 01/11/2021 Urinary tract infectious disease 01/11/2021 Pancreatic cyst 01/11/2021 Assessment & Plan (11/21/2023 9:28 PM PROCESS ARCHITECT): Stable on recent MRI 08/2023 with no [...] MRCP Assessment & Plan (01/11/2021 10:56 AM PROCESS ARCHITECT): I did refer to Gastroenterology for follow-up HTN (hypertension) 08/17/2019 Assessment & Plan (09/26/2025 11:20 AM PROCESS ARCHITECT): Controlled we made no changes. Assessment & Plan (03/01/2025 10:09 AM CDT): Patient is taking amlodipine 10 mg and tolerating medication well. Patient will continue current medication as prescribed Assessment & Plan (12/21/2023 9:56 AM PROCESS ARCHITECT): -home lisinopril 20 mg, amlodipine 10 mg held in post operative setting 2/4 home regimen resumed Assessment & Plan (10/21/2023 11:28 AM PROCESS ARCHITECT): BP stable in office, continues Lisinopril and [...] refilled. Assessment & Plan (01/11/2021 10:53 AM PROCESS ARCHITECT): She is on Lasix and lisinopril. She [...] needed. Assessment & Plan (01/11/2021 10:56 AM PROCESS ARCHITECT): She is on Lipitor 10 mg daily. [...] evaluation Assessment & Plan (01/11/2021 10:51 AM PROCESS ARCHITECT): She was diagnosed with pancreatic cyst but really does not remember much else about that. I did refer her to GI for evaluation. Type 2 diabetes mellitus 07/01/2018 Assessment & Plan (08/27/2024 12:00 PM CDT): A1c improved to 5.3 from previous 6.0. Continuing Metformin. Assessment & Plan (02/26/2024 1:08 PM CDT): Continuing Metformin, updated labs ordered. Assessment & Plan (12/21/2023 9:57 AM PROCESS ARCHITECT): Home metformin; held -SSI ordered while NPO [...] CMP. Assessment & Plan (01/11/2021 10:57 AM PROCESS ARCHITECT): I did check labs. She will continue metformin. I did encourage her to continue to monitor blood sugars. Gastrointestinal hemorrhage 06/29/2018 Assessment & Plan (01/11/2021 10:55 AM PROCESS ARCHITECT): She does have history of gastric bypass many years ago. GI hemorrhage was related to that and polyp. Coronary artery disease Assessment & Plan (12/21/2023 12:22 PM PROCESS ARCHITECT): -H/o acute CT s/p PCI x3 2018 -Home ASA 81 and lipitor; held --- OK to resume ASA 2/5 Assessment & Plan (03/14/2021 5:54 PM CDT): History of CT in the past with use of Plavix at this time which would need to be held for EGD and colonoscopy with Cardiology. Assessment & Plan (01/11/2021 10:52 AM PROCESS ARCHITECT): She is status post 3 stents and did have an CT. She is scheduled with cardiology next week. History of bilateral knee replacement Assessment & Plan (01/11/2021 10:55 AM PROCESS ARCHITECT): Currently ambulating well. She did have complication of DVT and is on Plavix and aspirin. H/O gastric bypass Assessment & Plan (03/14/2021 10:41 AM CDT): History of gastric bypass in 1978 Check a CBC as people with gastric bypass can have tendency to become anemic Assessment & Plan (01/11/2021 10:55 AM PROCESS ARCHITECT): She estimates 30 years ago. She no longer follows with the surgeon. Colon polyps Assessment & Plan (01/11/2021 10:52 AM PROCESS ARCHITECT): She has multiple polyps removed 1 and half years ago. She was scheduled for re-evaluation 1 year ago but moved. I did refer her to Gastroenterology. Right ureteral stone Resolved Problems Problem Noted Date Diagnosed Date Resolved Date Loose stools 12/21/2023 07/21/2024 Assessment & Plan (12/21/2023 12:21 PM PROCESS ARCHITECT): 12/22 c/o loose stools x2d, wbc 8, no fevers, abx: erta x1 12/15, imodium x1 for car ride home, patient to notify PCP if ongoing issues for testing Discharge planning issues 12/19/2023 Assessment & Plan (12/21/2023 10:05 AM PROCESS ARCHITECT): 12/19 PT eval: home; ADD Friday pending po advancement 12/20 independently mobilizing, ADD Thursday 12/21 possible DC later today pending PO tolerance; PT eval from 12/19 recommending wheeled walker and PT (ordered), case management updated Ventral hernia without obstr uction or gangrene 12/02/2023 02/26/2024 Assessment & Plan (12/21/2023 9:57 AM PROCESS ARCHITECT): -OR 12/15 (Bochicchio) open ventral hernia repair with mesh; removal [...] +BM, JPs serosang, vac removed, voiding independently -2/ POD6: AFVSS, low volume regular diet intake - added supplements, ongoing bowel function - added fiber, anthony intact, JPs serosang Pathology 12/15 head sawyer, removal - Mesh (gross only diagnosis) Overweight [...] 07/21/2024 Assessment & Plan (01/16/2023 1:19 PM PROCESS ARCHITECT): Flank pain Pt reports dysuria, frequency, chills, cloudy urine, possible hematuria, left lower back pain for 2 days. Pt also mentions on 01/06 she blacked out while on the commode in [place]. She woke up on the floor. She [...] urine is normal. I will refer to commercial drafter for secondary causes. Acute recurrent pansinusitis 06/06/2021 [...] evaluation as needed. BMI 36.0-36.9,adult 03/14/2021 07/21/20 Assessment & Plan (05/15/2022 11:49 AM CDT): [...] 07/21/2024 Assessment & Plan (01/11/2021 10:51 AM PROCESS ARCHITECT): She has recent history of ureteral stent with urinary tract infection. She did require stone manipulation and retrieval. She currently has no symptoms. Influenza-like symptoms 01/11/2021 09/0 02/2024 Pyelonephritis 01/11/2021 02/26/2024 Renal impairment 01/11/2021 03/01/2025 Assessment & Plan (03/01/2025 10:06 AM CDT): Patient is starting Jardiance 10mg for CKD. Patient will follow up in 6 months Assessment & Plan (01/11/2021 10:56 AM PROCESS ARCHITECT): She is uncertain of her renal status. I did check CMP. Right flank pain 01/11/2021 02/26/2024 Gastroesophageal reflux disease 03/16/2020 07/21/2024 Assessment & Plan (12/21/2023 9:54 AM PROCESS ARCHITECT): Home pepcid -IV formulation ordered while NPO -transitioned to oral once NGT removed Assessment & Plan (04/12/2021 1:40 PM CDT): Omeprazole was refilled. We did discuss trying to wean from the medication. Assessment & Plan (01/11/2021 10:54 AM PROCESS ARCHITECT): She is diabetic. She is on famotidine and omeprazole.. Will continue to monitor. Chronic deep vein thrombosis (DVT) of lower extremity 08/05/2019 12/18/2023 Assessment & Plan (12/18/2023 2:39 PM PROCESS ARCHITECT): History of provoked DVT in 2019. Home is ASA 81 for CAD Assessment & Plan (01/11/2021 10:51 AM PROCESS ARCHITECT): She is on Plavix and aspirin. She is status post bilateral knee replacement and her DVT was felt to be a complication. Hyperglycemia 08/05/2019 07/23/2023 Obesity 08/05/2019 07/21/2024 Acute deep vein thrombosis ( DVT) of distal vein of left lower extremity 01/11/2021 Assessment & Plan (01/11/2021 10:50 AM PROCESS ARCHITECT): She is on Plavix and aspirin. She will continue. Encounters Date Type Department Care Team Description 11/04/2025 1:39 PM PROCESS ARCHITECT - 11/04/2025 11:59 PM PROCESS ARCHITECT Hospital Encounter [facility] [address] [place] [address] Discharge Disposition: Discharge to home or self care 11/04/2025 Documentation [facility] Medicine Surgery [address] Advanced Medicine [address]th [place] [address] [place] [address] Essence Hinds, [facility] 11/03/2025 Telephone [facility] Medicine Surgery [address] [place] [id number] Gokul Irwin, [facility] 09/26/2025 Results Follow-Up [facility] Medicine Cardiology [address] [place] [address] Rosa Gudino NP ECG 12 lead 09/21/2025 1:00 PM PROCESS ARCHITECT Office Visit [facility] Medicine Cardiology [address] Advanced Medicine 8th [place] [address] [place] [address] Rosa Gudino NP Chest pain, unspecified type (Primary Dx); Hypertension, unspecified type; Athscl heart disease of [place] coronary artery w/o ang pctrs 08/30/2025 11:00 AM CDT Office Visit [facility] G[facility]ology at [address] [place] [address] Xiomara Khan MD Full incontinence of feces (Primary Dx); IPMN (intraductal papillary mucinous neoplasm); Alternating constipation and diarrhea; Adenoma of colon 08/30/2025 Telephone [facility] G[facility]enter[facility] at [address] [place] [address] Sneha Cantrell LPN from Last 3 Months Immunizations Immunization Administration [...] Coronary artery disease Type 2 diabetes mellitus DVT (deep vein thrombosis) in Obesity History of gastric bypass Pancreatic cyst 2017 H/O heart artery stent 2017 DVT (deep venous thrombosis) Myocardial infarction (HCC) card iac stents x [...] Not Answered Alcohol Use Standard Drinks/Week Comments Never 0 [...] on file Legal Sex Female 7:58 AM PROCESS ARCHITECT Gender Identity Female 05/21/2023 3:25 AM CDT Sexual Orientation Not on file Obstetrics History Para Term AB IAB SAB Ectopic Multiple Livin g Live Births 3 Date Outcome GA Total Labor Labor/2nd/3rd Weight Sex Type Anes PTL Nissa A1 A5 Name Clin Last Filed Vital Signs Vital Sign Reading Time Taken Comments Blood Pressure 115/60 09/21/2025 12:51 PM PROCESS ARCHITECT Pulse 67 09/21/2025 12:51 PM PROCESS ARCHITECT Temperature 36.8 C (98.3 F) 07/04/2025 8:11 AM CDT Respiratory Rate 18 07/04/2025 8:11 AM CDT Oxygen Saturation 95% 09/21/2025 12:51 PM PROCESS ARCHITECT Inhaled Oxygen Concentration - - Weight 95.4 kg (210 lb 6.4 oz) 09/21/2025 12:51 PM PROCESS ARCHITECT Height 160 cm (5' 3) 09/21/2025 12:51 PM PROCESS ARCHITECT Body Mass Index 37.27 09/21/2025 12:51 PM PROCESS ARCHITECT Plan of Treatment Health Maintenance Due Date Last Done Comments Hepatitis B Screening 1963 Foot Exam 01/25/2025 01/26/2024, 01/11/2021 Covid-19 Vaccine (2024-2 6 season) 2025 09/06/2024, 11/08/2023, 09/06/2022, Additional history exists Influenza Vaccine (#1) 2025 , 08/21/2023, 07/31/2022, Additional history exists Dilated Eye Exam 07/28/2025 07/28/2024, , 11/27/2022, Additional history exists Well Visit 65+ 08/27/2025 08/27/2024, 01/16, 02/04/2022 Hemoglobin A1C 08/31/2025 03/01/2025, 08/17, 02/26/2024, Additional history exists Colon Cancer Screening-FIT 02/07/202602/07, 06/14/2021, 10/05/2019 Colon Cancer Screening-FOBT 02/07/202601/16, 06/14/2021, 10/05/2019 Depression Screening 03/01/2026 03/01/2025, 08/27/2024, 07/21/2024, Additional history exists Fall Risk Assessment 03/01/2026 03/01/2025, 08/27/2024, 02/26/2024, Additional history exists eGFR 05/23/2026 05/23/2025, 12/2024, 12/21/2024, Additional history exists Albumin Creatinine Ratio, Urine 05/24/2026 05/24/2025, 03/01/2025, 02/26/2024, Additional history exists Osteoporosis Screening-Bone Density Scan 08/03/2026 08/03/2024, 12/05/2021 Lipid Panel 09/22/2026 09/22/2025, 02/15, 08/27/2024, Additional history exists Colon Cancer Screening-Colonoscopy 02/07/2027 02/07/2025, 06/14/2021, 10/05/2019 Colorectal Cancer Screening 02/07/2027 Colon Cancer Screening-DNA Stool 02/08/2028 02/07/2025, 06/14/2021, 10/05/2019 Colon Cancer Screening-CT Colonography 02/07/2030 02/07/2025, 06/14/2021, 10/05/2019 Colon Cancer Screening-Sigmoidoscopy 02/07/2030 02/07/2025, 06/14/2021, 10/05/2019 DTaP/Tdap/Td Vaccine (2 - Td or Tdap) 06/16/2034 06/16/2024 Pneumococcal vaccine 65+ Completed 01/18/2020, 11/2015 Hepatitis C Screening Completed 03/14/2021 Breast Cancer Screening-Mammogram Discontinued 01/27/2025, 11/24/2023, 01/20/2023, Additional history exists Zoster Vaccine Completed 04/28/2025, 02/23/2025 Medical Devices Implanted Type Area Casing Inspector Device Identifier Shelf Expiration Date Model / Serial / Lot [employer]/C R Bard [id number] Monofilament Soft Lightweight Low Profile Square - [id number] Implanted:Qty: 1 on 12/15/2023 by Trung Butler MD at [facility] Mesh N/A: Abdomen [employer] R Bard [id number] 06/13/2027 [id number] / / [id number] Other - See Comments Other - see comments Bilateral : Knee Cardiac Stent X 3 N/A: Heart Procedures Procedure Name Priority Date/Time Associated Diagnosis Comments CT BODY OUTSIDE REFERENCE Routine 11/04/2025 1:39 PM PROCESS ARCHITECT ECG 12-LEAD Routine 09/21/2025 1:14 PM PROCESS ARCHITECT Chest pain, unspecified type ALBUMIN CREATININE RATIO, URINE Routine 05/24/2025 10:57 AM CDT EGFR Routine 05/23/2025 10:57 AM CDT Chronic kidney disease (CKD) stage G3b/A1, moderately decreased glomerular filtration rate (GFR) between 30-44 mL/min/1.73 square meter and albuminuria creatinine ratio less than 30 mg/g (HCC) HEMOGLOBIN A1C Routine 03/01/2025 10:07 AM CDT Type 2 diabetes mellitus with stage 3b chronic kidney disease, without long-term current use of insulin (HCC) LIPID PANEL Routine 03/01/2025 10:07 AM CDT Type 2 diabetes mellitus with stage 3b chronic kidney disease, without long-term current use of insulin (HCC) COLONOSCOPY 02/07/2025 7:05 AM CDT SCREENING MAMMOGRAM [...] Recently Relevant to Health Maintenance Results * CT Body Outside Reference (11/04/2025 1:39 PM PROCESS ARCHITECT) Impressions [facility] - 11/04/2025 1:39 PM PROCESS ARCHITECT These images are for Reference purposes only and have not been reviewed by [facility] Radiology. There will be no report generated by a [facility] Radiologist. Narrative [facility] - 11/04/2025 1:39 PM PROCESS ARCHITECT EXAMINATION: Images For Reference Purposes Only Trung Butler MD IMG CT PROCEDURES Fi nal Result Performing Organization Address City/[facility]/ZIP Co de Phone Number [email or web address] * ECG 12 lead (09/21/2025 1:14 PM PROCESS ARCHITECT) Rosa Gudino SHUTTLE TRUCK DRIVER ECG ORDERABLES Edited Res ult - Final * Albumin Creatinine Ratio, Urine (05/24/2025 10:57 AM CDT) Albumin Ur <12.0 mg/L Comment: Interpretive Data No reference range established. Current interpretive data was last revised 2019. Creatinine Ur 96.0 mg/dL DONNIE TODD Comment: Interpretive Data No reference range established. Current interpretive data was last revised 2019. Albumin Creatinine Ratio, Ur <13 1 - 29 mg/g DONNIE TODD Urine 05/24/2025 10:5 7 AM CDT 05/24/2025 10:22 PM CDT Eugenio Willingham MD LAB URINE ORDERABLES Fin al Result [facility] [address] Department [place] [address] * (ABNORMAL) eGFR (05/23/2025 10:57 AM CDT) eGFR 38(L) >=60 mL/min/1. 73 m2 Comment: Interpretive Data [...] interpretive data was last reviewed 2021. Blood 05/23/2025 10:5 7 AM CDT 05/23/2025 6:10 PM CDT Eugenio Willingham MD LAB BLOOD ORDERABLES Fin al Result Performing Organization Address City/[facility]/RUST Co de Phone Number DONNIE TODD [address] [employer] [place] [phone] * (ABNORMAL) Hemoglobin A1c (03/01/2025 10:07 AM CDT) Hgb A1C 6.0(H) 4.0 - 5.6 % Estimated Average Glucose 126 mg/dL DONNEI TODD Comment: The ADA recommends reporting an estimated Average Glucose (eAG) with all Hemoglobin A1c results using the equation derived from a study of 507 normal and diabetic adults. Minority populations were underrepresented and children were not included. (Diabetes Care 31:8743-8755, 2008). The eAG is not equivalent to a fasting glucose. Blood 03/01/2025 10:0 7 AM CDT 03/01/2025 7:19 PM CDT Delores Chamberlain NP LAB BLOOD ORDERABLES Final Resul t Performing Organization Address City/[facility]/ZIP Co de Phone Number DONNIE TODD [id number] Department [place] [address] * (ABNORMAL) Lipid panel (03/01/2025 10:07 AM [...] NCEP Expert Panel. Circulation 2004;110:227 3. García M et al. ELMIRA Cardiol. 2020 March 17;5(5):540-548. doi: [email or web address] Current Interpretive Data was [...] BLOOD ORDERABLES Final Resul t DONNIE TODD [address] Department [place] [address] * Colonoscopy (02/07/2025 7:05 AM CDT) Anatomical Region Laterality Modality Other Narrative Procedure Note Xiomara Khan MD - 02/07/2025 7:05 AM CDT [facility] Patient Name: Anali Manning Procedure Date: 02/07/2025 7:05 AM Date of : 1945 Admit Type: Outpatient Age: 79 Gender: Female Attending MD: Xiomara Khan M.D. Room: [facility] ENDOSCOPY ROOM 3 Note Status: Finalized [...] procedure were verified by the physician, the physics tutor and the hvac technician residential in the endoscopy suite. Mental Status Examination: [...] under direct vision. The Pediatric Colonoscope [id number] was introducedthrough the anus and advanced to [...] 7:05 AM Procedure Code(s): --- Professional --- 10402, Colonoscopy, flexible; with removal of tumor(s), polyp(s), or other lesion(s) by snare technique --- Technical --- 33534, Colonoscopy, flexible; with removal of tumor(s), polyp(s), [...] congenital malformations of intestine CPT copyright 2020 [employer]. All rights reserved. The codes documented in this report are preliminary and upon rn supplemental reviewmay be revised to meet current compliance requirements. Recognized by the [place] [employer] for promoting quality [...] age 40, based on guidelines of the [place] [employer] (ACR Practice Parameter for the Performance of Screening and Diagnostic Mammography) and [place] [employer]etric[employer] Gynec[employer]. For women [...] with given history of: post-menopausal osteoporosis prevention Casing Inspector/Model: Deluux A (S/N [id number]) CLINICAL INFORMATION: Current height: 62 inches Maximum [...] Karthik Frye M.D. MF: ASHOK Report ID: [id number] Reading Location: [id number] Procedure Note Karthik Frye MD - 08/03/2024 EXAM DESCRIPTION: DEXA AXIAL SKELETON BONE DENSITY 1 OR MORE SITES REASON FOR STUDY: 79 y/o year old F with given history of: post-menopausal osteoporosis prevention Casing Inspector/Model: Deluux A (S/N [id number]) CLINICAL INFORMATION: Current height: 62 inches Maximum [...] Karthik Frye M.D. MF: ASHOK Report ID: [id number] Reading Location: [place] [address] us Delores Chamberlain SHUTTLE TRUCK DRIVER IMG DXA PROCEDURES Final Result * Diabetic Eye Exam (07/10/2023) Historical Provider HEALTH MAINTENANCE Final Result * Hepatitis C antibody (03/14/2021 11:04 AM CDT) Hep C Ab Nonreactive Nonreactive [facility] Comment: Interpretive Data Nonreactive: Antibodies to HCV [...] LAB MICROBIOLOGY - GENERAL ORDERABLES Final Result [facility] [address] Department [place] [address] from Last 3 Months or Most Recently Relevant to Health Maintenance Insurance [facility] MEDICARE ADVANTAGE MEDICARE COMMERCIAL GENERIC [facility] MEDICARE ADVANTAGE Advance Directives For more information, please contact: [phone] Documents on File Type Date Recorded Patient Numberer And Wirer Expl anation ADVANCE DIRECTIVE 12/15/2023 11:51 AM [...] 1:15 PM 06/14/2021 9:04 PM Care Teams Warehouse Receiver Relationship Specialty [place] [address] [place] [address] PCP - General Internal Medicine 08/30/25 Khai Neal MD Consulting Physician Ophthalmology 10/08/21 Tyree Bauer MD PhD Referring Physician Cardiology 07/23/23 Mary Ma, store manager Failure Coordinator 08/12/23 Marilin Rucker Primary Rn Telemetry 08/04/25
--- NOTE | 2025-11-10 06:03 | ECG_ITS ---
Test Date: 2025-11-10 06:07:28 Measurements Intervals Pearce Rate: 78 P: 48 NE: 147 QRS: -4 QRSD: 103 T: 23 QT: 374 QTc: 427 Interpretive Statements SINUS RHYTHM LEFT VENTRICULAR HYPERTROPHY BORDERLINE R WAVE PROGRESSION, ANTERIOR LEADS BASELINE ARTIFACT- I, III, AVL BORDERLINE ECG No previous ECG available for comparison Electronically Signed On 11-10-2025 08:58:43 FOUR CORNER FORMER MACHINE OPERATOR by Ramo Regalado D.O.
[2025-11-10 06:21] LABS: Hematocrit 38.7 % (37.0-47.0); Hemoglobin 12.6 g/dL (12.0-15.0); Immature Granulocyte Percent A 0.2 % (0-0.5); Lymphocytes Absolute Auto 1.09 K/mm3 (0.9-3.2); Mean Corpuscular HGB Conc 32.6 g/dl (32-36); Mean Corpuscular Hemoglobin 30.3 pg (26-34); Mean Corpuscular Volume 93.0 fl (80-100); Nucleated Red Blood Cells Absolute Auto 0.000 K/mm3 (0.0-0.012); Nucleated Red Blood Cells Perc 0.0 % (0.0-0.2); Platelet Count Result 212 k/mm3 (150-375); Red Blood Count 4.16 M/mm3 (4.2-5.4); White Blood Count 6.1 K/mm3 (4.5-10.0)
[2025-11-10 06:57] LABS: Alanine Aminotransferase 32 U/L (6-35); Albumin Level 4.2 g/dL (3.5-5.1); Alkaline Phosphatase 88 U/L (38-126); Anion Gap 7 mmol/L (4-12); Aspartate Amino Transferase 45 U/L (14-36); Bilirubin,Total 0.5 mg/dL (0.2-1.3); Blood Urea Nitrogen 24 mg/dL (7-17); Calcium 9.5 mg/dL (8.4-10.2); Carbon Dioxide 24 mmol/L (22-30); Chloride 106 mmol/L (98-107); Estimated CRCL calculation 32 ml/min; Estimated Glomerular Filt Rate 37; Glucose 108 mg/dL (65-110); Potassium 4.2 mmol/L (3.4-5.0); Sodium 137 mmol/L (137-145); Total Protein 7.4 g/dL (6.3-8.2)
--- OUTSIDE RECORDS SUMMARY | 2025-11-10 08:16 | XMS_ITS | Clinical Summary ---
Author Organization [facility] Facility Address [address] [address] Care Team Providers Care Management Nurse Rn Name Role Phone Delores Chamberlain Primary Care Provider [phone] Allergies No known active allergies Medications aspirin [...] st Contact Info) Description 12/09/2025 10:00 AM SKEIN TIER Office Visit [facility], [facility] [address] [facility] [address] [place] [address] Eugenio Willingham MD [address] [facility] [address] [place] [address] Health Maintenance Due Date Last Done Comments Hepatitis B Vaccine (1 of 3 - Risk 3-dose series) 2006 Diabetes: Ophthalmology Exam 01/05/2025 Diabetes: Pedal Pulse Checked 01/05/2025 Diabetes: Sensory Foot Exam 01/05/2025 Diabetes: Visual Foot Exam 01/05/2025 Diabetes: Hemoglobin A1C 05/31/2025 03/01/2025, 08/17 Influenza Vaccine (#1) 2025 4, 07/28/2020, 07/26/2020, Additional history exists Pneumococcal Vaccine: 50+ Years Completed 0, 11/17/2015 Insurance [facility] Medicare Advance Directives Documents on File Type Date Recorded 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
--- OUTSIDE RECORDS SUMMARY | 2025-11-10 08:16 | XMS_ITS | Clinical Summary ---
Author Organization [facility] Address [address] [place] [address] Care Team Providers Care Double Backer Name Role Phone Khai Nael MD Unavailable Tyree Bauer MD PhD Unavailable + Mary Ma RN Unavailable Unavaila Marilin Arce Unavailable Unavailable Dany Andino MD Primary Care Provider [phone] Allergies No known active allergies Medications multivitamin [...] 12/18/2023 Assessment & Plan (12/21/2023 9:54 AM SUPERVISOR PASTE PLANT): -Lidocaine gtt started 12/17 -Pain mgmt team following -daily lido levels for monitoring 2/3 tolerated one dose of oxycodone overnight, start multimodal regimen, stop lido infusion, pain team signed off 2/4 pain controlled, reported hallucination with oxycodone - changed to ultram - no doses administered Delirium 12/17/2023 Assessment & Plan (12/21/2023 9:54 AM SUPERVISOR PASTE PLANT): -12/16 SICU management; soft restraints placed, 5 mg IV zyprexa given for agitation -12/17: hyperactive delirium, sleep hygiene - 12/19 RESOLVED - restraints discontinued Bradycardia 12/16/2023 Assessment & Plan (12/18/2023 2:33 PM SUPERVISOR PASTE PLANT): Admitted to the SICU post-operatively due to [...] 11/17/2023 Assessment & Plan (09/26/2025 11:21 AM SUPERVISOR PASTE PLANT): CAD with PCI in the past. 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 She had CT brain, [...] diarrhea Assessment & Plan (11/21/2023 9:28 PM SUPERVISOR PASTE PLANT): Since last visit started on amitriptyline 10 [...] needed Assessment & Plan (10/21/2023 11:28 AM SUPERVISOR PASTE PLANT): Feels the Amitriptyline from GI has been [...] CDT): We will schedule anorectal manometry at [facility] to further evaluate the episodes of [...] 03/14/2021 Assessment & Plan (11/21/2023 9:28 PM SUPERVISOR PASTE PLANT): Colonoscopy 05/2021 that showed 3 diminutive tubular [...] multiple colon polyps removed in colonoscopy in [place] she needs follow-up colonoscopy to be scheduled Elevated LFTs 03/14/2021 Assessment & Plan (05/15/2022 11:47 AM CDT): ALT was noted to be at 46 rest the liver enzymes are normal the way the liver is functioning is normal She needs vaccination for hepatitis-B and hepatitis A--either through the primary care physician's office or the [facility] Assessment & Plan (03/14/2021 5:55 [...] (03/14/2021): Added automatically from request for surgery [id number] Hx of adenomatous colonic polyps 03/14/2021 Overview (03/14/2021): Added automatically from request for surgery [id number] Adenoma of large intestine 03/14/2021 Elevated troponin I level 01/11/2021 Urinary tract infectious disease 01/11/2021 Pancreatic cyst 01/11/2021 Assessment & Plan (11/21/2023 9:28 PM SUPERVISOR PASTE PLANT): Stable on recent MRI 08/2023 with no [...] MRCP Assessment & Plan (01/11/2021 10:56 AM SUPERVISOR PASTE PLANT): I did refer to Gastroenterology for follow-up HTN (hypertension) 08/17/2019 Assessment & Plan (09/26/2025 11:20 AM SUPERVISOR PASTE PLANT): Controlled we made no changes. Assessment & Plan (03/01/2025 10:09 AM CDT): Patient is taking amlodipine 10 mg and tolerating medication well. Patient will continue current medication as prescribed Assessment & Plan (12/21/2023 9:56 AM SUPERVISOR PASTE PLANT): -home lisinopril 20 mg, amlodipine 10 mg held in post operative setting 2/4 home regimen resumed Assessment & Plan (10/21/2023 11:28 AM SUPERVISOR PASTE PLANT): BP stable in office, continues Lisinopril and [...] refilled. Assessment & Plan (01/11/2021 10:53 AM SUPERVISOR PASTE PLANT): She is on Lasix and lisinopril. She [...] needed. Assessment & Plan (01/11/2021 10:56 AM SUPERVISOR PASTE PLANT): She is on Lipitor 10 mg daily. [...] evaluation Assessment & Plan (01/11/2021 10:51 AM SUPERVISOR PASTE PLANT): She was diagnosed with pancreatic cyst but really does not remember much else about that. I did refer her to GI for evaluation. Type 2 diabetes mellitus 07/01/2018 Assessment & Plan (08/27/2024 12:00 PM CDT): A1c improved to 5.3 from previous 6.0. Continuing Metformin. Assessment & Plan (02/26/2024 1:08 PM CDT): Continuing Metformin, updated labs ordered. Assessment & Plan (12/21/2023 9:57 AM SUPERVISOR PASTE PLANT): Home metformin; held -SSI ordered while NPO [...] CMP. Assessment & Plan (01/11/2021 10:57 AM SUPERVISOR PASTE PLANT): I did check labs. She will continue metformin. I did encourage her to continue to monitor blood sugars. Gastrointestinal hemorrhage 06/29/2018 Assessment & Plan (01/11/2021 10:55 AM SUPERVISOR PASTE PLANT): She does have history of gastric bypass many years ago. GI hemorrhage was related to that and polyp. Coronary artery disease Assessment & Plan (12/21/2023 12:22 PM SUPERVISOR PASTE PLANT): -H/o acute PR s/p PCI x3 2018 -Home ASA 81 and lipitor; held --- OK to resume ASA 2/5 Assessment & Plan (03/14/2021 5:54 PM CDT): History of PR in the past with use of Plavix at this time which would need to be held for EGD and colonoscopy with Cardiology. Assessment & Plan (01/11/2021 10:52 AM SUPERVISOR PASTE PLANT): She is status post 3 stents and did have an PR. She is scheduled with cardiology next week. History of bilateral knee replacement Assessment & Plan (01/11/2021 10:55 AM SUPERVISOR PASTE PLANT): Currently ambulating well. She did have complication of DVT and is on Plavix and aspirin. H/O gastric bypass Assessment & Plan (03/14/2021 10:41 AM CDT): History of gastric bypass in 1978 Check a CBC as people with gastric bypass can have tendency to become anemic Assessment & Plan (01/11/2021 10:55 AM SUPERVISOR PASTE PLANT): She estimates 30 years ago. She no longer follows with the surgeon. Colon polyps Assessment & Plan (01/11/2021 10:52 AM SUPERVISOR PASTE PLANT): She has multiple polyps removed 1 and half years ago. She was scheduled for re-evaluation 1 year ago but moved. I did refer her to Gastroenterology. Right ureteral stone Resolved Problems Problem Noted Date Diagnosed Date Resolved Date Loose stools 12/21/2023 07/21/2024 Assessment & Plan (12/21/2023 12:21 PM SUPERVISOR PASTE PLANT): 12/22 c/o loose stools x2d, wbc 8, no fevers, abx: erta x1 12/15, imodium x1 for car ride home, patient to notify PCP if ongoing issues for testing Discharge planning issues 12/19/2023 Assessment & Plan (12/21/2023 10:05 AM SUPERVISOR PASTE PLANT): 12/19 PT eval: home; ADD Friday pending po advancement 12/20 independently mobilizing, ADD Thursday 12/21 possible DC later today pending PO tolerance; PT eval from 12/19 recommending wheeled walker and PT (ordered), case management updated Ventral hernia without obstr uction or gangrene 12/02/2023 02/26/2024 Assessment & Plan (12/21/2023 9:57 AM SUPERVISOR PASTE PLANT): -OR 12/15 (Bochicchio) open ventral hernia repair [...] fiber, anthony intact, JPs serosang Pathology 12/15 computer project manager, removal - Mesh (gross only diagnosis) Overweight [...] 07/21/2024 Assessment & Plan (01/16/2023 1:19 PM SUPERVISOR PASTE PLANT): Flank pain Pt reports dysuria, frequency, chills, cloudy urine, possible hematuria, left lower back pain for 2 days. Pt also mentions on 01/06 she blacked out while on the commode in [place]. She woke up on the floor. [...] urine is normal. I will refer to director payer for secondary causes. Acute recurrent pansinusitis 06/06/2021 [...] 07/21/2024 Assessment & Plan (01/11/2021 10:51 AM SUPERVISOR PASTE PLANT): She has recent history of ureteral stent with urinary tract infection. She did require stone manipulation and retrieval. She currently has no symptoms. Influenza-like symptoms 01/11/2021 09/0 02/2024 Pyelonephritis 01/11/2021 02/26/2024 Renal impairment 01/11/2021 03/01/2025 Assessment & Plan (03/01/2025 10:06 AM CDT): Patient is starting Jardiance 10mg for CKD. Patient will follow up in 6 months Assessment & Plan (01/11/2021 10:56 AM SUPERVISOR PASTE PLANT): She is uncertain of her renal status. I did check CMP. Right flank pain 01/11/2021 02/26/2024 Gastroesophageal reflux disease 03/16/2020 07/21/2024 Assessment & Plan (12/21/2023 9:54 AM SUPERVISOR PASTE PLANT): Home pepcid -IV formulation ordered while NPO -transitioned to oral once NGT removed Assessment & Plan (04/12/2021 1:40 PM CDT): Omeprazole was refilled. We did discuss trying to wean from the medication. Assessment & Plan (01/11/2021 10:54 AM SUPERVISOR PASTE PLANT): She is diabetic. She is on famotidine and omeprazole.. Will continue to monitor. Chronic deep vein thrombosis (DVT) of lower extremity 08/05/2019 12/18/2023 Assessment & Plan (12/18/2023 2:39 PM SUPERVISOR PASTE PLANT): History of provoked DVT in 2019. Home is ASA 81 for CAD Assessment & Plan (01/11/2021 10:51 AM SUPERVISOR PASTE PLANT): She is on Plavix and aspirin. She is status post bilateral knee replacement and her DVT was felt to be a complication. Hyperglycemia 08/05/2019 07/23/2023 Obesity 08/05/2019 07/21/2024 Acute deep vein thrombosis ( DVT) of distal vein of left lower extremity 01/11/2021 Assessment & Plan (01/11/2021 10:50 AM SUPERVISOR PASTE PLANT): She is on Plavix and aspirin. She will continue. Encounters Date Type Department Care Team Description 11/04/2025 1:39 PM SUPERVISOR PASTE PLANT - 11/04/2025 11:59 PM SUPERVISOR PASTE PLANT Hospital Encounter [facility] [address] [place] [address] Discharge Disposition: Discharge to home or self care 11/04/2025 Documentation [facility] Medicine Surgery [address] [facility] Advanced Medicine 12th [place] [address] [place] [address] Essence Hinds, [facility] 11/03/2025 Telephone [facility] Medicine Surgery [address] [facility] [address] [place] [address] Gokul Irwin, [facility] 09/26/2025 Results Follow-Up [facility] Medicine Cardiology [address] [facility] [address] [place] [address] Rosa Gudino NP ECG 12 lead 09/21/2025 1:00 PM SUPERVISOR PASTE PLANT Office Visit [facility] Medicine Cardiology [address] [facility] Advanced Medicine 8th [place] [address] [place] [address] Rosa Gudino NP Chest pain, unspecified type (Primary Dx); Hypertension, unspecified type; Athscl heart disease of [place] coronary artery w/o ang pctrs 08/30/2025 11:00 AM CDT Office Visit [facility] Gastroenterology at [address] [place] [address] Xiomara Khan MD Full incontinence of feces (Primary Dx); IPMN (intraductal papillary mucinous neoplasm); Alternating constipation and diarrhea; Adenoma of colon 08/30/2025 Telephone [facility] Gastroenterology at [address] [place] [address] Sneha Cantrell LPN from Last [...] on file Legal Sex Female 7:58 AM SUPERVISOR PASTE PLANT Gender Identity Female 05/21/2023 3:25 AM CDT Sexual Orientation Not on file Obstetrics History Para Term AB IAB SAB Ectopic Multiple Livin g Live Births 3 Date Outcome GA Total Labor Labor/2nd/3rd Weight Sex Type Anes PTL Nissa A1 A5 Name Clin Last Filed Vital Signs Vital Sign Reading Time Taken Comments Blood Pressure 115/60 09/21/2025 12:51 PM SUPERVISOR PASTE PLANT Pulse 67 09/21/2025 12:51 PM SUPERVISOR PASTE PLANT Temperature 36.8 C (98.3 F) 07/04/2025 8:11 AM CDT Respiratory Rate 18 07/04/2025 8:11 AM CDT Oxygen Saturation 95% 09/21/2025 12:51 PM SUPERVISOR PASTE PLANT Inhaled Oxygen Concentration - - Weight 95.4 kg (210 lb 6.4 oz) 09/21/2025 12:51 PM SUPERVISOR PASTE PLANT Height 160 cm (5' 3) 09/21/2025 12:51 PM SUPERVISOR PASTE PLANT Body Mass Index 37.27 09/21/2025 12:51 PM SUPERVISOR PASTE PLANT Plan of Treatment Health Maintenance Due Date [...] 04/28/2025, 02/23/2025 Medical Devices Implanted Type Area Miner Device Identifier Shelf Expiration Date Model / Serial / Lot [employer]/C R Bard [id number] Monofilament Soft Lightweight Low Profile Square - [id number] Implanted:Qty: 1 on 12/15/2023 by Trung Butler MD at [facility] Mesh N/A: Abdomen [employer]/C R Bard [id number] 06/13/2027 [id number] / / [id number] Other - See Comments Other - see comments Bilateral : Knee Cardiac Stent X 3 N/A: Heart Procedures Procedure Name Priority Date/Time Associated Diagnosis Comments CT BODY OUTSIDE REFERENCE Routine 11/04/2025 1:39 PM SUPERVISOR PASTE PLANT ECG 12-LEAD Routine 09/21/2025 1:14 PM SUPERVISOR PASTE PLANT Chest pain, unspecified type ALBUMIN CREATININE RATIO, [...] CT Body Outside Reference (11/04/2025 1:39 PM SUPERVISOR PASTE PLANT) Impressions [facility] - 11/04/2025 1:39 PM SUPERVISOR PASTE PLANT These images are for Reference purposes only and have not been reviewed by [facility] Radiology. There will be no report generated by a [facility] Radiologist. Narrative [facility] - 11/04/2025 1:39 PM SUPERVISOR PASTE PLANT EXAMINATION: Images For Reference Purposes Only Trung Butler MD IMG CT PROCEDURES Fi nal Result Performing Organization Address City/[facility]/ZIP Co de Phone Number [facility] * ECG 12 lead (09/21/2025 1:14 PM SUPERVISOR PASTE PLANT) Rosa Gudino PRECINCT CAPTAIN ECG ORDERABLES Edited Res ult - Final [...] MD LAB URINE ORDERABLES Fin al Result [facility] [address] Department [place] [address] * (ABNORMAL) eGFR (05/23/2025 10:57 AM CDT) [...] ORDERABLES Fin al Result Performing Organization Address City/[facility] Co de Phone Number DONNIE TODD [address] [employer] [place] [phone] * (ABNORMAL) Hemoglobin A1c (03/01/2025 10:07 AM CDT) Hgb A1C 6.0(H) 4.0 - 5.6 % Estimated Average Glucose 126 mg/dL DONNIE TODD Comment: The ADA recommends reporting an estimated Average Glucose (eAG) with all Hemoglobin A1c results using the equation derived from a study of 507 normal and diabetic adults. Minority populations were underrepresented and children were not included. (Diabetes Care 31:3485-7507, 2008). The eAG is not equivalent to a fasting glucose. Blood 03/01/2025 10:0 7 AM CDT 03/01/2025 7:19 PM CDT Delores Chamberlain NP LAB BLOOD ORDERABLES Final Resul t Performing Organization Address City/[facility]/ZIP Co de Phone Number DONNIE TODD [address] Department [place] [address] * (ABNORMAL) Lipid panel (03/01/2025 10:07 AM [...] BLOOD ORDERABLES Final Resul t DONNIE TODD [address] Department [place] [address] * Colonoscopy (02/07/2025 7:05 AM CDT) Anatomical Region Laterality Modality Other Narrative Procedure Note Xiomara Khan MD - 02/07/2025 7:05 AM CDT [facility] Patient Name: Anali Manning Procedure Date: 02/07/2025 7:05 AM Date of : 1945 Admit Type: Outpatient Age: 79 Gender: Female Attending MD: Xiomara Khan M.D. Room: [facility] ENDOSCOPY ROOM 3 Note Status: Finalized [...] procedure were verified by the physician, the biology specimen technician and the all terrain vehicle technician in the endoscopy suite. Mental Status [...] under direct vision. The Pediatric Colonoscope [id number]-[id number] was introducedthrough the anus and advanced to [...] 7:05 AM Procedure Code(s): --- Professional --- 22571, Colonoscopy, flexible; with removal of tumor(s), polyp(s), or other lesion(s) by snare technique --- Technical --- 83591, Colonoscopy, flexible; with removal of tumor(s), polyp(s), [...] congenital malformations of intestine CPT copyright 2020 [employer]. All rights reserved. The codes documented in this report are preliminary and upon photography intern reviewmay be revised to meet current compliance requirements. Recognized by the [place] [employer] for promoting quality [...] age 40, based on guidelines of the [place] [employer] (ACR Practice Parameter for the Performance of Screening and Diagnostic Mammography) and [place] [employer]. For women [...] with given history of: post-menopausal osteoporosis prevention Miner/Model: [employer] A (S/N [id number]) CLINICAL INFORMATION: Current height: 62 inches Maximum [...] Karthik Frye M.D. MF: ASHOK Report ID: [id number] Reading Location: [id number] Procedure Note Karthik Frye MD - 08/03/2024 EXAM DESCRIPTION: DEXA AXIAL SKELETON BONE DENSITY 1 OR MORE SITES REASON FOR STUDY: 79 y/o year old F with given history of: post-menopausal osteoporosis prevention Miner/Model: [employer] A (S/N [id number]) CLINICAL INFORMATION: Current height: 62 inches Maximum [...] Karthik Frye M.D. MF: ASHOK Report ID: [id number] Reading Location: [place] [address] us Delores Chamberlain PRECINCT CAPTAIN IMG DXA PROCEDURES Final Result * Diabetic Eye Exam (07/10/2023) Historical Provider HEALTH MAINTENANCE Final Result * Hepatitis C antibody (03/14/2021 11:04 AM CDT) Hep C Ab Nonreactive Nonreactive [facility] Comment: Interpretive Data Nonreactive: Antibodies to [...] LAB MICROBIOLOGY - GENERAL ORDERABLES Final Result [facility] [address] [place] [address] from Last 3 Months or Most Recently Relevant to Health Maintenance Insurance [facility] MEDICARE ADVANTAGE MEDICARE [facility] Address: [address] [address] [place] [address] COMMERCIAL GENERIC [facility] MEDICARE ADVANTAGE Advance Directives For more information, please contact: [phone] Documents on File Type Date Recorded Patient Cafeteria Team Leader Expl anation ADVANCE DIRECTIVE 12/15/2023 11:51 AM [...] 1:15 PM 06/14/2021 9:04 PM Care Teams Double Backer Relationship Specialty [place] [address] [place] [address] PCP - General Internal Medicine 08/30/25 Khai Neal MD Consulting Physician Ophthalmology 10/08/21 Tyree Bauer MD PhD Referring Physician Cardiology 07/23/23 Mary Ma, mma fighter Failure Coordinator 08/12/23 Marilin Rucker Primary Certified Medical Technician 08/04/25
--- OUTSIDE RECORDS SUMMARY | 2025-11-10 08:16 | XMS_ITS | Encounter Summary ---
Author Organization [facility] Address [address] [place] [address] Phone Care Team Providers Care Boss Miner Name Role Phone Khai Neal MD Unavailable [phone] Tyree Bauer MD PhD Unavailable + Mary Ma RN Unavailable Unavaila Marilin Arce Unavailable Unavailable Dany Andino MD Primary Care Provider [phone] Encounter Details Date Type Department Care Team (Late st Contact Info) Description 09/26/2025 Results Follow-Up [facility] Medicine Cardiology [address] [facility] [address] [place] [address] Rosa Gudino, EBONY [address] [facility] [address] [place], [place] [id number] ECG 12 lead Social History Tobacco Use [...] on file Legal Sex Female 7:58 AM CORRECTIONAL AGENCY DIRECTOR Gender Identity Female 05/21/2023 3:25 AM CDT Sexual Orientation Not on file documented as of this encounter Plan of Treatment Not on file documented as of this encounter Visit Diagnoses Not on filedocumented in this encounter Care Teams Boss Miner Relationship Specialty [place] [address] [place] [address] PCP - General Internal Medicine 08/30/25 Khai Neal MD Consulting Physician Ophthalmology 10/08/21 Tyree Bauer MD PhD Referring Physician Cardiology 07/23/23 Mary Ma, shoddy mill worker Failure Coordinator 08/12/23 Marilin Rucker Primary Solar Pool Heating Installer 08/04/25 documented as of this encounter
--- OUTSIDE RECORDS SUMMARY | 2025-11-10 08:16 | XMS_ITS | Encounter Summary ---
Author Organization [facility] Address [address] [place] [address] Care Team Providers Care Weight Clerk Name Role Phone Dany Andino MD Primary Care Provider [phone] Encounter Details Date Type Department Care Team (Late st Contact Info) Description 08/23/2025 Dropboxt Message Enc [facility] Medical Group Family & Internal Medicine [facility] [id number] [place] [phone] [place] [address] [address] Pain in back Social History Tobacco Use Types Packs/Day Years Used Date Smoking Tobacco: Never Smokeless Tobacco: Never Alcohol Use Standard Drinks/Week Comments Never 0 (1 standard drink = 0.6 oz pur e alcohol) PHQ-2 Answer Date Recorded Patient Health Questionnaire-2 Score 0 07/26/2025 Comments No Sex and Gender Information Value Date Recorded Sex Assigned at Female 12/14/2024 11:51 PM RADIO DISPATCHER Legal Sex Female 3:33 PM CDT Gender Identity Female 07/26/2025 3:33 PM CDT Sexual Orientation Not on file documented as of this encounter Plan of Treatment Upcoming Encounters Date Type Department Care Team (Latest Contact Info) Description 12/14/2025 4:20 PM RADIO DISPATCHER Hospital Encounter [facility] [place] [address] [place] [address] [id number] Cordelia Stroud MD Three [facility] [address] [place] [address] 12/14/2025 4:20 PM RADIO DISPATCHER - 12/14/2025 4:40 PM RADIO DISPATCHER Surgery [facility] [place] [address] [id number] Cordelia Stroud MD Three [facility] [address] [place] [address] INJECTION EPIDURAL TRANSFORAMINAL-L3- 4, L4-5 01/09/2026 9:00 AM RADIO DISPATCHER Office Visit [facility] Medical [facility] [address] [phone] Eugenio Glover DO 3 [facility] [address] [place] [address] 01/10/2026 10:00 AM RADIO DISPATCHER Office Visit [facility] Medical [facility] Family & Internal Medicine - [address] [phone] Dany Andino MD [address] [place] [address] [place] [address] Scheduled Procedures Name Priority Associated Diagnoses Date/Ti me INJECTION EPIDURAL TRANSFORAMINAL Lumbar radiculopathy 12/14/2025 4:20 PM RADIO DISPATCHER documented as of this encounter Visit Diagnoses Not on filedocumented in this encounter Additional Health Concerns Assessment Noted Time PHQ-9 Depression Total Score: 0 07/26/20 25 3:44 PM CDT documented as of this encounter Care Teams Weight Clerk Relationship Specialty [place] [address] [address] PCP - General INTERNAL MEDICINE 07/21/25 documented as of this encounter
--- OUTSIDE RECORDS SUMMARY | 2025-11-10 08:16 | XMS_ITS | Encounter Summary ---
Author Organization [facility] Address [address] [place] [address] Care Team Providers Care Glass Worker Name Role Phone Dany Andino MD Primary Care Provider [phone] Encounter Details Date Type Department Care Team (Latest Contact Info) Description 09/28/2025 Trilliant Message Enc [facility] [place] [address] [id number] [facility] Referral Social History Tobacco Use Types Packs/Day Years Used Date Smoking Tobacco: Never Smokeless Tobacco: Never Alcohol Use Standard Drinks/Week Comments Never 0 (1 standard drink = 0.6 oz pur e alcohol) PHQ-2 Answer Date Recorded Patient Health Questionnaire-2 Score 0 07/26/2025 Comments No Sex and Gender Information Value Date Recorded Sex Assigned at Female 12/14/2024 11:51 PM ENZYME CHEMIST Legal Sex Female 3:33 PM CDT Gender Identity Female 07/26/2025 3:33 PM CDT Sexual Orientation Not on file documented as of this encounter Plan of Treatment Upcoming Encounters Date Type Department Care Team (Latest Contact Info) Description 12/14/2025 4:20 PM ENZYME CHEMIST Hospital Encounter [facility] [place] [address] [id number] Cordelia Stroud MD Three [facility] [address] [place] [address] 12/14/2025 4:20 PM ENZYME CHEMIST - 12/14/2025 4:40 PM ENZYME CHEMIST Surgery [facility] Inter[facility] [place] [address] [id number] Cordelia Stroud MD Three [facility] [address] [place] [address] INJECTION EPIDURAL TRANSFORAMINAL-L3- 4, L4-5 01/09/2026 9:00 AM ENZYME CHEMIST Office Visit [facility] [address] [phone] Eugenio Glover DO 3 [facility] [address] [place] [address] 01/10/2026 10:00 AM ENZYME CHEMIST Office Visit [facility] Medical [facility] Family & Internal Medicine - [address] [phone] [place] [address] [address] Scheduled Procedures Name Priority Associated Diagnoses Date/Ti me INJECTION EPIDURAL TRANSFORAMINAL Lumbar radiculopathy 12/14/2025 4:20 PM ENZYME CHEMIST documented as of this encounter Visit Diagnoses Not on filedocumented in this encounter Additional Health Concerns Assessment Noted Time PHQ-9 Depression Total Score: 0 07/26/20 25 3:44 PM CDT documented as of this encounter Care Teams Glass Worker Relationship Specialty [place] [phone] [facility] [address] [place] [address] PCP - General INTERNAL MEDICINE 07/21/25 documented as of this encounter
--- OUTSIDE RECORDS SUMMARY | 2025-11-10 08:16 | XMS_ITS | Encounter Summary ---
Author Organization [facility] Address [address] [place] [address] Care Team Providers Care Sand Conditioner Name Role Phone Dany Andino MD Primary Care Provider [phone] Encounter Details Date Type Department Care Team (Late st Contact Info) Description 10/17/2025 Results Follow-Up [facility] Medical Group Family & Internal Medicine [facility] [phone] [place] [phone] Emily Stanton, ALFONSO [phone] [place] [address] URINALYSIS AUTO DIP, URINE BACTERIA CULTURE [...] Sex Assigned at Female 12/14/2024 11:51 PM AIR DEFENSE ARTILLERY OFFICER Legal Sex Female 3:33 PM CDT Gender Identity Female 07/26/2025 3:33 PM CDT Sexual Orientation Not on file documented as of this encounter Plan of Treatment Upcoming Encounters Date Type Department Care Team (Latest Contact Info) Description 12/14/2025 4:20 PM AIR DEFENSE ARTILLERY OFFICER Hospital Encounter [facility] Inter[facility] [place] [address] [id number] Cordelia Stroud MD Three [facility] [address] [place] [address] 12/14/2025 4:20 PM AIR DEFENSE ARTILLERY OFFICER - 12/14/2025 4:40 PM AIR DEFENSE ARTILLERY OFFICER Surgery [facility] Inter[facility] [place] [address] [id number] Cordelia Stroud MD Three [facility] [address] [place] [address] INJECTION EPIDURAL TRANSFORAMINAL-L3- 4, L4-5 01/09/2026 9:00 AM AIR DEFENSE ARTILLERY OFFICER Office Visit [facility] Medical [facility] [address] [phone] Eugenio Glover DO 3 [facility] [address] [place] [address] 01/10/2026 10:00 AM AIR DEFENSE ARTILLERY OFFICER Office Visit [facility] Family & Internal Medicine - [address] [phone] [place] [address] [facility] [address] [place] [phone] Scheduled Procedures Name Priority Associated Diagnoses Date/Ti me INJECTION EPIDURAL TRANSFORAMINAL Lumbar radiculopathy 12/14/2025 4:20 PM AIR DEFENSE ARTILLERY OFFICER documented as of this encounter Visit Diagnoses Not on filedocumented in this encounter Additional Health Concerns Assessment Noted Time PHQ-9 Depression Total Score: 0 07/26/20 25 3:44 PM CDT documented as of this encounter Care Teams Sand Conditioner Relationship Specialty [place] [address] [address] PCP - General INTERNAL MEDICINE 07/21/25 documented as of this encounter
--- OUTSIDE RECORDS SUMMARY | 2025-11-10 08:16 | XMS_ITS | Encounter Summary ---
Author Organization [facility] Address [address] [place] [address] Care Team Providers Care Oil Paint Shader Name Role Phone Dany Andino MD Primary Care Provider [phone] Encounter Details Date Type Department Care Team (Late st Contact Info) Description 09/02/2025 SplitGigs Message Enc [facility] Medical Group Family & Internal Medicine [facility] [phone] [place] [phone] [place] [address] [address] MRI Social History Tobacco Use Types Packs/Day Years Used Date Smoking Tobacco: Never Smokeless Tobacco: Never Alcohol Use Standard Drinks/Week Comments Never 0 (1 standard drink = 0.6 oz pur e alcohol) PHQ-2 Answer Date Recorded Patient Health Questionnaire-2 Score 0 07/26/2025 Comments No Sex and Gender Information Value Date Recorded Sex Assigned at Female 12/14/2024 11:51 PM SUPPORT CLERK Legal Sex Female 3:33 PM CDT Gender [...] (Latest Contact Info) Description 12/14/2025 4:20 PM SUPPORT CLERK Hospital Encounter [facility] Inter[facility] [place] [address] [id number] Cordelia Stroud MD Three [facility] Suite [facility] [place] [address] 12/14/2025 4:20 PM SUPPORT CLERK - 12/14/2025 4:40 PM SUPPORT CLERK [facility] Interventional [place] [address] [id number] Cordelia Stroud MD Three [facility] [address] [facility] [place] [address] INJECTION EPIDURAL TRANSFORAMINAL-L3- 4, L4-5 01/09/2026 9:00 AM SUPPORT CLERK Office Visit [facility] Medical [facility] [address] [phone] Eugenio Glover DO 3 [facility] [address] [place] [address] 01/10/2026 10:00 AM SUPPORT CLERK Office Visit [facility] Medical Group Family & Internal Medicine - [address] [phone] Dany Andino MD [address] [place], [place] [address] [address] [place] [address] [phone] Scheduled Procedures Name Priority Associated Diagnoses Date/Ti me INJECTION EPIDURAL TRANSFORAMINAL Lumbar radiculopathy 12/14/2025 4:20 PM SUPPORT CLERK documented as of this encounter Visit Diagnoses Not on filedocumented in this encounter Additional Health Concerns Assessment Noted Time PHQ-9 Depression Total Score: 0 07/26/20 3:44 PM CDT documented as of this encounter Care Teams Oil Paint Shader Relationship Specialty [place] [address] [place] [address] PCP - General INTERNAL MEDICINE 07/21/25 documented as of this encounter
--- OUTSIDE RECORDS SUMMARY | 2025-11-10 08:16 | XMS_ITS | Clinical Summary ---
Author Organization [facility] Address [address] [place] [address] Care Team Providers Care Layout Designer Name Role Phone Claudia Rhoades MD Primary [...] complication, without long-term current use of insulin ([facility] HHS/HCC) TAKE 1 TABLET(2.5 MG) BY [...] complication, without long-term current use of insulin ([facility] HHS/HCC) TAKE 1 TABLET(2.5 MG) BY [...] 09/27/2025 Assessment & Plan (09/27/2025 12:22 PM STEAM TRAIN DRIVER): Under care by [facility]. Not on NSAIDs. Lumbar radiculopathy 09/02/2025 Degeneration of intervertebr al disc of lumbar region with discogenic back pain and lower extremity pain 08/25/2025 History of coronary artery stent placement 07/26 Assessment & Plan (09/27/2025 12:22 PM STEAM TRAIN DRIVER): Had 3 stent placed in 2021-under care by Cardiology in [facility] On high intensity statin and aspirin Started on isosorbide lately by the Cardio. Assessment & Plan (07/26/2025 4:40 PM CDT): Had 3 stent placed in 2021-under care by Cardiology in [facility] On high intensity statin and aspirin No chest pain recently Gastroesophageal reflux dise ase, unspecified whether esophagitis present 07/26/2025 Assessment & Plan (07/26/2025 4:40 PM CDT): Symptomatically better controlled Has been taking famotidine daily as needed Cut back spicy meals and beverages Dyslipidemia 07/26/2025 Assessment & Plan (09/27/2025 12:22 PM STEAM TRAIN DRIVER): Currently on atorvastatin 10 mg at supper LDL at goat but TG 280-control BS better. 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 11/17/2023 Presence of coronary angioplasty implant and gra ft 11/17/2023 History of falling 11/17/2023 [facility] (current) use of aspirin 11/17/2023 [facility] (current) use of oral hypoglycemic matt gs [...] (10/17/2025): Added automatically from request for surgery [id number] Hx of adenomatous colonic polyps 03/14/2021 Overview (10/17/2025): Added automatically from request for surgery [id number] Elevated troponin I level 01/11/2021 Pancreatic cyst 01/11/2021 Urinary tract infectious disease 01/11/2021 Essential (primary) hypertension 08/17/2019 Hyperlipidemia associated with type 2 diabetes m ellitus 08/05/2019 Osteoarthrosis 08/05/2019 Generalized abdominal pain 07/01/2018 Type 2 diabetes mellitus 07/01/2018 Gastrointestinal hemorrhage 06/29/2018 Encounters Date Type Department Care Team Description 11/02/2025 12:27 PM STEAM TRAIN DRIVER - 11/02/2025 11:59 PM STEAM TRAIN DRIVER Hospital Encounter [facility] Interventional [place] [address] [id number] Constantino Jones, LACQUER DIPPING MACHINE OPERATOR Discharge Disposition: Home or Self Care (Routine Discharge) 11/02/2025 Travel 10/17/2025 12:37 PM STEAM TRAIN DRIVER - 10/17/2025 11:59 PM STEAM TRAIN DRIVER Hospital Encounter [address] [phone] Emily Stanton, PA Discharge Disposition: Home or Self Care (Routine Discharge) 10/17/2025 10:40 AM STEAM TRAIN DRIVER Office Visit [facility] Family & Internal Medicine [facility] [address] [place] [phone] Emily Stanton PA UTI (Burning with urination and back pain-x3 days) 10/17/2025 Results Follow-Up [facility] Family & Internal Medicine [facility] [address] [place] [phone] Emily Stanton PA URINALYSIS AUTO DIP, URINE BACTERIA CULTURE 10/17/2025 Travel 10/10/2025 10:48 AM STEAM TRAIN DRIVER - 10/10/2025 11:59 PM STEAM TRAIN DRIVER Hospital Encounter [facility] Outpatient Rehab [address] [place] [phone] May Gaming, PT Claudia Rhoades MD Low Back Pain Discharge Disposition: Home or Self Care (Routine Discharge) 10/10/2025 Travel 10/06/2025 8:52 AM STEAM TRAIN DRIVER - 10/06/2025 11:59 PM STEAM TRAIN DRIVER Hospital Encounter [facility] [address] [place] [address] [phone] May Gaming, PT Claudia Rhoades MD Low Back Pain Discharge Disposition: Home or Self Care (Routine Discharge) 10/06/2025 Travel 10/03/2025 2:25 PM STEAM TRAIN DRIVER - 10/03/2025 11:59 PM STEAM TRAIN DRIVER Hospital Encounter [facility] [address] [place] [phone] Claudia Rhoades MD Sackett, Kim, PTA Lumbar Pain Discharge Disposition: Home or Self Care (Routine Discharge) 10/03/2025 Travel 09/28/2025 Sho Message Enc [facility] Interventional [place] [address] [phone] Sho [facility] Provider Pain Management Referral 09/27/2025 11:20 AM STEAM TRAIN DRIVER Office Visit [facility] Family & Internal [facility] [address] [place] [phone] Claudia Rhoades MD Follow Up (2 mo f/u- Back pain, discuss MRI results ) 09/27/2025 Travel 09/23/2025 2:22 PM STEAM TRAIN DRIVER - 09/23/2025 11:59 PM STEAM TRAIN DRIVER Hospital Encounter [facility] [address] [place] [phone] Claudia Rhoades MD Gerling, Savannah L, MENTAL TESTER Back Pain Discharge Disposition: Home or Self Care (Routine Discharge) 09/23/2025 Results Follow-Up [facility] Family & Internal Medicine - [place] [address] [place] [phone] Claudia Rhoades MD MRI LUMB SPINE WO CON 09/23/2025 Travel 09/22/2025 9:13 AM STEAM TRAIN DRIVER - 09/22/2025 11:59 PM STEAM TRAIN DRIVER Hospital Encounter [facility] Laboratory [address] [place] [phone] Claduia Rhoades MD Discharge Disposition: Home or Self Care (Routine Discharge) 09/22/2025 Travel 09/19/2025 8:51 AM STEAM TRAIN DRIVER - 09/19/2025 11:59 PM STEAM TRAIN DRIVER Hospital Encounter [facility] MRI [address] [place] [phone] Claudia Rhoades MD Discharge Disposition: Home or Self Care (Routine Discharge) 09/19/2025 7:54 AM STEAM TRAIN DRIVER - 09/19/2025 8:50 AM STEAM TRAIN DRIVER Hospital Encounter [facility] [address] [place] [phone] Claudia Rhoades MD Sackett, Kim, MENTAL TESTER Lumbar Stenosis (Degeneration of intervertebral disc of lumbar region) Discharge Disposition: Home or Self Care (Routine Discharge) 09/19/2025 Travel 09/16/2025 2:50 PM CDT - 09/16/2025 11:59 PM CDT Hospital Encounter [facility] [address] [place] [address] [phone] May Gaming, PT Claudia Rhoades MD Low Back Pain Discharge Disposition: Home or Self Care (Routine Discharge) 09/16/2025 Travel 09/14/2025 8:42 AM CDT - 09/14/2025 11:59 PM CDT Hospital Encounter [address] [address] Claudia Rhoades MD Discharge Disposition: Home or Self Care (Routine Discharge) 09/13/2025 12:57 PM CDT - 09/13/2025 11:59 PM CDT Hospital Encounter [facility] [address] [place] [phone] Claudia Rhoades MD Arentsen, Anita A, MENTAL TESTER Back Pain Discharge Disposition: Home or Self Care (Routine Discharge) 09/13/2025 Travel 09/08/2025 9:55 AM CDT - 09/08/2025 11:59 PM CDT Hospital Encounter [facility] [address] [place] [phone] May Gaming, PT Claudia Rhoades MD Eddy, Sandi L, MENTAL TESTER Back Pain Discharge Disposition: Home or Self Care (Routine Discharge) 09/08/2025 Travel 09/06/2025 11:15 AM CDT - 09/06/2025 11:59 PM CDT Hospital Encounter [facility] [address] [place] [phone] Claudia Rhoades MD Arentsen, Anita A, MENTAL TESTER Lumbar Pain Discharge Disposition: Home or Self Care (Routine Discharge) 09/06/2025 Travel 09/02/2025 8:07 AM CDT - 09/02/2025 11:59 PM CDT Hospital Encounter [facility] [address] [place] [phone] Agnieszka Hassan, PT Claudia Rhoades MD Back Pain Discharge Disposition: Home or Self Care (Routine Discharge) 09/02/2025 MyChart Message Enc [facility] Family [facility] [place] [address] [place] [phone] Claudia Rhoades MD MRI 09/02/2025 Travel 09/01/2025 MyChart Message Enc [facility] Family & Internal [facility] [phone] [place] [phone] Claudia Rhoades MD Pain in back and leg 08/27/2025 Scan Consumr INFO SRVCS Scanned, [facility] 08/25/2025 10:14 AM CDT - 08/25/2025 11:59 PM CDT Hospital Encounter [facility] Diagnostic Imaging [address] [place] [phone] Claudia Rhoades MD Discharge Disposition: Home or Self Care (Routine Discharge) 08/25/2025 9:00 AM CDT Office Visit [address] [phone] Claudia Rhoades MD Leg Pain (Left Leg pain- history of blood clots) 08/25/[address] [phone] Claudia Rhoades MD Orders 08/25/2025 Results Follow-Up [facility] Internal [address] [phone] Claudia Rhoades MD XR LUMB SPINE 3V, MRCP, MRI ABD WWO CON 08/24/2025 6:40 PM CDT - 08/24/2025 10:[address] [facility] Emergency Room [address] [place] [phone] Jeannette Manrique DO Medical Problem; Leg Pain (Left leg pain that radiates to the back ) Discharge Disposition: Home or Self Care (Routine Discharge) 08/24/2025 Travel 08/23/2025 Telephone [facility] Family & Internal Medicine [facility] [address] [place] [phone] Claudia Rhoades MD Leg Pain (Pt notified she needs to be seen by pcp r/t hx of blood clots. Pt v/u appt made for 08/25/2025) 08/23/2025 MyChart Message Enc [facility] Family & Internal [facility] [address] [place] [phone] Claudia Rhoades MD Pain in [...] Sex Assigned at Female 12/14/2024 11:51 PM STEAM TRAIN DRIVER Legal Sex Female 3:33 PM CDT Gender Identity Female 07/26/2025 3:33 PM CDT Sexual Orientation Not on file Last Filed Vital Signs Vital Sign Reading Time Taken Comments Blood Pressure 130/59 11/02/2025 1:11 PM STEAM TRAIN DRIVER Pulse 58 11/02/2025 1:11 PM STEAM TRAIN DRIVER Temperature 36.5 C (97.7 F) 11/02/2025 1:11 PM STEAM TRAIN DRIVER Respiratory Rate 22 11/02/2025 1:11 PM STEAM TRAIN DRIVER Oxygen Saturation 95% 11/02/2025 1:11 PM STEAM TRAIN DRIVER Inhaled Oxygen Concentration - - Weight 97.7 kg (215 lb 6.4 oz) 11/02/2025 1:11 P M STEAM TRAIN DRIVER Height 160 cm (5' 3) 11/02/2025 1:11 PM STEAM TRAIN DRIVER Body Mass Index 38.16 11/02/2025 1:11 PM STEAM TRAIN DRIVER Plan of Treatment Upcoming Encounters Date Type Department Care Team (Latest Contact Info) Description 12/14/2025 4:20 PM STEAM TRAIN DRIVER Hospital Encounter [facility] [place] [address] [id number] Cordelia Stroud MD [facility] [address] [place] [phone] 12/14/2025 4:20 PM STEAM TRAIN DRIVER - 12/14/2025 4:40 PM STEAM TRAIN DRIVER Surgery [facility] [place] [address] [phone] Cordelia Stroud MD [facility] [address] [place] [address] INJECTION EPIDURAL TRANSFORAMINAL-L3- 4, L4-5 01/09/2026 9:00 AM STEAM TRAIN DRIVER Office Visit [facility] Pul[facility] [address] [phone] Eugenio Glover DO 3 [facility] [address] [place] [phone] 01/10/2026 10:00 AM STEAM TRAIN DRIVER Office Visit [facility] Family & Internal Medicine [facility] [place] [address] [place] [address] [place] [address] [facility] [address] [place] [address] Scheduled Procedures Name Priority Associated Diagnoses Date/Ti me INJECTION EPIDURAL TRANSFORAMINAL Lumbar radiculopathy 12/14/2025 4:20 PM STEAM TRAIN DRIVER Health Maintenance Due Date Last Done Comments [...] Zoster Vaccines Completed 04/28/2025, 02/23/2025 PHQ-2 (Physician [place]) Completed 10/17/2025 Meningococcal B Vaccine Aged Out [...] URINE BACTERIA CULTURE Routine 10/17/2025 10:45 AM STEAM TRAIN DRIVER Suspected UTI URINALYSIS AUTO DIP Routine 10/17/2025 Suspected UTI ALBUMIN URINE RANDOM W/CREATININE Routine 09/22/2025 11:26 AM STEAM TRAIN DRIVER Type 2 diabetes mellitus without complication, without long-term current use of insulin ([facility] H[facility]) Primary hypertension Dyslipidemia CBC W/DIFF AUTOMATED Routine 09/22/2025 9:21 AM STEAM TRAIN DRIVER Type 2 diabetes mellitus without complication, without long-term current use of insulin ([facility] HHS/HCC) Primary hypertension Dyslipidemia HEMOGLOBIN, GLYCOSYLATED Routine 09/22/2025 9:21 AM STEAM TRAIN DRIVER Type 2 diabetes mellitus without complication, without long-term current use of insulin ([facility] HHS/HCC) Primary hypertension Dyslipidemia TSH W/REFLEX Routine 09/22/2025 9:21 AM STEAM TRAIN DRIVER Type 2 diabetes mellitus without complication, without long-term current use of insulin ([facility] HHS/HCC) Primary hypertension Dyslipidemia LIPID PANEL Routine 09/22/2025 9:21 AM STEAM TRAIN DRIVER Type 2 diabetes mellitus without complication, without long-term current use of insulin ([facility] HHS/HCC) Primary hypertension Dyslipidemia COMPREHENSIVE METABOLIC PANEL Routine 09/22/2025 9:21 AM STEAM TRAIN DRIVER Type 2 diabetes mellitus without complication, without long-term current use of insulin ([facility] HHS/HCC) Primary hypertension Dyslipidemia MRI LUMB SPINE WO CON Routine 09/19/2025 9:42 AM STEAM TRAIN DRIVER Lumbar radiculopathy MRI ABD WWO CON Routine [...] (ABNORMAL) URINE BACTERIA CULTURE (10/17/2025 10:45 AM STEAM TRAIN DRIVER) SPEC DESCRIPTION URINE CLEAN CATCH 10/17/2025 12:38 PM [facility] SPECIAL REQUESTS NO SPECIAL REQUEST 10/17/2025 12:38 PM [facility] CULTURE RESULT >100,000 COL/ML ESCHERICHIA COLI (A) 10/20/2025 7:03 AM STEAM TRAIN DRIVER [facility] URINE URINE SPECIMEN OBTAINED BY CLEAN CATCH PROCEDURE / Unknown 10/17/2025 10:45 AM STEAM TRAIN DRIVER 10/17/2025 12:41 PM STEAM TRAIN DRIVER Narrative Organism Antibiotic Method Susceptibility Escherichia coli [...] MICROBIOLOGY - GENERAL ORDER ROGELIO Final Result [facility] [address] [place] [address], [place] [phone] [facility] [address] [place] [address], [place] [phone] * (ABNORMAL) URINALYSIS AUTO DIP (10/17/2025) COLOR (U) YELLOW YELLOW [id number], [place] [employer] CLEAR CLEAR MG-[id number], [place] GLUCOSE (U) NEGATIVE NEGATIVE MG/DL [id number], [place] BILIRUBIN (U) NEGATIVE NEGATIVE MG-[address], [place] KETONES MG/DL (U) NEGATIVE NEGATIVE MG/DL MG-[id number], [place] SPECIFIC GRAVITY (U) 1.015 1.001 - 1.035 MG-[id number], [place] BLOOD (U) LARGE (Non Hemolyzed, Intact, About 250 rbc/uL)(A) NEGATIVE MG-[id number] PH 5.5 5.0 - 9.0 MG-[address], [place] PROTEIN (U) 2+ (100)(A) NEGATIVE mg/dL MG-[id number], [place] UROBILINOGEN 0.2 0.2 - 1.0 EU/dL = mg/dL MG-[id number], [place] NITRITES POSITIVE(A) NEGATIVE MG/DL MG-[address] [place] LEUKOCYTES (U) 3+ (LARGE)(A) NEGATIVE MG-[id number] [place] URINE URINE SPECIMEN OBTAINED BY CLEAN CATCH PROCEDURE / Unknown 10/17/2025 Emily HAMILTON URINE ORDERABLES Final Resul t Performing Organization Address City/[facility]/ZIP Co de Phone Number -[phone] [facility] AV[facility]ana [place] [address] [place] [address], [place] [phone] * ALBUMIN URINE RANDOM W/CREATININE (09/22/2025 11:26 AM STEAM TRAIN DRIVER) CREATININE (U) 110.0 28 - 217 MG/DL 09/22/2025 11:57 AM STEAM TRAIN DRIVER [facility] MICROALBUMIN (U) 0.6 <2.0 mg/dL 09/22/20 25 11:57 AM STEAM TRAIN DRIVER [facility] ALBUMIN/CREAT RATIO 5.5 <30.0 MG/G 09/22/2025 11:57 AM STEAM TRAIN DRIVER [facility] URINE SPECIMEN / Unknown 09/22/2025 11:26 AM STEAM TRAIN DRIVER Claudia Rhoades MD URINE ORDERABLES Final Resu lt [facility] [address] [facility] [place] [address], [place] [phone] * TSH W/REFLEX (09/22/2025 9:21 AM STEAM TRAIN DRIVER) TSH 0.957 0.358 - 3.74 uIU/ML 09/22/2025 10:11 AM STEAM TRAIN DRIVER [facility] Comment: HIGH DOSES OF BIOTIN MAY INTERFERE WITH THIS TEST RESULT. CORRELATION TO CLINICAL HISTORY AND PRESENTATION RECOMMENDED. FREE T4 NOT INDICATED 09/22/2025 9:21 AM STEAM TRAIN DRIVER Claudia Rhoades MD LABORATORY Final Resul t Performing Organization Address [facility] Co de Phone Number [facility] [address] [place] [address], [place] [phone] * (ABNORMAL) HEMOGLOBIN, GLYCOSYLATED (09/22/2025 9:21 AM STEAM TRAIN DRIVER) HGB A1C 6.2(H) <5.7 % 09/22/2025 12:10 PM STEAM TRAIN DRIVER [facility] Comment: INCREASED RISK OF DIABETES <5.7% NON-DIABETES 5.7-6.4% INCREASED RISK FOR FUTURE DIABETES > OR = 6.5 CONSISTENT WITH DIABETES STANDARDS OF MEDICAL CARE IN DIABETES-2010 DIABETES CARE, 33(SUPP 1): S1-S61,2010 ESTIMATED AVG GLUCOSE 131 mg/dL 09/22/2025 12:10 PM [facility] 09/22/2025 9:21 AM STEAM TRAIN DRIVER Claudia Rhoades MD LABORATORY Final Resul t Performing Organization Address [facility] de Phone Number [facility] [address] [place] [address], [place] [phone] * (ABNORMAL) COMPREHENSIVE METABOLIC PANEL (09/22/2025 9:21 AM STEAM TRAIN DRIVER) Only the most recent of2 resultswithin the time period is included. GLUCOSE 139(H) 70 - 99 MG/DL 09/22/2025 10:11 AM STEAM TRAIN DRIVER [facility] BUN 27(H) 7 - 18 MG/DL 09/22/2025 10:11 AM [facility] CREATININE S/P/B 1.70(H) 0.55 - 1.02 MG/DL 09/22/2025 10:11 AM [facility] SODIUM S/P/B 139 136 - 145 MMOL/L 09/22/2025 10:11 AM [facility] POTASSIUM S/P/B 4.4 3.5 - 5.1 MMOL/L 09/22/2025 10:11 AM [facility] CHLORIDE S/P/B 103 100 - 108 MMOL/L 09/22/2025 10:11 AM [facility] CO2 28.1 21 - 32 MMOL/L 09/22/2025 10:11 AM [facility] CALCIUM S/P/B 9.1 8.5 - 10.1 MG/DL 09/22/2025 10:11 AM [facility] BILIRUBIN TOTAL S/P/B 0.5 0.2 - 1.2 MG/DL 09/22/2025 10:11 AM [facility] TOTAL PROTEIN S/P/B 7.0 6.4 - 8.2 G/DL 09/22/2025 10:11 AM [facility] ALBUMIN S/P/B 3.6 3.4 - 5.0 G/DL 09/22/2025 10:11 AM [facility] AST 24 15 - 37 U/L 09/22/2025 10:11 AM [facility] ALT 33 14 - 55 U/L 09/22/2025 10:11 AM [facility] ALKALINE PHOSPHATASE S/P/B 101 50 - 136 U/L 09/22/2025 10:11 AM [facility] ANION GAP 7.9 5 - 15 MMOL/L 09/22/2025 10:11 AM [facility] BUN CREATININE RATIO 15.9 6 - 26 09/22/2025 10:11 AM [facility] A/G RATIO 1.1 1.0 - 2.0 RATIO 09/22/2025 10:11 AM [facility] GFR ESTIMATE 30(L) >90 ML/MIN/1.7 3 M2 09/22/2025 10:11 AM [facility] Comment: NOTE: eGFR is not calculated for patients <18 years of age. This is an estimated GFR calculation using the new CKD EPI creatinine equation without race and so does not require a correction factor for race. This estimated GFR should not be used for calculating drug doses. 09/22/2025 9:21 AM STEAM TRAIN DRIVER us Claudia Rhoades MD LABORATORY Final Resul t [facility] [address] [place] [address], * (ABNORMAL) LIPID PANEL (09/22/2025 9:21 AM STEAM TRAIN DRIVER) CHOLESTEROL 150 <200.0 MG/DL 09/22/2025 10:11 AM [facility] TRIGLYCERIDES 280(H) <150 MG/DL 09/22/2025 10:11 AM [facility] HDL 46 >40.0 MG/DL 09/22/2025 10:11 AM [facility] LDL (CALCULATED) 48 <100 MG/DL 09/22/2025 10:11 AM [facility] Comment:CALCULATED USING THE FRIEDEWALD EQUATION NON HDL CHOLESTEROL 104 <130 MG/DL 09/22/2025 10:11 AM [facility] CHOL/HDL RATIO 3.3 0.0 - 4.5 09/22/2025 10:11 AM [facility] VLDL CALCULATION 56(H) 5 - 55 MG/DL 09/22/2025 10:11 AM [facility] LIPID INTERPRETATION 09/22/2025 10:11 AM [facility] Comment: NIH CONCENSUS REPORT RECOMMENDATIONS: ADULT CHILD LOW RISK: CHOLESTEROL <200 <170 TRIGLYCERIDE <150 --- HDL >=60 --- LDL <100 <110 BORDERLINE: CHOLESTEROL 200-239 170-199 TRIGLYCERIDE 150-199 --- HDL 40-59 --- LDL 100-159 110-129 HIGH RISK: CHOLESTEROL >=240 >=200 TRIGLYCERIDE >=200 --- HDL <40 --- LDL >=160 >=130 09/22/2025 9:21 AM STEAM TRAIN DRIVER us Claudia Rhoades MD LABORATORY Final Resul t [facility] [address] [place] [address], [place] [phone] * (ABNORMAL) CBC W/DIFF AUTOMATED (09/22/2025 9:21 AM STEAM TRAIN DRIVER) Only the most recent of2 resultswithin the time period is included. WBC 7.08 4.4 - 11.0 x10'3/uL 09/22/2025 9:43 AM [facility] RBC 4.24(L) 4.50 - 5.10 x10'6/uL 09/22/2025 9:43 AM [facility] HGB 12.8 12.3 - 15.3 G/DL 09/22/2025 9:43 AM [facility] HCT 39.0 35.9 - 44.6 % 09/22/2025 9:43 AM [facility] MCV 92.0 80.0 - 96.0 FL 09/22/2025 9:43 AM [facility] MCH 30.2 25.3 - 30.9 PG 09/22/2025 9:43 AM [facility] MCHC 32.8 31.0 - 34.1 G/DL 09/22/2025 9:43 AM [facility] RDW 14.2 12.4 - 15.1 % 09/22/2025 9:43 AM [facility] PLT 239 151 - 353 x10'3/uL 09/22/2025 9:43 AM [facility] MPV 9.9 9.6 - 12.0 FL 09/22/2025 9:43 AM [facility] RBC MORPHOLOGY NORMAL 09/22/2025 9:43 AM [facility] PLT MORPH. NORMAL 09/22/2025 9:43 AM [facility] WBC MORPHOLOGY NORMAL 09/22/2025 9:43 AM [facility] LYMPHOCYTES % 48.0(H) 15.8 - 45.0 % 09/22/2025 9:43 AM [facility] NEUTROPHILS % 33.9(L) 42.1 - 71.9 % 09/22/2025 9:43 AM [facility] MONOCYTES % 9.7 5.7 - 12.5 % 09/22/2025 9:43 AM [facility] EOSINOPHILS 7.2(H) 0.0 - 5.6 % 09/22/2025 9:43 AM [facility] BASOPHILS 1.1 0.0 - 1.3 % 09/22/2025 9:43 AM [facility] ABS. NEUTROPHILS 2.39 1.40 - 6.00 x10'3/uL 09/22/2025 9:43 AM [facility] IMMATURE GRANS % 0.1 0.0 - 0.5 % 09/22/2025 9:43 AM [facility] ABS. LYMPHOCYTES 3.40 0.80 - 4.70 x10'3/uL 09/22/2025 9:43 AM STEAM TRAIN DRIVER [facility] 09/22/2025 9:21 AM STEAM TRAIN DRIVER Claudia Rhoades MD LABORATORY Final Resul t [facility] [address] [place] [address], * MRI LUMB SPINE WO CON (09/19/2025 9:42 AM STEAM TRAIN DRIVER) Anatomical Region Laterality Modality Spine Magnetic Resonan ce 09/23/2025 9:14 AM STEAM TRAIN DRIVER Impressions 09/23/2025 9:19 AM STEAM TRAIN DRIVER IMPRESSION: 1. Multilevel degenerative changes in the [...] 09/23/2025 9:14 AM Narrative 09/23/2025 9:19 AM STEAM TRAIN DRIVER [facility] [address] [place] [address] DATE: 09/19/2025 9:06 AM INDICATION: Low back [...] Procedure Note Stephan Triplett MD - 09/23/2025 [facility] [address] [place] [address] DATE: 09/19/2025 9:06 AM INDICATION: Low back [...] abdomen 09/14/2025 for additionaldetail. Ordered By: CLAUDIA RHAODES Interpreted By: Stephan Triplett MD, 09/23/2025 9:14 AM us Claudia Rhoades MD MRI Final Resul t * MRI ABD WWO CON (09/14/2025 10:26 AM CDT) Anatomical Region Laterality Modality Abdomen Magnetic Resonan ce 09/25/2025 6:03 AM STEAM TRAIN DRIVER Impressions 09/25/2025 6:26 AM STEAM TRAIN DRIVER IMPRESSION: 1. No significant change in main [...] 09/25/2025 6:03 AM Narrative 09/25/2025 6:26 AM STEAM TRAIN DRIVER [facility] [address] [place] [id number] MRI ABD TK BRAND, MRCP: 09/14/2025 8:47 [...] Procedure Note Evelyn Mcclendon DO - 09/25/2025 [facility] [address] [place] [address] MRI ABD TK BRAND, MRCP: 09/14/2025 8:47 [...] Abdomen Magnetic Resonan ce 09/25/2025 6:03 AM STEAM TRAIN DRIVER Impressions 09/25/2025 6:26 AM STEAM TRAIN DRIVER IMPRESSION: 1. No significant change in main [...] 09/25/2025 6:03 AM Narrative 09/25/2025 6:26 AM STEAM TRAIN DRIVER [facility] [address] [place] [address] MRI ABD WWO CON, MRCP: 09/14/2025 8:47 [...] Other: None. Procedure Note HakanEvelynDO - 09/25/2025 [facility] [address] [place] [address] MRI ABD WWO SUNDAY, MRCP: 09/14/2025 8:47 [...] 11:15 AM Narrative 08/25/2025 11:[address] AM CDT [address] [place] [address] IMAGING STUDIES: XR LUMB SPINE 3V DATE: [...] upper quadrant. Atherosclerotic aorta. Procedure Note Ebenezer Gacria MD - 08/25/2025 [facility] [address] [place] [address] IMAGING STUDIES: XR LUMB SPINE 3V DATE: [...] 9:33 PM Narrative 08/24/2025 9:41 PM CDT [facility] [address] [place] [id number] EXAMINATION: CT ABDOMEN/PELVIS WITH CONTRAST INDICATION: Left [...] Procedure Note Robinson Ballard MD - 08/24/2025 [facility] [address] [place] [phone] EXAMINATION: CT ABDOMEN/PELVIS WITH CONTRAST INDICATION: Left [...] - 500 ng{FEU}/mL 08/24/2025 8:38 PM CDT [facility] Comment: D-Dimer values less than or [...] [facility] Final Result Performing Organization Address [facility]/ZIP Co de Phone Number [facility] [address] [place] [address], [place] [phone] * MAGNESIUM (08/24/2025 8:19 PM CDT) MAGNESIUM 2.1 1.8 - 2.4 MG/DL 08/24/2025 8:40 PM CDT [facility] 08/24/2025 8:19 PM CDT Jeannette Hilaria [facility] Final Result Performing Organization Address [facility] de Phone Number [facility] [address] [place] [address], [place] [phone] * (ABNORMAL) URINALYSIS, AUTO, COMPLETE (08/24/2025 7:10 PM CDT) COLOR (U) YELLOW 08/24/2025 8:25 PM CDT [facility] TRANSPARENCY CLEAR 08/24/2025 8:25 PM CDT [facility] SPECIFIC GRAVITY (U) 1.015 1.000 - 1.030 08/24/2025 8:25 PM CDT [facility] U PH 6.0 5.0 - 9.0 08/24/2025 8:25 PM CDT [facility] LEUKOCYTES (U) 1+(A) NEGATIVE 08/24/2025 8:25 PM CDT [facility] NITRITES NEGATIVE NEGATIVE 08/24/2025 8:25 PM CDT [facility] PROTEIN RANDOM (U) NEGATIVE NEGATIVE 08/24/2025 8:25 PM CDT [facility] GLUCOSE (U) NEGATIVE NEGATIVE 08/24/2025 8:25 PM CDT [facility] KETONES MG/DL (U) NEGATIVE NEGATIVE 08/24/2025 8:25 PM CDT [facility] BILIRUBIN (U) NEGATIVE NEGATIVE 08/24/2025 8:25 PM CDT [facility] BLOOD (U) NEGATIVE NEGATIVE 08/24/2025 8:25 PM CDT [facility] WBC/HPF 0-5 0 - 5 /HPF 08/24/2025 8:25 PM CDT [facility] RBC/HPF 0-5 0 - 5 /HPF 08/24/2025 8:25 PM CDT [facility] EPI/HPF FEW /HPF 08/24/2025 8:25 PM CDT [facility] URINE SPECIMEN OBTAINED BY CLEAN CATCH PROCEDURE / Unknown 08/24/2025 7:10 PM CDT Jeannette Manrique DO URINE ORDERABLES Final Result Performing Organization Address City/State/[facility] Co de Phone Number [facility] [address] [place] [address], from Last 3 Months Additional Health Concerns Active Problems Noted Date Diagnosed Date Autogenerated Problem 11/04/2025 Insurance MEDICARE Care Teams 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
[2025-11-10 08:19] VITALS: BP 165/68; PULSE 94; RESP 20; O2SAT 97
[2025-11-10 09:01] LABS: Influenza A QL RT-PCR Positive (Negative); Influenza B QL RT-PCR Negative (Negative); RSV RNA, RT-PCR Negative (Negative); SARS-CoV-2 RNA PCR Negative (Negative)
--- NOTE | 2025-11-10 09:21 | ED_ITS ---
HPI - General Adult General Chief complaint: Shortness of Breath/Dyspnea Stated complaint: ingested chemicals 2-3 days ago Time Seen by Provider: 11/10/25 08:01 History of Present Illness HPI narrative: Patient is a 80-year-old female who presents ER with flu-like symptoms. She has been having sinus discomfort with congestion as well as sore throat and cough. She has diffuse body aches. No documented fevers. Initially started after using chemicals to clean her shower. No known sick contacts. She did get the flu shot. No alleviating factors. 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)) furosemide 40 mg tablet 09/16/20 Unknown History lisinopril 20 mg tablet 09/16/20 Unknown History metformin 500 mg tablet 1,000 mg 09/16/20 Unknown H istory multivitamin with minerals-folic tablet PO 09/16/20 U nknown History acid 0.4 mg tablet (Adult One Daily Multivitamin) Allergies Allergy/AdvReac Type Severity Reaction Status Date / Time No Known Allergies Allergy Verified 09/16/20 08:22 Review of Systems 2 Review of Systems: All systems reviewed & are unremarkable except as noted in HPI and below Constitutional: Constitutional: Reports no additional constitutional complaints ENT: Reports system reviewed and no additional complaints, except as documented Cardiovascular: Cardiovascular: Reports no additional cardiovascular complaints Respiratory: Respiratory: Reports no additional respiratory complaints PMFSH Past Medical History Medical History (Updated 11/10/25 @ 09:25 by Sathya Bolaños MD) Coronary artery disease Pyelonephritis Social History Social History Gender identity (if verbalized by the patient): Female Exam 2 Narrative: GENERAL: Well-appearing, well-nourished, and in no acute distress. HEAD: Normocephalic, atraumatic. ENT: Mucous membranes moist. NECK: Supple. CHEST: Clear to auscultation. No respiratory distress. HEART: Regular rate and rhythm. Normal peripheral pulses. EXTREMITIES: Normal range of motion. No edema. SKIN: Warm, dry, no rash. NEURO: Alert and oriented x3. PSYCH: Normal mood and affect. Course Course Emergency Course: Patient influenza positive. This is day 3 of symptoms so outside the window to start Tamiflu. Given reassurance and discussed supportive measures including hydration, Tylenol/ibuprofen, and [id number] sore throat lozenges. Vital Signs Vital signs: Vital Signs Temperature 98.6 F 11/10/25 05:58 Pulse Rate 83 11/10/25 05:58 Respiratory Rate 18 11/10/25 05:58 Blood Pressure 151/61 H 11/10/25 05:58 Pulse Oximetry 99 11/10/25 05:58 Oxygen Delivery Room Air 11/10/25 05:58 Temperature 98.6 F 11/10/25 05:58 Pulse Rate 94 11/10/25 08:19 Respiratory Rate 20 11/10/25 08:19 Blood Pressure 165/68 H 11/10/25 08:19 Pulse Oximetry 97 11/10/25 08:19 Oxygen Delivery Room Air 11/10/25 08:18 MDM Differential Diagnosis Differential Diagnosis: COVID, influenza, URI, sepsis Lab Data MDM Lab Attestation statement: I personally reviewed the patient's lab results. 11/10/25 06:14 11/10/25 06:14 Labs: Lab Results 11/10/25 11/10/25 Range/Units 06:14 08:16 WBC 6.1 (4.5-10.0) K/mm3 RBC 4.16 L (4.2-5.4) M/mm3 Hgb 12.6 (12.0-15.0) g/dL Hct 38.7 (37.0-47.0) % MCV 93.0 (80-100) fl MCH 30.3 (26-34) pg MCHC 32.6 (32-36) g/dl RDW 14.5 (11.5-14.5) % Plt Count 212 (150-375) k/mm3 MPV 10.0 (7.4-10.4) fl Immature Gran % (Auto) 0.2 (0-0.5) % Neut % (Auto) 58.7 (45.5-73.1) % Lymph % (Auto) 17.9 L (18.3-44.2) % [place] % (Auto) 14.0 H (2.6-8.5) % Eos % (Auto) 7.9 H (0-4.4) % Baso % (Auto) 1.3 H (0.2-1.2) % Lymph # (Auto) 1.09 (0.9-3.2) K/mm3 [place] # (Auto) 0.9 H (0.1-0.6) K/mm3 Eos # (Auto) 0.5 H (0-0.3) K/mm3 Baso # (Auto) 0.1 (0.0-0.1) K/mm3 Abs Immat Gran (auto) 0.01 (0.00-0.031) K/mm3 Absolute Neuts (auto) 3.6 (1.3-6.7) K/mm3 Absolute Nucleated RBC 0.000 (0.0-0.012) K/mm3 Nucleated RBC % 0.0 (0.0-0.2) % Sodium 137 (137-145) mmol/L Potassium 4.2 (3.4-5.0) mmol/L Chloride 106 (98-107) mmol/L Carbon Dioxide 24 (22-30) mmol/L Anion Gap 7 (4-12) mmol/L BUN 24 H (7-17) mg/dL Creatinine 1.38 H (0.7-1.0) mg/dL Estim Creat Clear Calc 32 ml/min Estimated GFR 37 L (59 - ) Glucose 108 (65-110) mg/dL Calcium 9.5 (8.4-10.2) mg/dL Total Bilirubin 0.5 (0.2-1.3) mg/dL AST 45 H (14-36) U/L ALT 32 (6-35) U/L Alkaline Phosphatase 88 (38-126) U/L Total Protein 7.4 (6.3-8.2) g/dL Albumin 4.2 (3.5-5.1) g/dL Influenza A (RT-PCR) Positive A (Negative) Influenza B (RT-PCR) Negative (Negative) RSV (RT-PCR) Negative (Negative) SARS-CoV-2 RNA (RT-PCR) Negative (Negative) Imaging Data Radiologist's impression: ITS Impressions Chest X-Ray 11/10/25 08:56 IMPRESSION: 1: NO ACUTE CARDIOPULMONARY DISEASE. Discharge Plan Discharge Clinical Impression: Influenza A Patient Disposition: Home Condition: Stable Instructions: Antibiotic Form, Influenza (ED) Additional Instructions: As discussed you have a viral illness (influenza). Unfortunately there are no specific medications after 48 hours we can give you to make the illness end faster. Antibiotics do not work for viral illnesses. However, you can take Acetaminophen or Ibuprofen to help with fevers and pain. Stay well hydrated and rested. Return to the emergency department if your fevers and chills continue to worse after 5 days, if you develop worsening cough with thick sputum, or are unable to stay hydrated. Contact your primary care provider in the next few days for a re-evaluation and to make sure your symptoms are improving. Patient Language: Scottish Prescriptions: No Action furosemide 40 mg tablet metformin 500 mg tablet 1,000 mg famotidine [Acid Chief Supply Chain Officer (famotidine)] 10 mg tablet 20 atorvastatin 10 mg tablet lisinopril 20 mg tablet clopidogrel 75 mg Tablet 75 mg PO DAILY aspirin 81 mg Tablet 81 mg PO DAILY Adult One Daily Multivitamin 0.4 mg Tablet PO cyclobenzaprine 5 mg tablet 5 mg PO TID PRN (Reason: muscle spasm) Qty: 20 0RF triamterene-hydrochlorothiazid [Dyazide] 37.5-25 mg capsule 1 cap PO DAILY Qty: 30 0RF Follow-up/Referrals: Cintia,Delores Metzger APRN [Primary Care Provider, Unknown] - 1 Week
== END 2025-11-10 09:33 | disposition home or self-care (01) ==
PROVIDERS: Emergency Medicine; Emergency Provider Emergency Medicine; PCP Nurse Practitioner Family
DX: J10.1 Influenza due to other identified influenza virus with other respiratory manifestations (principal); I25.10 Atherosclerotic heart disease of native coronary artery without angina pectoris; N11.9 Chronic tubulo-interstitial nephritis, unspecified; Z20.822 Contact with and (suspected) exposure to COVID-19
CPT/HCPCS: 36415; 71046; 80053; 85025; 87637; 93005; 99283